=== PATIENT | male | born 1945 | race Caucasian/White ===

== ENCOUNTER 2016-05-19 14:13 | Inpatient (IN) | payer OTHER, MEDICARE ==
[2016-05-19 14:37] VITALS: BMI 28.4
--- NOTE | 2016-05-19 14:59 | PDOC ---
History of Present Illness - History of Present Illness Initial Comments: 05/19/16 15:10 The patient is a 71 year old male with a past medical hx of HTN, afib, lung disease, s/p three cardiac stents who presents to the ED complaining of shortness of breath for one week. The patient reports his shortness of breath progressively worsened over the weekend. He states his PCP increased his Prednisone, but he is still feeling short of breath. The patient reports he is oxygen dependent at home. The patient denies chest pain The patient denies fever, chills The patient denies nausea, vomiting, diarrhea Allergies: NKDA Social: Former smoker Surgical: Appendectomy, Cardiac: 3 stents PCP: Dr. Karla Osborne <Leandra Jacob - Last Filed: 05/19/16 16:39> <Janes Vargas - Last Filed: 05/19/16 17:19> <Jay Sanchez - Last Filed: 05/19/16 18:14> - General Chief Complaint: Shortness of Breath Stated Complaint: SOB Past History <Leandra Jacob - Last Filed: 05/19/16 16:39> - Past Medical History Cardiac Disorders: Yes (NSTEMI) COPD: Yes HTN: Yes Hypercholesterolemia: Yes - Surgical History Appendectomy: Yes Cardiac Surgery: Yes (3 STENTS PLACED) - Immunization History Immunization Up to Date: Yes - Psycho/Social/Smoking Cessation Hx Anxiety: No Suicidal Ideation: No Smoking History: Former smoker Have you smoked in the past 12 months: No If you are a former smoker, when did you quit?: 30 yrs ago, after 10 pack-year hx Information on smoking cessation initiated: No Hx Alcohol Use: No Drug/Substance Use Hx: No Substance Use Type: None Hx Substance Use Treatment: No <Janes Vargas - Last Filed: 05/19/16 17:19> <Jay Sanchez - Last Filed: 05/19/16 18:14> - Past Medical History Allergies/Adverse Reactions: Allergies Allergy/AdvReac Type Severity Reaction Status Date / Time No Known Allergies Allergy Verified 05/19/16 14:33 Home Medications: Ambulatory Orders Aspirin [ASA -] 81 mg PO DAILY 02/04/16 Atorvastatin Ca [Lipitor] 40 mg PO HS 02/04/16 Lisinopril [Zestril] 2.5 mg PO DAILY 02/04/16 Metoprolol Succinate [Toprol XL -] 50 mg PO DAILY 02/04/16 Montelukast Na [Singulair -] 10 mg PO HS 02/04/16 Pantoprazole Sodium [Protonix] 40 mg PO DAILY 02/04/16 Prasugrel HCl [Effient] 5 mg PO DAILY 02/04/16 Warfarin Sodium [Coumadin] 5 mg PO DAILY 02/04/16 Mycophenolate Mofetil [Cellcept] 250 mg PO BID 05/19/16 Prednisone 15 mg PO UTDICT 05/19/16 Review of Systems - Review of Systems Able to Perform ROS?: Yes Comments:: 05/19/16 15:10 CONSTITUTIONAL: Absent: fever, chills, diaphoresis, generalized weakness, malaise, loss of appetite HEENT: Absent: rhinorrhea, nasal congestion, throat pain, throat swelling, difficulty swallowing, mouth swelling, ear pain, eye pain, visual Changes CARDIOVASCULAR: Absent: chest pain, syncope, palpitations, irregular heart rate, lightheadedness , peripheral edema RESPIRATORY: +Shortness of breath. Absent: cough, orthopnea, wheezing, stridor, hemoptysis GASTROINTESTINAL: Absent: abdominal pain, abdominal distension, nausea, vomiting, diarrhea, constipation, melena, hematochezia GENITOURINARY: Absent: dysuria, frequency, urgency, hesitancy, hematuria, flank pain, genital pain MUSCULOSKELETAL: Absent: myalgia, arthralgia, joint swelling SKIN: Absent: rash, itching, pallor NEUROLOGIC: Absent: headache, focal weakness or paresthesias, dizziness, unsteady gait, seizure, mental status changes, bladder or bowel incontinence PSYCHIATRIC: Absent: anxiety, depression, suicidal or homicidal ideation, hallucinations. <Leandra Jacob - Last Filed: 05/19/16 16:39> *Physical Exam - Vital Signs Last Vital Signs Temp Pulse Resp BP Pulse Ox 97.7 F 61 22 109/55 91 L 05/19/16 14:33 05/19/16 14:33 05/19/16 14:33 05/19/16 14:33 05/19/16 14:33 - Physical Exam Comments: 05/19/16 15:11 GENERAL: Well developed, well nourished. Awake and alert. In no acute distress. HEENT: Normocephalic, atraumatic. PERRLA, EOMI. No conjunctival pallor. Sclera are non- icteric. Moist mucous membranes. Oropharynx is clear. NECK: Supple. Full ROM. No JVD. Carotid pulses 2+ and symmetric, without bruits. No thyromegaly. No lymphadenopathy. CARDIOVASCULAR: Regular rate and rhythm. No murmurs, rubs, or gallops. Distal pulses are 2+ and symmetric. PULMONARY: +Diffuse rales. No wheezing. ABDOMINAL: Soft. Non-tender. Non-distended. No rebound or guarding. No organomegaly. Normoactive bowel sounds. MUSCULOSKELETAL Normal range of motion at all joints. No bony deformities or tenderness. No CVA tenderness. EXTREMITIES: +Bilateral lower extremity 2+ pitting edema. No cyanosis. No clubbing. No calf tenderness. SKIN: Warm and dry. Normal capillary refill. No rashes. No jaundice. NEUROLOGICAL: Alert, awake, appropriate. Cranial nerves 2-12 intact. No deficits to light touch and temperature in face, upper extremities and lower extremities. No motor deficits in the in face, upper extremities and lower extremities. Normal speech. PSYCHIATRIC: Cooperative. Good eye contact. Appropriate mood and affect. <Leandra Jacob - Last Filed: 05/19/16 16:39> - Vital Signs Last Vital Signs Temp Pulse Resp BP Pulse Ox 97.7 F 61 22 109/55 91 L 05/19/16 14:33 05/19/16 14:33 05/19/16 14:33 05/19/16 14:33 05/19/16 14:33 <Janes Vargas - Last Filed: 05/19/16 17:19> - Vital Signs Last Vital Signs Temp Pulse Resp BP Pulse Ox 97.7 F 118 H 31 H 101/63 95 05/19/16 14:33 05/19/16 17:12 05/19/16 17:12 05/19/16 17:12 05/19/16 17:12 <Jay Sanchez - Last Filed: 05/19/16 18:14> ED Treatment Course - LABORATORY CBC & Chemistry Diagram: 05/19/16 15:12 05/19/16 15:12 <Leandra Jacob - Last Filed: 05/19/16 16:39> - LABORATORY CBC & Chemistry Diagram: 05/19/16 15:12 05/19/16 15:12 <Janes Vargas - Last Filed: 05/19/16 17:19> - LABORATORY CBC & Chemistry Diagram: 05/19/16 15:12 05/19/16 15:12 - ADDITIONAL ORDERS Additional order review: Laboratory Results 05/19/16 05/19/16 05/19/16 15:40 15:12 15:12 D-Dimer 844 H Puncture Site Right radial ABG pH 7.45 ABG pCO2 at Pt Temp 33.5 L ABG pO2 at Pt Temp 81.3 ABG HCO3 23.0 ABG O2 Sat (Measured) 96.4 ABG O2 Content 17.5 ABG Base Excess 0.1 Gonzalo Test Positive O2 Delivery Device Nasal Oxygen Flow Rate 4l PEEP 0.0 Sodium 138 Potassium 4.5 Chloride 101 Carbon Dioxide 26 Anion Gap 11 BUN 37 H D Creatinine 1.6 H D Creat Clearance w eGFR 42.70 Random Glucose 140 H D Calcium 8.1 L Total Bilirubin 0.8 D AST 27 D ALT 28 D Alkaline Phosphatase 91 Creatine Kinase 44 Troponin I < 0.02 B-Natriuretic Peptide 4138.23 H Total Protein 7.0 Albumin 2.8 L 05/19/16 17:00 Influenza Types A,B Antigen (JESSICA) - Final Nasopharyngeal Swab - Final 05/19/16 15:12 RBC 4.62 MCV 86.4 MCHC 32.8 RDW 17.1 H MPV 7.5 Neutrophils % 87.0 H Lymphocytes % 5.0 L D Monocytes % 6.0 - Medications Given in the ED: ED Medications Discontinued Medications Generic Name Dose Route Start Last Admin Trade Name Freq PRN Reason Stop Dose Admin Furosemide 40 mg 05/19/16 16:32 05/19/16 17:32 Lasix Injection - IVPUSH 05/19/16 16:33 40 mg ONCE ONE Administration Azithromycin 500 mg/ Dextrose 250 mls @ 250 mls/hr 05/19/16 16:33 05/19/16 17: 04 IVPB 05/19/16 17:32 250 mls/hr ONCE ONE Administration Metoprolol Tartrate 5 mg 05/19/16 15:57 05/19/16 16:05 Lopressor Injection - IVPUSH 05/19/16 15:58 5 mg ONCE ONE Administration <Jay Sanchez - Last Filed: 05/19/16 18:14> Medical Decision Making - Medical Decision Making 05/19/16 16:35 CXR looks like CHF + pneumonia, tx with lasix and IV antibiotics. <Janes Vargas - Last Filed: 05/19/16 17:19> *DC/Admit/Observation/Transfer - Attestations Scribe Attestion: 05/19/16 15:10 Documentation prepared by Leandra Jacob, acting as medical technologist generalist for Janes Vargas MD, MD/DO. <Leandra Jacob - Last Filed: 05/19/16 16:39> - Discharge Dispostion Admit: Yes <Janes Vargas - Last Filed: 05/19/16 17:19> - Discharge Dispostion Admit: Yes <Jay Sanchez - Last Filed: 05/19/16 18:14> Diagnosis at time of Disposition: Acute on chronic combined systolic and diastolic CHF (congestive heart failure) , Interstitial lung disease Atrial fibrillation Qualifiers: Atrial fibrillation type: chronic Qualified Code(s): I48.2 - Chronic atrial fibrillation Pneumonia Qualifiers: Pneumonia type: due to unspecified organism Laterality: unspecified laterality Lung location: unspecified part of lung Qualified Code(s): J18.9 - Pneumonia, unspecified organism - Discharge Dispostion Condition at time of disposition: Guarded - Referrals Referrals: Karla Osborne MD [Primary Care Provider] -
[2016-05-19 15:53] LABS: MCH 28.3 pg (25.7-33.7); MCHC 32.8 g/dl (32.0-35.9); MEAN CELL VOLUME 86.4 fl (80-96); MEAN PLT VOLUME 7.5 fl (7.5-11.1); PLATELET COUNT 315 K/MM3 (134-434); RDW 17.1 % (11.9-15.9); WHITE BLOOD COUNT 19.7 K/mm3 (4.0-10.0)
[2016-05-19 15:56] LABS: ARTERIAL BLD GAS O2 SATURATION 96.4 % (90-98.9); ARTERIAL BLOOD GAS BASE EXCESS 0.1 meq/l (-2-2); ARTERIAL BLOOD GAS PO2 81.3 mmHg (70-100); ARTERIAL BLOOD GAS pH 7.45 (7.35-7.45)
[2016-05-19 15:57] LABS: ALLENS TEST POSITIVE; ART PUNCT SITE RIGHT RADIAL; LPM/O2% 4L; PT. ON O2? YES; TYPE OF O2 NASAL
[2016-05-19] MEDS ORDERED: METOPROLOL TARTRATE 5 MG/5 ML VIAL IVPUSH ONE (15:57)
[2016-05-19] MEDS ORDERED: METOPROLOL TARTRATE 5 MG/5 ML VIAL ONE (16:01)
[2016-05-19 16:17] LABS: ALBUMIN 2.8 g/dl (3.4-5.0); ANION GAP 11 (8-16); BILIRUBIN,TOTAL 0.8 mg/dL (0.2-1.0); CALCIUM 8.1 mg/dL (8.5-10.1); CO2 26 mmol/L (21-32); CREATININE 1.6 mg/dL (0.7-1.3); GLUCOSE,RANDOM 140 mg/dL (74-106); SGOT/AST 27 U/L (15-37); SGPT/ALT 28 U/L (12-78)
[2016-05-19 16:20] LABS: ALK PHOS 91 U/L (45-117); TROPONIN I < 0.02 ng/ml (0.00-0.05)
[2016-05-19] MEDS ORDERED: FUROSEMIDE 40 MG/4 ML INJECTABLE VIAL IVPUSH ONE (16:32)
[2016-05-19] MEDS ORDERED: AZITHROMYCIN IVPB 500 MG in DEXTROSE 5%-WATER - 250 ML IVPB ONE (16:33)
[2016-05-19] MEDS ORDERED: VANCOMYCIN 1,000 MG in DEXTROSE 5%-WATER - 250 ML IVPB ONE (16:33)
[2016-05-19] MEDS ORDERED: AZITHROMYCIN IVPB 250 ML IVPB ONE (16:51)
[2016-05-19] MEDS ORDERED: VANCOMYCIN 1 GRAM (PRE-DOCKED) 250 ML IVPB ONE (16:51)
[2016-05-19] MEDS ORDERED: FUROSEMIDE 40 MG/4 ML INJECTABLE VIAL ONE (16:52)
[2016-05-19] MEDS: SODIUM CHLORIDE 1,000 ML IV SCH ×2 (17:04→23:00)
[2016-05-19 17:21] LABS: PLATELET ESTIMATE ADEQUATE (NORMAL)
[2016-05-19] MEDS ORDERED: methylPREDNISolone NA SUCC 40 MG/1 ML VIAL IVPB ONE (17:50)
[2016-05-19] MEDS ORDERED: methylPREDNISolone NA SUCC 40 MG/1 ML VIAL ONE (18:38)
[2016-05-19] MEDS: MYCOPHENOLATE MOFETIL 500 MG TABLET PO SCH (23:00)
[2016-05-19] MEDS: ATORVASTATIN CA 40 MG TABLET (FP) PO SCH (23:00)
[2016-05-19] MEDS: methylPREDNISolone NA SUCC 40 MG/1 ML VIAL IVPB SCH (23:00)
[2016-05-19] MEDS: MONTELUKAST NA 10 MG TABLET PO SCH (23:00)
[2016-05-20 08:46] LABS: INR 2.74 (0.82-1.09); PROTHROMBIN TIME (PATIENT) 30.8 SEC (9.98-11.88)
[2016-05-20] MEDS ORDERED: PT OWN MED DRAWER 7, Y5N ONE ×3 (09:09→21:12)
[2016-05-20] MEDS: ASPIRIN COATED 81 MG TABLET.EC PO SCH (09:21)
[2016-05-20] MEDS: MYCOPHENOLATE MOFETIL 500 MG TABLET PO SCH ×2 (09:21→21:23)
[2016-05-20] MEDS: methylPREDNISolone NA SUCC 40 MG/1 ML VIAL IVPB SCH ×3 (09:21→21:22)
[2016-05-20] MEDS: PRASUGREL HCL 5 MG TAB PO SCH (09:21)
[2016-05-20] MEDS: SODIUM CHLORIDE 1,000 ML IV SCH ×2 (09:22→21:24)
[2016-05-20] MEDS: PANTOPRAZOLE 40 MG TABLET (FP) PO SCH (09:22)
--- NOTE | 2016-05-20 10:11 | EKG ---
Test Reason : Blood Pressure : / mmHG Vent. Rate : 125 BPM Atrial Rate : 117 BPM P-R Int : 000 ms QRS Dur : 090 ms QT Int : 318 ms P-R-T Axes : 000 -15 -24 degrees QTc Int : 458 ms ATRIAL FIBRILLATION WITH RAPID VENTRICULAR RESPONSE MINIMAL VOLTAGE CRITERIA FOR LVH, MAY BE NORMAL VARIANT NONSPECIFIC ST ABNORMALITY ABNORMAL ECG WHEN COMPARED WITH ECG OF 04-FEB-2016 14:41, NO SIGNIFICANT CHANGE WAS FOUND Confirmed by SILVIA LIN MD ([id number]) on 05/20/2016 10:10:57 AM Referred By: Confirmed By:SILVIA LIN MD
[2016-05-20] MEDS ORDERED: ALBUTEROL SO4 0.083% IH SOL 2.5 MG/3 ML VIAL.NEB. NEB PRN (11:39)
--- NOTE | 2016-05-20 11:46 | PN ---
Progress Note (short form) - Note Progress Note: PULMONARY CONSULTATION DICTATED 05/20/16 IMP ACUTE ON CHRONIC HYPOXEMIC RESPIRATORY FAILURE ADVANCED INTERSTITIAL LUNG DISEASE/PULMONARY FIBROSIS O2 DEPENDENT URI ASHD S/P MS,S/P STENTS X 3 AFIB CHF HTN PLAN IV STEROIDS INHALED BRONCHODILATORS O2 ANTIBIOTICS START BACTRIM DS 1 TAB PO DAILY FOR PCP PROPHYLAXIS CONTINUE CELLCEPT LASIX COUMADIN PER INR RATE CONTROL F/U CHEST X-RAY DR SAMANIEGO Problem List - Problems (1) Atrial fibrillation Code(s): I48.91 - UNSPECIFIED ATRIAL FIBRILLATION Qualifiers: Atrial fibrillation type: chronic Qualified Code(s): I48.2 - Chronic atrial fibrillation (2) Interstitial lung disease Code(s): J84.9 - INTERSTITIAL PULMONARY DISEASE, UNSPECIFIED (3) Atrial fibrillation with RVR Code(s): I48.91 - UNSPECIFIED ATRIAL FIBRILLATION (4) CAD (coronary artery disease) Code(s): I25.10 - ATHSCL HEART DISEASE OF [place] CORONARY ARTERY W/O ANG PCTRS (5) CHF (congestive heart failure) Code(s): I50.9 - HEART FAILURE, UNSPECIFIED Qualifiers: Congestive heart failure type: unspecified congestive heart failure type Congestive heart failure chronicity: acute Qualified Code(s): I50.9 - Heart failure, unspecified (6) Dyspnea Code(s): R06.00 - DYSPNEA, UNSPECIFIED (7) NSTEMI (non-ST elevated myocardial infarction) Code(s): I21.4 - NON-ST ELEVATION (NSTEMI) MYOCARDIAL INFARCTION (8) Acute on chronic respiratory failure with hypoxemia Code(s): J96.21 - ACUTE AND CHRONIC RESPIRATORY FAILURE WITH HYPOXIA
--- NOTE | 2016-05-20 11:58 | HP ---
Admitting History and Physical - Primary Care Physician PCP: Karla Osborne - Admission Chief Complaint: I have pneumonia History of Present Illness: Mr Yadav is a very pleasant 71 year old male who comes in with shortness of breath and productive cough. He says he started to feel short of breath 7 days ago, however he felt it was just a cold and waited for it to resolve. However he continued to worsen. He spoke with Dr Brooks on Monday who recommended he come in to the hospital, however at that time Mr Yadav preferred to stay home. He continued to have worsening shortness of breath to the point he felt like he could not breathe. He also had increasing cough, the cough was so severe he was unable to sleep at night. At this point he presented for shortness of breath. He denies fevers, chills, chest pain, abdominal pain, nausea, vomiting, diarrhea , constipation, difficulty or pain on urination, or swelling. History Source: Patient Limitations to Obtaining History: No Limitations - Past Medical History Cardiovascular: Yes: AFIB, CAD, HTN Pulmonary: Yes: Other (interstitial lung disease) - Past Surgical History Past Surgical History: Yes: Appendectomy, Tonsillectomy - Smoking History Smoking history: Former smoker Have you smoked in the past 12 months: No If you are a former smoker, when did you quit?: 30 yrs ago, after 10 pack-year hx - Alcohol/Substance Use Hx Alcohol Use: No History of Substance Use: reports: None - Social History Usual Living Arrangement: Yes: With Spouse ADL: Independent History of Recent Travel: No Home Medications - Allergies Allergies/Adverse Reactions: Allergies Allergy/AdvReac Type Severity Reaction Status Date / Time No Known Allergies Allergy Verified 05/19/16 14:33 - Home Medications Home Medications: Ambulatory Orders Aspirin [ASA -] 81 mg PO DAILY 02/04/16 Atorvastatin Ca [Lipitor] 40 mg PO HS 02/04/16 Lisinopril [Zestril] 2.5 mg PO DAILY 02/04/16 Metoprolol Succinate [Toprol XL -] 100 mg PO DAILY 02/04/16 Montelukast Na [Singulair -] 15 mg PO HS 02/04/16 Pantoprazole Sodium [Protonix] 40 mg PO DAILY 02/04/16 Prasugrel HCl [Effient] 5 mg PO DAILY 02/04/16 Warfarin Sodium [Coumadin] 5 mg PO 02/04/16 Furosemide 05/19/16 Mycophenolate Mofetil [Cellcept] 500 mg PO BID 05/19/16 Prednisone 40 mg PO DAILY 05/19/16 Warfarin Sodium [Coumadin] 2.5 mg 05/19/16 Family Disease History - Family Disease History Family Disease History: Heart Disease: Father (ID at 49yo), Sister (2 valve replacements, breast CA), CA: Mother (leukemia), Sister Review of Systems Findings/Remarks: Full review of system obtained, as per HPI and otherwise negative. Physical Examination Vital Signs: Vital Signs Temperature 97.4 F L 05/20/16 09:00 Pulse Rate 127 H 05/20/16 09:00 Respiratory Rate 22 05/20/16 09:00 Blood Pressure 101/58 05/20/16 09:00 O2 Sat by Pulse Oximetry (%) 92 L 05/19/16 20:30 Constitutional: Yes: Well Nourished, No Distress, Calm Eyes: Yes: Conjunctiva Clear, EOM Intact HENT: Yes: Atraumatic, Normocephalic Cardiovascular: Yes: Tachycardia, Pulse Irregular. No: Gallop, Murmur, Rub Respiratory: Yes: Regular, On Nasal O2, Rhonchi. No: Rales, Wheezes Gastrointestinal: Yes: Normal Bowel Sounds, Soft. No: Distention, Tenderness Extremities: Yes: WNL Edema: No Labs: Laboratory Results - last 24 hr 05/19/16 05/19/16 05/20/16 15:12 15:12 06:50 Neutrophils % 87.0 H Lymphocytes % 5.0 L D Monocytes % 6.0 Band Neutrophils 1.0 Myelocytes 1 Differential Comment Manual diff done Platelet Estimate Adequate Morphology Comment Slide scanned INR 2.74 H D D-Dimer 844 H Sodium Potassium Chloride Carbon Dioxide Anion Gap BUN Creatinine Random Glucose Calcium 05/20/16 11:59 Neutrophils % Lymphocytes % Monocytes % Band Neutrophils Myelocytes Differential Comment Platelet Estimate Morphology Comment INR D-Dimer Sodium 140 Potassium 5.4 H Chloride 104 Carbon Dioxide 28 Anion Gap 8 BUN 34 H Creatinine 1.1 D Random Glucose 132 H Calcium 7.6 L Imaging - Results Chest X-ray: Report Reviewed, Image Reviewed Problem List - Problems (1) Pneumonia Assessment/Plan: -most likely community acquired pneumonia -will place on rocephin and zithromax -however patient is complicated with ILD -for this reason, will consult ID to evaluate patient as may need different antibiotics -case d/w Dr Brooks, placing on bactrim for PCP prophylaxis since history of steroid use Code(s): J18.9 - PNEUMONIA, UNSPECIFIED ORGANISM Qualifiers: Pneumonia type: due to unspecified organism Laterality: unspecified laterality Lung location: unspecified part of lung Qualified Code(s): J18.9 - Pneumonia, unspecified organism (2) Atrial fibrillation Assessment/Plan: -with RVR -monitor on telemetry -continue coumadin, monitor INR -consult cardiology Code(s): I48.91 - UNSPECIFIED ATRIAL FIBRILLATION Qualifiers: Atrial fibrillation type: chronic Qualified Code(s): I48.2 - Chronic atrial fibrillation (3) Interstitial lung disease Assessment/Plan: -pulmonary following -on solumedrol -continue cellcept -continue albuterol and spiriva Code(s): J84.9 - INTERSTITIAL PULMONARY DISEASE, UNSPECIFIED (4) Acute on chronic respiratory failure with hypoxemia Assessment/Plan: -secondary to pneumonia -continue oxygen support -treatment as above Code(s): J96.21 - ACUTE AND CHRONIC RESPIRATORY FAILURE WITH HYPOXIA
[2016-05-20 12:14] LABS: CALCIUM 7.6 mg/dL (8.5-10.1); CREATININE 1.1 mg/dL (0.7-1.3)
--- NOTE | 2016-05-20 12:45 | CONS ---
DATE OF CONSULTATION: 05/20/2016 REFERRING PHYSICIAN: Avinash Ramírez MD HISTORY OF PRESENT ILLNESS: The patient is a 71-year-old white male known to me from previous office visits as well as hospitalizations with a past medical history of ASHD, status post stent x3, atrial fibrillation, interstitial lung disease, pulmonary fibrosis, O2 dependent, currently maintained on prednisone as well as CellCept, status post VA, hypercholesterolemia, hypertension, history of tobacco use many years ago, admitted to [facility] with complaint of increasing shortness of breath. Patient developed increasing respiratory shortness of breath last week at the time he called me, at which time he was advised to increase his prednisone dosage to 40 mg daily. He is normally taking 25. He called me yesterday and says his symptoms are worsening and are increasing in severity, at which time he was advised to go to the emergency room. In the ER, he was treated with some Lasix as well as inhaled bronchodilators and IV steroids with good response and transfer up to the medical floor for further management. He denies any chest pain. Did have some chills. Denies any nausea, vomiting, diaphoresis. Denied any hemoptysis. He has a cough which is nonproductive. Denies any chest pains or palpitations. PAST MEDICAL HISTORY: Again includes advanced interstitial lung disease, pulmonary fibrosis, currently on CellCept 500 mg b.i.d., prednisone 40 mg daily b.i.d., Lipitor, Zestril, Toprol XL, Coumadin. CURRENT MEDICATIONS: Include Solu-Medrol 80 b.i.d., Coumadin, Lipitor, CellCept , Singulair, Ecotrin, Effient, and Protonix. REVIEW OF SYSTEMS: Positive dyspnea. Positive orthopnea. No chest pain. No palpitations. Positive chills. Positive cough. No sputum. No abdominal pain. No lower extremity edema. PHYSICAL EXAMINATION:General: The patient is a well-developed, well-nourished male, awake, alert, currently in no acute respiratory distress. Vital Signs: He is currently afebrile, blood pressure is 101/58, respiratory rate is 22, heart rate is 127 and irregular. HEENT: Normocephalic, atraumatic. Neck: Supple. Heart: Irregularly irregular. Normal S1, S2. Chest: Bilateral crackles throughout. Abdomen: Soft. Bowel sounds are positive. Extremities: No cyanosis or edema. LABORATORY DATA: WBC is 19.7, hemoglobin 13.1, hematocrit 39.9, with a platelet count of 315,000. INR is 2.74. His blood gas: PH of 7.45, PCO2 of 33.5, PO2 is 81.3, bicarbonate is 23, and a saturation of 96.4. Chest x-ray reveals cardiomegaly, extensive chronic interstitial lung disease, mild congestion. IMPRESSION: 1. Acute on chronic hypoxemic respiratory failure secondary to advanced interstitial lung disease, pulmonary fibrosis. 2. Rule out possible mild congestive heart failure. 3. Atherosclerotic heart disease, status post stents, status post myocardial infarction. 4. Hypertension. 5. Hypercholesterolemia. 6. Atrial fibrillation. PLAN: IV steroids. Inhaled bronchodilators. Supplemental O2. Continue CellCept. Obtain followup chest x-rays. Will also start Bactrim double strength1 tab TIW for PCP prophylaxis. Thank you. LAYLA SAMANIEGO M.D. MARIA [id number] MTDD
[2016-05-20] MEDS: TIOTROPIUM BROMIDE 18 MCG/INH (DEVICE W/ 5 CAPSULES) IH SCH (12:59)
[2016-05-20] MEDS: SULFAMETHOXAZOLE/TRIMETHOPRIM 800MG/160MG D.S. TABLET PO SCH (12:59)
[2016-05-20] MEDS ORDERED: METOPROLOL SUCCINATE 50 MG TAB.SR.24H (FP) PO SCH (15:15)
--- NOTE | 2016-05-20 15:18 | CON.CARD ---
Consult Consult Specialty:: cardiology Reason for Consultation:: shortness of breath; AF; diastolic CHF; ILD - History of Present Illness Chief Complaint: Pt OOB in chair; dyspnea on minmal exertion History of Present Illness: The patient is a 71 year old white male with a past medical hx of HTN, afib, severe interstitial lung disease (ILD) (followed by Dr. Brooks), CAD-->three cardiac stents in 2015, who presents to the ED complaining of shortness of breath for one week. The patient reports his shortness of breath progressively worsened over the weekend. He states his PCP increased his Prednisone, but he is still feeling short of breath. The patient reports he is oxygen dependent at home. The patient denies chest pain The patient denies fever, chills The patient denies nausea, vomiting, diarrhea Allergies: NKDA Social: Former smoker Surgical: Appendectomy, Cardiac: 3 stents PCP: Dr. Karla Osborne Radio Repairer Domestic: Dr. Anabela Auguste Pulmonologis: Dr. Bella Brooks - History Source History Provided By: Patient, Medical Record - Past Medical History Cardio/Vascular: Yes: AFIB, CAD, HTN Pulmonary: Yes: Other (interstitial lung disease) Psych: Yes: Anxiety, Depression - Past Surgical History Past Surgical History: Yes: Appendectomy, Tonsillectomy - Alcohol/Substance Use Hx Alcohol Use: No History of Substance Use: reports: None - Smoking History Smoking history: Former smoker Have you smoked in the past 12 months: No If you are a former smoker, when did you quit?: 30 yrs ago, after 10 pack-year hx - Social History ADL: Independent History of Recent Travel: No Home Medications - Allergies Allergies/Adverse Reactions: Allergies Allergy/AdvReac Type Severity Reaction Status Date / Time No Known Allergies Allergy Verified 05/19/16 14:33 - Home Medications Home Medications: Ambulatory Orders Aspirin [ASA -] 81 mg PO DAILY 02/04/16 Atorvastatin Ca [Lipitor] 40 mg PO HS 02/04/16 Lisinopril [Zestril] 2.5 mg PO DAILY 02/04/16 Metoprolol Succinate [Toprol XL -] 100 mg PO DAILY 02/04/16 Montelukast Na [Singulair -] 15 mg PO HS 02/04/16 Pantoprazole Sodium [Protonix] 40 mg PO DAILY 02/04/16 Prasugrel HCl [Effient] 5 mg PO DAILY 02/04/16 Warfarin Sodium [Coumadin] 5 mg PO 02/04/16 Furosemide 05/19/16 Mycophenolate Mofetil [Cellcept] 500 mg PO BID 05/19/16 Prednisone 40 mg PO DAILY 05/19/16 Warfarin Sodium [Coumadin] 2.5 mg 05/19/16 Family Disease History - Family Disease History Family Disease History: Heart Disease: Father (ID at 49yo), Sister (2 valve replacements, breast CA), CA: Mother (leukemia), Sister Review of Systems - Review of Systems Constitutional: reports: Weakness Eyes: reports: No Symptoms HENT: reports: No Symptoms Neck: reports: No Symptoms Cardiovascular: reports: Shortness of Breath Respiratory: reports: SOB Gastrointestinal: reports: No Symptoms Genitourinary: reports: No Symptoms Breasts: reports: No Symptoms Reported Musculoskeletal: reports: Muscle Weakness Integumentary: reports: No Symptoms Neurological: reports: Weakness Endocrine: reports: No Symptoms Hematology/Lymphatic: reports: No Symptoms Psychiatric: reports: Anxiety, Depression - Risk Factors Known Risk Factors: Yes: Age, Gender, Physical Inactivity, Smoking, Other ( severe ILD; diastolic CHF) Vital Signs: Vital Signs Temperature 97.4 F L 05/20/16 14:00 Pulse Rate 102 H 05/20/16 14:00 Respiratory Rate 22 05/20/16 14:00 Blood Pressure 93/51 05/20/16 14:00 O2 Sat by Pulse Oximetry (%) 95 05/20/16 09:00 Constitutional: Yes: Anxious, Thin Eyes: Yes: WNL HENT: Yes: WNL Neck: Yes: WNL Respiratory: Yes: Diminished, Poor Air Entry, SOB Gastrointestinal: Yes: Soft Renal/: No: Anuria Cardiovascular: Yes: Tachycardia, Pulse Irregular JVD: No Carotid Bruit: No PMI: Non-Displaced Heart Sounds: Yes: S1 (varies in intensity) Murmur: Yes: Systolic Murmur, Grade 2 Musculoskeletal: Yes: Muscle Weakness Extremities: Yes: Cool Edema: No Peripheral Pulses WNL: Yes Integumentary: Yes: WNL Neurological: Yes: Alert, Oriented, Weakness Psychiatric: Yes: Alert, Oriented - Other Data Labs, Other Data: CBC, BMP 05/20/16 11:59 INR, PTT INR 2.74 (0.82-1.09) H D 05/20/16 06:50 Abnormal Lab Results 05/19/16 05/19/16 05/19/16 15:12 15:12 15:12 WBC 19.7 H RDW 17.1 H Neutrophils % 87.0 H Lymphocytes % 5.0 L D INR D-Dimer 844 H ABG pCO2 at Pt Temp Potassium BUN 37 H D Creatinine 1.6 H D Random Glucose 140 H D Calcium 8.1 L B-Natriuretic Peptide 4138.23 H Albumin 2.8 L 05/19/16 05/20/16 05/20/16 15:40 06:50 11:59 WBC RDW Neutrophils % Lymphocytes % INR 2.74 H D D-Dimer ABG pCO2 at Pt Temp 33.5 L Potassium 5.4 H BUN 34 H Creatinine Random Glucose 132 H Calcium 7.6 L B-Natriuretic Peptide Albumin Abnormal Lab Results 05/19/16 05/19/16 05/19/16 15:12 15:12 15:12 WBC 19.7 H RDW 17.1 H Neutrophils % 87.0 H Lymphocytes % 5.0 L D INR D-Dimer 844 H ABG pCO2 at Pt Temp Potassium BUN 37 H D Creatinine 1.6 H D Random Glucose 140 H D Calcium 8.1 L B-Natriuretic Peptide 4138.23 H Albumin 2.8 L 05/19/16 05/20/16 05/20/16 15:40 06:50 11:59 WBC RDW Neutrophils % Lymphocytes % INR 2.74 H D D-Dimer ABG pCO2 at Pt Temp 33.5 L Potassium 5.4 H BUN 34 H Creatinine Random Glucose 132 H Calcium 7.6 L B-Natriuretic Peptide Albumin Echo: Pending Prior Cardiac Procedures: PTCA with Stent Ejection Fraction %: LVEF > or = 40 % Imaging - Results Chest X-ray: Image Reviewed (extensive IS changes) Problem List - Problems (1) Acute on chronic respiratory failure with hypoxemia Code(s): J96.21 - ACUTE AND CHRONIC RESPIRATORY FAILURE WITH HYPOXIA (2) Interstitial lung disease Assessment/Plan: F/u with audiovisual lead technician. Code(s): J84.9 - INTERSTITIAL PULMONARY DISEASE, UNSPECIFIED (3) Pneumonia Assessment/Plan: On antibiotics per ID and audiovisual lead technician. Code(s): J18.9 - PNEUMONIA, UNSPECIFIED ORGANISM Qualifiers: Pneumonia type: due to unspecified organism Laterality: unspecified laterality Lung location: unspecified part of lung Qualified Code(s): J18.9 - Pneumonia, unspecified organism (4) Atrial fibrillation with RVR Assessment/Plan: Restart metoprolol ER (was on metoprolol ER 100 mg daily; will start 50 mg daily and f/u HR and BP). On anicoagulation (warfarin). INR 2.74; keep in "low 2'S" (also on ASA and lowered-dose Effient). Code(s): I48.91 - UNSPECIFIED ATRIAL FIBRILLATION (5) CAD (coronary artery disease) Code(s): I25.10 - ATHSCL HEART DISEASE OF [place] CORONARY ARTERY W/O ANG PCTRS (7) Acute on chronic diastolic CHF (congestive heart failure) Assessment/Plan: ECHO today: normal LVEF; mildly reduced RVEF; septal flattening (evidence of RV overload); moderate MR and TR (with mild-moderate pulmonary HTN); mild AR. Continue carvediolol and spironolactone; restart lisinopril if renal function allows; f/u BUN/Cr and electrolytes; Is and Os; daily weight. Furosemide held due to rising BUN/Cr; restarted if necessary. Code(s): I50.33 - ACUTE ON CHRONIC DIASTOLIC (CONGESTIVE) HEART FAILURE
[2016-05-20] MEDS ORDERED: CEFTRIAXONE 1 GM in DEXTROSE 5%-WATER - 50 ML IVPB SCH (16:45)
[2016-05-20] MEDS ORDERED: METOPROLOL SUCCINATE 50 MG TAB.SR.24H (FP) ONE (17:28)
[2016-05-20] MEDS: METOPROLOL SUCCINATE 50 MG TAB.SR.24H (FP) PO SCH (17:48)
[2016-05-20] MEDS: cefTRIAXone 1 GM/50 ML BAG (PRE-DOCKED) IVPB SCH (17:48)
[2016-05-20] MEDS: AZITHROMYCIN IVPB 250 MG in DEXTROSE 5%-WATER - 250 ML IVPB SCH (17:49)
[2016-05-20] MEDS ORDERED: WARFARIN NA 5 MG TABLET (UD) PO SCH (18:00)
[2016-05-20] MEDS: ATORVASTATIN CA 40 MG TABLET (FP) PO SCH (21:22)
[2016-05-20] MEDS: MONTELUKAST NA 10 MG TABLET PO SCH (21:23)
[2016-05-21] MEDS: methylPREDNISolone NA SUCC 40 MG/1 ML VIAL IVPB SCH ×4 (02:06→21:54)
[2016-05-21 07:27] LABS: BASOPHIL 0.1 % (0-2.0); MCH 28.4 pg (25.7-33.7); MCHC 32.8 g/dl (32.0-35.9); MEAN CELL VOLUME 86.7 fl (80-96); MEAN PLT VOLUME 7.4 fl (7.5-11.1); NEUTROPHILS 93.1 % (42.8-82.8); PLATELET COUNT 258 K/MM3 (134-434); RDW 16.2 % (11.9-15.9); WHITE BLOOD COUNT 17.5 K/mm3 (4.0-10.0)
[2016-05-21 07:54] LABS: INR 3.31 (0.82-1.09); PROTHROMBIN TIME (PATIENT) 37.3 SEC (9.98-11.88)
[2016-05-21] MEDS ORDERED: PT OWN MED DRAWER 7, Y5N ONE ×2 (08:25→21:11)
[2016-05-21 08:43] LABS: CREATININE 0.9 mg/dL (0.7-1.3); MAGNESIUM 2.5 mg/dL (1.8-2.4); PHOSPHOROUS 2.8 mg/dL (2.5-4.9)
--- NOTE | 2016-05-21 08:43 | PN ---
Progress Note, Physician Chief Complaint: Cardiology for [place] TELE: AFw/ average rate 100-110, rare bursts to 130s Denies chest pain - Current Medication List Current Medications: Active Medications Albuterol Sulfate (Ventolin 0.083% Nebulizer Soln -) 1 amp NEB Q4H PRN PRN Reason: SHORT OF BREATH/WHEEZING Aspirin (Ecotrin -) 81 mg PO DAILY [facility] Last Admin: 05/20/16 09:21 Dose: 81 mg Atorvastatin Calcium (Lipitor -) 40 mg PO HS [facility] Last Admin: 05/20/16 21:22 Dose: 40 mg Ceftriaxone Sodium (Rocephin 1gm Ivpb (Pre-Docked)) 1 gm IVPB DAILY [facility] Last Admin: 05/20/16 17:48 Dose: 1 gm Sodium Chloride (Normal Saline -) 1,000 mls @ 60 mls/hr IV ASDIR [facility] Last Admin: 05/20/16 21:24 Dose: 60 mls/hr Azithromycin 250 mg/ Dextrose 250 mls @ 250 mls/hr IVPB DAILY [facility] Last Admin: 05/20/16 17:49 Dose: 250 mls/hr Methylprednisolone Sodium Succinate (Solu-Medrol -) 40 mg IVPB Q6H-IV [facility] Last Admin: 05/21/16 02:06 Dose: 40 mg Metoprolol Succinate (Toprol Xl -) 50 mg PO DAILY [facility] Last Admin: 05/20/16 17:48 Dose: 50 mg Montelukast Sodium (Singulair -) 15 mg PO [facility] Last Admin: 05/20/16 21:23 Dose: 15 mg Mycophenolate Mofetil (Cellcept -) 500 mg PO BID [facility] Last Admin: 05/20/16 21:23 Dose: 500 mg Pantoprazole Sodium (Protonix -) 40 mg PO DAILY [facility] Last Admin: 05/20/16 09:22 Dose: 40 mg Prasugrel (Effient -) 5 mg PO DAILY [facility] Last Admin: 05/20/16 09:21 Dose: 5 mg Tiotropium [place] (Spiriva -) 1 puff IH DAILY [facility] Last Admin: 05/20/16 12:59 Dose: 1 puff Trimethoprim/Sulfamethoxazole (Bactrim Ds -) 1 each PO [email or web address] [facility] Last Admin: 05/20/16 12:59 Dose: 1 each Warfarin Sodium (Coumadin -) 5 mg PO [email or web address] [facility] Last Admin: 05/20/16 17:50 Dose: 5 mg Warfarin Sodium (Coumadin -) 2.5 mg PO [email or web address] [facility] - Objective Vital Signs: Vital Signs Temperature 97.6 F 05/21/16 06:14 Pulse Rate 108 H 05/21/16 06:14 Respiratory Rate 18 05/21/16 06:14 Blood Pressure 107/74 05/21/16 06:14 O2 Sat by Pulse Oximetry (%) 95 05/20/16 21:00 Constitutional: Yes: No Distress Cardiovascular: Yes: Pulse Irregular Respiratory: Yes: Other (dry rales bilaterally) Gastrointestinal: Yes: Soft Edema: No Neurological: Yes: Alert Labs: CBC, BMP 05/21/16 06:00 INR, PTT INR 3.31 (0.82-1.09) H 05/21/16 06:00 Laboratory Tests 05/21/16 05/21/16 05/21/16 06:00 06:00 06:00 WBC 17.5 H Hct 36.6 Plt Count 258 INR 3.31 H Potassium Pending Creatinine Pending - ....Imaging EKG: Image Reviewed Assessment/Plan 1. Pulmonary fibrosis 2. Chronic AF 3. CAD REC: 1. Hold coumadin today (INR >3) 2. Average heart rate 100-110bpm is acceptable, however, if occasional bursts into 130s continue or become prolonged then additional rate control will be needed. BP is low end of normal, so choice of agent may be difficult. Continue telemetry.
[2016-05-21] MEDS: PRASUGREL HCL 5 MG TAB PO SCH (10:01)
[2016-05-21] MEDS: cefTRIAXone 1 GM/50 ML BAG (PRE-DOCKED) IVPB SCH (10:01)
[2016-05-21] MEDS: PANTOPRAZOLE 40 MG TABLET (FP) PO SCH (10:02)
[2016-05-21] MEDS: TIOTROPIUM BROMIDE 18 MCG/INH (DEVICE W/ 5 CAPSULES) IH SCH (10:02)
[2016-05-21] MEDS: MYCOPHENOLATE MOFETIL 500 MG TABLET PO SCH ×2 (10:02→21:54)
[2016-05-21] MEDS: ASPIRIN COATED 81 MG TABLET.EC PO SCH (10:02)
[2016-05-21] MEDS: METOPROLOL SUCCINATE 50 MG TAB.SR.24H (FP) PO SCH (10:02)
--- NOTE | 2016-05-21 10:23 | PN ---
Progress Note (short form) - Note Progress Note: ID consult dictated imp/reccd 71 year old man with CAD- three stents most recent October 2015- on effient, afib, ILD diagnosed may 2015, no biopsy done due to Effient on home oxygen 4 liters on Cellcept since October (seen by pulmonary at [facility]), also prednisone 25 mg about two weeks ago began feeling tired, last Monday started coughing and had malaise, symptoms persisted and he called Dr Brooks on Monday hospital eval was reccd and prednisone was increased to 40, he did not come to hospital until - started on iv steroids and antibiotics reports feeling much better today better energy level denies fevers at home, +chills UTD on influenza and pneumonococcal vaccine no hemoptysis, yellow tinged sputum no recent antibiotics no history of TB no recent travel no construction no pets 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
[2016-05-21] MEDS: AZITHROMYCIN IVPB 250 MG in DEXTROSE 5%-WATER - 250 ML IVPB SCH (11:45)
--- NOTE | 2016-05-21 12:49 | PN ---
Progress Note (short form) - Note Progress Note: Breathing is about the same No fever No chest pain O/E Heart irregular Lungs few rales and rhonchi+ Abd soft Ext no edema Vital Signs Period Temp Pulse Resp BP Sys/Holt Pulse Ox Last 24 Hr 97.4 F-98.2 F 102-166 16-22 93-113/51-74 95-95 Current Medications Albuterol Sulfate (Ventolin 0.083% Nebulizer Soln -) 1 amp NEB Q4H PRN PRN Reason: SHORT OF BREATH/WHEEZING Aspirin (Ecotrin -) 81 mg PO DAILY [facility] Last Admin: 05/21/16 10:02 Dose: 81 mg Atorvastatin Calcium (Lipitor -) 40 mg PO HS [facility] Last Admin: 05/20/16 21:22 Dose: 40 mg Ceftriaxone Sodium (Rocephin 1gm Ivpb (Pre-Docked)) 1 gm IVPB DAILY [facility] Last Admin: 05/21/16 10:01 Dose: 1 gm Sodium Chloride (Normal Saline -) 1,000 mls @ 60 mls/hr IV ASDIR [facility] Last Admin: 05/20/16 21:24 Dose: 60 mls/hr Azithromycin 250 mg/ Dextrose 250 mls @ 250 mls/hr IVPB DAILY [facility] Last Admin: 05/21/16 11:45 Dose: 250 mls/hr Methylprednisolone Sodium Succinate (Solu-Medrol -) 40 mg IVPB Q6H-IV [facility] Last Admin: 05/21/16 10:03 Dose: 40 mg Metoprolol Succinate (Toprol Xl -) 50 mg PO DAILY [facility] Last Admin: 05/21/16 10:02 Dose: 50 mg Montelukast Sodium (Singulair -) 15 mg PO HS [facility] Last Admin: 05/20/16 21:23 Dose: 15 mg Mycophenolate Mofetil (Cellcept -) 500 mg PO BID [facility] Last Admin: 05/21/16 10:02 Dose: 500 mg Pantoprazole Sodium (Protonix -) 40 mg PO DAILY [facility] Last Admin: 05/21/16 10:02 Dose: 40 mg Prasugrel (Effient -) 5 mg PO DAILY [facility] Last Admin: 05/21/16 10:01 Dose: 5 mg Tiotropium [place] (Spiriva -) 1 puff IH DAILY [facility] Last Admin: 05/21/16 10:02 Dose: 1 puff Trimethoprim/Sulfamethoxazole (Bactrim Ds -) 1 each PO [email or web address] [facility] Last Admin: 05/20/16 12:59 Dose: 1 each Warfarin Sodium (Coumadin -) 5 mg PO [email or web address]@18 [facility] Last Admin: 05/20/16 17:50 Dose: 5 mg Warfarin Sodium (Coumadin -) 2.5 mg PO [email or web address] [facility] Laboratory Results - last 24 hr 05/21/16 05/21/16 05/21/16 06:00 06:00 06:00 WBC 17.5 H RBC 4.22 Hgb 12.0 Hct 36.6 MCV 86.7 MCHC 32.8 RDW 16.2 H Plt Count 258 MPV 7.4 L Neutrophils % 93.1 H Lymphocytes % 5.0 L Monocytes % 1.8 L Eosinophils % 0.0 D Basophils % 0.1 INR 3.31 H Sodium 139 Potassium 4.7 Chloride 103 Carbon Dioxide 25 Anion Gap 11 BUN 38 H Creatinine 0.9 Random Glucose 146 H Calcium 8.0 L Phosphorus 2.8 Magnesium 2.5 H - Problems (1) Pneumonia Assessment/Plan: Cont present ABX add Chest PT Code(s): J18.9 - PNEUMONIA, UNSPECIFIED ORGANISM Qualifiers: Pneumonia type: due to unspecified organism Laterality: unspecified laterality Lung location: unspecified part of lung Qualified Code(s): J18.9 - Pneumonia, unspecified organism (2) Atrial fibrillation Assessment/Plan: -monitor on telemetry -continue coumadin, monitor INR Hold coumadin today Code(s): I48.91 - UNSPECIFIED ATRIAL FIBRILLATION Qualifiers: Atrial fibrillation type: chronic Qualified Code(s): I48.2 - Chronic atrial fibrillation (3) Interstitial lung disease Assessment/Plan: Cont present care Code(s): J84.9 - INTERSTITIAL PULMONARY DISEASE, UNSPECIFIED (4) Acute on chronic respiratory failure with hypoxemia Assessment/Plan: -secondary to pneumonia -continue oxygen support -treatment as above Code(s): J96.21 - ACUTE AND CHRONIC RESPIRATORY FAILURE WITH HYPOXIA
--- NOTE | 2016-05-21 13:04 | PN ---
Progress Note (short form) - Note Progress Note: PULMONARY OOB TO CHAIR EATING LUNCH MODERATE SUBJECTIVE IMPROVEMENT VSS/AFEB/HR IRREG ANICTERIC SCATTERED B/L CRACKLES S1S2 IRREG BS+ SOFT DIMINISHED EDEMA LABS/MEDS/NOTES/IMAGING/MICRO REVIEWED IMP ACUTE ON CHRONIC HYPOXEMIC RESPIRATORY FAILURE ADVANCED INTERSTITIAL LUNG DISEASE/PULMONARY FIBROSIS O2 DEPENDENT URI ASHD S/P CT,S/P STENTS X 3 AFIB CHF HTN PLAN IV STEROIDS INHALED BRONCHODILATORS O2 ANTIBIOTICS BACTRIM DS 1 TAB PO DAILY FOR PCP PROPHYLAXIS CONTINUE CELLCEPT LASIX COUMADIN PER INR RATE CONTROL F/U CHEST X-RAY Jeffrey EDWARDS MD
--- NOTE | 2016-05-21 14:33 | CONS ---
DATE OF CONSULTATION: DATE OF DICTATION: 05/21/2016 REQUESTING PHYSICIAN: Avinash Ramírez MD HISTORY OF PRESENT ILLNESS: This is a 71-year-old man who has a history of interstitial lung disease who is followed by Dr. Brooks as an outpatient. He is admitted with worsening shortness of breath and productive cough and malaise. Patient has a history of ILD which he says was diagnosed in May 2015. He has been unable to have a lung biopsy as he is on Effient. He most recently had a stent placed in October 2015. He has had a workup for his ILD that includes an elevated rheumatoid factor. He was started on prednisone. 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 He was started on CellCept. He has been on home oxygen as well since at least the summer. He is on 4 L daily and he has been taking CellCept since October. He has also been on prednisone. The lowest dose is 25 mg which he has also been on since about July or so. He has not had a biopsy due to Effient use, but the diagnosis apparently is ILD, possibly secondary to connective tissue disorder. He about 2 weeks ago started noting generalized fatigue. Last Monday, he developed more cough with malaise and chills. There was no fever. This persisted through the weekend. He had first clear sputum which then became somewhat yellow and green tinged. There was no hemoptysis. On Monday, he spoke with Dr. Brooks and he was advised to increase his prednisone and he was advised to come to the hospital. He elected, he says, to stay home another 2 days. His breathing got worse. He called Dr. Brooks again and was readvised admission, which he then did. In the emergency room, he was given some Lasix as well as inhaled bronchodilators, IV steroids with some improvement. There was no chest pain. There was no nausea, vomiting, or diarrhea. He had had some diarrhea about 2 weeks ago that had resolved at home. He continues to have a cough which he describes as productive, but there is no hemoptysis and he has noted chills at home but no fever. There is no history of any recent travel. His last trip was in 2014. He is single. He lives alone. There is no history of any recent antibiotic use. CURRENT MEDICATIONS: As an outpatient include: 1. Aspirin. 2. Atorvastatin. 3. Lisinopril. 4. Metoprolol. 5. Singulair. 6. Protonix. 7. Effient. 8. Coumadin. 9. Furosemide. 10. CellCept. 11. Prednisone. 12. Coumadin. ALLERGIES: He has no known drug allergies. FAMILY HISTORY: Notable for heart disease in his father. His mother of leukemia. He has a sister who has had 2 valve replacements and breast cancer, and his father at a young age with an MT. SOCIAL HISTORY: He is single. He lives in a 2-family; lives in the [facility] apartment. 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 He commutes via car to [place] and [place]. He is a former smoker. He quit 30 years ago. PAST MEDICAL HISTORY: Notable for atrial fibrillation, coronary artery disease, hypertension, interstitial lung disease which is felt to be secondary to possibly collagen vascular disease but has not been biopsied. He has a history of [address], most recently in October. He has a history of appendectomy and tonsillectomy. As stated before, he is oxygen dependent. HOSPITAL COURSE: Of note, the patient reports improvement in his symptoms since admission. His fatigue is resolved and he reports he is breathing much better. He still has a productive cough. PHYSICAL EXAMINATION: General: He is awake and alert. Vital Signs: Temperature is 97.6, heart rate is 108, blood pressure 107/74, respiratory rate is 18, he has not had fever since admission, and he weighs 177 pounds today. He is on his 4 L which he states is what he uses at home. HEENT: He is normocephalic. His eyes are anicteric. He has no thrush. He has good dentition. Neck: Supple. Lungs: Have crackles and rhonchi throughout. Heart: Regular rate and rhythm. Abdomen: Soft, nontender. Extremities: He has trace pretibial edema. LABORATORY DATA: His white count on admission was 19.7; today it is 17.5; hemoglobin is 12; platelets are 258. INR is 3.3. His 4-L blood gas revealed a PO2 of 81. His chemistries: His BUN is 38 and creatinine 0.9 this morning. His liver function tests are normal. His influenza screen was done in the emergency room and was negative, and his blood cultures are pending. Chest x-ray was done as well which shows cardiomegaly and extensive chronic lung disease with possible congestion. It would be difficult to exclude a superimposed pneumonia. ASSESSMENT: 1. In summary, this is a 71-year-old man who lives alone. There is no history of recent travel. He has no history of recent antibiotic. No hemoptysis. No history of tuberculosis. Had not been around any construction. He has no pets. No sick contacts, who lives alone who is on CellCept and prednisone with what appears to be a relatively acute presentation of pulmonary symptoms. Would continue the Rocephin and Zithromax as he reports a subjective improvement. It is hard to know if this is due to the antibiotics or to the steroid or the diuretics which he got. I would consider a repeat chest CT. Will discuss with Pulmonary as they know him quite well. Would obtain a sputum culture as well as a Legionella urinary antigen. Would obtain an LDH and Fungitell as he has not previously been on Bactrim which has just been started by Dr. Brooks. Would obtain sputum for AFB for possible atypical mycobacterial disease and a QuantiFERON gold for completeness. Further recommendations to follow based on his clinical course. He appears to be improved. If indeed he does deteriorate, he would definitely warrant a bronchoscopy as he is an immunocompromised host and is at risk for multiple infections. 2. Coronary artery disease with stents. 3. History of atrial fibrillation. ELVA MILLER M.D. [id number]
[2016-05-21] MEDS ORDERED: WARFARIN NA 2.5 MG TABLET (FP) PO SCH (18:00)
[2016-05-21] MEDS: SODIUM CHLORIDE 1,000 ML IV SCH (21:00)
[2016-05-21] MEDS: MONTELUKAST NA 10 MG TABLET PO SCH (21:54)
[2016-05-21] MEDS: ATORVASTATIN CA 40 MG TABLET (FP) PO SCH (21:54)
[2016-05-22] MEDS: methylPREDNISolone NA SUCC 40 MG/1 ML VIAL IVPB SCH ×4 (02:01→21:55)
[2016-05-22 07:17] LABS: INR 3.4 (0.82-1.09); PROTHROMBIN TIME (PATIENT) 38.4 SEC (9.98-11.88)
--- NOTE | 2016-05-22 08:42 | PN ---
Progress Note, Physician Chief Complaint: no acute distress Denies palps INR > 3 again History of Present Illness: TELE: AF with average rate 80-100bpm - Current Medication List Current Medications: Active Medications Albuterol Sulfate (Ventolin 0.083% Nebulizer Soln -) 1 amp NEB Q4H PRN PRN Reason: SHORT OF BREATH/WHEEZING Aspirin (Ecotrin -) 81 mg PO DAILY [facility] Last Admin: 05/21/16 10:02 Dose: 81 mg Atorvastatin Calcium (Lipitor -) 40 mg PO HS [facility] Last Admin: 05/21/16 21:54 Dose: 40 mg Ceftriaxone Sodium (Rocephin 1gm Ivpb (Pre-Docked)) 1 gm IVPB DAILY [facility] Last Admin: 05/21/16 10:01 Dose: 1 gm Sodium Chloride (Normal Saline -) 1,000 mls @ 60 mls/hr IV ASDIR [facility] Last Admin: 05/21/16 21:00 Dose: 60 mls/hr Azithromycin 250 mg/ Dextrose 250 mls @ 250 mls/hr IVPB DAILY [facility] Last Admin: 05/21/16 11:45 Dose: 250 mls/hr Methylprednisolone Sodium Succinate (Solu-Medrol -) 40 mg IVPB Q6H-IV [facility] Last Admin: 05/22/16 02:01 Dose: 40 mg Metoprolol Succinate (Toprol Xl -) 50 mg PO DAILY [facility] Last Admin: 05/21/16 10:02 Dose: 50 mg Montelukast Sodium (Singulair -) 15 mg PO [facility] Last Admin: 05/21/16 21:54 Dose: 15 mg Mycophenolate Mofetil (Cellcept -) 500 mg PO BID [facility] Last Admin: 05/21/16 21:54 Dose: 500 mg Pantoprazole Sodium (Protonix -) 40 mg PO DAILY [facility] Last Admin: 05/21/16 10:02 Dose: 40 mg Prasugrel (Effient -) 5 mg PO DAILY [facility] Last Admin: 05/21/16 10:01 Dose: 5 mg Tiotropium [place] (Spiriva -) 1 puff IH DAILY [facility] Last Admin: 05/21/16 10:02 Dose: 1 puff Trimethoprim/Sulfamethoxazole (Bactrim Ds -) 1 each PO MoWeFr@1000 [facility] Last Admin: 05/20/16 12:59 Dose: 1 each Warfarin Sodium (Coumadin -) 5 mg PO MoWeFr@18 [facility] Last Admin: 05/20/16 17:50 Dose: 5 mg Warfarin Sodium (Coumadin -) 2.5 mg PO SuTuThSa@18 [facility] - Objective Vital Signs: Vital Signs Temperature 97.9 F 05/22/16 06:41 Pulse Rate 107 H 05/22/16 06:41 Respiratory Rate 20 05/22/16 06:41 Blood Pressure 120/72 05/22/16 06:41 O2 Sat by Pulse Oximetry (%) 95 05/22/16 00:39 Constitutional: Yes: No Distress Cardiovascular: Yes: Pulse Irregular Respiratory: Yes: Other (dry rales b/l) Gastrointestinal: Yes: Soft Edema: No Neurological: Yes: Alert, Oriented ...Motor Strength: WNL Labs: CBC, BMP 05/21/16 06:00 05/21/16 06:00 INR, PTT INR 3.40 (0.82-1.09) H 05/22/16 06:00 Laboratory Tests 05/22/16 06:00 INR 3.40 H - ....Imaging Other: Image Reviewed Assessment/Plan Assessment/Plan 1. Pulmonary fibrosis 2. Chronic AF 3. CAD REC: 1. Hold coumadin again today (INR >3) 2. Average heart rate 80-100bpm is acceptable. It does bump a bit with activity , but this is expected with his chronic lung disease. No need to change meds at this time. Continue telemetry.
[2016-05-22] MEDS: METOPROLOL SUCCINATE 50 MG TAB.SR.24H (FP) PO SCH (10:06)
[2016-05-22] MEDS: AZITHROMYCIN IVPB 250 MG in DEXTROSE 5%-WATER - 250 ML IVPB SCH (10:06)
[2016-05-22] MEDS: ASPIRIN COATED 81 MG TABLET.EC PO SCH (10:06)
[2016-05-22] MEDS: PANTOPRAZOLE 40 MG TABLET (FP) PO SCH (10:06)
[2016-05-22] MEDS: cefTRIAXone 1 GM/50 ML BAG (PRE-DOCKED) IVPB SCH (10:06)
[2016-05-22] MEDS: PRASUGREL HCL 5 MG TAB PO SCH (10:12)
[2016-05-22] MEDS: MYCOPHENOLATE MOFETIL 500 MG TABLET PO SCH ×2 (10:12→21:55)
[2016-05-22] MEDS: TIOTROPIUM BROMIDE 18 MCG/INH (DEVICE W/ 5 CAPSULES) IH SCH (10:15)
--- NOTE | 2016-05-22 10:53 | PN ---
Progress Note (short form) - Note Progress Note: PULMONARY APPEARS COMFORTABLE MODERATE SUBJECTIVE IMPROVEMENT VSS/AFEB/HR IRREG/SPO2 95% ON 4L/M O2 ANICTERIC SCATTERED B/L CRACKLES S1S2 IRREG BS+ SOFT DIMINISHED EDEMA LABS/MEDS/NOTES/IMAGING/MICRO REVIEWED IMP ACUTE ON CHRONIC HYPOXEMIC RESPIRATORY FAILURE ADVANCED INTERSTITIAL LUNG DISEASE/PULMONARY FIBROSIS O2 DEPENDENT URI ASHD S/P [place],S/P STENTS X 3 AFIB CHF HTN PLAN IV STEROIDS SAME DOSE INHALED BRONCHODILATORS O2 ANTIBIOTICS BACTRIM DS 1 TAB PO DAILY FOR PCP PROPHYLAXIS CONTINUE CELLCEPT LASIX COUMADIN PER INR/TARGET 2.5 RATE CONTROL Jeffrey EDWARDS MD
--- NOTE | 2016-05-22 13:03 | PN ---
Progress Note (short form) - Note Progress Note: No fever Feels a lot better O/E Heart irregular Lungs few rales+ Abd soft Ext no edema Vital Signs Period Temp Pulse Resp BP Sys/Holt Pulse Ox Last 24 Hr 97.2 F-98.2 F 103-110 18-20 100-120/63-72 95 Current Medications Albuterol Sulfate (Ventolin 0.083% Nebulizer Soln -) 1 amp NEB Q4H PRN PRN Reason: SHORT OF BREATH/WHEEZING Aspirin (Ecotrin -) 81 mg PO DAILY [facility] Last Admin: 05/22/16 10:06 Dose: 81 mg Atorvastatin Calcium (Lipitor -) 40 mg PO HS [facility] Last Admin: 05/21/16 21:54 Dose: 40 mg Ceftriaxone Sodium (Rocephin 1gm Ivpb (Pre-Docked)) 1 gm IVPB DAILY [facility] Last Admin: 05/22/16 10:06 Dose: 1 gm Sodium Chloride (Normal Saline -) 1,000 mls @ 60 mls/hr IV ASDIR [facility] Last Admin: 05/21/16 21:00 Dose: 60 mls/hr Azithromycin 250 mg/ Dextrose 250 mls @ 250 mls/hr IVPB DAILY [facility] Last Admin: 05/22/16 10:06 Dose: 250 mls/hr Methylprednisolone Sodium Succinate (Solu-Medrol -) 40 mg IVPB Q6H-IV [facility] Last Admin: 05/22/16 10:06 Dose: 40 mg Metoprolol Succinate (Toprol Xl -) 50 mg PO DAILY [facility] Last Admin: 05/22/16 10:06 Dose: 50 mg Montelukast Sodium (Singulair -) 15 mg PO HS [facility] Last Admin: 05/21/16 21:54 Dose: 15 mg Mycophenolate Mofetil (Cellcept -) 500 mg PO BID [facility] Last Admin: 05/22/16 10:12 Dose: 500 mg Pantoprazole Sodium (Protonix -) 40 mg PO DAILY [facility] Last Admin: 05/22/16 10:06 Dose: 40 mg Prasugrel (Effient -) 5 mg PO DAILY [facility] Last Admin: 05/22/16 10:12 Dose: 5 mg Tiotropium [place] (Spiriva -) 1 puff IH DAILY [facility] Last Admin: 05/22/16 10:15 Dose: 1 puff Trimethoprim/Sulfamethoxazole (Bactrim Ds -) 1 each PO MoWeFr@1000 [facility] Last Admin: 05/20/16 12:59 Dose: 1 each Warfarin Sodium (Coumadin -) 5 mg PO MoWeFr@18 [facility] Last Admin: 05/20/16 17:50 Dose: 5 mg Warfarin Sodium (Coumadin -) 2.5 mg PO SuTuThSa@18 [facility] Laboratory Results - last 24 hr 05/21/16 05/21/16 05/22/16 06:00 06:00 06:00 INR 3.40 H LD Total 263 H Cancelled - Problems (1) Pneumonia Assessment/Plan: Cont present ABX Cont Chest PT Code(s): J18.9 - PNEUMONIA, UNSPECIFIED ORGANISM Qualifiers: Pneumonia type: due to unspecified organism Laterality: unspecified laterality Lung location: unspecified part of lung Qualified Code(s): J18.9 - Pneumonia, unspecified organism (2) Atrial fibrillation Assessment/Plan: -monitor on telemetry -continue coumadin, monitor INR Hold coumadin today Code(s): I48.91 - UNSPECIFIED ATRIAL FIBRILLATION Qualifiers: Atrial fibrillation type: chronic Qualified Code(s): I48.2 - Chronic atrial fibrillation (3) Interstitial lung disease Assessment/Plan: Cont present care Code(s): J84.9 - INTERSTITIAL PULMONARY DISEASE, UNSPECIFIED (4) Acute on chronic respiratory failure with hypoxemia Assessment/Plan: -secondary to pneumonia -continue oxygen support -treatment as above Code(s): J96.21 - ACUTE AND CHRONIC RESPIRATORY FAILURE WITH HYPOXIA
[2016-05-22] MEDS ORDERED: PT OWN MED DRAWER 7, Y5N ONE (21:34)
[2016-05-22] MEDS: ATORVASTATIN CA 40 MG TABLET (FP) PO SCH (21:55)
[2016-05-22] MEDS: MONTELUKAST NA 10 MG TABLET PO SCH (21:56)
[2016-05-22] MEDS: SODIUM CHLORIDE 1,000 ML IV SCH (22:00)
[2016-05-23] MEDS: methylPREDNISolone NA SUCC 40 MG/1 ML VIAL IVPB SCH ×3 (02:42→14:08)
[2016-05-23 08:11] LABS: INR 2.52 (0.82-1.09); PROTHROMBIN TIME (PATIENT) 28.2 SEC (9.98-11.88)
[2016-05-23] MEDS ORDERED: PT OWN MED DRAWER 7, Y5N ONE ×3 (08:26→21:49)
[2016-05-23] MEDS: METOPROLOL SUCCINATE 50 MG TAB.SR.24H (FP) PO SCH (09:02)
[2016-05-23] MEDS: PRASUGREL HCL 5 MG TAB PO SCH (09:02)
[2016-05-23] MEDS: ASPIRIN COATED 81 MG TABLET.EC PO SCH (09:02)
[2016-05-23] MEDS: MYCOPHENOLATE MOFETIL 500 MG TABLET PO SCH ×2 (09:02→21:47)
[2016-05-23] MEDS: TIOTROPIUM BROMIDE 18 MCG/INH (DEVICE W/ 5 CAPSULES) IH SCH (09:02)
[2016-05-23] MEDS: PANTOPRAZOLE 40 MG TABLET (FP) PO SCH (09:03)
[2016-05-23] MEDS: cefTRIAXone 1 GM/50 ML BAG (PRE-DOCKED) IVPB SCH (09:04)
[2016-05-23] MEDS: SULFAMETHOXAZOLE/TRIMETHOPRIM 800MG/160MG D.S. TABLET PO SCH (09:04)
[2016-05-23] MEDS: AZITHROMYCIN IVPB 250 MG in DEXTROSE 5%-WATER - 250 ML IVPB SCH (09:28)
--- NOTE | 2016-05-23 11:46 | PN ---
Progress Note, Physician History of Present Illness: pulmonary alert,more dyspneic,+cough - Current Medication List Current Medications: Active Medications Albuterol Sulfate (Ventolin 0.083% Nebulizer Soln -) 1 amp NEB Q4H PRN PRN Reason: SHORT OF BREATH/WHEEZING Last Admin: 05/23/16 10:10 Dose: 1 amp Aspirin (Ecotrin -) 81 mg PO DAILY [facility] Last Admin: 05/23/16 09:02 Dose: 81 mg Atorvastatin Calcium (Lipitor -) 40 mg PO HS [facility] Last Admin: 05/22/16 21:55 Dose: 40 mg Ceftriaxone Sodium (Rocephin 1gm Ivpb (Pre-Docked)) 1 gm IVPB DAILY [facility] Last Admin: 05/23/16 09:04 Dose: 1 gm Sodium Chloride (Normal Saline -) 1,000 mls @ 60 mls/hr IV ASDIR [facility] Last Admin: 05/22/16 22:00 Dose: Not Given Azithromycin 250 mg/ Dextrose 250 mls @ 250 mls/hr IVPB DAILY [facility] Last Admin: 05/23/16 09:28 Dose: 250 mls/hr Methylprednisolone Sodium Succinate (Solu-Medrol -) 40 mg IVPB Q6H-IV [facility] Last Admin: 05/23/16 08:39 Dose: 40 mg Metoprolol Succinate (Toprol Xl -) 50 mg PO DAILY [facility] Last Admin: 05/23/16 09:02 Dose: 50 mg Montelukast Sodium (Singulair -) 15 mg PO [facility] Last Admin: 05/22/16 21:56 Dose: 15 mg Mycophenolate Mofetil (Cellcept -) 500 mg PO BID [facility] Last Admin: 05/23/16 09:02 Dose: 500 mg Pantoprazole Sodium (Protonix -) 40 mg PO DAILY [facility] Last Admin: 05/23/16 09:03 Dose: 40 mg Prasugrel (Effient -) 5 mg PO DAILY [facility] Last Admin: 05/23/16 09:02 Dose: 5 mg Tiotropium [place] (Spiriva -) 1 puff IH DAILY [facility] Last Admin: 05/23/16 09:02 Dose: 1 puff Trimethoprim/Sulfamethoxazole (Bactrim Ds -) 1 each PO MoWeFr@1000 [facility] Last Admin: 05/23/16 09:04 Dose: 1 each Warfarin Sodium (Coumadin -) 5 mg PO MoWeFr@18 [facility] Last Admin: 05/20/16 17:50 Dose: 5 mg Warfarin Sodium (Coumadin -) 2.5 mg PO SuTuThSa@18 [facility] Last Admin: 05/22/16 17:40 Dose: Not Given - Objective Vital Signs: Vital Signs Temperature 97.3 F L 05/23/16 10:00 Pulse Rate 91 H 05/23/16 11:12 Respiratory Rate 20 05/23/16 10:00 Blood Pressure 113/75 05/23/16 10:00 O2 Sat by Pulse Oximetry (%) 95 05/23/16 11:12 Constitutional: Yes: Well Nourished, Calm Eyes: Yes: WNL HENT: Yes: WNL Neck: Yes: WNL Cardiovascular: Yes: Regular Rate and Rhythm, S1, S2 Respiratory: Yes: Rales (bilateral crackles throughout) Gastrointestinal: Yes: Normal Bowel Sounds, Soft Extremities: Yes: WNL Edema: Yes Labs: CBC, BMP 05/21/16 06:00 05/21/16 06:00 INR, PTT INR 2.52 (0.82-1.09) H 05/23/16 06:30 Problem List - Problems (1) Atrial fibrillation Code(s): I48.91 - UNSPECIFIED ATRIAL FIBRILLATION Qualifiers: Atrial fibrillation type: chronic Qualified Code(s): I48.2 - Chronic atrial fibrillation (2) Interstitial lung disease Code(s): J84.9 - INTERSTITIAL PULMONARY DISEASE, UNSPECIFIED (3) Atrial fibrillation with RVR Code(s): I48.91 - UNSPECIFIED ATRIAL FIBRILLATION (4) CAD (coronary artery disease) Code(s): I25.10 - ATHSCL HEART DISEASE OF [place] CORONARY ARTERY W/O ANG PCTRS (5) CHF (congestive heart failure) Code(s): I50.9 - HEART FAILURE, UNSPECIFIED Qualifiers: Congestive heart failure type: unspecified congestive heart failure type Congestive heart failure chronicity: acute Qualified Code(s): I50.9 - Heart failure, unspecified (6) Dyspnea Code(s): R06.00 - DYSPNEA, UNSPECIFIED (7) NSTEMI (non-ST elevated myocardial infarction) Code(s): I21.4 - NON-ST ELEVATION (NSTEMI) MYOCARDIAL INFARCTION (8) Acute on chronic respiratory failure with hypoxemia Code(s): J96.21 - ACUTE AND CHRONIC RESPIRATORY FAILURE WITH HYPOXIA Assessment/Plan IMP ACUTE ON CHRONIC HYPOXEMIC RESPIRATORY FAILURE ADVANCED INTERSTITIAL LUNG DISEASE/PULMONARY FIBROSIS O2 DEPENDENT URI ASHD S/P [place],S/P STENTS X 3 AFIB CHF HTN PLAN IV STEROIDS same dose INHALED BRONCHODILATORS O2 ANTIBIOTICS BACTRIM DS 1 TAB PO DAILY FOR PCP PROPHYLAXIS CELLCEPT LASIX COUMADIN PER INR RATE CONTROL F/U CHEST X-RAY DR SAMANIEGO Problem List - Problems (1) Atrial fibrillation Code(s): I48.91 - UNSPECIFIED ATRIAL FIBRILLATION Qualifiers: Atrial fibrillation type: chronic Qualified Code(s): I48.2 - Chronic atrial fibrillation (2) Interstitial lung disease Code(s): J84.9 - INTERSTITIAL PULMONARY DISEASE, UNSPECIFIED (3) Atrial fibrillation with RVR Code(s): I48.91 - UNSPECIFIED ATRIAL FIBRILLATION (4) CAD (coronary artery disease) Code(s): I25.10 - ATHSCL HEART DISEASE OF [place] CORONARY ARTERY W/O ANG PCTRS (5) CHF (congestive heart failure) Code(s): I50.9 - HEART FAILURE, UNSPECIFIED Qualifiers: Congestive heart failure type: unspecified congestive heart failure type Congestive heart failure chronicity: acute Qualified Code(s): I50.9 - Heart failure, unspecified (6) Dyspnea Code(s): R06.00 - DYSPNEA, UNSPECIFIED (7) NSTEMI (non-ST elevated myocardial infarction) Code(s): I21.4 - NON-ST ELEVATION (NSTEMI) MYOCARDIAL INFARCTION (8) Acute on chronic respiratory failure with hypoxemia Code(s): J96.21 - ACUTE AND CHRONIC RESPIRATORY FAILURE WITH HYPOXIA
--- NOTE | 2016-05-23 12:43 | PN ---
Progress Note, Physician History of Present Illness: The patient is a 71 year old white male with a past medical hx of HTN, afib, severe interstitial lung disease (ILD) (followed by Dr. Brooks), CAD-->three cardiac stents in 2016, who presents to the ED complaining of shortness of breath for one week. The patient reports his shortness of breath progressively worsened over the weekend. He states his PCP increased his Prednisone, but he is still feeling short of breath. The patient reports he is oxygen dependent at home. The patient denies chest pain The patient denies fever, chills The patient denies nausea, vomiting, diarrhea - Current Medication List Current Medications: Active Medications Albuterol Sulfate (Ventolin 0.083% Nebulizer Soln -) 1 amp NEB Q4H PRN PRN Reason: SHORT OF BREATH/WHEEZING Last Admin: 05/23/16 10:10 Dose: 1 amp Aspirin (Ecotrin -) 81 mg PO DAILY [facility] Last Admin: 05/23/16 09:02 Dose: 81 mg Atorvastatin Calcium (Lipitor -) 40 mg PO HS [facility] Last Admin: 05/22/16 21:55 Dose: 40 mg Ceftriaxone Sodium (Rocephin 1gm Ivpb (Pre-Docked)) 1 gm IVPB DAILY [facility] Last Admin: 05/23/16 09:04 Dose: 1 gm Sodium Chloride (Normal Saline -) 1,000 mls @ 60 mls/hr IV ASDIR [facility] Last Admin: 05/22/16 22:00 Dose: Not Given Azithromycin 250 mg/ Dextrose 250 mls @ 250 mls/hr IVPB DAILY [facility] Last Admin: 05/23/16 09:28 Dose: 250 mls/hr Methylprednisolone Sodium Succinate (Solu-Medrol -) 40 mg IVPB Q6H-IV [facility] Last Admin: 05/23/16 08:39 Dose: 40 mg Metoprolol Succinate (Toprol Xl -) 50 mg PO DAILY [facility] Last Admin: 05/23/16 09:02 Dose: 50 mg Montelukast Sodium (Singulair -) 15 mg PO HS [facility] Last Admin: 05/22/16 21:56 Dose: 15 mg Mycophenolate Mofetil (Cellcept -) 500 mg PO BID [facility] Last Admin: 05/23/16 09:02 Dose: 500 mg Pantoprazole Sodium (Protonix -) 40 mg PO DAILY [facility] Last Admin: 05/23/16 09:03 Dose: 40 mg Prasugrel (Effient -) 5 mg PO DAILY [facility] Last Admin: 05/23/16 09:02 Dose: 5 mg Tiotropium [place] (Spiriva -) 1 puff IH DAILY [facility] Last Admin: 05/23/16 09:02 Dose: 1 puff Trimethoprim/Sulfamethoxazole (Bactrim Ds -) 1 each PO MoWeFr@1000 [facility] Last Admin: 05/23/16 09:04 Dose: 1 each Warfarin Sodium (Coumadin -) 5 mg PO MoWeFr@18 [facility] Last Admin: 05/20/16 17:50 Dose: 5 mg Warfarin Sodium (Coumadin -) 2.5 mg PO SuTuThSa@18 [facility] Last Admin: 05/22/16 17:40 Dose: Not Given - Objective Vital Signs: Vital Signs Temperature 97.3 F L 05/23/16 10:00 Pulse Rate 91 H 05/23/16 11:12 Respiratory Rate 20 05/23/16 10:00 Blood Pressure 113/75 05/23/16 10:00 O2 Sat by Pulse Oximetry (%) 95 05/23/16 11:12 Eyes: Yes: WNL, Conjunctiva Clear, EOM Intact HENT: Yes: WNL, Atraumatic, Normocephalic Neck: Yes: WNL, Supple, Trachea Midline Cardiovascular: Yes: Pulse Irregular, S1, S2 Respiratory: Yes: WNL, Regular, CTA Bilaterally, Rhonchi Gastrointestinal: Yes: WNL, Normal Bowel Sounds Genitourinary: Yes: WNL Musculoskeletal: Yes: WNL Extremities: Yes: WNL Edema: No Integumentary: Yes: WNL Neurological: Yes: WNL, Alert, Oriented ...Motor Strength: WNL Psychiatric: Yes: WNL Labs: CBC, BMP 05/21/16 06:00 05/21/16 06:00 INR, PTT INR 2.52 (0.82-1.09) H 05/23/16 06:30 Assessment/Plan 1. Pulmonary fibrosis 2. Chronic AF 3. CAD REC: 1. restart coumadin a (INR 2.5) 2. Average heart rate 80-100bpm is acceptable. It does bump a bit with activity , but this is expected with his chronic lung disease. No need to change meds at this time. Continue telemetry.
--- NOTE | 2016-05-23 13:15 | PN ---
Progress Note, Physician Chief Complaint: Mr Yadav says he is not feeling well. He says he is more short of breath. He is also stating he is also coughing up blood. No cp or n/v. - Current Medication List Current Medications: Active Medications Albuterol Sulfate (Ventolin 0.083% Nebulizer Soln -) 1 amp NEB Q4H PRN PRN Reason: SHORT OF BREATH/WHEEZING Last Admin: 05/23/16 10:10 Dose: 1 amp Aspirin (Ecotrin -) 81 mg PO DAILY [facility] Last Admin: 05/23/16 09:02 Dose: 81 mg Atorvastatin Calcium (Lipitor -) 40 mg PO HS [facility] Last Admin: 05/22/16 21:55 Dose: 40 mg Ceftriaxone Sodium (Rocephin 1gm Ivpb (Pre-Docked)) 1 gm IVPB DAILY [facility] Last Admin: 05/23/16 09:04 Dose: 1 gm Azithromycin 250 mg/ Dextrose 250 mls @ 250 mls/hr IVPB DAILY [facility] Last Admin: 05/23/16 09:28 Dose: 250 mls/hr Methylprednisolone Sodium Succinate (Solu-Medrol -) 40 mg IVPB Q6H-IV [facility] Last Admin: 05/23/16 08:39 Dose: 40 mg Metoprolol Succinate (Toprol Xl -) 50 mg PO DAILY [facility] Last Admin: 05/23/16 09:02 Dose: 50 mg Montelukast Sodium (Singulair -) 15 mg PO HS [facility] Last Admin: 05/22/16 21:56 Dose: 15 mg Mycophenolate Mofetil (Cellcept -) 500 mg PO BID [facility] Last Admin: 05/23/16 09:02 Dose: 500 mg Pantoprazole Sodium (Protonix -) 40 mg PO DAILY [facility] Last Admin: 05/23/16 09:03 Dose: 40 mg Prasugrel (Effient -) 5 mg PO DAILY [facility] Last Admin: 05/23/16 09:02 Dose: 5 mg Tiotropium [place] (Spiriva -) 1 puff IH DAILY [facility] Last Admin: 05/23/16 09:02 Dose: 1 puff Trimethoprim/Sulfamethoxazole (Bactrim Ds -) 1 each PO MoWeFr@1000 [facility] Last Admin: 05/23/16 09:04 Dose: 1 each - Objective Vital Signs: Vital Signs Temperature 97.3 F L 05/23/16 10:00 Pulse Rate 91 H 05/23/16 11:12 Respiratory Rate 20 05/23/16 10:00 Blood Pressure 113/75 05/23/16 10:00 O2 Sat by Pulse Oximetry (%) 95 05/23/16 11:12 Constitutional: Yes: Well Nourished, No Distress, Calm Cardiovascular: Yes: Regular Rate and Rhythm. No: Gallop, Murmur, Rub Respiratory: Yes: Regular, On Nasal O2, Rhonchi, Wheezes Gastrointestinal: Yes: Normal Bowel Sounds, Soft. No: Distention, Tenderness Extremities: Yes: WNL Edema: No Labs: CBC, BMP 05/21/16 06:00 05/21/16 06:00 INR, PTT INR 2.52 (0.82-1.09) H 05/23/16 06:30 Problem List - Problems (1) Pneumonia Code(s): J18.9 - PNEUMONIA, UNSPECIFIED ORGANISM Qualifiers: Pneumonia type: due to unspecified organism Laterality: unspecified laterality Lung location: unspecified part of lung Qualified Code(s): J18.9 - Pneumonia, unspecified organism (2) Atrial fibrillation Code(s): I48.91 - UNSPECIFIED ATRIAL FIBRILLATION Qualifiers: Atrial fibrillation type: chronic Qualified Code(s): I48.2 - Chronic atrial fibrillation (3) Interstitial lung disease Code(s): J84.9 - INTERSTITIAL PULMONARY DISEASE, UNSPECIFIED (4) Acute on chronic respiratory failure with hypoxemia Code(s): J96.21 - ACUTE AND CHRONIC RESPIRATORY FAILURE WITH HYPOXIA Assessment/Plan (1) Pneumonia Assessment/Plan: -appreciate ID assistance -continue rocephin and zithromax -continue bactrim for PCP prophylaxis -monitor for improvement Code(s): J18.9 - PNEUMONIA, UNSPECIFIED ORGANISM Qualifiers: Pneumonia type: due to unspecified organism Laterality: unspecified laterality Lung location: unspecified part of lung Qualified Code(s): J18.9 - Pneumonia, unspecified organism (2) Atrial fibrillation Assessment/Plan: -with RVR -cardiology following -INR therapeutic, but patient says coughing up blood -will hold coumadin today Code(s): I48.91 - UNSPECIFIED ATRIAL FIBRILLATION Qualifiers: Atrial fibrillation type: chronic Qualified Code(s): I48.2 - Chronic atrial fibrillation (3) Interstitial lung disease Assessment/Plan: -pulmonary following -on solumedrol -continue cellcept -continue albuterol and spiriva Code(s): J84.9 - INTERSTITIAL PULMONARY DISEASE, UNSPECIFIED (4) Acute on chronic respiratory failure with hypoxemia Assessment/Plan: -secondary to pneumonia -continue oxygen support -treatment as above Code(s): J96.21 - ACUTE AND CHRONIC RESPIRATORY FAILURE WITH HYPOXIA (5) Hemoptysis -will d/w pulmonary -holding coumadin currently
[2016-05-23] MEDS ORDERED: dilTIAZem HCL 50 MG/10 ML - 10 ML VIAL IVPUSH ONE ×2 (16:22→23:12)
--- NOTE | 2016-05-23 17:21 | PN ---
Progress Note, Physician History of Present Illness: Transferred to ICU after worsening dyspnea Episode of blood- streaked sputum Afebrile on steroids No c/o chest pain CT ordered AFB smear (-) x 2 - Current Medication List Current Medications: Active Medications Albuterol Sulfate (Ventolin 0.083% Nebulizer Soln -) 1 amp NEB Q4H PRN PRN Reason: SHORT OF BREATH/WHEEZING Last Admin: 05/23/16 10:10 Dose: 1 amp Aspirin (Ecotrin -) 81 mg PO DAILY [facility] Last Admin: 05/23/16 09:02 Dose: 81 mg Atorvastatin Calcium (Lipitor -) 40 mg PO HS [facility] Last Admin: 05/22/16 21:55 Dose: 40 mg Azithromycin 250 mg/ Dextrose 250 mls @ 250 mls/hr IVPB DAILY [facility] Last Admin: 05/23/16 09:28 Dose: 250 mls/hr Methylprednisolone Sodium Succinate (Solu-Medrol -) 60 mg IVPB Q6H-IV [facility] Metoprolol Succinate (Toprol Xl -) 50 mg PO DAILY [facility] Last Admin: 05/23/16 09:02 Dose: 50 mg Montelukast Sodium (Singulair -) 15 mg PO HS [facility] Last Admin: 05/22/16 21:56 Dose: 15 mg Mycophenolate Mofetil (Cellcept -) 500 mg PO BID [facility] Last Admin: 05/23/16 09:02 Dose: 500 mg Pantoprazole Sodium (Protonix -) 40 mg PO DAILY [facility] Last Admin: 05/23/16 09:03 Dose: 40 mg Prasugrel (Effient -) 5 mg PO DAILY [facility] Last Admin: 05/23/16 09:02 Dose: 5 mg Tiotropium [place] (Spiriva -) 1 puff IH DAILY [facility] Last Admin: 05/23/16 09:02 Dose: 1 puff Trimethoprim/Sulfamethoxazole (Bactrim Ds -) 1 each PO MoWeFr@1000 [facility] Last Admin: 05/23/16 09:04 Dose: 1 each - Objective Vital Signs: Vital Signs Temperature 97.3 F L 05/23/16 14:00 Pulse Rate 119 H 05/23/16 14:00 Respiratory Rate 40 H 05/23/16 14:00 Blood Pressure 139/91 05/23/16 14:00 O2 Sat by Pulse Oximetry (%) 95 05/23/16 11:12 Constitutional: Yes: Moderate Distress, Other (dyspneic at rest) Eyes: Yes: Conjunctiva Clear Cardiovascular: Yes: Regular Rate and Rhythm, Tachycardia, S1, S2 Respiratory: Yes: Other (crepitattions bilaterally) Gastrointestinal: Yes: Normal Bowel Sounds, Soft. No: Tenderness Edema: No Labs: CBC, BMP 05/21/16 06:00 05/21/16 06:00 INR, PTT INR 2.52 (0.82-1.09) H 05/23/16 06:30 Assessment/Plan ILD Possible superimposed pneumonia Immunocompromised state Will substitute zosyn/ vanco for treatment of HCAP DDX includes CAROL, OI ( CMV, PCP, fungal pathogens) as well as non- infectious
[2016-05-23] MEDS ORDERED: VANCOMYCIN 1 GRAM (PRE-DOCKED) 250 ML IVPB ONE (17:24)
[2016-05-23] MEDS: PIPERACILLIN/TAZOB 4.5 GM 100 ML IVPB SCH (17:48)
[2016-05-23] MEDS ORDERED: WARFARIN NA 2.5 MG TABLET (FP) PO SCH (18:00)
[2016-05-23] MEDS: MONTELUKAST NA 10 MG TABLET PO SCH (21:39)
[2016-05-23] MEDS: methylPREDNISolone NA SUCC 125 MG/2 ML VIAL IVPB SCH (21:39)
[2016-05-23] MEDS: ATORVASTATIN CA 40 MG TABLET (FP) PO SCH (21:39)
[2016-05-23] MEDS ORDERED: dilTIAZem HCL 125 MG/25 ML - 25 ML VIAL ONE (23:20)
[2016-05-24] MEDS: PIPERACILLIN/TAZOB 4.5 GM 100 ML IVPB SCH ×3 (02:39→17:17)
[2016-05-24] MEDS: methylPREDNISolone NA SUCC 125 MG/2 ML VIAL IVPB SCH ×4 (02:40→21:15)
[2016-05-24 06:08] LABS: MCH 28.1 pg (25.7-33.7); MCHC 32.6 g/dl (32.0-35.9); MEAN CELL VOLUME 85.9 fl (80-96); MEAN PLT VOLUME 7.7 fl (7.5-11.1); PLATELET COUNT 271 K/MM3 (134-434); RDW 16.4 % (11.9-15.9); WHITE BLOOD COUNT 15.9 K/mm3 (4.0-10.0)
[2016-05-24 06:22] LABS: INR 1.93 (0.82-1.09); PROTHROMBIN TIME (PATIENT) 21.5 SEC (9.98-11.88)
[2016-05-24 06:36] LABS: CALCIUM 7.9 mg/dL (8.5-10.1); CREATININE 0.9 mg/dL (0.7-1.3); MAGNESIUM 2.5 mg/dL (1.8-2.4); PHOSPHOROUS 2.8 mg/dL (2.5-4.9)
[2016-05-24 08:03] LABS: METAMYELOCYTE 1 % (0-2)
[2016-05-24] MEDS ORDERED: PT OWN MED DRAWER 7, Y5N ONE ×4 (08:31→17:46)
[2016-05-24] MEDS: PRASUGREL HCL 5 MG TAB PO SCH (09:07)
[2016-05-24] MEDS: MYCOPHENOLATE MOFETIL 500 MG TABLET PO SCH ×2 (09:08→21:16)
[2016-05-24] MEDS: PANTOPRAZOLE 40 MG TABLET (FP) PO SCH (09:08)
[2016-05-24] MEDS: METOPROLOL SUCCINATE 50 MG TAB.SR.24H (FP) PO SCH (09:08)
[2016-05-24] MEDS: ASPIRIN COATED 81 MG TABLET.EC PO SCH (09:08)
[2016-05-24] MEDS: AZITHROMYCIN IVPB 250 MG in DEXTROSE 5%-WATER - 250 ML IVPB SCH (09:10)
[2016-05-24] MEDS ORDERED: dilTIAZem HCL 50 MG/10 ML - 10 ML VIAL IVPUSH ONE (09:52)
[2016-05-24] MEDS ORDERED: dilTIAZem HCL 125 MG/25 ML - 25 ML VIAL ONE (09:53)
[2016-05-24] MEDS: TIOTROPIUM BROMIDE 18 MCG/INH (DEVICE W/ 5 CAPSULES) IH SCH (10:18)
--- NOTE | 2016-05-24 10:18 | PN ---
Progress Note, Physician Chief Complaint: Pt A&Ox3; anxious; less dyspneic, though still has trouble holding a conversation without gasping. History of Present Illness: The patient is a 71 year old white male with a past medical hx of HTN, afib, severe interstitial lung disease (ILD) (followed by Dr. Brooks), CAD-->three cardiac stents in 2016, who presents to the ED complaining of shortness of breath for one week. The patient reports his shortness of breath progressively worsened over the weekend. He states his PCP increased his Prednisone, but he is still feeling short of breath. The patient reports he is oxygen dependent at home. The patient denies chest pain The patient denies fever, chills The patient denies nausea, vomiting, diarrhea Allergies: NKDA Social: Former smoker Surgical: Appendectomy, Cardiac: 3 stents PCP: Dr. Karla Osborne Clinical Analyst: Dr. Anabela Auguste Pulmonologis: Dr. Bella Brooks - Current Medication List Current Medications: Active Medications Albuterol Sulfate (Ventolin 0.083% Nebulizer Soln -) 1 amp NEB Q4H PRN PRN Reason: SHORT OF BREATH/WHEEZING Last Admin: 05/23/16 10:10 Dose: 1 amp Aspirin (Ecotrin -) 81 mg PO DAILY [facility] Last Admin: 05/24/16 09:08 Dose: 81 mg Atorvastatin Calcium (Lipitor -) 40 mg PO HS [facility] Last Admin: 05/23/16 21:39 Dose: 40 mg Diltiazem HCl (Cardizem Injection -) 10 mg IVPUSH ONCE ONE Stop: 05/24/16 09:53 Last Admin: 05/24/16 09:59 Dose: 10 mg Azithromycin 250 mg/ Dextrose 250 mls @ 250 mls/hr IVPB DAILY [facility] Last Admin: 05/24/16 09:10 Dose: 250 mls/hr Piperacillin Sod/Tazobactam Sod (Zosyn 4.5gm Ivpb (Pre-Docked)) 100 mls @ 200 mls/hr IVPB Q8H-IV [facility] Last Admin: 05/24/16 02:39 Dose: 200 mls/hr Methylprednisolone Sodium Succinate (Solu-Medrol -) 60 mg IVPB Q6H-IV [facility] Last Admin: 05/24/16 08:32 Dose: 60 mg Metoprolol Succinate (Toprol Xl -) 50 mg PO DAILY [facility] Last Admin: 05/24/16 09:08 Dose: 50 mg Montelukast Sodium (Singulair -) 15 mg PO HS [facility] Last Admin: 05/23/16 21:39 Dose: 15 mg Mycophenolate Mofetil (Cellcept -) 500 mg PO BID [facility] Last Admin: 05/24/16 09:08 Dose: 500 mg Pantoprazole Sodium (Protonix -) 40 mg PO DAILY [facility] Last Admin: 05/24/16 09:08 Dose: 40 mg Prasugrel (Effient -) 5 mg PO DAILY [facility] Last Admin: 05/24/16 09:07 Dose: 5 mg Tiotropium [place] (Spiriva -) 1 puff IH DAILY [facility] Last Admin: 05/23/16 09:02 Dose: 1 puff Trimethoprim/Sulfamethoxazole (Bactrim Ds -) 1 each PO MoWeFr@1000 [facility] Last Admin: 05/23/16 09:04 Dose: 1 each Warfarin Sodium (Coumadin -) 2.5 mg PO ONCE@1800 ONE Stop: 05/24/16 18:01 - Objective Vital Signs: Vital Signs Temperature 97 F L 05/24/16 06:00 Pulse Rate 129 H 05/24/16 08:00 Respiratory Rate 30 H 05/24/16 08:00 Blood Pressure 137/87 05/24/16 08:00 O2 Sat by Pulse Oximetry (%) 96 05/24/16 08:24 Constitutional: Yes: Anxious Eyes: Yes: WNL HENT: Yes: WNL Neck: Yes: WNL Cardiovascular: Yes: Pulse Irregular Respiratory: Yes: Diminished, Poor Air Entry, Rales, SOB, Tachypnea Gastrointestinal: Yes: Soft ...Rectal Exam: Yes: Deferred Genitourinary: No: Anuria Breast(s): Yes: WNL Musculoskeletal: Yes: Muscle Weakness Extremities: Yes: Cool Edema: Yes Edema: LLE: Trace, RLE: Trace Peripheral Pulses WNL: No Peripheral Pulses: Left Doralis Pedis: 1+, Right Dorsalis Pedis: 1+ Integumentary: Yes: WNL Neurological: Yes: Alert, Oriented, Weakness Psychiatric: Yes: Other (anxious) Labs: CBC, BMP 05/24/16 05:30 05/24/16 05:30 INR, PTT INR 1.93 (0.82-1.09) H 05/24/16 05:30 Abnormal Lab Results 05/24/16 05/24/16 05/24/16 05:30 05:30 05:30 WBC 15.9 H Hgb 11.6 L RDW 16.4 H Neutrophils % 89.0 H Lymphocytes % 4.0 L INR 1.93 H BUN 32 H Random Glucose 143 H Calcium 7.9 L Magnesium 2.5 H - ....Imaging Cat Scan: Image Reviewed (ISLD (diffuse), with LLL infiltrate) Other: Image Reviewed (telemetry: AF, generally with RVR, especially on even minor activity (eg eating)) Problem List - Problems (1) Acute on chronic respiratory failure with hypoxemia Code(s): J96.21 - ACUTE AND CHRONIC RESPIRATORY FAILURE WITH HYPOXIA (2) Interstitial lung disease Assessment/Plan: F/u with scrub technician (sees Dr. Brooks as outpatient; also sees Dr. Álvarez in [facility]). Code(s): J84.9 - INTERSTITIAL PULMONARY DISEASE, UNSPECIFIED (3) Pneumonia Assessment/Plan: On antibiotics per ID and scrub technician. Code(s): J18.9 - PNEUMONIA, UNSPECIFIED ORGANISM Qualifiers: Pneumonia type: due to unspecified organism Laterality: unspecified laterality Lung location: unspecified part of lung Qualified Code(s): J18.9 - Pneumonia, unspecified organism (4) Atrial fibrillation with RVR Assessment/Plan: Increase to 75 mg/day metoprolol ER (was on metoprolol ER 100 mg daily as outpatient). On anicoagulation (warfarin). INR 1.95; keep in "low 2's" (also on ASA and lowered-dose Effient for CAD-->coronary stent).No further hemoptysis today. F/u free T4 (mildly elevated 05/2015). Code(s): I48.91 - UNSPECIFIED ATRIAL FIBRILLATION (5) CAD (coronary artery disease) Assessment/Plan: On Effient and ASA. Continue metoprolol ER. Code(s): I25.10 - ATHSCL HEART DISEASE OF [place] CORONARY ARTERY W/O ANG PCTRS (7) Acute on chronic diastolic CHF (congestive heart failure) Assessment/Plan: ECHO: normal LVEF; mildly reduced RVEF; septal flattening (evidence of RV overload); moderate MR and TR (with mild-moderate pulmonary HTN); mild AR. Continue metoprolol; restart lisinopril if renal function allows; f/u BUN/Cr and electrolytes; Is and Os; daily weight. Furosemide held due to rising BUN/Cr; restart if necessary. Code(s): I50.33 - ACUTE ON CHRONIC DIASTOLIC (CONGESTIVE) HEART FAILURE
[2016-05-24] MEDS ORDERED: METOPROLOL SUCCINATE 25 MG TAB.SR.24H (FP) PO ONE (10:20)
--- NOTE | 2016-05-24 11:18 | PN ---
Teaching Attending Note Name of Resident: Surendra Bagley ATTENDING PHYSICIAN STATEMENT I saw and evaluated the patient. I reviewed the resident's note and discussed the case with the resident. I agree with the resident's findings and plan as documented. SUBJECTIVE: Pt seen and examined in the ICU. Breathing improved from yesterday. Still some streaky hemoptysis. No fevers, chills or sweats. No chest pain or palpitations. Remains on 50% ventimask. OBJECTIVE: Last Vital Signs Temp Pulse Resp BP Pulse Ox 97 F L 122 H 27 H 110/87 96 05/24/16 06:00 05/24/16 10:00 05/24/16 10:00 05/24/16 10:00 05/24/16 08:24 Intake & Output 05/21/16 05/22/16 05/23/16 05/24/16 23:59 23:59 23:59 23:59 Intake Total 1110 1710 1989 540 Output Total 750 Balance 1110 1710 1989 Weight 177 lb 181 lb 185 lb 1.6 oz Gen: less tachypneic Heart: tachycardic, irregular, +systolic murmur Lung: scattered basilar rales, rhonchi Abd: soft, nontender Ext: no edema CBC, BMP 05/24/16 05:30 05/24/16 05:30 Active Medications Albuterol Sulfate (Ventolin 0.083% Nebulizer Soln -) 1 amp NEB Q4H PRN PRN Reason: SHORT OF BREATH/WHEEZING Last Admin: 05/23/16 10:10 Dose: 1 amp Aspirin (Ecotrin -) 81 mg PO DAILY [facility] Last Admin: 05/24/16 09:08 Dose: 81 mg Atorvastatin Calcium (Lipitor -) 40 mg PO HS [facility] Last Admin: 05/23/16 21:39 Dose: 40 mg Azithromycin 250 mg/ Dextrose 250 mls @ 250 mls/hr IVPB DAILY [facility] Last Admin: 05/24/16 09:10 Dose: 250 mls/hr Piperacillin Sod/Tazobactam Sod (Zosyn 4.5gm Ivpb (Pre-Docked)) 100 mls @ 200 mls/hr IVPB Q8H-IV [facility] Last Admin: 05/24/16 02:39 Dose: 200 mls/hr Methylprednisolone Sodium Succinate (Solu-Medrol -) 60 mg IVPB Q6H-IV [facility] Last Admin: 05/24/16 08:32 Dose: 60 mg Metoprolol Succinate (Toprol Xl -) 75 mg PO DAILY [facility] Montelukast Sodium (Singulair -) 15 mg PO HS [facility] Last Admin: 05/23/16 21:39 Dose: 15 mg Mycophenolate Mofetil (Cellcept -) 500 mg PO BID [facility] Last Admin: 05/24/16 09:08 Dose: 500 mg Pantoprazole Sodium (Protonix -) 40 mg PO DAILY [facility] Last Admin: 05/24/16 09:08 Dose: 40 mg Prasugrel (Effient -) 5 mg PO DAILY [facility] Last Admin: 05/24/16 09:07 Dose: 5 mg Tiotropium [place] (Spiriva -) 1 puff IH DAILY [facility] Last Admin: 05/24/16 10:18 Dose: 1 puff Trimethoprim/Sulfamethoxazole (Bactrim Ds -) 1 each PO MoWeFr@1000 [facility] Last Admin: 05/23/16 09:04 Dose: 1 each Warfarin Sodium (Coumadin -) 2.5 mg PO ONCE@1800 ONE Stop: 05/24/16 18:01 ASSESSMENT AND PLAN: Acute on Chronic Hypoxic Respiratory Failure Interstitial Lung Disease ?Flare vs Pneumonia Atrial Fibrillation with RVR CAD s/p stents LV Diastolic Dysfunction Pulmonary HTN HTN - continue medrol at current dose - antibiotic coverage broadened yesterday - f/u cultures - taper FiO2 to keep SpO2 >90% - inhaled bronchodilators - rate control with cardizem IVP, toprol - resume anticoagulation - monitor hemoptysis - PO as tolerated - DVT/GI prophylaxis
[2016-05-24 11:28] LABS: FREE T4 0.9 ng/dl (0.76-1.16)
--- NOTE | 2016-05-24 11:40 | PN ---
Progress Note, Physician Chief Complaint: Mr Yadav says he is feeling a little better today. Says he is still having hemoptysis but it is improving. His shortness of breath is slightly improved but still significant. No cp or n/v. - Current Medication List Current Medications: Active Medications Albuterol Sulfate (Ventolin 0.083% Nebulizer Soln -) 1 amp NEB Q4H PRN PRN Reason: SHORT OF BREATH/WHEEZING Last Admin: 05/23/16 10:10 Dose: 1 amp Aspirin (Ecotrin -) 81 mg PO DAILY [facility] Last Admin: 05/24/16 09:08 Dose: 81 mg Atorvastatin Calcium (Lipitor -) 40 mg PO HS [facility] Last Admin: 05/23/16 21:39 Dose: 40 mg Azithromycin 250 mg/ Dextrose 250 mls @ 250 mls/hr IVPB DAILY [facility] Last Admin: 05/24/16 09:10 Dose: 250 mls/hr Piperacillin Sod/Tazobactam Sod (Zosyn 4.5gm Ivpb (Pre-Docked)) 100 mls @ 200 mls/hr IVPB Q8H-IV [facility] Last Admin: 05/24/16 02:39 Dose: 200 mls/hr Methylprednisolone Sodium Succinate (Solu-Medrol -) 60 mg IVPB Q6H-IV [facility] Last Admin: 05/24/16 08:32 Dose: 60 mg Metoprolol Succinate (Toprol Xl -) 75 mg PO DAILY [facility] Montelukast Sodium (Singulair -) 15 mg PO HS [facility] Last Admin: 05/23/16 21:39 Dose: 15 mg Mycophenolate Mofetil (Cellcept -) 500 mg PO BID [facility] Last Admin: 05/24/16 09:08 Dose: 500 mg Pantoprazole Sodium (Protonix -) 40 mg PO DAILY [facility] Last Admin: 05/24/16 09:08 Dose: 40 mg Prasugrel (Effient -) 5 mg PO DAILY [facility] Last Admin: 05/24/16 09:07 Dose: 5 mg Tiotropium [place] (Spiriva -) 1 puff IH DAILY [facility] Last Admin: 05/24/16 10:18 Dose: 1 puff Trimethoprim/Sulfamethoxazole (Bactrim Ds -) 1 each PO MoWeFr@1000 [facility] Last Admin: 05/23/16 09:04 Dose: 1 each Warfarin Sodium (Coumadin -) 2.5 mg PO ONCE@1800 ONE Stop: 05/24/16 18:01 - Objective Vital Signs: Vital Signs Temperature 97 F L 05/24/16 06:00 Pulse Rate 122 H 05/24/16 10:00 Respiratory Rate 27 H 05/24/16 10:00 Blood Pressure 110/87 05/24/16 10:00 O2 Sat by Pulse Oximetry (%) 96 05/24/16 08:24 Constitutional: Yes: Well Nourished, No Distress, Calm Cardiovascular: Yes: Tachycardia, Pulse Irregular. No: Gallop, Murmur, Rub Respiratory: Yes: Regular, On Venti-Mask, Rales (bilateral). No: Rhonchi, Wheezes Gastrointestinal: Yes: Normal Bowel Sounds, Soft. No: Distention, Tenderness Extremities: Yes: WNL Edema: Yes Edema: LLE: Trace, RLE: Trace Labs: CBC, BMP 05/24/16 05:30 05/24/16 05:30 INR, PTT INR 1.93 (0.82-1.09) H 05/24/16 05:30 Problem List - Problems (1) Pneumonia Code(s): J18.9 - PNEUMONIA, UNSPECIFIED ORGANISM Qualifiers: Pneumonia type: due to unspecified organism Laterality: unspecified laterality Lung location: unspecified part of lung Qualified Code(s): J18.9 - Pneumonia, unspecified organism (2) Atrial fibrillation Code(s): I48.91 - UNSPECIFIED ATRIAL FIBRILLATION Qualifiers: Atrial fibrillation type: chronic Qualified Code(s): I48.2 - Chronic atrial fibrillation (3) Interstitial lung disease Code(s): J84.9 - INTERSTITIAL PULMONARY DISEASE, UNSPECIFIED (4) Acute on chronic respiratory failure with hypoxemia Code(s): J96.21 - ACUTE AND CHRONIC RESPIRATORY FAILURE WITH HYPOXIA Assessment/Plan (1) Pneumonia Assessment/Plan: -appreciate ID assistance -concerning for mycobacterium or opportunistic infections -continue bactrim -continue zithromax -rocephin changed to zosyn Code(s): J18.9 - PNEUMONIA, UNSPECIFIED ORGANISM Qualifiers: Pneumonia type: due to unspecified organism Laterality: unspecified laterality Lung location: unspecified part of lung Qualified Code(s): J18.9 - Pneumonia, unspecified organism (2) Atrial fibrillation Assessment/Plan: -continues with RVR but improved today -cardiology following -continue toprol xl Code(s): I48.91 - UNSPECIFIED ATRIAL FIBRILLATION Qualifiers: Atrial fibrillation type: chronic Qualified Code(s): I48.2 - Chronic atrial fibrillation (3) Interstitial lung disease Assessment/Plan: -pulmonary following and case discussed -solumedrol increased yesterday -continue cellcept -continue albuterol and spiriva -appears improved today but still needs ICU monitoring -CT scan reviewed Code(s): J84.9 - INTERSTITIAL PULMONARY DISEASE, UNSPECIFIED (4) Acute on chronic respiratory failure with hypoxemia Assessment/Plan: -secondary to pneumonia and ILD -on non-rebreather -continue current management Code(s): J96.21 - ACUTE AND CHRONIC RESPIRATORY FAILURE WITH HYPOXIA (5) Hemoptysis -improved today -coumadin restarted and will monitor
--- NOTE | 2016-05-24 11:56 | PN ---
Physical Exam: SUBJECTIVE: Patient seen and examined at bedside. No overnight events. No new complaints. States that breathing has improved. Denies CP, SOUTH, palpitation, abd. pain, n/v. OBJECTIVE: Vital Signs Period Temp Pulse Resp BP Sys/Holt Pulse Ox Last 24 Hr 96 F-97.3 F 115-129 20-40 110-139/75-92 96-100 GENERAL: The patient is awake, alert, and fully oriented, in no acute distress. HEAD: Normal with no signs of trauma. EYES: PERRL, extraocular movements intact, sclera anicteric, conjunctiva clear. ENT: nares patent, moist mucous membranes. NECK: Supple and No JVD. LUNGS: Diminished breath sounds bilaterally, scattered basilar rales and rhonchi HEART: Regular rate and rhythm, S1, S2 without murmur, rub or gallop. ABDOMEN: Soft, nontender, nondistended, normoactive bowel sounds, no guarding, no rebound, no hepatosplenomegaly, no masses. EXTREMITIES: 2+ pulses, warm, well-perfused, no edema. NEUROLOGICAL: AAOx3, Normal speech, gait not observed. PSYCH: Normal mood, normal affect. SKIN: Warm, dry, normal turgor, no rashes or lesions noted Laboratory Results - last 24 hr 05/24/16 05/24/16 05/24/16 05:30 05:30 05:30 WBC 15.9 H RBC 4.15 Hgb 11.6 L Hct 35.7 MCV 85.9 MCHC 32.6 RDW 16.4 H Plt Count 271 MPV 7.7 Neutrophils % 89.0 H Lymphocytes % 4.0 L Monocytes % 4.0 D Band Neutrophils 1.0 Metamyelocytes 1 Reactive Lymphocytes 1 INR 1.93 H Sodium 140 Potassium 4.7 Chloride 105 Carbon Dioxide 27 Anion Gap 8 BUN 32 H Creatinine 0.9 Random Glucose 143 H Calcium 7.9 L Phosphorus 2.8 Magnesium 2.5 H Free T4 0.90 05/24/16 05:30 WBC RBC Hgb Hct MCV MCHC RDW Plt Count MPV Neutrophils % Lymphocytes % Monocytes % Band Neutrophils Metamyelocytes Reactive Lymphocytes INR Sodium Potassium Chloride Carbon Dioxide Anion Gap BUN Creatinine Random Glucose Calcium Phosphorus Magnesium Free T4 Cancelled Active Medications Generic Name Dose Route Start Last Admin Trade Name Freq PRN Reason Stop Dose Admin Albuterol Sulfate 1 amp 05/20/16 11:39 05/23/16 10:10 Ventolin 0.083% Nebulizer Soln - NEB 1 amp Q4H PRN Administration SHORT OF BREATH/WHEEZING Aspirin 81 mg 05/20/16 10:00 05/24/16 09:08 Ecotrin - PO 81 mg DAILY [facility] Administration Atorvastatin Calcium 40 mg 05/19/16 22:15 05/23/16 21:39 Lipitor - PO 40 mg HS [facility] Administration Azithromycin 250 mg/ Dextrose 250 mls @ 250 mls/hr 05/20/16 16:45 05/24/16 09: 10 IVPB 250 mls/hr DAILY [facility] Administration Piperacillin Sod/Tazobactam Sod 100 mls @ 200 mls/hr 05/23/16 18:00 05/24/16 02 :39 Zosyn 4.5gm Ivpb (Pre-Docked) IVPB 200 mls/hr Q8H-IV [facility] Administration Methylprednisolone Sodium Succinate 60 mg 05/23/16 21:00 05/24/16 08:32 Solu-Medrol - IVPB 60 mg Q6H-IV [facility] Administration Metoprolol Succinate 75 mg 05/25/16 10:00 Toprol Xl - PO DAILY [facility] Montelukast Sodium 15 mg 05/19/16 22:15 05/23/16 21:39 Singulair - PO 15 mg HS [facility] Administration Mycophenolate Mofetil 500 mg 05/19/16 22:15 05/24/16 09:08 Cellcept - PO 500 mg BID [facility] Administration Pantoprazole Sodium 40 mg 05/20/16 10:00 05/24/16 09:08 Protonix - PO 40 mg DAILY [facility] Administration Prasugrel 5 mg 05/20/16 10:00 05/24/16 09:07 Effient - PO 5 mg DAILY [facility] Administration Tiotropium [place] 1 puff 05/20/16 11:45 05/24/16 10:18 Spiriva - IH 1 puff DAILY [facility] Administration Trimethoprim/Sulfamethoxazole 1 each 05/20/16 12:15 05/23/16 09:04 Bactrim Ds - PO 1 each MoWeFr@1000 [facility] Administration Warfarin Sodium 2.5 mg 05/24/16 18:00 Coumadin - PO 05/24/16 18:01 ONCE@1800 [facility] Imaging: * [id number] CT/CHEST CT WITHOUT CONTRAST Hemoptysis. CT scan of the chest without intravenous contrast Coronal and sagittal reconstruction images were obtained. Compared to prior chest x-ray dated 05/23/[address] scan of the chest dated 02/19/2016 Diffuse bilateral interstitial lung disease with groundglass opacity is again seen there has worsened in the left lower lobe. Superimposed infiltrates cannot be excluded. No pneumothorax or pleural effusion is seen. Included portion of the lower neck appears unremarkable There are multiple lymph nodes in the mediastinum with the largest right paratracheal lymph node measuring 2.4 cm without interval change. The rest of the lymph nodes measured less than 1 cm. There is borderline cardiomegaly. Extensive calcification of the coronary arteries are present. Note is again made of a focal pleural-based calcific density over the right hemidiaphragm Included portion of the upper abdomen appears unremarkable without evidence of an acute process. Impression: Extensive bilateral interstitial lung disease again seen with worsening groundglass opacities in the left lower lobe. Rule out superimposed pneumonia. Correlate clinically. Reported By: Won Clarke MD [id number] ASSESSMENT/PLAN: 71 yo M with PMHx of AFIB, CAD, HTN , and interstitial lung disease admitted for HCAP and tranferred to ICU for worsening dysnea. HOSPITAL DAY # 5 Neuro: * AAOx3 Pulm: * Breathing has improved * Cont. supplemental O2 via 50% venti mask * maintain O2 sat >90% * Methylprednisolone Sodium Succinate (Solu-Medrol -) 60 mg IVPB Q6H-IV * Albuterol Sulfate (Ventolin 0.083% Nebulizer Soln -) 1 amp NEB Q4H * Montelukast Sodium (Singulair -) 15 mg PO HS * Tiotropium [place] (Spiriva -) 1 puff IH DAILY * PCP prophylaxis-Trimethoprim/Sulfamethoxazole (Bactrim Ds -) 1 each PO MoWeFr @1000 (day 5) * ILD-Mycophenolate Mofetil (Cellcept -) 500 mg PO BID [facility]: * Afib- rate controlled with Metoprolol Succinate (Toprol Xl -) 75 mg PO DAILY and Cardizem 10mg IVPUSH PRN * AC- Warfarin Sodium (Coumadin -) 2.5 mg PO ONCE@1800 * CAD- continue: * Aspirin (Ecotrin -) 81 mg PO DAILY * Atorvastatin Calcium (Lipitor -) 40 mg PO HS * Prasugrel (Effient -) 5 mg PO DAILY ID: * HCAP- continue: * Azithromycin 250 mg IVPB DAILY (day 5) * Zosyn 4.5gm Ivpb IVPB Q8H-IV (day 2) * Cultures pending * PCP prophylaxis started Prophylaxis: * DVT- coumadin and Effient. * GI- Protonix 40mg IV HS DISPO: Will continue to monitor in ICU. Visit type - Emergency Visit Emergency Visit: Yes ED Registration Date: 05/19/16 Care time: The patient presented to the Emergency Department on the above date and was hospitalized for further evaluation of their emergent condition. - New Patient This patient is new to me today: Yes Date on this admission: 05/24/16 - Critical Care Critical Care patient: Yes Total Critical Care Time (in minutes): 32 Critical Care Statement: The care of this patient involved high complexity decision making to prevent further life threatening deterioration of the patient 's condition and/or to evalute & treat vital organ system(s) failure or risk of failure.
--- NOTE | 2016-05-24 12:22 | PN ---
Progress Note, Physician History of Present Illness: Reports dyspnea slightly better today + cough, white sputum; occasionally streaked with blood Afebrile on steroids - Current Medication List Current Medications: Active Medications Albuterol Sulfate (Ventolin 0.083% Nebulizer Soln -) 1 amp NEB Q4H PRN PRN Reason: SHORT OF BREATH/WHEEZING Last Admin: 05/23/16 10:10 Dose: 1 amp Aspirin (Ecotrin -) 81 mg PO DAILY [facility] Last Admin: 05/24/16 09:08 Dose: 81 mg Atorvastatin Calcium (Lipitor -) 40 mg PO HS [facility] Last Admin: 05/23/16 21:39 Dose: 40 mg Azithromycin 250 mg/ Dextrose 250 mls @ 250 mls/hr IVPB DAILY [facility] Last Admin: 05/24/16 09:10 Dose: 250 mls/hr Piperacillin Sod/Tazobactam Sod (Zosyn 4.5gm Ivpb (Pre-Docked)) 100 mls @ 200 mls/hr IVPB Q8H-IV [facility] Last Admin: 05/24/16 02:39 Dose: 200 mls/hr Methylprednisolone Sodium Succinate (Solu-Medrol -) 60 mg IVPB Q6H-IV [facility] Last Admin: 05/24/16 08:32 Dose: 60 mg Metoprolol Succinate (Toprol Xl -) 75 mg PO DAILY [facility] Montelukast Sodium (Singulair -) 15 mg PO HS [facility] Last Admin: 05/23/16 21:39 Dose: 15 mg Mycophenolate Mofetil (Cellcept -) 500 mg PO BID [facility] Last Admin: 05/24/16 09:08 Dose: 500 mg Pantoprazole Sodium (Protonix -) 40 mg PO DAILY [facility] Last Admin: 05/24/16 09:08 Dose: 40 mg Prasugrel (Effient -) 5 mg PO DAILY [facility] Last Admin: 05/24/16 09:07 Dose: 5 mg Tiotropium [place] (Spiriva -) 1 puff IH DAILY [facility] Last Admin: 05/24/16 10:18 Dose: 1 puff Trimethoprim/Sulfamethoxazole (Bactrim Ds -) 1 each PO MoWeFr@1000 [facility] Last Admin: 05/23/16 09:04 Dose: 1 each Warfarin Sodium (Coumadin -) 2.5 mg PO ONCE@1800 ONE Stop: 05/24/16 18:01 - Objective Vital Signs: Vital Signs Temperature 97 F L 05/24/16 06:00 Pulse Rate 122 H 05/24/16 10:00 Respiratory Rate 27 H 05/24/16 10:00 Blood Pressure 110/87 05/24/16 10:00 O2 Sat by Pulse Oximetry (%) 96 05/24/16 08:24 Constitutional: Yes: No Distress Eyes: Yes: Conjunctiva Clear Cardiovascular: Yes: Regular Rate and Rhythm, Tachycardia, S1, S2 Respiratory: Yes: Other (+ crepitations at bases) Gastrointestinal: Yes: Normal Bowel Sounds, Soft. No: Tenderness Edema: Yes Edema: LLE: 1+, RLE: 1+ Labs: CBC, BMP 05/24/16 05:30 05/24/16 05:30 INR, PTT INR 1.93 (0.82-1.09) H 05/24/16 05:30 Assessment/Plan ILD Possible superimposed pneumonia CT shows worsening ground-glass L infiltrate Immunocompromised state Continue zosyn/ zithromax PCP prophylaxis DDX includes community acq/ atypical pathogens, atypical mycobacteria, OI ( CMV, PCP, fungal pathogens) as well as non- infectious
[2016-05-24] MEDS ORDERED: WARFARIN NA 2.5 MG TABLET (FP) PO ONE (18:00)
[2016-05-24] MEDS: MONTELUKAST NA 10 MG TABLET PO SCH (21:15)
[2016-05-24] MEDS: ATORVASTATIN CA 40 MG TABLET (FP) PO SCH (21:15)
[2016-05-25] MEDS: PIPERACILLIN/TAZOB 4.5 GM 100 ML IVPB SCH ×3 (02:00→17:17)
[2016-05-25] MEDS: methylPREDNISolone NA SUCC 125 MG/2 ML VIAL IVPB SCH ×4 (03:08→20:35)
[2016-05-25 06:00] LABS: MCH 28.3 pg (25.7-33.7); MCHC 32.9 g/dl (32.0-35.9); MEAN CELL VOLUME 86.2 fl (80-96); MEAN PLT VOLUME 7.9 fl (7.5-11.1); PLATELET COUNT 270 K/MM3 (134-434); RDW 16.6 % (11.9-15.9); WHITE BLOOD COUNT 14.3 K/mm3 (4.0-10.0)
[2016-05-25 06:07] LABS: INR 1.57 (0.82-1.09); PROTHROMBIN TIME (PATIENT) 17.4 SEC (9.98-11.88)
[2016-05-25 06:20] LABS: ALBUMIN 2.2 g/dl (3.4-5.0); ANION GAP 9 (8-16); BILIRUBIN,TOTAL 0.8 mg/dL (0.2-1.0); CALCIUM 7.8 mg/dL (8.5-10.1); CO2 27 mmol/L (21-32); CREATININE 0.9 mg/dL (0.7-1.3); GLUCOSE,RANDOM 143 mg/dL (74-106); MAGNESIUM 2.5 mg/dL (1.8-2.4); PHOSPHOROUS 3.2 mg/dL (2.5-4.9); SGOT/AST 15 U/L (15-37); SGPT/ALT 31 U/L (12-78); TOT PROT 5.6 g/dl (6.4-8.2)
[2016-05-25 06:21] LABS: ALK PHOS 76 U/L (45-117)
--- NOTE | 2016-05-25 07:35 | PN ---
Progress Note, Physician Chief Complaint: ID ICU follow up for this 71 year old man with known diagnosis of ILD brought to the hospital with worsening SOB and productive couph. Initially on Ceftriaxone and Azithromycin. Subjective improvement noted tho ugh difficult to say what exactly getting him better. At this point on steroids and Zosyn Azithromycin with unspecified illness possibly VIRAL ? - Current Medication List Current Medications: Active Medications Albuterol Sulfate (Ventolin 0.083% Nebulizer Soln -) 1 amp NEB Q4H PRN PRN Reason: SHORT OF BREATH/WHEEZING Last Admin: 05/23/16 10:10 Dose: 1 amp Aspirin (Ecotrin -) 81 mg PO DAILY COUNTS INCLUDE 234 BEDS AT THE [facility] Last Admin: 05/24/16 09:08 Dose: 81 mg Atorvastatin Calcium (Lipitor -) 40 mg PO [facility] Last Admin: 05/24/16 21:15 Dose: 40 mg Diltiazem HCl (Cardizem Injection -) 10 mg IVPUSH Q4H PRN PRN Reason: TACHYCARDIA Azithromycin 250 mg/ Dextrose 250 mls @ 250 mls/hr IVPB DAILY COUNTS INCLUDE 234 BEDS AT THE [facility] Last Admin: 05/24/16 09:10 Dose: 250 mls/hr Piperacillin Sod/Tazobactam Sod (Zosyn 4.5gm Ivpb (Pre-Docked)) 100 mls @ 200 mls/hr IVPB Q8H-IV COUNTS INCLUDE 234 BEDS AT THE [facility] Last Admin: 05/25/16 02:00 Dose: 200 mls/hr Methylprednisolone Sodium Succinate (Solu-Medrol -) 60 mg IVPB Q6H-IV COUNTS INCLUDE 234 BEDS AT THE [facility] Last Admin: 05/25/16 03:08 Dose: 60 mg Metoprolol Succinate (Toprol Xl -) 75 mg PO DAILY COUNTS INCLUDE 234 BEDS AT THE [facility] Montelukast Sodium (Singulair -) 15 mg PO HS COUNTS INCLUDE 234 BEDS AT THE [facility] Last Admin: 05/24/16 21:15 Dose: 15 mg Mycophenolate Mofetil (Cellcept -) 500 mg PO BID COUNTS INCLUDE 234 BEDS AT THE [facility] Last Admin: 05/24/16 21:16 Dose: 500 mg Pantoprazole Sodium (Protonix -) 40 mg PO DAILY COUNTS INCLUDE 234 BEDS AT THE [facility] Last Admin: 05/24/16 09:08 Dose: 40 mg Prasugrel (Effient -) 5 mg PO DAILY COUNTS INCLUDE 234 BEDS AT THE [facility] Last Admin: 05/24/16 09:07 Dose: 5 mg Tiotropium [place] (Spiriva -) 1 puff IH DAILY COUNTS INCLUDE 234 BEDS AT THE [facility] Last Admin: 01/31/17 10:18 Dose: 1 puff Trimethoprim/Sulfamethoxazole (Bactrim Ds -) 1 each PO MoWeFr@1000 [facility] Last Admin: 05/23/16 09:04 Dose: 1 each - Objective Vital Signs: Vital Signs Temperature 97.1 F L 05/25/16 06:00 Pulse Rate 115 H 05/25/16 06:00 Respiratory Rate 25 H 05/25/16 06:00 Blood Pressure 117/73 05/25/16 06:00 O2 Sat by Pulse Oximetry (%) 96 05/25/16 06:11 Constitutional: Yes: Well Nourished, Mild Distress Eyes: Yes: WNL, Conjunctiva Clear HENT: Yes: Other (No THRUSH) Neck: Yes: WNL, Supple. No: Lymphadenopathy Cardiovascular: Yes: WNL, Regular Rate and Rhythm, Tachycardia, S1, S2. No: Murmur Respiratory: Yes: WNL, Regular, CTA Bilaterally, Rales, Other (Rales bilaterally ) Gastrointestinal: Yes: WNL, Normal Bowel Sounds, Soft. No: Tenderness, Tenderness, Epigastrium, Tenderness, Rebound Extremities: No: Cool, Cyanosis, Erythema Edema: No Labs: CBC, BMP 05/25/16 05:00 05/25/16 05:00 INR, PTT INR 1.57 (0.82-1.09) H 05/25/16 05:00 Problem List - Problems (1) Acute on chronic respiratory failure with hypoxemia Code(s): J96.21 - ACUTE AND CHRONIC RESPIRATORY FAILURE WITH HYPOXIA (2) Interstitial lung disease Code(s): J84.9 - INTERSTITIAL PULMONARY DISEASE, UNSPECIFIED (3) Pneumonia Code(s): J18.9 - PNEUMONIA, UNSPECIFIED ORGANISM Qualifiers: Pneumonia type: due to unspecified organism Laterality: unspecified laterality Lung location: unspecified part of lung Qualified Code(s): J18.9 - Pneumonia, unspecified organism (4) Atrial fibrillation with RVR Code(s): I48.91 - UNSPECIFIED ATRIAL FIBRILLATION Assessment/Plan Microbiology 05/23/16 10:30 Sputum - Expectorated Direct Acid Fast Bacilli Smear - Final 05/22/16 10:15 Sputum - Expectorated AFB Smear Concentration - Final 05/22/16 10:15 Sputum - Expectorated Direct Acid Fast Bacilli Smear - Final 05/21/16 13:45 Urine For Antigen Detection Legionella Antigen - Final 05/21/16 13:45 Urine For Antigen Detection Streptococcus pneumoniae Antigen (M - Final 05/21/16 13:45 Sputum - Expectorated Gram Stain - Final 05/21/16 13:45 Sputum - Expectorated Sputum Culture - Final Yeast Like Organism 05/21/16 13:45 Sputum - Expectorated AFB Smear Concentration - Final 05/21/16 13:45 Sputum - Expectorated Direct Acid Fast Bacilli Smear - Final 05/19/16 17:00 Nasopharyngeal Swab Influenza Types A,B Antigen (JESSICA) - Final 05/19/16 17:00 Nasopharyngeal Swab - Final 05/19/16 17:00 Blood - Peripheral Venous Blood Culture - Final NO GROWTH AFTER 5 DAYS INCUBATION 05/19/16 16:30 Blood - Peripheral Venous Blood Culture - Final NO GROWTH AFTER 5 DAYS INCUBATION 05/23/16 10:30 Sputum - Expectorated AFB Smear Concentration - Preliminary 05/23/16 10:30 Sputum - Expectorated Mycobacterial Culture - Preliminary 05/22/16 10:15 Sputum - Expectorated Mycobacterial Culture - Preliminary 05/21/16 13:45 Sputum - Expectorated Mycobacterial Culture - Preliminary Laboratory Tests 05/22/16 05/25/16 05/25/16 06:00 05:00 05:00 WBC 14.3 H Hgb 11.2 L Plt Count 270 INR BUN 38 H Creatinine 0.9 Total Bilirubin 0.8 AST 15 D ALT 31 Alkaline Phosphatase 76 Beta-(1,3)-D-Glucan 62 05/25/16 05:00 WBC Hgb Plt Count INR 1.57 H BUN Creatinine Total Bilirubin AST ALT Alkaline Phosphatase Beta-(1,3)-D-Glucan Assessment Interstitial lung disease on Cellcept and now steroids Superimposed infectious component to his ILD with respiratory failure Thus far no diagnosis. Beta D glucan normal Sputum with yeast Atrial fibrillation anticoagulation Coronary artery disease 3 stents Plan Day 6 antibiotic at this point which would stop soon Steroids to continue TB unlikely Get Cryptococcus AG for completeness RSV AG Critical care time spent with patient 38 min Antony GURROLA
[2016-05-25 09:10] LABS: C-REACTIVE PROTEIN 0.6 MG/DL (0.00-0.3)
[2016-05-25] MEDS ORDERED: PT OWN MED DRAWER 7, Y5N ONE (09:11)
[2016-05-25] MEDS: SULFAMETHOXAZOLE/TRIMETHOPRIM 800MG/160MG D.S. TABLET PO SCH (09:22)
[2016-05-25] MEDS: PANTOPRAZOLE 40 MG TABLET (FP) PO SCH (09:22)
[2016-05-25] MEDS: PRASUGREL HCL 5 MG TAB PO SCH (09:22)
[2016-05-25] MEDS: ASPIRIN COATED 81 MG TABLET.EC PO SCH (09:22)
[2016-05-25] MEDS: MYCOPHENOLATE MOFETIL 500 MG TABLET PO SCH ×2 (09:22→21:11)
[2016-05-25] MEDS: AZITHROMYCIN IVPB 250 MG in DEXTROSE 5%-WATER - 250 ML IVPB SCH (09:26)
[2016-05-25] MEDS ORDERED: METOPROLOL SUCCINATE 25 MG TAB.SR.24H (FP) PO SCH (10:00)
[2016-05-25] MEDS: TIOTROPIUM BROMIDE 18 MCG/INH (DEVICE W/ 5 CAPSULES) IH SCH (10:27)
--- NOTE | 2016-05-25 10:43 | PN ---
Physical Exam: SUBJECTIVE: Patient seen and examined at bedside. No overnight events. No new complaints. Breathing is better. Feels like he is improving.Denies CP, SOUTH, palpitations, abd. pain, n/v. OBJECTIVE: Vital Signs Period Temp Pulse Resp BP Sys/Holt Pulse Ox Last 24 Hr 97.1 F-98.3 F 110-126 22-30 109-130/71-92 96-100 GENERAL: The patient is awake, alert, and fully oriented, in no acute distress. HEAD: Normal with no signs of trauma. EYES: PERRL, extraocular movements intact, sclera anicteric, conjunctiva clear. ENT: nares patent, moist mucous membranes. NECK: Supple and No JVD. LUNGS: Diminished breath sounds bilaterally, scattered basilar rales and rhonchi , increased bibasilar crackes. HEART: Regular rate and rhythm, S1, S2 without murmur, rub or gallop. ABDOMEN: Soft, nontender, nondistended, normoactive bowel sounds, no guarding, no rebound, no hepatosplenomegaly, no masses. EXTREMITIES: 2+ pulses, warm, well-perfused, no edema. NEUROLOGICAL: AAOx3, Normal speech, gait not observed. PSYCH: Normal mood, normal affect. SKIN: Warm, dry, normal turgor, no rashes or lesions noted Laboratory Results - last 24 hr 05/22/16 05/24/16 05/24/16 06:00 05:30 05:30 WBC RBC Hgb Hct MCV MCHC RDW Plt Count MPV Neutrophils % Lymphocytes % INR Sodium Potassium Chloride Carbon Dioxide Anion Gap BUN Creatinine Creat Clearance w eGFR Random Glucose Calcium Phosphorus Magnesium Total Bilirubin AST ALT Alkaline Phosphatase C-Reactive Protein Total Protein Albumin Free T4 0.90 Cancelled Beta-(1,3)-D-Glucan 62 05/25/16 05/25/16 05/25/16 05:00 05:00 05:00 WBC 14.3 H RBC 3.94 L Hgb 11.2 L Hct 34.0 L MCV 86.2 MCHC 32.9 RDW 16.6 H Plt Count 270 MPV 7.9 Neutrophils % 92.0 H Lymphocytes % 8.0 D INR 1.57 H Sodium 141 Potassium 4.7 Chloride 105 Carbon Dioxide 27 Anion Gap 9 BUN 38 H Creatinine 0.9 Creat Clearance w eGFR > 60 Random Glucose 143 H Calcium 7.8 L Phosphorus 3.2 Magnesium 2.5 H Total Bilirubin 0.8 AST 15 D ALT 31 Alkaline Phosphatase 76 C-Reactive Protein 0.6 H D Total Protein 5.6 L Albumin 2.2 L D Free T4 Beta-(1,3)-D-Glucan 05/25/16 05:00 WBC RBC Hgb Hct MCV MCHC RDW Plt Count MPV Neutrophils % Lymphocytes % INR Sodium Potassium Chloride Carbon Dioxide Anion Gap BUN Creatinine Creat Clearance w eGFR Random Glucose Calcium Phosphorus Magnesium Total Bilirubin AST ALT Alkaline Phosphatase C-Reactive Protein Cancelled Total Protein Albumin Free T4 Beta-(1,3)-D-Glucan Active Medications Generic Name Dose Route Start Last Admin Trade Name Freq PRN Reason Stop Dose Admin Albuterol Sulfate 1 amp 05/20/16 11:39 05/23/16 10:10 Ventolin 0.083% Nebulizer Soln - NEB 1 amp Q4H PRN Administration SHORT OF BREATH/WHEEZING Aspirin 81 mg 05/20/16 10:00 05/25/16 09:22 Ecotrin - PO 81 mg DAILY ALIA Administration Atorvastatin Calcium 40 mg 05/19/16 22:15 05/24/16 21:15 Lipitor - PO 40 mg HS ALIA Administration Diltiazem HCl 10 mg 05/24/16 16:04 Cardizem Injection - IVPUSH Q4H PRN TACHYCARDIA Azithromycin 250 mg/ Dextrose 250 mls @ 250 mls/hr 05/20/16 16:45 05/25/16 09: 26 IVPB 250 mls/hr DAILY [facility]IA Administration Piperacillin Sod/Tazobactam Sod 100 mls @ 200 mls/hr 05/23/16 18:00 05/25/16 09 :23 Zosyn 4.5gm Ivpb (Pre-Docked) IVPB 200 mls/hr Q8H-IV [facility] Administration Methylprednisolone Sodium Succinate 60 mg 05/23/16 21:00 05/25/16 09:22 Solu-Medrol - IVPB 60 mg Q6H-IV [facility] Administration Metoprolol Succinate 75 mg 05/25/16 10:00 05/25/16 09:22 Toprol Xl - PO 75 mg DAILY [facility]IA Administration Montelukast Sodium 15 mg 05/19/16 22:15 05/24/16 21:15 Singulair - PO 15 mg HS [facility]IA Administration Mycophenolate Mofetil 500 mg 05/19/16 22:15 05/25/16 09:22 Cellcept - PO 500 mg BID ALIA Administration Pantoprazole Sodium 40 mg 05/20/16 10:00 05/25/16 09:22 Protonix - PO 40 mg DAILY [facility] Administration Prasugrel 5 mg 05/20/16 10:00 05/25/16 09:22 Effient - PO 5 mg DAILY [facility] Administration Tiotropium [place] 1 puff 05/20/16 11:45 05/25/16 10:27 Spiriva - IH 1 puff DAILY [facility] Administration Trimethoprim/Sulfamethoxazole 1 each 05/20/16 12:15 05/25/16 09:22 Bactrim Ds - PO 1 each MoWeFr@1000 ALIA Administration ASSESSMENT/PLAN: Imaging: * [id number] CT/CHEST CT WITHOUT CONTRAST Hemoptysis. CT scan of the chest without intravenous contrast Coronal and sagittal reconstruction images were obtained. Compared to prior chest x-ray dated 05/23/[address] scan of the chest dated 02/19/2016 Diffuse bilateral interstitial lung disease with groundglass opacity is again seen there has worsened in the left lower lobe. Superimposed infiltrates cannot be excluded. No pneumothorax or pleural effusion is seen. Included portion of the lower neck appears unremarkable There are multiple lymph nodes in the mediastinum with the largest right paratracheal lymph node measuring 2.4 cm without interval change. The rest of the lymph nodes measured less than 1 cm. There is borderline cardiomegaly. Extensive calcification of the coronary arteries are present. Note is again made of a focal pleural-based calcific density over the right hemidiaphragm Included portion of the upper abdomen appears unremarkable without evidence of an acute process. Impression: Extensive bilateral interstitial lung disease again seen with worsening groundglass opacities in the left lower lobe. Rule out superimposed pneumonia. Correlate clinically. Reported By: Won Clarke MD [id number] ASSESSMENT/PLAN: 71 yo M with PMHx of AFIB, CAD, HTN , and interstitial lung disease admitted for HCAP and tranferred to ICU for worsening dysnea. HOSPITAL DAY # 6 Neuro: * AAOx3 Pulm: * Breathing has improved * Placed on 5L NC * maintain O2 sat >90% * Methylprednisolone Sodium Succinate (Solu-Medrol -) 60 mg IVPB Q6H-IV * Albuterol Sulfate (Ventolin 0.083% Nebulizer Soln -) 1 amp NEB Q4H * Montelukast Sodium (Singulair -) 15 mg PO HS * Tiotropium [place] (Spiriva -) 1 puff IH DAILY * PCP prophylaxis-Trimethoprim/Sulfamethoxazole (Bactrim Ds -) 1 each PO MoWeFr @1000 (day 6) * ILD-Mycophenolate Mofetil (Cellcept -) 500 mg PO BID CV: * Afib- rate controlled Toprol Xl 75 mg increased to 100 mg PO DAILY and Cardizem 10mg IVPUSH PRN * Will give 40mg of lasix for increased crackles. * AC- Warfarin Sodium (Coumadin -) 2.5 mg PO ONCE@1800 ; will start lovenox 85mg BID to bridge until INR therapeutic. * CAD- continue: * Aspirin (Ecotrin -) 81 mg PO DAILY * Atorvastatin Calcium (Lipitor -) 40 mg PO HS * Prasugrel (Effient -) 5 mg PO DAILY ID: * HCAP- continue: * Azithromycin 250 mg IVPB DAILY (day 6) * Zosyn 4.5gm Ivpb IVPB Q8H-IV (day 3) * Cultures pending * PCP prophylaxis started Prophylaxis: * DVT- coumadin and Effient. * GI- Protonix 40mg IV HS DISPO: Will continue to monitor in ICU. Visit type - Emergency Visit Emergency Visit: Yes ED Registration Date: 05/19/16 Care time: The patient presented to the Emergency Department on the above date and was hospitalized for further evaluation of their emergent condition. - New Patient This patient is new to me today: No - Critical Care Critical Care patient: Yes Total Critical Care Time (in minutes): 33 Critical Care Statement: The care of this patient involved high complexity decision making to prevent further life threatening deterioration of the patient 's condition and/or to evalute & treat vital organ system(s) failure or risk of failure.
[2016-05-25] MEDS ORDERED: METOPROLOL SUCCINATE 100 MG TAB.SR.24H (FP) PO SCH (10:44)
[2016-05-25] MEDS ORDERED: FUROSEMIDE 40 MG/4 ML INJECTABLE VIAL IVPB ONE (10:44)
--- NOTE | 2016-05-25 10:52 | PN ---
Teaching Attending Note Name of Resident: Surendra Bagley ATTENDING PHYSICIAN STATEMENT I saw and evaluated the patient. I reviewed the resident's note and discussed the case with the resident. I agree with the resident's findings and plan as documented. SUBJECTIVE: Pt seen and examined in the ICU. Breathing continues to improve. Heart rates still rapid. No fevers, chills or sweats. OBJECTIVE: Last Vital Signs Temp Pulse Resp BP Pulse Ox 97.5 F L 114 H 22 115/80 100 05/25/16 10:00 05/25/16 10:00 05/25/16 10:00 05/25/16 10:00 05/25/16 10:00 Intake & Output 05/22/16 05/23/16 05/24/16 05/25/16 23:59 23:59 23:59 23:59 Intake Total 1710 1989 2808 186 Output Total 1650 350 Balance 1710 1989 1158 -164 Weight 181 lb 185 lb 1.6 oz 184 lb 8 oz Gen: mildly tachypneic at rest Heart: tachycardic, irregular Lung: bibasilar rales Abd: soft, nontender Ext: no edema CBC, BMP 05/25/16 05:00 05/25/16 05:00 CXR: increased pulmonary vascular congestion, small bilateral effusions Active Medications Albuterol Sulfate (Ventolin 0.083% Nebulizer Soln -) 1 amp NEB Q4H PRN PRN Reason: SHORT OF BREATH/WHEEZING Last Admin: 05/23/16 10:10 Dose: 1 amp Aspirin (Ecotrin -) 81 mg PO DAILY [facility] Last Admin: 05/25/16 09:22 Dose: 81 mg Atorvastatin Calcium (Lipitor -) 40 mg PO HS [facility] Last Admin: 05/24/16 21:15 Dose: 40 mg Diltiazem HCl (Cardizem Injection -) 10 mg IVPUSH Q4H PRN PRN Reason: TACHYCARDIA Enoxaparin Sodium (Lovenox -) 85 mg SQ BID [facility] Furosemide (Lasix Injection -) 40 mg IVPB ONCE ONE Stop: 05/25/16 10:45 Azithromycin 250 mg/ Dextrose 250 mls @ 250 mls/hr IVPB DAILY [facility] Last Admin: 05/25/16 09:26 Dose: 250 mls/hr Piperacillin Sod/Tazobactam Sod (Zosyn 4.5gm Ivpb (Pre-Docked)) 100 mls @ 200 mls/hr IVPB Q8H-IV [facility] Last Admin: 05/25/16 09:23 Dose: 200 mls/hr Methylprednisolone Sodium Succinate (Solu-Medrol -) 60 mg IVPB Q6H-IV [facility] Last Admin: 05/25/16 09:22 Dose: 60 mg Metoprolol Succinate (Toprol Xl -) 100 mg PO DAILY [facility] Montelukast Sodium (Singulair -) 15 mg PO HS [facility] Last Admin: 05/24/16 21:15 Dose: 15 mg Mycophenolate Mofetil (Cellcept -) 500 mg PO BID [facility] Last Admin: 05/25/16 09:22 Dose: 500 mg Pantoprazole Sodium (Protonix -) 40 mg PO DAILY [facility] Last Admin: 05/25/16 09:22 Dose: 40 mg Prasugrel (Effient -) 5 mg PO DAILY [facility] Last Admin: 05/25/16 09:22 Dose: 5 mg Tiotropium [place] (Spiriva -) 1 puff IH DAILY [facility] Last Admin: 05/25/16 10:27 Dose: 1 puff Trimethoprim/Sulfamethoxazole (Bactrim Ds -) 1 each PO MoWeFr@1000 [facility] Last Admin: 05/25/16 09:22 Dose: 1 each ASSESSMENT AND PLAN: Acute on Chronic Hypoxic Respiratory Failure Interstitial Lung Disease ?Flare vs Pneumonia Atrial Fibrillation with RVR CAD s/p stents Acute on Chronic LV Diastolic Heart Failure Pulmonary HTN HTN - continue medrol at current dose - continue antibiotics per ID - f/u cultures - taper FiO2 to keep SpO2 >90% - inhaled bronchodilators - rate control with cardizem IVP, titrate toprol up - agree with lasix today - monitor urine output, creatinine - keep net negative - resume anticoagulation, transition with lovenox - hemoptysis resolved - PO as tolerated - DVT/GI prophylaxis
--- NOTE | 2016-05-25 11:58 | PN ---
Progress Note, Physician History of Present Illness: The patient is a 71 year old white male with a past medical hx of HTN, afib, severe interstitial lung disease (ILD) (followed by Dr. Brooks), CAD-->three cardiac stents in 2016, who presents to the ED complaining of shortness of breath for one week. The patient reports his shortness of breath progressively worsened over the weekend. He states his PCP increased his Prednisone, but he is still feeling short of breath. The patient reports he is oxygen dependent at home. The patient denies chest pain The patient denies fever, chills The patient denies nausea, vomiting, diarrhea - Current Medication List Current Medications: Active Medications Albuterol Sulfate (Ventolin 0.083% Nebulizer Soln -) 1 amp NEB Q4H PRN PRN Reason: SHORT OF BREATH/WHEEZING Last Admin: 05/23/16 10:10 Dose: 1 amp Aspirin (Ecotrin -) 81 mg PO DAILY [facility] Last Admin: 05/25/16 09:22 Dose: 81 mg Atorvastatin Calcium (Lipitor -) 40 mg PO [facility] Last Admin: 05/24/16 21:15 Dose: 40 mg Diltiazem HCl (Cardizem Injection -) 10 mg IVPUSH Q4H PRN PRN Reason: TACHYCARDIA Enoxaparin Sodium (Lovenox -) 80 mg SQ BID [facility] Azithromycin 250 mg/ Dextrose 250 mls @ 250 mls/hr IVPB DAILY [facility] Last Admin: 05/25/16 09:26 Dose: 250 mls/hr Piperacillin Sod/Tazobactam Sod (Zosyn 4.5gm Ivpb (Pre-Docked)) 100 mls @ 200 mls/hr IVPB Q8H-IV [facility] Last Admin: 05/25/16 09:23 Dose: 200 mls/hr Methylprednisolone Sodium Succinate (Solu-Medrol -) 60 mg IVPB Q6H-IV [facility] Last Admin: 05/25/16 09:22 Dose: 60 mg Metoprolol Succinate (Toprol Xl -) 100 mg PO DAILY [facility] Montelukast Sodium (Singulair -) 15 mg PO [facility] Last Admin: 05/24/16 21:15 Dose: 15 mg Mycophenolate Mofetil (Cellcept -) 500 mg PO BID [facility] Last Admin: 05/25/16 09:22 Dose: 500 mg Pantoprazole Sodium (Protonix -) 40 mg PO DAILY [facility] Last Admin: 05/25/16 09:22 Dose: 40 mg Prasugrel (Effient -) 5 mg PO DAILY [facility] Last Admin: 05/25/16 09:22 Dose: 5 mg Tiotropium [place] (Spiriva -) 1 puff IH DAILY [facility] Last Admin: 05/25/16 10:27 Dose: 1 puff Trimethoprim/Sulfamethoxazole (Bactrim Ds -) 1 each PO MoWeFr@1000 [facility] Last Admin: 05/25/16 09:22 Dose: 1 each - Objective Vital Signs: Vital Signs Temperature 97.5 F L 05/25/16 10:00 Pulse Rate 114 H 05/25/16 10:00 Respiratory Rate 22 05/25/16 10:00 Blood Pressure 115/80 05/25/16 10:00 O2 Sat by Pulse Oximetry (%) 100 05/25/16 10:00 Eyes: Yes: WNL, Conjunctiva Clear, EOM Intact HENT: Yes: WNL, Atraumatic, Normocephalic Neck: Yes: WNL, Supple, Trachea Midline Cardiovascular: Yes: Pulse Irregular Respiratory: Yes: Regular, Rales, Rhonchi Gastrointestinal: Yes: WNL, Normal Bowel Sounds Genitourinary: Yes: WNL Musculoskeletal: Yes: WNL Extremities: Yes: WNL Edema: No Integumentary: Yes: WNL Neurological: Yes: WNL, Alert, Oriented ...Motor Strength: WNL Psychiatric: Yes: WNL Labs: CBC, BMP 05/25/16 05:00 05/25/16 05:00 INR, PTT INR 1.57 (0.82-1.09) H 05/25/16 05:00 Assessment/Plan - Problems (1) Acute on chronic respiratory failure with hypoxemia Code(s): J96.21 - ACUTE AND CHRONIC RESPIRATORY FAILURE WITH HYPOXIA (2) Interstitial lung disease Assessment/Plan: F/u with anthropology instructor (sees Dr. Brooks as outpatient; also sees Dr. Álvarez in [facility]). Code(s): J84.9 - INTERSTITIAL PULMONARY DISEASE, UNSPECIFIED (3) Pneumonia Assessment/Plan: On antibiotics per ID and anthropology instructor. Code(s): J18.9 - PNEUMONIA, UNSPECIFIED ORGANISM Qualifiers: Pneumonia type: due to unspecified organism Laterality: unspecified laterality Lung location: unspecified part of lung Qualified Code(s): J18.9 - Pneumonia, unspecified organism (4) Atrial fibrillation with RVR Assessment/Plan: Increase to 75 mg/day metoprolol ER (was on metoprolol ER 100 mg daily as outpatient). On anicoagulation (warfarin). INR 1.95; keep in "low 2's" (also on ASA and lowered-dose Effient for CAD-->coronary stent).No further hemoptysis today. F/u free T4 (mildly elevated 05/2015). Code(s): I48.91 - UNSPECIFIED ATRIAL FIBRILLATION (5) CAD (coronary artery disease) Assessment/Plan: On Effient and ASA. Continue metoprolol ER. Code(s): I25.10 - ATHSCL HEART DISEASE OF [place] CORONARY ARTERY W/O ANG PCTRS (7) Acute on chronic diastolic CHF (congestive heart failure) Assessment/Plan: ECHO: normal LVEF; mildly reduced RVEF; septal flattening (evidence of RV overload); moderate MR and TR (with mild-moderate pulmonary HTN); mild AR. Continue metoprolol; restart lisinopril if renal function allows; f/u BUN/Cr and electrolytes; Is and Os; daily weight. Furosemide held due to rising BUN/Cr; restart if necessary. Code(s): I50.33 - ACUTE ON CHRONIC DIASTOLIC (CONGESTIVE) HEART FAILURE cc time 35 min
[2016-05-25] MEDS: dilTIAZem HCL 50 MG/10 ML - 10 ML VIAL IVPUSH PRN ×2 (13:44→19:41)
--- NOTE | 2016-05-25 15:56 | PN ---
Progress Note, Physician Chief Complaint: Mr Yadav says he is feeling better today. Hemoptysis has resolved. Breathing has improved. No cp or n/v. - Current Medication List Current Medications: Active Medications Albuterol Sulfate (Ventolin 0.083% Nebulizer Soln -) 1 amp NEB Q4H PRN PRN Reason: SHORT OF BREATH/WHEEZING Last Admin: 05/23/16 10:10 Dose: 1 amp Aspirin (Ecotrin -) 81 mg PO DAILY [facility] Last Admin: 05/25/16 09:22 Dose: 81 mg Atorvastatin Calcium (Lipitor -) 40 mg PO HS [facility] Last Admin: 05/24/16 21:15 Dose: 40 mg Diltiazem HCl (Cardizem Injection -) 10 mg IVPUSH Q4H PRN PRN Reason: TACHYCARDIA Last Admin: 05/25/16 13:44 Dose: 10 mg Enoxaparin Sodium (Lovenox -) 80 mg SQ BID [facility] Azithromycin 250 mg/ Dextrose 250 mls @ 250 mls/hr IVPB DAILY [facility] Last Admin: 05/25/16 09:26 Dose: 250 mls/hr Piperacillin Sod/Tazobactam Sod (Zosyn 4.5gm Ivpb (Pre-Docked)) 100 mls @ 200 mls/hr IVPB Q8H-IV [facility] Last Admin: 05/25/16 09:23 Dose: 200 mls/hr Methylprednisolone Sodium Succinate (Solu-Medrol -) 60 mg IVPB Q6H-IV [facility] Last Admin: 05/25/16 14:48 Dose: 60 mg Metoprolol Succinate (Toprol Xl -) 100 mg PO DAILY [facility] Montelukast Sodium (Singulair -) 15 mg PO HS [facility] Last Admin: 05/24/16 21:15 Dose: 15 mg Mycophenolate Mofetil (Cellcept -) 500 mg PO BID [facility] Last Admin: 05/25/16 09:22 Dose: 500 mg Pantoprazole Sodium (Protonix -) 40 mg PO DAILY [facility] Last Admin: 05/25/16 09:22 Dose: 40 mg Prasugrel (Effient -) 5 mg PO DAILY [facility] Last Admin: 05/25/16 09:22 Dose: 5 mg Tiotropium [place] (Spiriva -) 1 puff IH DAILY [facility] Last Admin: 05/25/16 10:27 Dose: 1 puff Trimethoprim/Sulfamethoxazole (Bactrim Ds -) 1 each PO MoWeFr@1000 [facility] Last Admin: 05/25/16 09:22 Dose: 1 each - Objective Vital Signs: Vital Signs Temperature 98 F 05/25/16 14:00 Pulse Rate 132 H 05/25/16 14:00 Respiratory Rate 24 05/25/16 14:00 Blood Pressure 132/97 05/25/16 14:00 O2 Sat by Pulse Oximetry (%) 100 05/25/16 10:00 Constitutional: Yes: Well Nourished, No Distress, Calm Cardiovascular: Yes: Tachycardia, Pulse Irregular. No: Gallop, Murmur, Rub Respiratory: Yes: On Venti-Mask, Rhonchi, Tachypnea, Wheezes Gastrointestinal: Yes: Normal Bowel Sounds, Soft. No: Distention, Tenderness Extremities: Yes: WNL Edema: No Labs: CBC, BMP 05/25/16 05:00 05/25/16 05:00 INR, PTT INR 1.57 (0.82-1.09) H 05/25/16 05:00 Problem List - Problems (1) Pneumonia Code(s): J18.9 - PNEUMONIA, UNSPECIFIED ORGANISM Qualifiers: Pneumonia type: due to unspecified organism Laterality: unspecified laterality Lung location: unspecified part of lung Qualified Code(s): J18.9 - Pneumonia, unspecified organism (2) Atrial fibrillation Code(s): I48.91 - UNSPECIFIED ATRIAL FIBRILLATION Qualifiers: Atrial fibrillation type: chronic Qualified Code(s): I48.2 - Chronic atrial fibrillation (3) Interstitial lung disease Code(s): J84.9 - INTERSTITIAL PULMONARY DISEASE, UNSPECIFIED (4) Acute on chronic respiratory failure with hypoxemia Code(s): J96.21 - ACUTE AND CHRONIC RESPIRATORY FAILURE WITH HYPOXIA Assessment/Plan (1) Pneumonia Assessment/Plan: -appreciate ID assistance -continue bactrim for PCP PPx -continue zosyn and zithromax per ID recommendations Code(s): J18.9 - PNEUMONIA, UNSPECIFIED ORGANISM Qualifiers: Pneumonia type: due to unspecified organism Laterality: unspecified laterality Lung location: unspecified part of lung Qualified Code(s): J18.9 - Pneumonia, unspecified organism (2) Atrial fibrillation Assessment/Plan: -continues with RVR but stable -cardiology following -continue toprol xl Code(s): I48.91 - UNSPECIFIED ATRIAL FIBRILLATION Qualifiers: Atrial fibrillation type: chronic Qualified Code(s): I48.2 - Chronic atrial fibrillation (3) Interstitial lung disease Assessment/Plan: -pulmonary following and case discussed -continue solumedrol, evaluate for decrease of steroids tomorrow -continue cellcept -continue albuterol and spiriva -appears improved today but still needs ICU monitoring -CT scan reviewed Code(s): J84.9 - INTERSTITIAL PULMONARY DISEASE, UNSPECIFIED (4) Acute on chronic respiratory failure with hypoxemia Assessment/Plan: -secondary to pneumonia and ILD -on non-rebreather -continue current management Code(s): J96.21 - ACUTE AND CHRONIC RESPIRATORY FAILURE WITH HYPOXIA (5) Hemoptysis -resolved -follow INR -currently on lovenox bridge to therapeutic coumadin level
[2016-05-25] MEDS: dilTIAZem HCL 60 MG TABLET (FP) PO SCH ×2 (17:17→23:33)
[2016-05-25] MEDS: ENOXAPARIN NA (PORCINE) 80 MG/0.8 ML DISP.SYRIN SQ SCH (21:10)
[2016-05-25] MEDS: ATORVASTATIN CA 40 MG TABLET (FP) PO SCH (21:12)
[2016-05-25] MEDS: MONTELUKAST NA 10 MG TABLET PO SCH (21:12)
[2016-05-26] MEDS: PIPERACILLIN/TAZOB 4.5 GM 100 ML IVPB SCH ×2 (02:43→09:09)
[2016-05-26] MEDS: methylPREDNISolone NA SUCC 125 MG/2 ML VIAL IVPB SCH ×2 (02:43→09:12)
[2016-05-26] MEDS: dilTIAZem HCL 60 MG TABLET (FP) PO SCH ×3 (05:50→18:15)
[2016-05-26 06:16] LABS: MCH 28.1 pg (25.7-33.7); MCHC 32.6 g/dl (32.0-35.9); MEAN CELL VOLUME 86.3 fl (80-96); MEAN PLT VOLUME 7.5 fl (7.5-11.1); PLATELET COUNT 236 K/MM3 (134-434); RDW 16.7 % (11.9-15.9); WHITE BLOOD COUNT 14.7 K/mm3 (4.0-10.0)
[2016-05-26 06:28] LABS: INR 1.88 (0.82-1.09); PROTHROMBIN TIME (PATIENT) 20.9 SEC (9.98-11.88)
[2016-05-26 06:37] LABS: ALBUMIN 2.3 g/dl (3.4-5.0); ANION GAP 10 (8-16); CALCIUM 7.6 mg/dL (8.5-10.1); CO2 30 mmol/L (21-32); GLUCOSE,RANDOM 152 mg/dL (74-106); SGOT/AST 12 U/L (15-37); SGPT/ALT 29 U/L (12-78)
[2016-05-26 06:39] LABS: ALK PHOS 77 U/L (45-117); BILIRUBIN,TOTAL 0.8 mg/dL (0.2-1.0); CREATININE 0.8 mg/dL (0.7-1.3); TOT PROT 5.7 g/dl (6.4-8.2)
--- NOTE | 2016-05-26 07:36 | PN ---
Progress Note, Physician Chief Complaint: ID Day 7 antibiotics Marked improvement continues Zosyn (Ceftriaxone before) Azithromycin - Current Medication List Current Medications: Active Medications Albuterol Sulfate (Ventolin 0.083% Nebulizer Soln -) 1 amp NEB Q4H PRN PRN Reason: SHORT OF BREATH/WHEEZING Last Admin: 05/23/16 10:10 Dose: 1 amp Aspirin (Ecotrin -) 81 mg PO DAILY [facility] Last Admin: 05/25/16 09:22 Dose: 81 mg Atorvastatin Calcium (Lipitor -) 40 mg PO HS [facility] Last Admin: 05/25/16 21:12 Dose: 40 mg Diltiazem HCl (Cardizem Injection -) 10 mg IVPUSH Q4H PRN PRN Reason: TACHYCARDIA Last Admin: 05/25/16 19:41 Dose: 10 mg Diltiazem HCl (Cardizem -) 60 mg PO Q6HPO [facility] Last Admin: 05/26/16 05:50 Dose: 60 mg Enoxaparin Sodium (Lovenox -) 80 mg SQ BID [facility] Last Admin: 05/25/16 21:10 Dose: 80 mg Azithromycin 250 mg/ Dextrose 250 mls @ 250 mls/hr IVPB DAILY [facility] Last Admin: 05/25/16 09:26 Dose: 250 mls/hr Piperacillin Sod/Tazobactam Sod (Zosyn 4.5gm Ivpb (Pre-Docked)) 100 mls @ 200 mls/hr IVPB Q8H-IV [facility] Last Admin: 05/26/16 02:43 Dose: 200 mls/hr Methylprednisolone Sodium Succinate (Solu-Medrol -) 60 mg IVPB Q6H-IV [facility] Last Admin: 05/26/16 02:43 Dose: 60 mg Metoprolol Succinate (Toprol Xl -) 100 mg PO DAILY [facility] Montelukast Sodium (Singulair -) 15 mg PO HS [facility] Last Admin: 05/25/16 21:12 Dose: 15 mg Mycophenolate Mofetil (Cellcept -) 500 mg PO BID [facility] Last Admin: 05/25/16 21:11 Dose: 500 mg Pantoprazole Sodium (Protonix -) 40 mg PO DAILY [facility] Last Admin: 05/25/16 09:22 Dose: 40 mg Prasugrel (Effient -) 5 mg PO DAILY [facility] Last Admin: 05/25/16 09:22 Dose: 5 mg Tiotropium [place] (Spiriva -) 1 puff IH DAILY [facility] Last Admin: 05/25/16 10:27 Dose: 1 puff Trimethoprim/Sulfamethoxazole (Bactrim Ds -) 1 each PO MoWeFr@1000 [facility] Last Admin: 05/25/16 09:22 Dose: 1 each - Objective Vital Signs: Vital Signs Temperature 97.6 F 05/26/16 06:00 Pulse Rate 94 H 05/26/16 06:00 Respiratory Rate 20 05/26/16 06:00 Blood Pressure 104/75 05/26/16 06:00 O2 Sat by Pulse Oximetry (%) 95 05/25/16 19:52 Constitutional: Yes: Well Nourished, Mild Distress HENT: Yes: WNL, Atraumatic Neck: Yes: WNL, Supple Cardiovascular: Yes: Regular Rate and Rhythm, S1, S2. No: Rub Respiratory: Yes: WNL, Regular, CTA Bilaterally, Rhonchi Gastrointestinal: Yes: WNL, Normal Bowel Sounds, Soft. No: Tenderness, Tenderness, Rebound Extremities: No: Cold, Cool, Cyanosis Edema: No Labs: CBC, BMP 05/26/16 05:20 05/26/16 05:20 INR, PTT INR 1.88 (0.82-1.09) H 05/26/16 05:20 Problem List - Problems (1) Acute on chronic respiratory failure with hypoxemia Code(s): J96.21 - ACUTE AND CHRONIC RESPIRATORY FAILURE WITH HYPOXIA (2) Interstitial lung disease Code(s): J84.9 - INTERSTITIAL PULMONARY DISEASE, UNSPECIFIED (3) Pneumonia Code(s): J18.9 - PNEUMONIA, UNSPECIFIED ORGANISM Qualifiers: Pneumonia type: due to unspecified organism Laterality: unspecified laterality Lung location: unspecified part of lung Qualified Code(s): J18.9 - Pneumonia, unspecified organism (4) Atrial fibrillation with RVR Code(s): I48.91 - UNSPECIFIED ATRIAL FIBRILLATION Assessment/Plan Microbiology 05/23/16 10:30 Sputum - Expectorated AFB Smear Concentration - Final 05/23/16 10:30 Sputum - Expectorated Direct Acid Fast Bacilli Smear - Final 05/22/16 10:15 Sputum - Expectorated AFB Smear Concentration - Final 05/22/16 10:15 Sputum - Expectorated Direct Acid Fast Bacilli Smear - Final 05/21/16 13:45 Sputum - Expectorated Gram Stain - Final 05/21/16 13:45 Sputum - Expectorated Sputum Culture - Final Yeast Like Organism 05/21/16 13:45 Sputum - Expectorated AFB Smear Concentration - Final 05/21/16 13:45 Sputum - Expectorated Direct Acid Fast Bacilli Smear - Final 05/25/16 05:00 Serum Cryptococcal Antigen - Preliminary 05/24/16 05:30 Blood - Peripheral Venous TB Test (QFT) (JESSICA) - Preliminary 05/23/16 10:30 Sputum - Expectorated Mycobacterial Culture - Preliminary 05/22/16 10:15 Sputum - Expectorated Mycobacterial Culture - Preliminary 05/21/16 13:45 Sputum - Expectorated Mycobacterial Culture - Preliminary Laboratory Tests 05/22/16 05/26/16 05/26/16 06:00 05:20 05:20 WBC 14.7 H Hgb 11.8 Plt Count 236 BUN 42 H AST 12 L Beta-(1,3)-D-Glucan 62 Assessment Interstitial lung disease with presumed superimposed infection unspecified etiology Day 7 antibiotics empiric Atrial fibrillation Coronary artery disease with stents x 3 Respiratory failure Plan As suggested would stop antibiotics after today Always possible he could grow an AFB down the road ? atypical colonized Crypt AG sent RSV Critical care time spent today Antony GURROLA
[2016-05-26] MEDS ORDERED: PT OWN MED DRAWER 7, Y5N ONE ×4 (09:03→21:41)
[2016-05-26] MEDS: AZITHROMYCIN IVPB 250 MG in DEXTROSE 5%-WATER - 250 ML IVPB SCH (09:09)
[2016-05-26] MEDS: PANTOPRAZOLE 40 MG TABLET (FP) PO SCH (09:09)
[2016-05-26] MEDS: ASPIRIN COATED 81 MG TABLET.EC PO SCH (09:09)
[2016-05-26] MEDS: TIOTROPIUM BROMIDE 18 MCG/INH (DEVICE W/ 5 CAPSULES) IH SCH (09:11)
[2016-05-26] MEDS: MYCOPHENOLATE MOFETIL 500 MG TABLET PO SCH ×2 (09:17→21:42)
[2016-05-26] MEDS: ENOXAPARIN NA (PORCINE) 80 MG/0.8 ML DISP.SYRIN SQ SCH ×2 (09:17→21:43)
[2016-05-26] MEDS: PRASUGREL HCL 5 MG TAB PO SCH (09:17)
[2016-05-26] MEDS ORDERED: FUROSEMIDE 40 MG/4 ML INJECTABLE VIAL IVPUSH ONE (10:27)
--- NOTE | 2016-05-26 10:37 | PN ---
Teaching Attending Note Name of Resident: Surendra Bagley ATTENDING PHYSICIAN STATEMENT I saw and evaluated the patient. I reviewed the resident's note and discussed the case with the resident. I agree with the resident's findings and plan as documented. SUBJECTIVE: Pt seen and examined in the ICU. Diuresed well with lasix yesterday with improvement in breathing. No fevers, chills or sweats. No further hemoptysis. Started on standing PO cardizem with improvement in heart rate. OBJECTIVE: Last Vital Signs Temp Pulse Resp BP Pulse Ox 97.5 F L 94 H 30 H 113/70 96 05/26/16 10:00 05/26/16 10:00 05/26/16 10:00 05/26/16 10:00 05/26/16 09:40 Intake & Output 05/23/16 05/24/16 05/25/16 05/26/16 23:59 23:59 23:59 23:59 Intake Total 1989 2808 1036 200 Output Total 1650 2550 300 Balance 1989 1158 -1514 -100 Weight 185 lb 1.6 oz 184 lb 8 oz 182 lb 5.156 oz Gen: less tachypneic Heart: irregularly irregular Lung: bibasilar rales L>R, improved from yesterday Abd: soft, nontender Ext: no edema CBC, BMP 05/26/16 05:20 05/26/16 05:20 CXR: improving effusions, interstitial infiltrates Active Medications Albuterol Sulfate (Ventolin 0.083% Nebulizer Soln -) 1 amp NEB Q4H PRN PRN Reason: SHORT OF BREATH/WHEEZING Last Admin: 05/23/16 10:10 Dose: 1 amp Aspirin (Ecotrin -) 81 mg PO DAILY [facility] Last Admin: 05/26/16 09:09 Dose: 81 mg Atorvastatin [place]cium (Lipitor -) 40 mg PO HS [facility] Last Admin: 05/25/16 21:12 Dose: 40 mg Diltiazem HCl (Cardizem Injection -) 10 mg IVPUSH Q4H PRN PRN Reason: TACHYCARDIA Last Admin: 05/25/16 19:41 Dose: 10 mg Diltiazem HCl (Cardizem -) 60 mg PO Q6HPO [facility] Last Admin: 05/26/16 05:50 Dose: 60 mg Enoxaparin Sodium (Lovenox -) 80 mg SQ BID [facility] Last Admin: 05/26/16 09:17 Dose: 80 mg Furosemide (Lasix Injection -) 40 mg IVPUSH ONCE ONE Stop: 05/26/16 10:28 Azithromycin 250 mg/ Dextrose 250 mls @ 250 mls/hr IVPB DAILY [facility] Stop: 05/26/16 23:59 Last Admin: 05/26/16 09:09 Dose: 250 mls/hr Piperacillin Sod/Tazobactam Sod (Zosyn 4.5gm Ivpb (Pre-Docked)) 100 mls @ 200 mls/hr IVPB Q8H-IV [facility] Stop: 05/26/16 23:59 Last Admin: 05/26/16 09:09 Dose: 200 mls/hr Methylprednisolone Sodium Succinate (Solu-Medrol -) 40 mg IVPB Q8H-IV [facility] Metoprolol Succinate (Toprol Xl -) 100 mg PO DAILY [facility] Last Admin: 05/26/16 09:09 Dose: 100 mg Montelukast Sodium (Singulair -) 15 mg PO HS [facility] Last Admin: 05/25/16 21:12 Dose: 15 mg Mycophenolate Mofetil (Cellcept -) 500 mg PO BID [facility] Last Admin: 05/26/16 09:17 Dose: 500 mg Pantoprazole Sodium (Protonix -) 40 mg PO DAILY [facility] Last Admin: 05/26/16 09:09 Dose: 40 mg Prasugrel (Effient -) 5 mg PO DAILY [facility] Last Admin: 05/26/16 09:17 Dose: 5 mg Tiotropium [place] (Spiriva -) 1 puff IH DAILY [facility] Last Admin: 05/26/16 09:11 Dose: 1 puff Trimethoprim/Sulfamethoxazole (Bactrim Ds -) 1 each PO MoWeFr@1000 [facility] Last Admin: 05/25/16 09:22 Dose: 1 each ASSESSMENT AND PLAN: Acute on Chronic Hypoxic Respiratory Failure Interstitial Lung Disease ?Flare vs Pneumonia Atrial Fibrillation with RVR CAD s/p stents Acute on Chronic LV Diastolic Heart Failure Pulmonary HTN HTN - decrease medrol to 40mg q8h - antibiotics per ID - taper FiO2 to keep SpO2 >90% - inhaled bronchodilators - rate control with cardizem, toprol - dose another lasix 40mg today - monitor urine output, creatinine - keep net negative - continue anticoagulation, transition with lovenox - hemoptysis resolved - PO as tolerated - DVT/GI prophylaxis - can monitor on telemetry
[2016-05-26] MEDS ORDERED: dilTIAZem HCL 50 MG/10 ML - 10 ML VIAL IVPUSH PRN (11:44)
--- NOTE | 2016-05-26 11:49 | PN ---
Progress Note, Physician Chief Complaint: Pt A&Ox3; says that, after using the bathroom this morning, he saw some red blood on the toilet paper (cannot quantify). Denies chest pain or palpitations; dyspnea on minimal exertion. History of Present Illness: The patient is a 71 year old white male with a past medical hx of HTN, afib, severe interstitial lung disease (ILD) (followed by Dr. Brooks), CAD-->three cardiac stents in 2016, diastolic CHF, who presents to the ED complaining of shortness of breath for one week. The patient reports his shortness of breath progressively worsened over the weekend. He states his PCP increased his Prednisone, but he is still feeling short of breath. The patient reports he is oxygen dependent at home. The patient denies chest pain The patient denies fever, chills The patient denies nausea, vomiting, diarrhea Allergies: NKDA Social: Former smoker Surgical: Appendectomy, Cardiac: 3 stents PCP: Dr. Karla Osborne Information Systems Security Analyst: Dr. Anabela Auguste Pulmonologis: Dr. Bella Brooks - Current Medication List Current Medications: Active Medications Albuterol Sulfate (Ventolin 0.083% Nebulizer Soln -) 1 amp NEB Q4H PRN PRN Reason: SHORT OF BREATH/WHEEZING Last Admin: 05/23/16 10:10 Dose: 1 amp Aspirin (Ecotrin -) 81 mg PO DAILY [facility] Last Admin: 05/26/16 09:09 Dose: 81 mg Atorvastatin Calcium (Lipitor -) 40 mg PO HS [facility] Last Admin: 05/25/16 21:12 Dose: 40 mg Diltiazem HCl (Cardizem Injection -) 10 mg IVPUSH Q4H PRN PRN Reason: TACHYCARDIA Last Admin: 05/25/16 19:41 Dose: 10 mg Diltiazem HCl (Cardizem -) 60 mg PO Q6HPO [facility] Last Admin: 05/26/16 05:50 Dose: 60 mg Enoxaparin Sodium (Lovenox -) 80 mg SQ BID [facility] Last Admin: 05/26/16 09:17 Dose: 80 mg Azithromycin 250 mg/ Dextrose 250 mls @ 250 mls/hr IVPB DAILY [facility] Stop: 05/26/16 23:59 Last Admin: 05/26/16 09:09 Dose: 250 mls/hr Piperacillin Sod/Tazobactam Sod (Zosyn 4.5gm Ivpb (Pre-Docked)) 100 mls @ 200 mls/hr IVPB Q8H-IV [facility] Stop: 05/26/16 23:59 Last Admin: 05/26/16 09:09 Dose: 200 mls/hr Methylprednisolone Sodium Succinate (Solu-Medrol -) 40 mg IVPB Q8H-IV [facility] Metoprolol Succinate (Toprol Xl -) 100 mg PO DAILY [facility] Last Admin: 05/26/16 09:09 Dose: 100 mg Montelukast Sodium (Singulair -) 15 mg PO HS [facility] Last Admin: 05/25/16 21:12 Dose: 15 mg Mycophenolate Mofetil (Cellcept -) 500 mg PO BID [facility] Last Admin: 05/26/16 09:17 Dose: 500 mg Pantoprazole Sodium (Protonix -) 40 mg PO DAILY [facility] Last Admin: 05/26/16 09:09 Dose: 40 mg Prasugrel (Effient -) 5 mg PO DAILY [facility] Last Admin: 05/26/16 09:17 Dose: 5 mg Tiotropium [place] (Spiriva -) 1 puff IH DAILY [facility] Last Admin: 05/26/16 09:11 Dose: 1 puff Trimethoprim/Sulfamethoxazole (Bactrim Ds -) 1 each PO MoWeFr@1000 [facility] Last Admin: 05/25/16 09:22 Dose: 1 each - Objective Vital Signs: Vital Signs Temperature 97.5 F L 05/26/16 10:00 Pulse Rate 94 H 05/26/16 10:00 Respiratory Rate 30 H 05/26/16 10:00 Blood Pressure 113/70 05/26/16 10:00 O2 Sat by Pulse Oximetry (%) 96 05/26/16 09:40 Constitutional: Yes: Calm Eyes: Yes: WNL HENT: Yes: WNL Neck: Yes: WNL Cardiovascular: Yes: Pulse Irregular Respiratory: Yes: Diminished, Poor Air Entry, SOB on Exertion Gastrointestinal: Yes: Soft ...Rectal Exam: Yes: Other (excoriated site (covered)) Genitourinary: Yes: Anuria Musculoskeletal: Yes: Muscle Weakness Extremities: Yes: Cool Edema: No Peripheral Pulses WNL: No Peripheral Pulses: Left Doralis Pedis: 1+, Right Dorsalis Pedis: 1+ Integumentary: Yes: Skin Tear (buttocks) Neurological: Yes: Alert, Oriented, Weakness Psychiatric: Yes: Alert, Oriented Labs: CBC, BMP 05/26/16 05:20 05/26/16 05:20 INR, PTT INR 1.88 (0.82-1.09) H 05/26/16 05:20 - ....Imaging Other: Image Reviewed (telemetry: AF, now generally VR 90-110 bpm) Problem List - Problems (1) Acute on chronic respiratory failure with hypoxemia Code(s): J96.21 - ACUTE AND CHRONIC RESPIRATORY FAILURE WITH HYPOXIA (2) Interstitial lung disease Assessment/Plan: 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 Brooks as outpatient; also sees Dr. Álvarez in [facility]). 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 Code(s): J18.9 - PNEUMONIA, UNSPECIFIED ORGANISM Qualifiers: Pneumonia type: due to unspecified organism Laterality: unspecified laterality Lung location: unspecified part of lung Qualified Code(s): J18.9 - Pneumonia, unspecified organism (4) Atrial fibrillation with RVR Assessment/Plan: AF with RVR last night-->IV, then PO diltiazem, in addition to metoprolol ER 100 mg daily: now with better HR control. On anicoagulation (warfarin). INR 1.88; keep in "low 2's" (also on ASA and lowered-dose Effient for CAD-->coronary stent).No further hemoptysis today. Free T4 WNL. Pt noticed red blood on toilet paper this morning after BM; has excoriation in rectal area. Hb not decreased over past 48 hours. INR 1.88. HR and BP controlled. Observe. Code(s): I48.91 - UNSPECIFIED ATRIAL FIBRILLATION (5) CAD (coronary artery disease) Assessment/Plan: On Effient and ASA. Continue metoprolol ER. Code(s): I25.10 - ATHSCL HEART DISEASE OF [place] CORONARY ARTERY W/O ANG PCTRS (7) Acute on chronic diastolic CHF (congestive heart failure) Assessment/Plan: ECHO: normal LVEF; mildly reduced RVEF; septal flattening (evidence of RV overload); moderate MR and TR (with mild-moderate pulmonary HTN); mild AR. Continue metoprolol; restart lisinopril if renal function allows; f/u BUN/Cr and electrolytes; Is and Os; daily weight.On diltiazem. Furosemide held due to rising BUN/Cr; restart if necessary. Code(s): I50.33 - ACUTE ON CHRONIC DIASTOLIC (CONGESTIVE) HEART FAILURE
--- NOTE | 2016-05-26 12:46 | PN ---
Progress Note, Physician Chief Complaint: Mr Yadav says he is feeling better today. Says his breathing is much better. No cp or n/v. - Current Medication List Current Medications: Active Medications Albuterol Sulfate (Ventolin 0.083% Nebulizer Soln -) 1 amp NEB Q4H PRN PRN Reason: SHORT OF BREATH/WHEEZING Aspirin (Ecotrin -) 81 mg PO DAILY [facility] Atorvastatin Calcium (Lipitor -) 40 mg PO HS [facility] Diltiazem HCl (Cardizem Injection -) 10 mg IVPUSH Q4H PRN PRN Reason: TACHYCARDIA Diltiazem HCl (Cardizem -) 60 mg PO Q6HPO [facility] Last Admin: 05/26/16 11:50 Dose: 60 mg Enoxaparin Sodium (Lovenox -) 80 mg SQ BID [facility] Azithromycin 250 mg/ Dextrose 250 mls @ 250 mls/hr IVPB DAILY [facility] Piperacillin Sod/Tazobactam Sod (Zosyn 4.5gm Ivpb (Pre-Docked)) 100 mls @ 200 mls/hr IVPB Q8H-IV [facility] Stop: 05/26/16 23:59 Methylprednisolone Sodium Succinate (Solu-Medrol -) 40 mg IVPB Q8H-IV [facility] Metoprolol Succinate (Toprol Xl -) 100 mg PO DAILY [facility] Montelukast Sodium (Singulair -) 15 mg PO HS [facility] Mycophenolate Mofetil (Cellcept -) 500 mg PO BID [facility] Pantoprazole Sodium (Protonix -) 40 mg PO DAILY [facility] Prasugrel (Effient -) 5 mg PO DAILY [facility] Tiotropium [place] (Spiriva -) 1 puff IH DAILY [facility] Trimethoprim/Sulfamethoxazole (Bactrim Ds -) 1 each PO MoWeFr@1000 [facility] - Objective Vital Signs: Vital Signs Temperature 97.5 F L 05/26/16 10:00 Pulse Rate 94 H 05/26/16 10:00 Respiratory Rate 30 H 05/26/16 10:00 Blood Pressure 113/70 05/26/16 10:00 O2 Sat by Pulse Oximetry (%) 96 05/26/16 09:40 Constitutional: Yes: Well Nourished, No Distress, Calm Cardiovascular: Yes: Tachycardia, Pulse Irregular. No: Gallop, Murmur, Rub Respiratory: Yes: Regular, On Nasal O2, Rales, Wheezes. No: Rhonchi Gastrointestinal: Yes: Normal Bowel Sounds, Soft. No: Distention, Tenderness Extremities: Yes: WNL Edema: Yes Edema: LLE: Trace, RLE: Trace Labs: CBC, BMP 05/26/16 05:20 05/26/16 05:20 INR, PTT INR 1.88 (0.82-1.09) H 05/26/16 05:20 Problem List - Problems (1) Pneumonia Code(s): J18.9 - PNEUMONIA, UNSPECIFIED ORGANISM Qualifiers: Pneumonia type: due to unspecified organism Laterality: unspecified laterality Lung location: unspecified part of lung Qualified Code(s): J18.9 - Pneumonia, unspecified organism (2) Atrial fibrillation Code(s): I48.91 - UNSPECIFIED ATRIAL FIBRILLATION Qualifiers: Atrial fibrillation type: chronic Qualified Code(s): I48.2 - Chronic atrial fibrillation (3) Interstitial lung disease Code(s): J84.9 - INTERSTITIAL PULMONARY DISEASE, UNSPECIFIED (4) Acute on chronic respiratory failure with hypoxemia Code(s): J96.21 - ACUTE AND CHRONIC RESPIRATORY FAILURE WITH HYPOXIA Assessment/Plan (1) Pneumonia Assessment/Plan: -appreciate ID assistance and note reviewed -continue bactrim for PCP PPx -continue zosyn and zithromax today, stop after today's dose Code(s): J18.9 - PNEUMONIA, UNSPECIFIED ORGANISM Qualifiers: Pneumonia type: due to unspecified organism Laterality: unspecified laterality Lung location: unspecified part of lung Qualified Code(s): J18.9 - Pneumonia, unspecified organism (2) Atrial fibrillation Assessment/Plan: -continues with RVR but stable -cardiology following -continue toprol xl -continue lovenox Code(s): I48.91 - UNSPECIFIED ATRIAL FIBRILLATION Qualifiers: Atrial fibrillation type: chronic Qualified Code(s): I48.2 - Chronic atrial fibrillation (3) Interstitial lung disease Assessment/Plan: -pulmonary following and case discussed -solumedrol decreased today -continue cellcept -continue albuterol and spiriva -plan to transfer out of ICU -CT scan reviewed Code(s): J84.9 - INTERSTITIAL PULMONARY DISEASE, UNSPECIFIED (4) Acute on chronic respiratory failure with hypoxemia Assessment/Plan: -secondary to pneumonia and ILD -continue current management Code(s): J96.21 - ACUTE AND CHRONIC RESPIRATORY FAILURE WITH HYPOXIA (5) Hemoptysis -resolved -follow INR
--- NOTE | 2016-05-26 13:55 | PN ---
Physical Exam: SUBJECTIVE: Patient seen and examined at bedside. No overnight events. No new complaints. Feels better. Breathing has improved. Denies CP, SOUTH, palpitations, n /v. OBJECTIVE: Vital Signs Period Temp Pulse Resp BP Sys/Holt Pulse Ox Last 24 Hr 97.5 F-98.4 F 93-132 20-30 98-132/66-97 95-99 GENERAL: The patient is awake, alert, and fully oriented, in no acute distress. HEAD: Normal with no signs of trauma. EYES: PERRL, extraocular movements intact, sclera anicteric, conjunctiva clear. ENT: nares patent, moist mucous membranes. NECK: Supple and No JVD. LUNGS: Diminished breath sounds bilaterally, scattered basilar rales and rhonchi , increased bibasilar crackes. HEART: Regular rate and rhythm, S1, S2 without murmur, rub or gallop. ABDOMEN: Soft, nontender, nondistended, normoactive bowel sounds, no guarding, no rebound, no hepatosplenomegaly, no masses. EXTREMITIES: 2+ pulses, warm, well-perfused, no edema. NEUROLOGICAL: AAOx3, Normal speech, gait not observed. PSYCH: Normal mood, normal affect. SKIN: Warm, dry, normal turgor, no rashes or lesions noted Laboratory Results - last 24 hr 05/26/16 05/26/16 05/26/16 05:20 05:20 05:20 WBC 14.7 H RBC 4.18 Hgb 11.8 Hct 36.1 MCV 86.3 MCHC 32.6 RDW 16.7 H Plt Count 236 MPV 7.5 Neutrophils % 94.0 H Lymphocytes % 4.0 L D Monocytes % 2.0 L INR 1.88 H Sodium 142 Potassium 4.2 Chloride 102 Carbon Dioxide 30 Anion Gap 10 BUN 42 H Creatinine 0.8 Creat Clearance w eGFR > 60 Random Glucose 152 H Calcium 7.6 L Total Bilirubin 0.8 AST 12 L ALT 29 Alkaline Phosphatase 77 Total Protein 5.7 L Albumin 2.3 L Active Medications Generic Name Dose Route Start Last Admin Trade Name Freq PRN Reason Stop Dose Admin Albuterol Sulfate 1 amp 05/26/16 11:44 Ventolin 0.083% Nebulizer Soln - NEB Q4H PRN SHORT OF BREATH/WHEEZING Aspirin 81 mg 05/27/16 10:00 Ecotrin - PO DAILY [facility] Atorvastatin Calcium 40 mg 05/26/16 22:00 Lipitor - PO HS [facility] Diltiazem HCl 10 mg 05/26/16 11:44 Cardizem Injection - IVPUSH Q4H PRN TACHYCARDIA Diltiazem HCl 60 mg 05/26/16 12:00 05/26/16 11:50 Cardizem - PO 60 mg Q6HPO [facility] Administration Enoxaparin Sodium 80 mg 05/26/16 22:00 Lovenox - SQ BID [facility] Azithromycin 250 mg/ Dextrose 250 mls @ 250 mls/hr 05/27/16 10:00 IVPB DAILY [facility] Piperacillin Sod/Tazobactam Sod 100 mls @ 200 mls/hr 05/26/16 18:00 Zosyn 4.5gm Ivpb (Pre-Docked) IVPB 05/26/16 23:59 Q8H-IV [facility] Methylprednisolone Sodium Succinate 40 mg 05/26/16 18:00 Solu-Medrol - IVPB Q8H-IV [facility] Metoprolol Succinate 100 mg 05/27/16 10:00 Toprol Xl - PO DAILY [facility] Montelukast Sodium 15 mg 05/26/16 22:00 Singulair - PO HS [facility] Mycophenolate Mofetil 500 mg 05/26/16 22:00 Cellcept - PO BID [facility] Pantoprazole Sodium 40 mg 05/27/16 10:00 Protonix - PO DAILY [facility] Prasugrel 5 mg 05/27/16 10:00 Effient - PO DAILY [facility] Tiotropium [place] 1 puff 05/27/16 10:00 Spiriva - IH DAILY [facility] Trimethoprim/Sulfamethoxazole 1 each 05/27/16 10:00 Bactrim Ds - PO MoWeFr@1000 [facility] ASSESSMENT/PLAN: 71 yo M with PMHx of AFIB, CAD, HTN , and interstitial lung disease admitted for HCAP and tranferred to ICU for worsening dysnea. HOSPITAL DAY # 7 Neuro: * AAOx3 Pulm: * Breathing has improved * Placed on 5L NC * maintain O2 sat >90% * Methylprednisolone Sodium Succinate (Solu-Medrol -) 40mg IV Q8 * Albuterol Sulfate (Ventolin 0.083% Nebulizer Soln -) 1 amp NEB Q4H * Montelukast Sodium (Singulair -) 15 mg PO HS * Tiotropium [place] (Spiriva -) 1 puff IH DAILY * PCP prophylaxis-Trimethoprim/Sulfamethoxazole (Bactrim Ds -) 1 each PO MoWeFr @1000 (day 7) * ILD-Mycophenolate Mofetil (Cellcept -) 500 mg PO BID CV: * Afib- rate controlled Toprol Xl 75 mg increased to 100 mg PO DAILY and Cardizem 60mg PO QID * repeated 40mg of lasix for increased crackles. * AC- Warfarin Sodium (Coumadin -) 2.5 mg PO ONCE@1800 ; will start lovenox 85mg BID to bridge until INR therapeutic. * CAD- continue: * Aspirin (Ecotrin -) 81 mg PO DAILY * Atorvastatin Calcium (Lipitor -) 40 mg PO HS * Prasugrel (Effient -) 5 mg PO DAILY ID: * HCAP- continue: * Azithromycin 250 mg IVPB DAILY (day 7) * Zosyn 4.5gm Ivpb IVPB Q8H-IV (day 4) * Cultures pending * PCP prophylaxis started Prophylaxis: * DVT- coumadin and Effient. * GI- Protonix 40mg IV HS DISPO: Transfer to floors. Visit type - Emergency Visit Emergency Visit: Yes ED Registration Date: 05/19/16 Care time: The patient presented to the Emergency Department on the above date and was hospitalized for further evaluation of their emergent condition. - New Patient This patient is new to me today: No - Critical Care Critical Care patient: Yes Total Critical Care Time (in minutes): 33 Critical Care Statement: The care of this patient involved high complexity decision making to prevent further life threatening deterioration of the patient 's condition and/or to evalute & treat vital organ system(s) failure or risk of failure.
[2016-05-26] MEDS ORDERED: methylPREDNISolone NA SUCC 40 MG/1 ML VIAL IVPB SCH (18:00)
[2016-05-26] MEDS ORDERED: PIPERACILLIN/TAZOB 4.5 GM 100 ML IVPB SCH (18:00)
[2016-05-26] MEDS: methylPREDNISolone NA SUCC 40 MG/1 ML VIAL IVPB SCH (18:15)
[2016-05-26] MEDS: ATORVASTATIN CA 40 MG TABLET (FP) PO SCH (21:42)
[2016-05-26] MEDS: MONTELUKAST NA 10 MG TABLET PO SCH (21:43)
[2016-05-26] MEDS: ALBUTEROL SO4 0.083% IH SOL 2.5 MG/3 ML VIAL.NEB. NEB PRN (21:45)
[2016-05-27] MEDS: dilTIAZem HCL 60 MG TABLET (FP) PO SCH ×4 (00:04→18:16)
[2016-05-27] MEDS: methylPREDNISolone NA SUCC 40 MG/1 ML VIAL IVPB SCH ×3 (03:00→18:16)
--- NOTE | 2016-05-27 08:34 | PN ---
Progress Note, Physician Chief Complaint: ID Off antibiotics since yesterday, reporting 3 episodes of liquid stool with no abdominal pain or cramps He is afebrile - Current Medication List Current Medications: Active Medications Albuterol Sulfate (Ventolin 0.083% Nebulizer Soln -) 1 amp NEB Q4H PRN PRN Reason: SHORT OF BREATH/WHEEZING Last Admin: 05/26/16 21:45 Dose: 1 amp Aspirin (Ecotrin -) 81 mg PO DAILY [facility] Atorvastatin Calcium (Lipitor -) 40 mg PO HS [facility] Last Admin: 05/26/16 21:42 Dose: 40 mg Diltiazem HCl (Cardizem Injection -) 10 mg IVPUSH Q4H PRN PRN Reason: TACHYCARDIA Diltiazem HCl (Cardizem -) 60 mg PO Q6HPO [facility] Last Admin: 05/27/16 06:46 Dose: 60 mg Enoxaparin Sodium (Lovenox -) 80 mg SQ BID [facility] Last Admin: 05/26/16 21:43 Dose: 80 mg Azithromycin 250 mg/ Dextrose 250 mls @ 250 mls/hr IVPB DAILY [facility] Methylprednisolone Sodium Succinate (Solu-Medrol -) 40 mg IVPB Q8H-IV [facility] Last Admin: 05/27/16 03:00 Dose: 40 mg Metoprolol Succinate (Toprol Xl -) 100 mg PO DAILY [facility] Montelukast Sodium (Singulair -) 15 mg PO [facility] Last Admin: 05/26/16 21:43 Dose: 15 mg Mycophenolate Mofetil (Cellcept -) 500 mg PO BID [facility] Last Admin: 05/26/16 21:42 Dose: 500 mg Pantoprazole Sodium (Protonix -) 40 mg PO DAILY [facility] Prasugrel (Effient -) 5 mg PO DAILY [facility] Tiotropium [place] (Spiriva -) 1 puff IH DAILY [facility] Trimethoprim/Sulfamethoxazole (Bactrim Ds -) 1 each PO MoWeFr@1000 [facility] - Objective Vital Signs: Vital Signs Temperature 98.1 F 05/27/16 02:00 Pulse Rate 108 H 05/27/16 06:00 Respiratory Rate 20 05/27/16 06:00 Blood Pressure 107/75 05/27/16 06:00 O2 Sat by Pulse Oximetry (%) 96 05/26/16 21:00 Constitutional: Yes: Well Nourished Cardiovascular: Yes: WNL, Pulse Irregular Respiratory: Yes: Regular, Diminished Gastrointestinal: Yes: Soft. No: Tenderness, Rebound Edema: Yes Labs: CBC, BMP 05/26/16 05:20 INR, PTT INR 1.88 (0.82-1.09) H 05/26/16 05:20 Problem List - Problems (1) Acute on chronic respiratory failure with hypoxemia Code(s): J96.21 - ACUTE AND CHRONIC RESPIRATORY FAILURE WITH HYPOXIA (2) Interstitial lung disease Code(s): J84.9 - INTERSTITIAL PULMONARY DISEASE, UNSPECIFIED (3) Pneumonia Code(s): J18.9 - PNEUMONIA, UNSPECIFIED ORGANISM Qualifiers: Pneumonia type: due to unspecified organism Laterality: unspecified laterality Lung location: unspecified part of lung Qualified Code(s): J18.9 - Pneumonia, unspecified organism (4) Atrial fibrillation with RVR Code(s): I48.91 - UNSPECIFIED ATRIAL FIBRILLATION Assessment/Plan Microbiology 05/25/16 05:00 Serum Cryptococcal Antigen - Preliminary 05/24/16 05:30 Blood - Peripheral Venous TB Test (QFT) (JESSICA) - Preliminary Laboratory Tests 05/26/16 05/26/16 05/26/16 05:20 05:20 05:20 WBC 14.7 H Hgb 11.8 Plt Count 236 INR 1.88 H BUN 42 H Creatinine 0.8 Assessment: 1. Interstitial lung disease 2. Atrial fibrillation 3. Superimposed respiratory tract infection 4. New onset of diarrhea Plan: - Off systemic antibiotics - Stool for C. diff - Start Flagyl TID PO Antony GURROLA
[2016-05-27 08:39] LABS: ALBUMIN 2.7 g/dl (3.4-5.0); ANION GAP 12 (8-16); BILIRUBIN,TOTAL 1.1 mg/dL (0.2-1.0); CALCIUM 8.4 mg/dL (8.5-10.1); CO2 30 mmol/L (21-32); GLUCOSE,RANDOM 163 mg/dL (74-106); SGOT/AST 17 U/L (15-37); SGPT/ALT 34 U/L (12-78)
[2016-05-27 08:46] LABS: ALK PHOS 88 U/L (45-117); CREATININE 0.9 mg/dL (0.7-1.3); TOT PROT 6.3 g/dl (6.4-8.2)
--- NOTE | 2016-05-27 09:17 | PN ---
Progress Note, Physician Chief Complaint: Pt A&Ox3;no chest pain or dyspnea at rest; c/o diarrhea overnight; did not notice any more blood on toiilet paper. History of Present Illness: The patient is a 71 year old white male with a past medical hx of HTN, afib, severe interstitial lung disease (ILD) (followed by Dr. Brooks), CAD-->three cardiac stents in 2016, diastolic CHF, who presents to the ED complaining of shortness of breath for one week. The patient reports his shortness of breath progressively worsened over the weekend. He states his PCP increased his Prednisone, but he is still feeling short of breath. The patient reports he is oxygen dependent at home. The patient denies chest pain The patient denies fever, chills The patient denies nausea, vomiting, diarrhea Allergies: NKDA Social: Former smoker Surgical: Appendectomy, Cardiac: 3 stents PCP: Dr. Karla Osborne Rv Technician: Dr. Anabela Auguste Pulmonologis: Dr. Bella Brooks - Current Medication List Current Medications: Active Medications Albuterol Sulfate (Ventolin 0.083% Nebulizer Soln -) 1 amp NEB Q4H PRN PRN Reason: SHORT OF BREATH/WHEEZING Last Admin: 05/26/16 21:45 Dose: 1 amp Aspirin (Ecotrin -) 81 mg PO DAILY [facility] Atorvastatin Calcium (Lipitor -) 40 mg PO HS [facility] Last Admin: 05/26/16 21:42 Dose: 40 mg Diltiazem HCl (Cardizem Injection -) 10 mg IVPUSH Q4H PRN PRN Reason: TACHYCARDIA Diltiazem HCl (Cardizem -) 60 mg PO Q6HPO [facility] Last Admin: 05/27/16 06:46 Dose: 60 mg Enoxaparin Sodium (Lovenox -) 80 mg SQ BID [facility] Last Admin: 05/26/16 21:43 Dose: 80 mg Methylprednisolone Sodium Succinate (Solu-Medrol -) 40 mg IVPB Q8H-IV [facility] Last Admin: 05/27/16 03:00 Dose: 40 mg Metoprolol Succinate (Toprol Xl -) 100 mg PO DAILY [facility] Metronidazole (Flagyl -) 500 mg PO TID [facility] Montelukast Sodium (Singulair -) 15 mg PO HS [facility] Last Admin: 05/26/16 21:43 Dose: 15 mg Mycophenolate Mofetil (Cellcept -) 500 mg PO BID [facility] Last Admin: 05/26/16 21:42 Dose: 500 mg Pantoprazole Sodium (Protonix -) 40 mg PO DAILY [facility] Prasugrel (Effient -) 5 mg PO DAILY [facility] Tiotropium [place] (Spiriva -) 1 puff IH DAILY [facility] Trimethoprim/Sulfamethoxazole (Bactrim Ds -) 1 each PO MoWeFr@1000 [facility] - Objective Vital Signs: Vital Signs Temperature 98.1 F 05/27/16 02:00 Pulse Rate 108 H 05/27/16 06:00 Respiratory Rate 20 05/27/16 06:00 Blood Pressure 107/75 05/27/16 06:00 O2 Sat by Pulse Oximetry (%) 96 05/26/16 21:00 Constitutional: Yes: Calm Eyes: Yes: WNL HENT: Yes: WNL Neck: Yes: WNL Cardiovascular: Yes: Pulse Irregular, S1 (vaires in intensity) Respiratory: Yes: Diminished. No: Wheezes Gastrointestinal: Yes: Soft. No: Tenderness ...Rectal Exam: Yes: Deferred Genitourinary: No: Anuria Breast(s): Yes: WNL Musculoskeletal: Yes: Muscle Weakness Extremities: Yes: Cool Edema: No Peripheral Pulses WNL: No Peripheral Pulses: Left Doralis Pedis: 1+, Right Dorsalis Pedis: 1+ Integumentary: Yes: WNL Wound/Incision: Yes: Clean/Dry Neurological: Yes: Alert, Oriented, Weakness Psychiatric: Yes: Alert, Oriented Labs: CBC, BMP 05/26/16 05:20 05/27/16 05:36 INR, PTT INR 1.88 (0.82-1.09) H 05/26/16 05:20 Abnormal Lab Results 05/27/16 05:36 BUN 47 H Random Glucose 163 H Calcium 8.4 L Total Bilirubin 1.1 H D Total Protein 6.3 L Albumin 2.7 L - ....Imaging Other: Image Reviewed (Telemetry: AF, HR 80s to 120; generally well-controlled.) Problem List - Problems (1) Acute on chronic respiratory failure with hypoxemia Code(s): J96.21 - ACUTE AND CHRONIC RESPIRATORY FAILURE WITH HYPOXIA (2) Interstitial lung disease Assessment/Plan: F/u with stone belt sander (sees Dr. Brooks as outpatient; also sees Dr. Álvarez in [facility]). Code(s): J84.9 - INTERSTITIAL PULMONARY DISEASE, UNSPECIFIED (3) Pneumonia Assessment/Plan: On antibiotics per ID and stone belt sander. Code(s): J18.9 - PNEUMONIA, UNSPECIFIED ORGANISM Qualifiers: Pneumonia type: due to unspecified organism Laterality: unspecified laterality Lung location: unspecified part of lung Qualified Code(s): J18.9 - Pneumonia, unspecified organism (4) Atrial fibrillation with RVR Assessment/Plan: AF with RVR last night-->IV, then PO diltiazem, in addition to metoprolol ER 100 mg daily: now with better HR control. On anicoagulation (warfarin: give daily dose, and D/c IV Lovenox when INR therapeutic). INR 1.88; keep in "low 2's" (also on ASA and lowered-dose Effient for CAD-->coronary stent). F/U INR today; Free T4 WNL. Pt noticed red blood on toilet paper yesterday after BM; has excoriation in rectal area. No further blood noted, despite have 2 BMs overnight (diarrhea). Hb not decreased/ INR 1.88. HR and BP controlled. Observe. Code(s): I48.91 - UNSPECIFIED ATRIAL FIBRILLATION (5) CAD (coronary artery disease) Code(s): I25.10 - ATHSCL HEART DISEASE OF [place] CORONARY ARTERY W/O ANG PCTRS (7) Acute on chronic diastolic CHF (congestive heart failure) Code(s): I50.33 - ACUTE ON CHRONIC DIASTOLIC (CONGESTIVE) HEART FAILURE
[2016-05-27] MEDS ORDERED: AZITHROMYCIN IVPB 250 MG in DEXTROSE 5%-WATER - 250 ML IVPB SCH (10:00)
[2016-05-27 10:05] LABS: INR 1.64 (0.82-1.09); PROTHROMBIN TIME (PATIENT) 18.2 SEC (9.98-11.88)
[2016-05-27] MEDS: ENOXAPARIN NA (PORCINE) 80 MG/0.8 ML DISP.SYRIN SQ SCH ×2 (10:33→22:27)
[2016-05-27] MEDS: metroNIDAZOLE 250 MG TABLET PO SCH ×3 (10:33→22:26)
[2016-05-27] MEDS: METOPROLOL SUCCINATE 100 MG TAB.SR.24H (FP) PO SCH (10:33)
[2016-05-27] MEDS: ASPIRIN COATED 81 MG TABLET.EC PO SCH (10:33)
[2016-05-27] MEDS: PANTOPRAZOLE 40 MG TABLET (FP) PO SCH (10:33)
[2016-05-27] MEDS: TIOTROPIUM BROMIDE 18 MCG/INH (DEVICE W/ 5 CAPSULES) IH SCH (10:34)
[2016-05-27] MEDS: MYCOPHENOLATE MOFETIL 500 MG TABLET PO SCH ×2 (10:43→22:26)
[2016-05-27] MEDS: SULFAMETHOXAZOLE/TRIMETHOPRIM 800MG/160MG D.S. TABLET PO SCH (10:44)
[2016-05-27] MEDS: PRASUGREL HCL 5 MG TAB PO SCH (10:44)
--- NOTE | 2016-05-27 11:02 | PN ---
Progress Note, Physician History of Present Illness: pulmonary alert,feeling better,less dyspneic,less cough. +diarrhea - Current Medication List Current Medications: Active Medications Albuterol Sulfate (Ventolin 0.083% Nebulizer Soln -) 1 amp NEB Q4H PRN PRN Reason: SHORT OF BREATH/WHEEZING Last Admin: 05/26/16 21:45 Dose: 1 amp Aspirin (Ecotrin -) 81 mg PO DAILY [facility] Last Admin: 05/27/16 10:33 Dose: 81 mg Atorvastatin Calcium (Lipitor -) 40 mg PO HS [facility] Last Admin: 05/26/16 21:42 Dose: 40 mg Diltiazem HCl (Cardizem Injection -) 10 mg IVPUSH Q4H PRN PRN Reason: TACHYCARDIA Diltiazem HCl (Cardizem -) 60 mg PO Q6HPO [facility] Last Admin: 05/27/16 06:46 Dose: 60 mg Enoxaparin Sodium (Lovenox -) 80 mg SQ BID [facility] Last Admin: 05/27/16 10:33 Dose: 80 mg Methylprednisolone Sodium Succinate (Solu-Medrol -) 40 mg IVPB Q8H-IV [facility] Last Admin: 05/27/16 10:34 Dose: 40 mg Metoprolol Succinate (Toprol Xl -) 100 mg PO DAILY [facility] Last Admin: 05/27/16 10:33 Dose: 100 mg Metronidazole (Flagyl -) 500 mg PO TID [facility] Last Admin: 05/27/16 10:33 Dose: 500 mg Montelukast Sodium (Singulair -) 15 mg PO HS [facility] Last Admin: 05/26/16 21:43 Dose: 15 mg Mycophenolate Mofetil (Cellcept -) 500 mg PO BID [facility] Last Admin: 05/27/16 10:43 Dose: 500 mg Pantoprazole Sodium (Protonix -) 40 mg PO DAILY [facility] Last Admin: 05/27/16 10:33 Dose: 40 mg Prasugrel (Effient -) 5 mg PO DAILY [facility] Last Admin: 05/27/16 10:44 Dose: 5 mg Tiotropium [place] (Spiriva -) 1 puff IH DAILY [facility] Last Admin: 05/27/16 10:34 Dose: 1 puff Trimethoprim/Sulfamethoxazole (Bactrim Ds -) 1 each PO MoWeFr@1000 [facility] Last Admin: 05/27/16 10:44 Dose: 1 each - Objective Vital Signs: Vital Signs Temperature 98.1 F 05/27/16 02:00 Pulse Rate 108 H 05/27/16 06:00 Respiratory Rate 20 05/27/16 06:00 Blood Pressure 107/75 05/27/16 06:00 O2 Sat by Pulse Oximetry (%) 96 05/26/16 21:00 Constitutional: Yes: Well Nourished, Calm Eyes: Yes: WNL HENT: Yes: WNL Neck: Yes: WNL Cardiovascular: Yes: Pulse Irregular, S1, S2 Respiratory: Yes: Rales (bilateral crackles) Gastrointestinal: Yes: Normal Bowel Sounds, Soft Extremities: Yes: WNL Edema: Yes Labs: CBC, BMP 05/26/16 05:20 05/27/16 05:36 INR, PTT INR 1.64 (0.82-1.09) H 05/27/16 09:25 Problem List - Problems (1) Atrial fibrillation Code(s): I48.91 - UNSPECIFIED ATRIAL FIBRILLATION Qualifiers: Atrial fibrillation type: chronic Qualified Code(s): I48.2 - Chronic atrial fibrillation (2) Interstitial lung disease Code(s): J84.9 - INTERSTITIAL PULMONARY DISEASE, UNSPECIFIED (3) Atrial fibrillation with RVR Code(s): I48.91 - UNSPECIFIED ATRIAL FIBRILLATION (4) CAD (coronary artery disease) Code(s): I25.10 - ATHSCL HEART DISEASE OF [place] CORONARY ARTERY W/O ANG PCTRS (5) CHF (congestive heart failure) Code(s): I50.9 - HEART FAILURE, UNSPECIFIED Qualifiers: Congestive heart failure type: unspecified congestive heart failure type Congestive heart failure chronicity: acute Qualified Code(s): I50.9 - Heart failure, unspecified (6) Dyspnea Code(s): R06.00 - DYSPNEA, UNSPECIFIED (7) NSTEMI (non-ST elevated myocardial infarction) Code(s): I21.4 - NON-ST ELEVATION (NSTEMI) MYOCARDIAL INFARCTION (8) Acute on chronic respiratory failure with hypoxemia Code(s): J96.21 - ACUTE AND CHRONIC RESPIRATORY FAILURE WITH HYPOXIA Assessment/Plan IMP ACUTE ON CHRONIC HYPOXEMIC RESPIRATORY FAILURE ADVANCED INTERSTITIAL LUNG DISEASE/PULMONARY FIBROSIS O2 DEPENDENT URI ASHD S/P OR,S/P STENTS X 3 AFIB CHF HTN DIARRHEA PLAN CONT IV STEROIDS SAME DOSE INHALED BRONCHODILATORS O2 ANTIBIOTICS BACTRIM DS 1 TAB PO DAILY FOR PCP PROPHYLAXIS CELLCEPT LASIX COUMADIN PER INR RATE CONTROL STOOL FOR C-DIF DR SAMANIEGO Problem List - Problems (1) Atrial fibrillation Code(s): I48.91 - UNSPECIFIED ATRIAL FIBRILLATION Qualifiers: Atrial fibrillation type: chronic Qualified Code(s): I48.2 - Chronic atrial fibrillation (2) Interstitial lung disease Code(s): J84.9 - INTERSTITIAL PULMONARY DISEASE, UNSPECIFIED (3) Atrial fibrillation with RVR Code(s): I48.91 - UNSPECIFIED ATRIAL FIBRILLATION (4) CAD (coronary artery disease) Code(s): I25.10 - ATHSCL HEART DISEASE OF [place] CORONARY ARTERY W/O ANG PCTRS (5) CHF (congestive heart failure) Code(s): I50.9 - HEART FAILURE, UNSPECIFIED Qualifiers: Congestive heart failure type: unspecified congestive heart failure type Congestive heart failure chronicity: acute Qualified Code(s): I50.9 - Heart failure, unspecified (6) Dyspnea Code(s): R06.00 - DYSPNEA, UNSPECIFIED (7) NSTEMI (non-ST elevated myocardial infarction) Code(s): I21.4 - NON-ST ELEVATION (NSTEMI) MYOCARDIAL INFARCTION (8) Acute on chronic respiratory failure with hypoxemia Code(s): J96.21 - ACUTE AND CHRONIC RESPIRATORY FAILURE WITH HYPOXIA
--- NOTE | 2016-05-27 12:55 | PN ---
Progress Note, Physician Chief Complaint: Mr Yadav says his breathing is worse today. No cp or n/v. - Current Medication List Current Medications: Active Medications Albuterol Sulfate (Ventolin 0.083% Nebulizer Soln -) 1 amp NEB Q4H PRN PRN Reason: SHORT OF BREATH/WHEEZING Last Admin: 05/26/16 21:45 Dose: 1 amp Aspirin (Ecotrin -) 81 mg PO DAILY [facility] Last Admin: 05/27/16 10:33 Dose: 81 mg Atorvastatin [place]cium (Lipitor -) 40 mg PO HS [facility] Last Admin: 05/26/16 21:42 Dose: 40 mg Diltiazem HCl (Cardizem Injection -) 10 mg IVPUSH Q4H PRN PRN Reason: TACHYCARDIA Diltiazem HCl (Cardizem -) 60 mg PO Q6HPO [facility] Last Admin: 05/27/16 06:46 Dose: 60 mg Enoxaparin Sodium (Lovenox -) 80 mg SQ BID [facility] Last Admin: 05/27/16 10:33 Dose: 80 mg Methylprednisolone Sodium Succinate (Solu-Medrol -) 40 mg IVPB Q8H-IV [facility] Last Admin: 05/27/16 10:34 Dose: 40 mg Metoprolol Succinate (Toprol Xl -) 100 mg PO DAILY [facility] Last Admin: 05/27/16 10:33 Dose: 100 mg Metronidazole (Flagyl -) 500 mg PO TID [facility] Last Admin: 05/27/16 10:33 Dose: 500 mg Montelukast Sodium (Singulair -) 15 mg PO [facility] Last Admin: 05/26/16 21:43 Dose: 15 mg Mycophenolate Mofetil (Cellcept -) 500 mg PO BID [facility] Last Admin: 05/27/16 10:43 Dose: 500 mg Pantoprazole Sodium (Protonix -) 40 mg PO DAILY [facility] Last Admin: 05/27/16 10:33 Dose: 40 mg Prasugrel (Effient -) 5 mg PO DAILY [facility] Last Admin: 05/27/16 10:44 Dose: 5 mg Tiotropium [place] (Spiriva -) 1 puff IH DAILY [facility] Last Admin: 05/27/16 10:34 Dose: 1 puff Trimethoprim/Sulfamethoxazole (Bactrim Ds -) 1 each PO MoWeFr@1000 [facility] Last Admin: 05/27/16 10:44 Dose: 1 each Warfarin Sodium (Coumadin -) 5 mg PO DAILY@1800 [facility] - Objective Vital Signs: Vital Signs Temperature 98.1 F 05/27/16 02:00 Pulse Rate 108 H 05/27/16 06:00 Respiratory Rate 20 05/27/16 06:00 Blood Pressure 107/75 05/27/16 06:00 O2 Sat by Pulse Oximetry (%) 96 05/26/16 21:00 Constitutional: Yes: Well Nourished, No Distress, Calm Cardiovascular: Yes: Pulse Irregular. No: Gallop, Murmur, Rub Respiratory: Yes: Regular, On Nasal O2, Rales, Wheezes Gastrointestinal: Yes: Normal Bowel Sounds, Soft. No: Distention, Tenderness Extremities: Yes: WNL Edema: Yes Edema: LLE: 1+, RLE: 1+ Labs: CBC, BMP 05/26/16 05:20 05/27/16 05:36 INR, PTT INR 1.64 (0.82-1.09) H 05/27/16 09:25 Problem List - Problems (1) Pneumonia Code(s): J18.9 - PNEUMONIA, UNSPECIFIED ORGANISM Qualifiers: Pneumonia type: due to unspecified organism Laterality: unspecified laterality Lung location: unspecified part of lung Qualified Code(s): J18.9 - Pneumonia, unspecified organism (2) Atrial fibrillation Code(s): I48.91 - UNSPECIFIED ATRIAL FIBRILLATION Qualifiers: Atrial fibrillation type: chronic Qualified Code(s): I48.2 - Chronic atrial fibrillation (3) Interstitial lung disease Code(s): J84.9 - INTERSTITIAL PULMONARY DISEASE, UNSPECIFIED (4) Acute on chronic respiratory failure with hypoxemia Code(s): J96.21 - ACUTE AND CHRONIC RESPIRATORY FAILURE WITH HYPOXIA Assessment/Plan (1) Pneumonia Assessment/Plan: -appreciate ID assistance and note reviewed -continue bactrim for PCP PPx -off antibiotics Code(s): J18.9 - PNEUMONIA, UNSPECIFIED ORGANISM Qualifiers: Pneumonia type: due to unspecified organism Laterality: unspecified laterality Lung location: unspecified part of lung Qualified Code(s): J18.9 - Pneumonia, unspecified organism (2) Atrial fibrillation Assessment/Plan: -rate controlled -cardiology following -continue toprol xl -continue lovenox, coumadin restarted Code(s): I48.91 - UNSPECIFIED ATRIAL FIBRILLATION Qualifiers: Atrial fibrillation type: chronic Qualified Code(s): I48.2 - Chronic atrial fibrillation (3) Interstitial lung disease Assessment/Plan: -pulmonary following and case discussed -pulmonary titrating steroids -continue cellcept -continue albuterol and spiriva -slightly worse today, also with edema -will give dose of lasix Code(s): J84.9 - INTERSTITIAL PULMONARY DISEASE, UNSPECIFIED (4) Acute on chronic respiratory failure with hypoxemia Assessment/Plan: -secondary to pneumonia and ILD -continue current management Code(s): J96.21 - ACUTE AND CHRONIC RESPIRATORY FAILURE WITH HYPOXIA (5) Hemoptysis -resolved -follow INR (6) Diarrhea -ID checking for c. diff -started flagyl
[2016-05-27] MEDS ORDERED: metroNIDAZOLE 250 MG TABLET PO SCH (14:00)
[2016-05-27] MEDS ORDERED: FUROSEMIDE 40 MG/4 ML INJECTABLE VIAL IVPUSH ONE (15:34)
[2016-05-27] MEDS: WARFARIN NA 5 MG TABLET (UD) PO SCH (18:16)
[2016-05-27] MEDS: ATORVASTATIN CA 40 MG TABLET (FP) PO SCH (22:26)
[2016-05-27] MEDS: MONTELUKAST NA 10 MG TABLET PO SCH (22:27)
[2016-05-28] MEDS: dilTIAZem HCL 60 MG TABLET (FP) PO SCH ×4 (00:15→18:04)
[2016-05-28] MEDS: methylPREDNISolone NA SUCC 40 MG/1 ML VIAL IVPB SCH ×3 (01:31→18:04)
[2016-05-28] MEDS: metroNIDAZOLE 250 MG TABLET PO SCH ×3 (06:14→22:45)
[2016-05-28] MEDS ORDERED: PT OWN MED DRAWER 7, Y5N ONE ×2 (07:31→09:02)
[2016-05-28 07:53] LABS: MCH 28.2 pg (25.7-33.7); MCHC 32.9 g/dl (32.0-35.9); MEAN CELL VOLUME 85.9 fl (80-96); MEAN PLT VOLUME 7.6 fl (7.5-11.1); PLATELET COUNT 264 K/MM3 (134-434); RDW 17.1 % (11.9-15.9); WHITE BLOOD COUNT 23.9 K/mm3 (4.0-10.0)
[2016-05-28 08:14] LABS: INR 1.59 (0.82-1.09); PROTHROMBIN TIME (PATIENT) 17.7 SEC (9.98-11.88)
[2016-05-28 08:20] LABS: CREATININE 0.8 mg/dL (0.7-1.3); MAGNESIUM 2.6 mg/dL (1.8-2.4); PHOSPHOROUS 2.9 mg/dL (2.5-4.9)
--- NOTE | 2016-05-28 09:09 | PN ---
Progress Note, Physician History of Present Illness: The patient is a 71 year old white male with a past medical hx of HTN, afib, severe interstitial lung disease (ILD) (followed by Dr. Brooks), CAD-->three cardiac stents in 2016, who presents to the ED complaining of shortness of breath for one week. The patient reports his shortness of breath progressively worsened over the weekend. He states his PCP increased his Prednisone, but he is still feeling short of breath. The patient reports he is oxygen dependent at home. The patient denies chest pain The patient denies fever, chills The patient denies nausea, vomiting, diarrhea - Current Medication List Current Medications: Active Medications Albuterol Sulfate (Ventolin 0.083% Nebulizer Soln -) 1 amp NEB Q4H PRN PRN Reason: SHORT OF BREATH/WHEEZING Last Admin: 05/26/16 21:45 Dose: 1 amp Aspirin (Ecotrin -) 81 mg PO DAILY [facility] Last Admin: 05/27/16 10:33 Dose: 81 mg Atorvastatin Calcium (Lipitor -) 40 mg PO [facility] Last Admin: 05/27/16 22:26 Dose: 40 mg Diltiazem HCl (Cardizem Injection -) 10 mg IVPUSH Q4H PRN PRN Reason: TACHYCARDIA Diltiazem HCl (Cardizem -) 60 mg PO Q6HPO [facility] Last Admin: 05/28/16 06:14 Dose: 60 mg Enoxaparin Sodium (Lovenox -) 80 mg SQ BID [facility] Last Admin: 05/27/16 22:27 Dose: 80 mg Methylprednisolone Sodium Succinate (Solu-Medrol -) 40 mg IVPB Q8H-IV [facility] Last Admin: 05/28/16 01:31 Dose: 40 mg Metoprolol Succinate (Toprol Xl -) 100 mg PO DAILY [facility] Last Admin: 05/27/16 10:33 Dose: 100 mg Metronidazole (Flagyl -) 500 mg PO TID [facility] Last Admin: 05/28/16 06:14 Dose: 500 mg Montelukast Sodium (Singulair -) 15 mg PO HS [facility] Last Admin: 05/27/16 22:27 Dose: 15 mg Mycophenolate Mofetil (Cellcept -) 500 mg PO BID [facility] Last Admin: 05/27/16 22:26 Dose: 500 mg Pantoprazole Sodium (Protonix -) 40 mg PO DAILY [facility] Last Admin: 05/27/16 10:33 Dose: 40 mg Prasugrel (Effient -) 5 mg PO DAILY [facility] Last Admin: 05/27/16 10:44 Dose: 5 mg Tiotropium [place] (Spiriva -) 1 puff IH DAILY [facility] Last Admin: 05/27/16 10:34 Dose: 1 puff Trimethoprim/Sulfamethoxazole (Bactrim Ds -) 1 each PO MoWeFr@1000 [facility] Last Admin: 05/27/16 10:44 Dose: 1 each Warfarin Sodium (Coumadin -) 5 mg PO DAILY@1800 [facility] Last Admin: 05/27/16 18:16 Dose: 5 mg - Objective Vital Signs: Vital Signs Temperature 97.5 F L 05/28/16 06:00 Pulse Rate 96 H 05/28/16 06:00 Respiratory Rate 18 05/28/16 06:00 Blood Pressure 106/70 05/28/16 06:00 O2 Sat by Pulse Oximetry (%) 100 05/28/16 05:38 Eyes: Yes: WNL, Conjunctiva Clear, EOM Intact HENT: Yes: WNL, Atraumatic, Normocephalic Neck: Yes: WNL, Supple, Trachea Midline Cardiovascular: Yes: Pulse Irregular Respiratory: Yes: Diminished Gastrointestinal: Yes: WNL, Normal Bowel Sounds Genitourinary: Yes: WNL Musculoskeletal: Yes: WNL Extremities: Yes: WNL Edema: No Integumentary: Yes: WNL Neurological: Yes: WNL, Alert, Oriented ...Motor Strength: WNL Psychiatric: Yes: WNL Labs: CBC, BMP 05/28/16 05:55 05/28/16 05:55 INR, PTT INR 1.59 (0.82-1.09) H 05/28/16 05:55 Assessment/Plan - Problems - Problems (1) Acute on chronic respiratory failure with hypoxemia Code(s): J96.21 - ACUTE AND CHRONIC RESPIRATORY FAILURE WITH HYPOXIA (2) Interstitial lung disease Assessment/Plan: F/u with tornado chaser (sees Dr. Brooks as outpatient; also sees Dr. Álvarez in [facility]). Code(s): J84.9 - INTERSTITIAL PULMONARY DISEASE, UNSPECIFIED (3) Pneumonia Assessment/Plan: On antibiotics per ID and tornado chaser. Code(s): J18.9 - PNEUMONIA, UNSPECIFIED ORGANISM Qualifiers: Pneumonia type: due to unspecified organism Laterality: unspecified laterality Lung location: unspecified part of lung Qualified Code(s): J18.9 - Pneumonia, unspecified organism (4) Atrial fibrillation with RVR Assessment/Plan: AF with RVR last night-->IV, then PO diltiazem, in addition to metoprolol ER 100 mg daily: now with better HR control. On anicoagulation (warfarin: give daily dose, and D/c IV Lovenox when INR therapeutic). INR 1.88; keep in "low 2's" (also on ASA and lowered-dose Effient for CAD-->coronary stent). F/U INR today; Free T4 WNL. Pt noticed red blood on toilet paper yesterday after BM; has excoriation in rectal area. No further blood noted, despite have 2 BMs overnight (diarrhea). Hb not decreased/ INR 1.88. HR and BP controlled. Observe. Code(s): I48.91 - UNSPECIFIED ATRIAL FIBRILLATION (5) CAD (coronary artery disease) Code(s): I25.10 - ATHSCL HEART DISEASE OF [place] CORONARY ARTERY W/O ANG PCTRS (7) Acute on chronic diastolic CHF (congestive heart failure) Code(s): I50.33 - ACUTE ON CHRONIC DIASTOLIC (CONGESTIVE) HEART FAILURE
[2016-05-28] MEDS: PANTOPRAZOLE 40 MG TABLET (FP) PO SCH (09:14)
[2016-05-28] MEDS: PRASUGREL HCL 5 MG TAB PO SCH (09:14)
[2016-05-28] MEDS: ASPIRIN COATED 81 MG TABLET.EC PO SCH (09:14)
[2016-05-28] MEDS: MYCOPHENOLATE MOFETIL 500 MG TABLET PO SCH ×2 (09:14→22:44)
[2016-05-28] MEDS: ENOXAPARIN NA (PORCINE) 80 MG/0.8 ML DISP.SYRIN SQ SCH ×2 (09:14→22:47)
[2016-05-28] MEDS: TIOTROPIUM BROMIDE 18 MCG/INH (DEVICE W/ 5 CAPSULES) IH SCH (09:15)
[2016-05-28] MEDS: METOPROLOL SUCCINATE 100 MG TAB.SR.24H (FP) PO SCH (09:15)
[2016-05-28] MEDS: ALBUTEROL SO4 0.083% IH SOL 2.5 MG/3 ML VIAL.NEB. NEB PRN (11:00)
[2016-05-28 11:02] LABS: PLATELET COMMENT2 NO CLOTTING DETECTED; PLATELET ESTIMATE ADEQUATE (NORMAL)
--- NOTE | 2016-05-28 11:02 | PN ---
Progress Note, Physician Chief Complaint: SOB on any exertion. History of Present Illness: Patient with bilateral infiltrates and COPD and Interstitial Lung Disease is fairly comfortable in bed but with any exertion i.e.bathroom is still noticeably SOB. Not a lot of coughing. Followed by ID, Pulmonary and Cardiology MD'S. WBC over 23,000 but on IV steroid. BUN 44; still has significant pedal edema and so far not much relief from Lasix X 1. Albumin 2.7 - Current Medication List Current Medications: Active Medications Albuterol Sulfate (Ventolin 0.083% Nebulizer Soln -) 1 amp NEB Q4H PRN PRN Reason: SHORT OF BREATH/WHEEZING Last Admin: 05/26/16 21:45 Dose: 1 amp Aspirin (Ecotrin -) 81 mg PO DAILY [facility] Last Admin: 05/28/16 09:14 Dose: 81 mg Atorvastatin Calcium (Lipitor -) 40 mg PO HS [facility] Last Admin: 05/27/16 22:26 Dose: 40 mg Diltiazem HCl (Cardizem Injection -) 10 mg IVPUSH Q4H PRN PRN Reason: TACHYCARDIA Diltiazem HCl (Cardizem -) 60 mg PO Q6HPO [facility] Last Admin: 05/28/16 06:14 Dose: 60 mg Enoxaparin Sodium (Lovenox -) 80 mg SQ BID [facility] Last Admin: 05/28/16 09:14 Dose: 80 mg Methylprednisolone Sodium Succinate (Solu-Medrol -) 40 mg IVPB Q8H-IV [facility] Last Admin: 05/28/16 09:15 Dose: 40 mg Metoprolol Succinate (Toprol Xl -) 100 mg PO DAILY [facility] Last Admin: 05/28/16 09:15 Dose: 100 mg Metronidazole (Flagyl -) 500 mg PO TID [facility] Last Admin: 05/28/16 06:14 Dose: 500 mg Montelukast Sodium (Singulair -) 15 mg PO HS [facility] Last Admin: 05/27/16 22:27 Dose: 15 mg Mycophenolate Mofetil (Cellcept -) 500 mg PO BID [facility] Last Admin: 05/28/16 09:14 Dose: 500 mg Pantoprazole Sodium (Protonix -) 40 mg PO DAILY [facility] Last Admin: 05/28/16 09:14 Dose: 40 mg Prasugrel (Effient -) 5 mg PO DAILY [facility] Last Admin: 05/28/16 09:14 Dose: 5 mg Tiotropium [place] (Spiriva -) 1 puff IH DAILY [facility] Last Admin: 05/28/16 09:15 Dose: 1 puff Trimethoprim/Sulfamethoxazole (Bactrim Ds -) 1 each PO MoWeFr@1000 [facility] Last Admin: 05/27/16 10:44 Dose: 1 each Warfarin Sodium (Coumadin -) 5 mg PO DAILY@1800 [facility] Last Admin: 05/27/16 18:16 Dose: 5 mg - Objective Vital Signs: Vital Signs Temperature 97.5 F L 05/28/16 06:00 Pulse Rate 96 H 05/28/16 06:00 Respiratory Rate 18 05/28/16 06:00 Blood Pressure 106/70 05/28/16 06:00 O2 Sat by Pulse Oximetry (%) 100 05/28/16 05:38 Constitutional: Yes: Mild Distress (on movement) Cardiovascular: Yes: Pulse Irregular Respiratory: Yes: Diminished (few rhonchi at bases) Gastrointestinal: Yes: Soft Genitourinary: No: Negrete Present Edema: LLE: 2+ (ankle to mid calf), RLE: 2+ (ankle to mid calf) Neurological: Yes: Alert, Oriented Labs: CBC, BMP 05/28/16 05:55 05/28/16 05:55 INR, PTT INR 1.59 (0.82-1.09) H 05/28/16 05:55 - ....Imaging Chest X-ray: Report Reviewed Problem List - Problems (1) Atrial fibrillation Code(s): I48.91 - UNSPECIFIED ATRIAL FIBRILLATION Qualifiers: Atrial fibrillation type: chronic Qualified Code(s): I48.2 - Chronic atrial fibrillation (2) Acute on chronic combined systolic and diastolic CHF (congestive heart failure) Assessment/Plan: Followed by Cardiology; still with pedal edema. Will give another underwood of Lasix IV today. Code(s): I50.43 - ACUTE ON CHRONIC COMBINED SYSTOLIC AND DIASTOLIC HRT FAIL (3) Interstitial lung disease Assessment/Plan: Followed by Pulmonary MD; on Steroids IV. Code(s): J84.9 - INTERSTITIAL PULMONARY DISEASE, UNSPECIFIED (4) Pneumonia Assessment/Plan: Getting antibiotic Rx as per ID MD. Code(s): J18.9 - PNEUMONIA, UNSPECIFIED ORGANISM Qualifiers: Pneumonia type: due to unspecified organism Laterality: unspecified laterality Lung location: unspecified part of lung Qualified Code(s): J18.9 - Pneumonia, unspecified organism (5) Pedal edema Assessment/Plan: ?? due to CHF?? Code(s): R60.0 - LOCALIZED EDEMA
[2016-05-28 11:03] LABS: ANISOCYTOSIS 1+
[2016-05-28] MEDS ORDERED: FUROSEMIDE 40 MG/4 ML INJECTABLE VIAL IVPUSH ONE (11:06)
--- NOTE | 2016-05-28 11:10 | PN ---
Progress Note, Physician History of Present Illness: Supine in bed No complaints Mildly tachypneic on nasal cannula Afebrile with elevated WBC on steroids Reports some loose BMs C. difficile negative - Current Medication List Current Medications: Active Medications Albuterol Sulfate (Ventolin 0.083% Nebulizer Soln -) 1 amp NEB Q4H PRN PRN Reason: SHORT OF BREATH/WHEEZING Last Admin: 05/26/16 21:45 Dose: 1 amp Aspirin (Ecotrin -) 81 mg PO DAILY [facility] Last Admin: 05/28/16 09:14 Dose: 81 mg Atorvastatin Calcium (Lipitor -) 40 mg PO HS [facility] Last Admin: 05/27/16 22:26 Dose: 40 mg Diltiazem HCl (Cardizem Injection -) 10 mg IVPUSH Q4H PRN PRN Reason: TACHYCARDIA Diltiazem HCl (Cardizem -) 60 mg PO Q6HPO [facility] Last Admin: 05/28/16 11:01 Dose: 60 mg Enoxaparin Sodium (Lovenox -) 80 mg SQ BID [facility] Last Admin: 05/28/16 09:14 Dose: 80 mg Methylprednisolone Sodium Succinate (Solu-Medrol -) 40 mg IVPB Q8H-IV [facility] Last Admin: 05/28/16 09:15 Dose: 40 mg Metoprolol Succinate (Toprol Xl -) 100 mg PO DAILY [facility] Last Admin: 05/28/16 09:15 Dose: 100 mg Metronidazole (Flagyl -) 500 mg PO TID [facility] Last Admin: 05/28/16 06:14 Dose: 500 mg Montelukast Sodium (Singulair -) 15 mg PO HS [facility] Last Admin: 05/27/16 22:27 Dose: 15 mg Mycophenolate Mofetil (Cellcept -) 500 mg PO BID [facility] Last Admin: 05/28/16 09:14 Dose: 500 mg Pantoprazole Sodium (Protonix -) 40 mg PO DAILY [facility] Last Admin: 05/28/16 09:14 Dose: 40 mg Prasugrel (Effient -) 5 mg PO DAILY [facility] Last Admin: 05/28/16 09:14 Dose: 5 mg Tiotropium [place] (Spiriva -) 1 puff IH DAILY [facility] Last Admin: 05/28/16 09:15 Dose: 1 puff Trimethoprim/Sulfamethoxazole (Bactrim Ds -) 1 each PO MoWeFr@1000 [facility] Last Admin: 05/27/16 10:44 Dose: 1 each Warfarin Sodium (Coumadin -) 5 mg PO DAILY@1800 [facility] Last Admin: 05/27/16 18:16 Dose: 5 mg - Objective Vital Signs: Vital Signs Temperature 97.5 F L 05/28/16 06:00 Pulse Rate 96 H 05/28/16 06:00 Respiratory Rate 18 05/28/16 06:00 Blood Pressure 106/70 05/28/16 06:00 O2 Sat by Pulse Oximetry (%) 100 05/28/16 05:38 Constitutional: Yes: No Distress Eyes: Yes: Conjunctiva Clear Cardiovascular: Yes: Regular Rate and Rhythm, S1, S2 Respiratory: Yes: Rhonchi, Other (rhonchi, crepitations bilaterally) Gastrointestinal: Yes: Normal Bowel Sounds, Soft. No: Tenderness Edema: Yes Edema: LLE: 1+, RLE: 1+ Labs: CBC, BMP 05/28/16 05:55 05/28/16 05:55 INR, PTT INR 1.59 (0.82-1.09) H 05/28/16 05:55 Assessment/Plan ILD Possible superimposed pneumonia S/P course of IV antibiotics Immunocompromised state Loose BMs C difficile (-) Off systemic antibiotics, observe Continue PCP prophylaxis
--- NOTE | 2016-05-28 11:52 | PN ---
Progress Note (short form) - Note Progress Note: Awake and alert. Mildly tachypneic on NC O2. No CP. Intake & Output 05/25/16 05/26/16 05/27/16 05/28/16 23:59 23:59 23:59 23:59 Intake Total 1036 1350 310 260 Output Total 2550 1750 1500 700 Balance -1514 -400 -1190 -440 Weight 184 lb 8 oz 182 lb 5.156 oz 177 lb 9.6 oz 174 lb 6.4 oz Last Vital Signs Temp Pulse Resp BP Pulse Ox 97.5 F L 96 H 18 106/70 100 05/28/16 06:00 05/28/16 06:00 05/28/16 06:00 05/28/16 06:00 05/28/16 05:38 Active Medications Albuterol Sulfate (Ventolin 0.083% Nebulizer Soln -) 1 amp NEB Q4H PRN PRN Reason: SHORT OF BREATH/WHEEZING Last Admin: 05/26/16 21:45 Dose: 1 amp Aspirin (Ecotrin -) 81 mg PO DAILY [facility] Last Admin: 05/28/16 09:14 Dose: 81 mg Atorvastatin [place] (Lipitor -) 40 mg PO HS [facility] Last Admin: 05/27/16 22:26 Dose: 40 mg Diltiazem HCl (Cardizem Injection -) 10 mg IVPUSH Q4H PRN PRN Reason: TACHYCARDIA Diltiazem HCl (Cardizem -) 60 mg PO Q6HPO [facility] Last Admin: 05/28/16 11:01 Dose: 60 mg Enoxaparin Sodium (Lovenox -) 80 mg SQ BID [facility] Last Admin: 05/28/16 09:14 Dose: 80 mg Methylprednisolone Sodium Succinate (Solu-Medrol -) 40 mg IVPB Q8H-IV [facility] Last Admin: 05/28/16 09:15 Dose: 40 mg Metoprolol Succinate (Toprol Xl -) 100 mg PO DAILY [facility] Last Admin: 05/28/16 09:15 Dose: 100 mg Metronidazole (Flagyl -) 500 mg PO TID [facility] Last Admin: 05/28/16 06:14 Dose: 500 mg Montelukast Sodium (Singulair -) 15 mg PO HS [facility] Last Admin: 05/27/16 22:27 Dose: 15 mg Mycophenolate Mofetil (Cellcept -) 500 mg PO BID [facility] Last Admin: 05/28/16 09:14 Dose: 500 mg Pantoprazole Sodium (Protonix -) 40 mg PO DAILY [facility] Last Admin: 05/28/16 09:14 Dose: 40 mg Prasugrel (Effient -) 5 mg PO DAILY [facility] Last Admin: 05/28/16 09:14 Dose: 5 mg Tiotropium [place] (Spiriva -) 1 puff IH DAILY [facility] Last Admin: 05/28/16 09:15 Dose: 1 puff Trimethoprim/Sulfamethoxazole (Bactrim Ds -) 1 each PO MoWeFr@1000 [facility] Last Admin: 05/27/16 10:44 Dose: 1 each Warfarin Sodium (Coumadin -) 5 mg PO DAILY@1800 [facility] Last Admin: 05/27/16 18:16 Dose: 5 mg Warfarin Sodium (Coumadin -) 7.5 mg PO ONCE@1800 ONE Stop: 05/28/16 18:01 Constitutional: Yes: NAD, mildly tachypneic at rest. Eyes: Yes: WNL HENT: Yes: WNL Neck: Yes: WNL Cardiovascular: Yes: Pulse Irregular, S1, S2 Respiratory: Yes: Rales (bilateral crackles) Gastrointestinal: Yes: Normal Bowel Sounds, Soft Extremities: Yes: WNL Edema: Yes Labs: Problem List - Problems (1) Atrial fibrillation Code(s): I48.91 - UNSPECIFIED ATRIAL FIBRILLATION Qualifiers: Atrial fibrillation type: chronic Qualified Code(s): I48.2 - Chronic atrial fibrillation (2) Interstitial lung disease Code(s): J84.9 - INTERSTITIAL PULMONARY DISEASE, UNSPECIFIED (3) Atrial fibrillation with RVR Code(s): I48.91 - UNSPECIFIED ATRIAL FIBRILLATION (4) CAD (coronary artery disease) Code(s): I25.10 - ATHSCL HEART DISEASE OF [place] CORONARY ARTERY W/O ANG PCTRS (5) CHF (congestive heart failure) Code(s): I50.9 - HEART FAILURE, UNSPECIFIED Qualifiers: Congestive heart failure type: unspecified congestive heart failure type Congestive heart failure chronicity: acute Qualified Code(s): I50.9 - Heart failure, unspecified (6) Dyspnea Code(s): R06.00 - DYSPNEA, UNSPECIFIED (7) NSTEMI (non-ST elevated myocardial infarction) Code(s): I21.4 - NON-ST ELEVATION (NSTEMI) MYOCARDIAL INFARCTION (8) Acute on chronic respiratory failure with hypoxemia Code(s): J96.21 - ACUTE AND CHRONIC RESPIRATORY FAILURE WITH HYPOXIA Assessment/Plan IMP ACUTE ON CHRONIC HYPOXEMIC RESPIRATORY FAILURE ADVANCED INTERSTITIAL LUNG DISEASE/PULMONARY FIBROSIS O2 DEPENDENT URI ASHD S/P DC,S/P STENTS X 3 AFIB CHF HTN DIARRHEA PLAN TAPER IV STEROIDS INHALED BRONCHODILATORS O2 ANTIBIOTICS BACTRIM DS 1 TAB PO DAILY FOR PCP PROPHYLAXIS CELLCEPT LASIX LOVENOX CHECK STOOL FOR C-DIF DR ZIEGLER
[2016-05-28] MEDS ORDERED: WARFARIN NA 7.5 MG TABLET (FP) PO ONE (18:00)
[2016-05-28] MEDS: ATORVASTATIN CA 40 MG TABLET (FP) PO SCH (22:45)
[2016-05-28] MEDS: MONTELUKAST NA 10 MG TABLET PO SCH (22:45)
[2016-05-29] MEDS: methylPREDNISolone NA SUCC 40 MG/1 ML VIAL IVPB SCH ×4 (02:00→22:50)
[2016-05-29] MEDS: metroNIDAZOLE 250 MG TABLET PO SCH (06:59)
[2016-05-29 08:19] LABS: BASOPHIL 0.1 % (0-2.0); EOSINOPHIL 0.1 % (0-4.5); MCH 28.4 pg (25.7-33.7); MCHC 32.8 g/dl (32.0-35.9); MEAN CELL VOLUME 86.6 fl (80-96); MEAN PLT VOLUME 7.5 fl (7.5-11.1); NEUTROPHILS 96.6 % (42.8-82.8); PLATELET COUNT 228 K/MM3 (134-434); RDW 16.6 % (11.9-15.9); WHITE BLOOD COUNT 20.7 K/mm3 (4.0-10.0)
[2016-05-29 08:44] LABS: CALCIUM 8.3 mg/dL (8.5-10.1)
[2016-05-29 08:46] LABS: CREATININE 0.7 mg/dL (0.7-1.3)
[2016-05-29] MEDS: dilTIAZem HCL 60 MG TABLET (FP) PO SCH ×5 (09:19→23:20)
[2016-05-29] MEDS: METOPROLOL SUCCINATE 100 MG TAB.SR.24H (FP) PO SCH (09:19)
[2016-05-29] MEDS: ASPIRIN COATED 81 MG TABLET.EC PO SCH (09:19)
[2016-05-29] MEDS: PANTOPRAZOLE 40 MG TABLET (FP) PO SCH (09:19)
[2016-05-29] MEDS: PRASUGREL HCL 5 MG TAB PO SCH (09:20)
[2016-05-29] MEDS: TIOTROPIUM BROMIDE 18 MCG/INH (DEVICE W/ 5 CAPSULES) IH SCH (09:20)
[2016-05-29] MEDS: ENOXAPARIN NA (PORCINE) 80 MG/0.8 ML DISP.SYRIN SQ SCH (09:20)
[2016-05-29] MEDS: MYCOPHENOLATE MOFETIL 500 MG TABLET PO SCH ×2 (09:20→22:49)
--- NOTE | 2016-05-29 09:50 | PN ---
Progress Note, Physician History of Present Illness: The patient is a 71 year old white male with a past medical hx of HTN, afib, severe interstitial lung disease (ILD) (followed by Dr. Brooks), CAD-->three cardiac stents in 2016, who presents to the ED complaining of shortness of breath for one week. The patient reports his shortness of breath progressively worsened over the weekend. He states his PCP increased his Prednisone, but he is still feeling short of breath. The patient reports he is oxygen dependent at home. The patient denies chest pain The patient denies fever, chills The patient denies nausea, vomiting, diarrhea - Current Medication List Current Medications: Active Medications Albuterol Sulfate (Ventolin 0.083% Nebulizer Soln -) 1 amp NEB Q4H PRN PRN Reason: SHORT OF BREATH/WHEEZING Last Admin: 05/28/16 11:00 Dose: 1 amp Aspirin (Ecotrin -) 81 mg PO DAILY [facility] Last Admin: 05/29/16 09:19 Dose: 81 mg Atorvastatin [place] (Lipitor -) 40 mg PO [facility] Last Admin: 05/28/16 22:45 Dose: 40 mg Diltiazem HCl (Cardizem Injection -) 10 mg IVPUSH Q4H PRN PRN Reason: TACHYCARDIA Diltiazem HCl (Cardizem -) 60 mg PO Q6HPO [facility] Last Admin: 05/29/16 09:19 Dose: 60 mg Enoxaparin Sodium (Lovenox -) 80 mg SQ BID [facility] Last Admin: 05/29/16 09:20 Dose: 80 mg Methylprednisolone [place]odium Succinate (Solu-Medrol -) 40 mg IVPB Q8H-IV [facility] Last Admin: 05/29/16 09:20 Dose: 40 mg Metoprolol Succinate (Toprol Xl -) 100 mg PO DAILY [facility] Last Admin: 05/29/16 09:19 Dose: 100 mg Metronidazole (Flagyl -) 500 mg PO TID [facility] Last Admin: 05/29/16 06:59 Dose: 500 mg Montelukast Sodium (Singulair -) 15 mg PO HS [facility] Last Admin: 05/28/16 22:45 Dose: 15 mg Mycophenolate Mofetil (Cellcept -) 500 mg PO BID [facility] Last Admin: 05/29/16 09:20 Dose: 500 mg Pantoprazole Sodium (Protonix -) 40 mg PO DAILY [facility] Last Admin: 05/29/16 09:19 Dose: 40 mg Prasugrel (Effient -) 5 mg PO DAILY [facility] Last Admin: 05/29/16 09:20 Dose: 5 mg Tiotropium [place] (Spiriva -) 1 puff IH DAILY [facility] Last Admin: 05/29/16 09:20 Dose: 1 puff Trimethoprim/Sulfamethoxazole (Bactrim Ds -) 1 each PO MoWeFr@1000 [facility] Last Admin: 05/27/16 10:44 Dose: 1 each Warfarin Sodium (Coumadin -) 5 mg PO DAILY@1800 [facility] Last Admin: 05/27/16 18:16 Dose: 5 mg - Objective Vital Signs: Vital Signs Temperature 97.3 F L 05/29/16 01:43 Pulse Rate 97 H 05/29/16 05:00 Respiratory Rate 22 05/29/16 05:00 Blood Pressure 108/71 05/29/16 05:00 O2 Sat by Pulse Oximetry (%) 97 05/28/16 21:00 Eyes: Yes: WNL, Conjunctiva Clear, EOM Intact HENT: Yes: WNL, Atraumatic, Normocephalic Neck: Yes: WNL, Supple, Trachea Midline Cardiovascular: Yes: Pulse Irregular, S1, S2 Respiratory: Yes: Diminished, Rales Gastrointestinal: Yes: WNL, Normal Bowel Sounds Genitourinary: Yes: WNL Musculoskeletal: Yes: WNL Extremities: Yes: WNL Edema: No Integumentary: Yes: WNL Neurological: Yes: WNL, Alert, Oriented ...Motor Strength: WNL Psychiatric: Yes: WNL Labs: CBC, BMP 05/29/16 05:50 05/29/16 05:50 INR, PTT INR 1.59 (0.82-1.09) H 05/28/16 05:55 Assessment/Plan - Problems - Problems (1) Acute on chronic respiratory failure with hypoxemia Code(s): J96.21 - ACUTE AND CHRONIC RESPIRATORY FAILURE WITH HYPOXIA (2) Interstitial lung disease Assessment/Plan: F/u with churn driller helper (sees Dr. Brooks as outpatient; also sees Dr. Álvarez in [facility]). Code(s): J84.9 - INTERSTITIAL PULMONARY DISEASE, UNSPECIFIED (3) Pneumonia Assessment/Plan: On antibiotics per ID and churn driller helper. Code(s): J18.9 - PNEUMONIA, UNSPECIFIED ORGANISM Qualifiers: Pneumonia type: due to unspecified organism Laterality: unspecified laterality Lung location: unspecified part of lung Qualified Code(s): J18.9 - Pneumonia, unspecified organism (4) Atrial fibrillation with RVR Assessment/Plan: AF with RVR last night-->IV, then PO diltiazem, in addition to metoprolol ER 100 mg daily: now with better HR control. On anicoagulation (warfarin: give daily dose, and D/c IV Lovenox when INR therapeutic). INR 1.88; keep in "low 2's" (also on ASA and lowered-dose Effient for CAD-->coronary stent). F/U INR today; Free T4 WNL. Pt noticed red blood on toilet paper yesterday after BM; has excoriation in rectal area. No further blood noted, despite have 2 BMs overnight (diarrhea). Hb not decreased/ INR 1.88. HR and BP controlled. Observe. Code(s): I48.91 - UNSPECIFIED ATRIAL FIBRILLATION (5) CAD (coronary artery disease) Code(s): I25.10 - ATHSCL HEART DISEASE OF [place] CORONARY ARTERY W/O ANG PCTRS (7) Acute on chronic diastolic CHF (congestive heart failure) Code(s): I50.33 - ACUTE ON CHRONIC DIASTOLIC (CONGESTIVE) HEART FAILURE
[2016-05-29] MEDS ORDERED: LOPERAMIDE HCL 2 MG CAPSULE PO PRN (10:57)
--- NOTE | 2016-05-29 11:08 | PN ---
Progress Note, Physician Chief Complaint: Having diarrhea and still somewhat SOB on movement. History of Present Illness: Patient with multiple illnesses such as COPD with Exacerbation, ASHD with hx. of Stents. Bilateral Pulmonary Infiltrates and Interstitial Lung Disease is feeling a little better but still has some SOB on movement and loose BM's. His stool C.Diff is negative so I will D/C Flagyl and order PRN Immodium. Await INR . PT resumes on Monday; - Current Medication List Current Medications: Active Medications Albuterol Sulfate (Ventolin 0.083% Nebulizer Soln -) 1 amp NEB Q4H PRN PRN Reason: SHORT OF BREATH/WHEEZING Last Admin: 05/28/16 11:00 Dose: 1 amp Aspirin (Ecotrin -) 81 mg PO DAILY [facility] Last Admin: 05/29/16 09:19 Dose: 81 mg Atorvastatin Calcium (Lipitor -) 40 mg PO HS [facility] Last Admin: 05/28/16 22:45 Dose: 40 mg Diltiazem HCl (Cardizem Injection -) 10 mg IVPUSH Q4H PRN PRN Reason: TACHYCARDIA Diltiazem HCl (Cardizem -) 60 mg PO Q6HPO [facility] Last Admin: 05/29/16 09:19 Dose: 60 mg Enoxaparin Sodium (Lovenox -) 80 mg SQ BID [facility] Last Admin: 05/29/16 09:20 Dose: 80 mg Loperamide HCl (Imodium -) 2 mg PO Q8H PRN PRN Reason: DIARRHEA Methylprednisolone Sodium Succinate (Solu-Medrol -) 40 mg IVPB Q8H-IV [facility] Last Admin: 05/29/16 09:20 Dose: 40 mg Metoprolol Succinate (Toprol Xl -) 100 mg PO DAILY [facility] Last Admin: 05/29/16 09:19 Dose: 100 mg Montelukast Sodium (Singulair -) 15 mg PO HS [facility] Last Admin: 05/28/16 22:45 Dose: 15 mg Mycophenolate Mofetil (Cellcept -) 500 mg PO BID [facility] Last Admin: 05/29/16 09:20 Dose: 500 mg Pantoprazole Sodium (Protonix -) 40 mg PO DAILY [facility] Last Admin: 05/29/16 09:19 Dose: 40 mg Prasugrel (Effient -) 5 mg PO DAILY [facility] Last Admin: 02/05/17 09:20 Dose: 5 mg Tiotropium [place] (Spiriva -) 1 puff IH DAILY [facility] Last Admin: 05/29/16 09:20 Dose: 1 puff Trimethoprim/Sulfamethoxazole (Bactrim Ds -) 1 each PO MoWeFr@1000 [facility] Last Admin: 05/27/16 10:44 Dose: 1 each Warfarin Sodium (Coumadin -) 5 mg PO DAILY@1800 [facility] Last Admin: 05/27/16 18:16 Dose: 5 mg - Objective Vital Signs: Vital Signs Temperature 97.3 F L 05/29/16 01:43 Pulse Rate 97 H 05/29/16 05:00 Respiratory Rate 22 05/29/16 05:00 Blood Pressure 108/71 05/29/16 05:00 O2 Sat by Pulse Oximetry (%) 97 05/28/16 21:00 Constitutional: Yes: Calm Eyes: Yes: Conjunctiva Clear. No: Sclera Icterus Cardiovascular: Yes: Pulse Irregular Respiratory: No: Rales, Wheezes Gastrointestinal: Yes: Soft, Hyperactive Bowel Sounds. No: Tenderness Genitourinary: No: Negrete Present Edema: LLE: 2+, RLE: 2+ Neurological: Yes: Alert, Oriented Labs: CBC, BMP 05/29/16 05:50 05/29/16 05:50 INR, PTT INR 1.59 (0.82-1.09) H 05/28/16 05:55 - ....Imaging Chest X-ray: Report Reviewed Problem List - Problems (1) Pneumonia Assessment/Plan: Patient's chest is clear today without rales or wheezing. Await Pulmonary MD ? taper steroids. Code(s): J18.9 - PNEUMONIA, UNSPECIFIED ORGANISM Qualifiers: Pneumonia type: due to unspecified organism Laterality: unspecified laterality Lung location: unspecified part of lung Qualified Code(s): J18.9 - Pneumonia, unspecified organism (2) Atrial fibrillation Assessment/Plan: On Coumadin; await to see if level therapeutic. Code(s): I48.91 - UNSPECIFIED ATRIAL FIBRILLATION Qualifiers: Atrial fibrillation type: chronic Qualified Code(s): I48.2 - Chronic atrial fibrillation (3) Acute on chronic combined systolic and diastolic CHF (congestive heart failure) Assessment/Plan: Still with pedal edema. Code(s): I50.43 - ACUTE ON CHRONIC COMBINED SYSTOLIC AND DIASTOLIC HRT FAIL (4) Interstitial lung disease Assessment/Plan: Uses O2 at home. Code(s): J84.9 - INTERSTITIAL PULMONARY DISEASE, UNSPECIFIED (5) Pedal edema Assessment/Plan: Still 2+ edema; Lasix IV X1 ordered. Code(s): R60.0 - LOCALIZED EDEMA
[2016-05-29 11:16] LABS: INR 2.67 (0.82-1.09)
[2016-05-29] MEDS ORDERED: FUROSEMIDE 40 MG/4 ML INJECTABLE VIAL IVPB ONE (11:45)
--- NOTE | 2016-05-29 13:59 | PN ---
Progress Note (short form) - Note Progress Note: Awake and alert. Feels a little better today but still with [place]. Mildly tachypneic on NC O2. No CP. Intake & Output 05/26/16 05/27/16 05/28/16 05/29/16 23:59 23:59 23:59 23:59 Intake Total 1350 310 580 180 Output Total 1750 1500 2175 200 Balance -400 -1190 -1595 -20 Weight 182 lb 5.156 oz 177 lb 9.6 oz 174 lb 6.4 oz 174 lb Last Vital Signs Temp Pulse Resp BP Pulse Ox 97.3 F L 115 H 22 117/65 98 05/29/16 01:43 05/29/16 10:00 05/29/16 10:00 05/29/16 10:00 05/29/16 10:00 Active Medications Albuterol Sulfate (Ventolin 0.083% Nebulizer Soln -) 1 amp NEB Q4H PRN PRN Reason: SHORT OF BREATH/WHEEZING Last Admin: 05/28/16 11:00 Dose: 1 amp Aspirin (Ecotrin -) 81 mg PO DAILY [facility] Last Admin: 05/29/16 09:19 Dose: 81 mg Atorvastatin Calcium (Lipitor -) 40 mg PO HS [facility] Last Admin: 05/28/16 22:45 Dose: 40 mg Diltiazem HCl (Cardizem Injection -) 10 mg IVPUSH Q4H PRN PRN Reason: TACHYCARDIA Diltiazem HCl (Cardizem -) 60 mg PO Q6HPO [facility] Last Admin: 05/29/16 13:12 Dose: 60 mg Enoxaparin Sodium (Lovenox -) 80 mg SQ BID [facility] Last Admin: 05/29/16 09:20 Dose: 80 mg Loperamide HCl (Imodium -) 2 mg PO Q8H PRN PRN Reason: DIARRHEA Last Admin: 05/29/16 13:12 Dose: 2 mg Methylprednisolone Sodium Succinate (Solu-Medrol -) 40 mg IVPB Q8H-IV [facility] Last Admin: 05/29/16 09:20 Dose: 40 mg Metoprolol Succinate (Toprol Xl -) 100 mg PO DAILY [facility] Last Admin: 05/29/16 09:19 Dose: 100 mg Montelukast Sodium (Singulair -) 15 mg PO HS [facility] Last Admin: 05/28/16 22:45 Dose: 15 mg Mycophenolate Mofetil (Cellcept -) 500 mg PO BID [facility] Last Admin: 05/29/16 09:20 Dose: 500 mg Pantoprazole Sodium (Protonix -) 40 mg PO DAILY [facility] Last Admin: 05/29/16 09:19 Dose: 40 mg Prasugrel (Effient -) 5 mg PO DAILY [facility] Last Admin: 05/29/16 09:20 Dose: 5 mg Tiotropium [place] (Spiriva -) 1 puff IH DAILY [facility] Last Admin: 05/29/16 09:20 Dose: 1 puff Trimethoprim/Sulfamethoxazole (Bactrim Ds -) 1 each PO MoWeFr@1000 [facility] Last Admin: 05/27/16 10:44 Dose: 1 each Warfarin Sodium (Coumadin -) 5 mg PO DAILY@1800 [facility] Last Admin: 05/27/16 18:16 Dose: 5 mg Constitutional: Yes: NAD, mildly tachypneic at rest. Eyes: Yes: WNL HENT: Yes: WNL Neck: Yes: WNL Cardiovascular: Yes: Pulse Irregular, S1, S2 Respiratory: Yes: Rales (bilateral crackles) Gastrointestinal: Yes: Normal Bowel Sounds, Soft Extremities: Yes: WNL Edema: Yes Labs: Problem List - Problems (1) Atrial fibrillation Code(s): I48.91 - UNSPECIFIED ATRIAL FIBRILLATION Qualifiers: Atrial fibrillation type: chronic Qualified Code(s): I48.2 - Chronic atrial fibrillation (2) Interstitial lung disease Code(s): J84.9 - INTERSTITIAL PULMONARY DISEASE, UNSPECIFIED (3) Atrial fibrillation with RVR Code(s): I48.91 - UNSPECIFIED ATRIAL FIBRILLATION (4) CAD (coronary artery disease) Code(s): I25.10 - ATHSCL HEART DISEASE OF [place] CORONARY ARTERY W/O ANG PCTRS (5) CHF (congestive heart failure) Code(s): I50.9 - HEART FAILURE, UNSPECIFIED Qualifiers: Congestive heart failure type: unspecified congestive heart failure type Congestive heart failure chronicity: acute Qualified Code(s): I50.9 - Heart failure, unspecified (6) Dyspnea Code(s): R06.00 - DYSPNEA, UNSPECIFIED (7) NSTEMI (non-ST elevated myocardial infarction) Code(s): I21.4 - NON-ST ELEVATION (NSTEMI) MYOCARDIAL INFARCTION (8) Acute on chronic respiratory failure with hypoxemia Code(s): J96.21 - ACUTE AND CHRONIC RESPIRATORY FAILURE WITH HYPOXIA Laboratory Results - last 24 hr 05/29/16 05/29/16 05/29/16 05:50 05:50 05:50 WBC 20.7 H RBC 4.24 Hgb 12.0 Hct 36.7 MCV 86.6 MCHC 32.8 RDW 16.6 H Plt Count 228 MPV 7.5 Neutrophils % 96.6 H Lymphocytes % 1.6 L D Monocytes % 1.6 L Eosinophils % 0.1 D Basophils % 0.1 INR Sodium 140 Potassium 4.0 Chloride 99 Carbon Dioxide 31 Anion Gap 10 BUN 44 H Creatinine 0.7 Random Glucose 168 H Hemoglobin A1c % 6.5 H D Calcium 8.3 L 05/29/16 07:22 WBC RBC Hgb Hct MCV MCHC RDW Plt Count MPV Neutrophils % Lymphocytes % Monocytes % Eosinophils % Basophils % INR 2.67 H D Sodium Potassium Chloride Carbon Dioxide Anion Gap BUN Creatinine Random Glucose Hemoglobin A1c % Calcium Assessment/Plan IMP ACUTE ON CHRONIC HYPOXEMIC RESPIRATORY FAILURE ADVANCED INTERSTITIAL LUNG DISEASE/PULMONARY FIBROSIS O2 DEPENDENT URI ASHD S/P [place],S/P STENTS X 3 AFIB CHF HTN DIARRHEA PLAN TAPER IV STEROIDS TODAY INHALED BRONCHODILATORS O2 OFF ANTIBIOTICS BACTRIM DS 1 TAB PO DAILY FOR PCP PROPHYLAXIS CELLCEPT LASIX LOVENOX / COUMADIN DR ZIEGLER
[2016-05-29] MEDS: WARFARIN NA 5 MG TABLET (UD) PO SCH (17:27)
[2016-05-29] MEDS: MONTELUKAST NA 10 MG TABLET PO SCH (22:47)
[2016-05-29] MEDS: ATORVASTATIN CA 40 MG TABLET (FP) PO SCH (22:49)
[2016-05-30] MEDS: dilTIAZem HCL 60 MG TABLET (FP) PO SCH ×3 (06:38→17:42)
[2016-05-30 07:18] LABS: BASOPHIL 0.1 % (0-2.0); MCH 28.2 pg (25.7-33.7); MCHC 32.4 g/dl (32.0-35.9); MEAN CELL VOLUME 87.1 fl (80-96); MEAN PLT VOLUME 7.7 fl (7.5-11.1); NEUTROPHILS 96.2 % (42.8-82.8); PLATELET COUNT 213 K/MM3 (134-434); RDW 16.9 % (11.9-15.9); WHITE BLOOD COUNT 22.2 K/mm3 (4.0-10.0)
[2016-05-30 07:21] LABS: INR 3.64 (0.82-1.09); PROTHROMBIN TIME (PATIENT) 41.1 SEC (9.98-11.88)
[2016-05-30 07:39] LABS: CALCIUM 8.2 mg/dL (8.5-10.1); CREATININE 0.7 mg/dL (0.7-1.3)
[2016-05-30] MEDS: PANTOPRAZOLE 40 MG TABLET (FP) PO SCH (09:03)
[2016-05-30] MEDS: SULFAMETHOXAZOLE/TRIMETHOPRIM 800MG/160MG D.S. TABLET PO SCH (09:03)
[2016-05-30] MEDS: MYCOPHENOLATE MOFETIL 500 MG TABLET PO SCH ×2 (09:03→21:02)
[2016-05-30] MEDS: ASPIRIN COATED 81 MG TABLET.EC PO SCH (09:03)
[2016-05-30] MEDS: PRASUGREL HCL 5 MG TAB PO SCH (09:03)
[2016-05-30] MEDS: METOPROLOL SUCCINATE 100 MG TAB.SR.24H (FP) PO SCH (09:04)
[2016-05-30] MEDS: methylPREDNISolone NA SUCC 40 MG/1 ML VIAL IVPB SCH ×2 (09:04→21:03)
[2016-05-30] MEDS: TIOTROPIUM BROMIDE 18 MCG/INH (DEVICE W/ 5 CAPSULES) IH SCH (09:05)
--- NOTE | 2016-05-30 10:58 | PN ---
Progress Note, Physician History of Present Illness: PULMONARY ALERT,SITTING UP IN BED,LESS DYSPNEIC - Current Medication List Current Medications: Active Medications Albuterol Sulfate (Ventolin 0.083% Nebulizer Soln -) 1 amp NEB Q4H PRN PRN Reason: SHORT OF BREATH/WHEEZING Last Admin: 05/28/16 11:00 Dose: 1 amp Aspirin (Ecotrin -) 81 mg PO DAILY [facility] Last Admin: 05/30/16 09:03 Dose: 81 mg Atorvastatin Calcium (Lipitor -) 40 mg PO HS [facility] Last Admin: 05/29/16 22:49 Dose: 40 mg Diltiazem HCl (Cardizem Injection -) 10 mg IVPUSH Q4H PRN PRN Reason: TACHYCARDIA Diltiazem HCl (Cardizem -) 60 mg PO Q6HPO [facility] Last Admin: 05/30/16 06:38 Dose: 60 mg Loperamide HCl (Imodium -) 2 mg PO Q8H PRN PRN Reason: DIARRHEA Last Admin: 05/29/16 13:12 Dose: 2 mg Methylprednisolone Sodium Succinate (Solu-Medrol -) 40 mg IVPB BID [facility] Last Admin: 05/30/16 09:04 Dose: 40 mg Metoprolol Succinate (Toprol Xl -) 100 mg PO DAILY [facility] Last Admin: 05/30/16 09:04 Dose: 100 mg Montelukast Sodium (Singulair -) 15 mg PO [facility] Last Admin: 05/29/16 22:47 Dose: 15 mg Mycophenolate Mofetil (Cellcept -) 500 mg PO BID [facility] Last Admin: 05/30/16 09:03 Dose: 500 mg Pantoprazole Sodium (Protonix -) 40 mg PO DAILY [facility] Last Admin: 05/30/16 09:03 Dose: 40 mg Prasugrel (Effient -) 5 mg PO DAILY [facility] Last Admin: 05/30/16 09:03 Dose: 5 mg Tiotropium [place] (Spiriva -) 1 puff IH DAILY [facility] Last Admin: 05/30/16 09:05 Dose: 1 puff Trimethoprim/Sulfamethoxazole (Bactrim Ds -) 1 each PO MoWeFr@1000 [facility] Last Admin: 05/30/16 09:03 Dose: 1 each - Objective Vital Signs: Vital Signs Temperature 98 F 05/30/16 09:00 Pulse Rate 104 H 05/30/16 09:00 Respiratory Rate 20 05/30/16 09:00 Blood Pressure 113/70 05/30/16 09:00 O2 Sat by Pulse Oximetry (%) 100 05/30/16 09:00 Constitutional: Yes: Well Nourished, Calm Eyes: Yes: WNL HENT: Yes: WNL Neck: Yes: WNL Cardiovascular: Yes: Pulse Irregular, S1, S2 Respiratory: Yes: Rales (NORAH CRACKLES) Gastrointestinal: Yes: Normal Bowel Sounds, Soft Extremities: Yes: WNL Edema: Yes Labs: CBC, BMP 05/30/16 05:35 05/30/16 05:35 INR, PTT INR 3.64 (0.82-1.09) H D 05/30/16 05:35 Problem List - Problems (1) Atrial fibrillation Code(s): I48.91 - UNSPECIFIED ATRIAL FIBRILLATION Qualifiers: Atrial fibrillation type: chronic Qualified Code(s): I48.2 - Chronic atrial fibrillation (2) Interstitial lung disease Code(s): J84.9 - INTERSTITIAL PULMONARY DISEASE, UNSPECIFIED (3) Atrial fibrillation with RVR Code(s): I48.91 - UNSPECIFIED ATRIAL FIBRILLATION (4) CAD (coronary artery disease) Code(s): I25.10 - ATHSCL HEART DISEASE OF [place] CORONARY ARTERY W/O ANG PCTRS (5) CHF (congestive heart failure) Code(s): I50.9 - HEART FAILURE, UNSPECIFIED Qualifiers: Congestive heart failure type: unspecified congestive heart failure type Congestive heart failure chronicity: acute Qualified Code(s): I50.9 - Heart failure, unspecified (6) Dyspnea Code(s): R06.00 - DYSPNEA, UNSPECIFIED (7) NSTEMI (non-ST elevated myocardial infarction) Code(s): I21.4 - NON-ST ELEVATION (NSTEMI) MYOCARDIAL INFARCTION (8) Acute on chronic respiratory failure with hypoxemia Code(s): J96.21 - ACUTE AND CHRONIC RESPIRATORY FAILURE WITH HYPOXIA Assessment/Plan IMP ACUTE ON CHRONIC HYPOXEMIC RESPIRATORY FAILURE ADVANCED INTERSTITIAL LUNG DISEASE/PULMONARY FIBROSIS O2 DEPENDENT URI ASHD S/P [place],S/P STENTS X 3 AFIB CHF HTN DIARRHEA PLAN CONT IV STEROIDS SAME DOSE INHALED BRONCHODILATORS O2 BACTRIM DS CELLCEPT COUMADIN PER INR PULMONARY REHAB POST DISCHARGE DR BRILL Problem List - Problems (1) Atrial fibrillation Code(s): I48.91 - UNSPECIFIED ATRIAL FIBRILLATION Qualifiers: Atrial fibrillation type: chronic Qualified Code(s): I48.2 - Chronic atrial fibrillation (2) Interstitial lung disease Code(s): J84.9 - INTERSTITIAL PULMONARY DISEASE, UNSPECIFIED (3) Atrial fibrillation with RVR Code(s): I48.91 - UNSPECIFIED ATRIAL FIBRILLATION (4) CAD (coronary artery disease) Code(s): I25.10 - ATHSCL HEART DISEASE OF [place] CORONARY ARTERY W/O ANG PCTRS (5) CHF (congestive heart failure) Code(s): I50.9 - HEART FAILURE, UNSPECIFIED Qualifiers: Congestive heart failure type: unspecified congestive heart failure type Congestive heart failure chronicity: acute Qualified Code(s): I50.9 - Heart failure, unspecified (6) Dyspnea Code(s): R06.00 - DYSPNEA, UNSPECIFIED (7) NSTEMI (non-ST elevated myocardial infarction) Code(s): I21.4 - NON-ST ELEVATION (NSTEMI) MYOCARDIAL INFARCTION (8) Acute on chronic respiratory failure with hypoxemia Code(s): J96.21 - ACUTE AND CHRONIC RESPIRATORY FAILURE WITH HYPOXIA
--- NOTE | 2016-05-30 12:32 | PN ---
Progress Note, Physician History of Present Illness: The patient is a 71 year old white male with a past medical hx of HTN, afib, severe interstitial lung disease (ILD) (followed by Dr. Brooks), CAD-->three cardiac stents in 2016, who presents to the ED complaining of shortness of breath for one week. The patient reports his shortness of breath progressively worsened over the weekend. He states his PCP increased his Prednisone, but he is still feeling short of breath. The patient reports he is oxygen dependent at home. The patient denies chest pain The patient denies fever, chills The patient denies nausea, vomiting, diarrhea - Current Medication List Current Medications: Active Medications Albuterol Sulfate (Ventolin 0.083% Nebulizer Soln -) 1 amp NEB Q4H PRN PRN Reason: SHORT OF BREATH/WHEEZING Last Admin: 05/28/16 11:00 Dose: 1 amp Aspirin (Ecotrin -) 81 mg PO DAILY [facility] Last Admin: 05/30/16 09:03 Dose: 81 mg Atorvastatin [place]cium (Lipitor -) 40 mg PO [facility] Last Admin: 05/29/16 22:49 Dose: 40 mg Diltiazem HCl (Cardizem Injection -) 10 mg IVPUSH Q4H PRN PRN Reason: TACHYCARDIA Diltiazem HCl (Cardizem -) 60 mg PO Q6HPO [facility] Last Admin: 05/30/16 12:03 Dose: 60 mg Loperamide HCl (Imodium -) 2 mg PO Q8H PRN PRN Reason: DIARRHEA Last Admin: 05/29/16 13:12 Dose: 2 mg Methylprednisolone Sodium Succinate (Solu-Medrol -) 40 mg IVPB BID [facility] Last Admin: 05/30/16 09:04 Dose: 40 mg Metoprolol Succinate (Toprol Xl -) 100 mg PO DAILY [facility] Last Admin: 05/30/16 09:04 Dose: 100 mg Montelukast Sodium (Singulair -) 15 mg PO HS [facility] Last Admin: 05/29/16 22:47 Dose: 15 mg Mycophenolate Mofetil (Cellcept -) 500 mg PO BID [facility] Last Admin: 05/30/16 09:03 Dose: 500 mg Pantoprazole Sodium (Protonix -) 40 mg PO DAILY [facility] Last Admin: 05/30/16 09:03 Dose: 40 mg Prasugrel (Effient -) 5 mg PO DAILY [facility] Last Admin: 05/30/16 09:03 Dose: 5 mg Tiotropium [place] (Spiriva -) 1 puff IH DAILY [facility] Last Admin: 05/30/16 09:05 Dose: 1 puff Trimethoprim/Sulfamethoxazole (Bactrim Ds -) 1 each PO MoWeFr@1000 [facility] Last Admin: 05/30/16 09:03 Dose: 1 each - Objective Vital Signs: Vital Signs Temperature 98 F 05/30/16 09:00 Pulse Rate 104 H 05/30/16 09:00 Respiratory Rate 20 05/30/16 09:00 Blood Pressure 113/70 05/30/16 09:00 O2 Sat by Pulse Oximetry (%) 100 05/30/16 09:00 Eyes: Yes: WNL, Conjunctiva Clear, EOM Intact HENT: Yes: WNL, Atraumatic, Normocephalic Neck: Yes: WNL, Supple, Trachea Midline Cardiovascular: Yes: Pulse Irregular, S1, S2 Respiratory: Yes: Diminished Gastrointestinal: Yes: WNL, Normal Bowel Sounds Genitourinary: Yes: WNL Musculoskeletal: Yes: WNL Extremities: Yes: WNL Edema: No Integumentary: Yes: WNL Neurological: Yes: WNL, Alert, Oriented ...Motor Strength: WNL Psychiatric: Yes: WNL Labs: CBC, BMP 05/30/16 05:35 05/30/16 05:35 INR, PTT INR 3.64 (0.82-1.09) H D 05/30/16 05:35 Assessment/Plan - Problems - Problems (1) Acute on chronic respiratory failure with hypoxemia Code(s): J96.21 - ACUTE AND CHRONIC RESPIRATORY FAILURE WITH HYPOXIA (2) Interstitial lung disease Assessment/Plan: 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 Brooks as outpatient; also sees Dr. Álvarez in [facility]). Code(s): J84.9 - INTERSTITIAL PULMONARY DISEASE, UNSPECIFIED (3) Pneumonia Assessment/Plan: On antibiotics per ID and photovoltaic subcontractor. Code(s): J18.9 - PNEUMONIA, UNSPECIFIED ORGANISM Qualifiers: Pneumonia type: due to unspecified organism Laterality: unspecified laterality Lung location: unspecified part of lung Qualified Code(s): J18.9 - Pneumonia, unspecified organism (4) Atrial fibrillation with RVR Assessment/Plan: AF with RVR last night-->IV, then PO diltiazem, in addition to metoprolol ER 100 mg daily: now with better HR control. On anicoagulation (warfarin: give daily dose, and D/c IV Lovenox when INR therapeutic). INR 1.88; keep in "low 2's" (also on ASA and lowered-dose Effient for CAD-->coronary stent). F/U INR today; Free T4 WNL. Pt noticed red blood on toilet paper yesterday after BM; has excoriation in rectal area. No further blood noted, despite have 2 BMs overnight (diarrhea). Hb not decreased/ INR 1.88. HR and BP controlled. Observe. Code(s): I48.91 - UNSPECIFIED ATRIAL FIBRILLATION (5) CAD (coronary artery disease) Code(s): I25.10 - ATHSCL HEART DISEASE OF [place] CORONARY ARTERY W/O ANG PCTRS (7) Acute on chronic diastolic CHF (congestive heart failure) Code(s): I50.33 - ACUTE ON CHRONIC DIASTOLIC (CONGESTIVE) HEART FAILURE
--- NOTE | 2016-05-30 15:23 | PN ---
Progress Note, Physician Chief Complaint: Mr Yadav says he is feeling better, but still with shortness of breath. No cp or n/v. States he hopes to go home soon. - Current Medication List Current Medications: Active Medications Albuterol Sulfate (Ventolin 0.083% Nebulizer Soln -) 1 amp NEB Q4H PRN PRN Reason: SHORT OF BREATH/WHEEZING Last Admin: 05/28/16 11:00 Dose: 1 amp Aspirin (Ecotrin -) 81 mg PO DAILY [facility] Last Admin: 05/30/16 09:03 Dose: 81 mg Atorvastatin [place] (Lipitor -) 40 mg PO HS [facility] Last Admin: 05/29/16 22:49 Dose: 40 mg Diltiazem HCl (Cardizem Injection -) 10 mg IVPUSH Q4H PRN PRN Reason: TACHYCARDIA Diltiazem HCl (Cardizem -) 60 mg PO Q6HPO [facility] Last Admin: 05/30/16 12:03 Dose: 60 mg Loperamide HCl (Imodium -) 2 mg PO Q8H PRN PRN Reason: DIARRHEA Last Admin: 05/29/16 13:12 Dose: 2 mg Methylprednisolone Sodium Succinate (Solu-Medrol -) 40 mg IVPB BID [facility] Last Admin: 05/30/16 09:04 Dose: 40 mg Metoprolol Succinate (Toprol Xl -) 100 mg PO DAILY [facility] Last Admin: 05/30/16 09:04 Dose: 100 mg Montelukast Sodium (Singulair -) 15 mg PO HS [facility] Last Admin: 05/29/16 22:47 Dose: 15 mg Mycophenolate Mofetil (Cellcept -) 500 mg PO BID [facility] Last Admin: 05/30/16 09:03 Dose: 500 mg Pantoprazole Sodium (Protonix -) 40 mg PO DAILY [facility] Last Admin: 05/30/16 09:03 Dose: 40 mg Prasugrel (Effient -) 5 mg PO DAILY [facility] Last Admin: 05/30/16 09:03 Dose: 5 mg Tiotropium [place] (Spiriva -) 1 puff IH DAILY [facility] Last Admin: 05/30/16 09:05 Dose: 1 puff Trimethoprim/Sulfamethoxazole (Bactrim Ds -) 1 each PO MoWeFr@1000 [facility] Last Admin: 05/30/16 09:03 Dose: 1 each - Objective Vital Signs: Vital Signs Temperature 97.7 F 05/30/16 14:05 Pulse Rate 99 H 05/30/16 14:05 Respiratory Rate 22 05/30/16 14:05 Blood Pressure 114/76 05/30/16 14:05 O2 Sat by Pulse Oximetry (%) 100 05/30/16 09:00 Constitutional: Yes: Well Nourished, No Distress, Calm Cardiovascular: Yes: Pulse Irregular. No: Tachycardia, Gallop, Murmur, Rub Respiratory: Yes: Regular, On Nasal O2, Rhonchi (slight), Wheezes (slight) Gastrointestinal: Yes: Normal Bowel Sounds, Soft. No: Distention, Tenderness Extremities: Yes: WNL Edema: Yes Edema: LLE: 2+, RLE: 2+ Labs: CBC, BMP 05/30/16 05:35 05/30/16 05:35 INR, PTT INR 3.64 (0.82-1.09) H D 05/30/16 05:35 Problem List - Problems (1) Pneumonia Code(s): J18.9 - PNEUMONIA, UNSPECIFIED ORGANISM Qualifiers: Pneumonia type: due to unspecified organism Laterality: unspecified laterality Lung location: unspecified part of lung Qualified Code(s): J18.9 - Pneumonia, unspecified organism (2) Atrial fibrillation Code(s): I48.91 - UNSPECIFIED ATRIAL FIBRILLATION Qualifiers: Atrial fibrillation type: chronic Qualified Code(s): I48.2 - Chronic atrial fibrillation (3) Interstitial lung disease Code(s): J84.9 - INTERSTITIAL PULMONARY DISEASE, UNSPECIFIED (4) Acute on chronic respiratory failure with hypoxemia Code(s): J96.21 - ACUTE AND CHRONIC RESPIRATORY FAILURE WITH HYPOXIA Assessment/Plan (1) Pneumonia Assessment/Plan: -continue bactrim for PCP PPx -off antibiotics -leukocytosis, but secondary to steroids Code(s): J18.9 - PNEUMONIA, UNSPECIFIED ORGANISM Qualifiers: Pneumonia type: due to unspecified organism Laterality: unspecified laterality Lung location: unspecified part of lung Qualified Code(s): J18.9 - Pneumonia, unspecified organism (2) Atrial fibrillation Assessment/Plan: -rate controlled -cardiology following -continue toprol xl -hold coumadin today, supratherapeutic INR Code(s): I48.91 - UNSPECIFIED ATRIAL FIBRILLATION Qualifiers: Atrial fibrillation type: chronic Qualified Code(s): I48.2 - Chronic atrial fibrillation (3) Interstitial lung disease Assessment/Plan: -pulmonary following and case discussed -pulmonary managing solumedrol -continue cellcept -continue albuterol and spiriva -feels improved today Code(s): J84.9 - INTERSTITIAL PULMONARY DISEASE, UNSPECIFIED (4) Acute on chronic respiratory failure with hypoxemia Assessment/Plan: -secondary to pneumonia and ILD -continue current management Code(s): J96.21 - ACUTE AND CHRONIC RESPIRATORY FAILURE WITH HYPOXIA (5) Hemoptysis -resolved (6) Diarrhea -c. diff negative -immodium prn
[2016-05-30] MEDS: MONTELUKAST NA 10 MG TABLET PO SCH (21:03)
[2016-05-30] MEDS: ATORVASTATIN CA 40 MG TABLET (FP) PO SCH (21:13)
[2016-05-30] MEDS: ACETAMINOPHEN 325 MG TABLET (FP) PO PRN (22:00)
[2016-05-31] MEDS: dilTIAZem HCL 60 MG TABLET (FP) PO SCH ×4 (00:05→17:43)
[2016-05-31] MEDS: ACETAMINOPHEN 325 MG TABLET (FP) PO PRN (05:29)
[2016-05-31] MEDS: ALBUTEROL SO4 0.083% IH SOL 2.5 MG/3 ML VIAL.NEB. NEB PRN (06:15)
[2016-05-31 07:33] LABS: MCH 28.6 pg (25.7-33.7); MCHC 32.6 g/dl (32.0-35.9); MEAN CELL VOLUME 87.7 fl (80-96); MEAN PLT VOLUME 7.9 fl (7.5-11.1); PLATELET COUNT 250 K/MM3 (134-434); RDW 16.9 % (11.9-15.9)
[2016-05-31 07:40] LABS: CALCIUM 8.1 mg/dL (8.5-10.1); MAGNESIUM 2.4 mg/dL (1.8-2.4); PHOSPHOROUS 3.3 mg/dL (2.5-4.9)
[2016-05-31 07:41] LABS: CREATININE 0.8 mg/dL (0.7-1.3); INR 3.75 (0.82-1.09); PROTHROMBIN TIME (PATIENT) 42.4 SEC (9.98-11.88)
[2016-05-31] MEDS: oxyCODONE HCL 5 MG TABLET PO PRN ×2 (09:38→14:45)
[2016-05-31] MEDS: PANTOPRAZOLE 40 MG TABLET (FP) PO SCH (09:39)
[2016-05-31] MEDS: PRASUGREL HCL 5 MG TAB PO SCH (09:39)
[2016-05-31] MEDS: methylPREDNISolone NA SUCC 40 MG/1 ML VIAL IVPB SCH ×2 (09:40→22:35)
[2016-05-31] MEDS: METOPROLOL SUCCINATE 100 MG TAB.SR.24H (FP) PO SCH (09:40)
[2016-05-31] MEDS: TIOTROPIUM BROMIDE 18 MCG/INH (DEVICE W/ 5 CAPSULES) IH SCH (09:40)
[2016-05-31] MEDS: ASPIRIN COATED 81 MG TABLET.EC PO SCH (09:40)
[2016-05-31] MEDS: MYCOPHENOLATE MOFETIL 500 MG TABLET PO SCH ×2 (09:57→22:34)
--- NOTE | 2016-05-31 10:26 | PN ---
Progress Note, Physician Chief Complaint: Pt A&Ox3;no chest pain; c/o right flank pain that began last night (constant mild pain exacerbated by movement of trunk or lifting right leg). Chronic dyspnea on minimal exertion. History of Present Illness: The patient is a 71 year old white male with a past medical hx of HTN, afib, severe interstitial lung disease (ILD) (followed by Dr. Brooks), CAD-->three cardiac stents in 2016, diastolic CHF, who presents to the ED complaining of shortness of breath for one week. The patient reports his shortness of breath progressively worsened over the weekend. He states his PCP increased his Prednisone, but he is still feeling short of breath. The patient reports he is oxygen dependent at home. The patient denies chest pain The patient denies fever, chills The patient denies nausea, vomiting, diarrhea Allergies: NKDA Social: Former smoker Surgical: Appendectomy, Cardiac: 3 stents PCP: Dr. Karla Osborne [employer] Teacher: Dr. Anabela Auguste Pulmonologis: Dr. Bella Brooks - Current Medication List Current Medications: Active Medications Acetaminophen (Tylenol -) 650 mg PO Q4H PRN PRN Reason: FEVER OR PAIN Last Admin: 05/31/16 05:29 Dose: 650 mg Albuterol Sulfate (Ventolin 0.083% Nebulizer Soln -) 1 amp NEB Q4H PRN PRN Reason: SHORT OF BREATH/WHEEZING Last Admin: 05/31/16 06:15 Dose: 1 amp Aspirin (Ecotrin -) 81 mg PO DAILY [facility] Last Admin: 05/31/16 09:40 Dose: 81 mg Atorvastatin Calcium (Lipitor -) 40 mg PO HS [facility] Last Admin: 05/30/16 21:13 Dose: 40 mg Diltiazem HCl (Cardizem Injection -) 10 mg IVPUSH Q4H PRN PRN Reason: TACHYCARDIA Diltiazem HCl (Cardizem -) 60 mg PO Q6HPO [facility] Last Admin: 05/31/16 05:29 Dose: 60 mg Methylprednisolone Sodium Succinate (Solu-Medrol -) 40 mg IVPB BID [facility] Last Admin: 05/31/16 09:40 Dose: 40 mg Metoprolol Succinate (Toprol Xl -) 100 mg PO DAILY [facility] Last Admin: 05/31/16 09:40 Dose: 100 mg Montelukast Sodium (Singulair -) 15 mg PO HS [facility] Last Admin: 05/30/16 21:03 Dose: 15 mg Mycophenolate Mofetil (Cellcept -) 500 mg PO BID [facility] Last Admin: 05/31/16 09:57 Dose: 500 mg Oxycodone HCl (Roxicodone -) 10 mg PO Q4H PRN PRN Reason: PAIN Last Admin: 05/31/16 09:38 Dose: 10 mg Pantoprazole Sodium (Protonix -) 40 mg PO DAILY [facility] Last Admin: 05/31/16 09:39 Dose: 40 mg Prasugrel (Effient -) 5 mg PO DAILY [facility] Last Admin: 05/31/16 09:39 Dose: 5 mg Tiotropium [place] (Spiriva -) 1 puff IH DAILY [facility] Last Admin: 05/31/16 09:40 Dose: 1 puff Trimethoprim/Sulfamethoxazole (Bactrim Ds -) 1 each PO MoWeFr@1000 [facility] Last Admin: 05/30/16 09:03 Dose: 1 each - Objective Vital Signs: Vital Signs Temperature 97.5 F L 05/31/16 06:00 Pulse Rate 94 H 05/31/16 06:00 Respiratory Rate 21 05/31/16 06:00 Blood Pressure 116/69 05/31/16 06:00 O2 Sat by Pulse Oximetry (%) 98 05/30/16 22:00 Constitutional: Yes: Calm Eyes: Yes: WNL HENT: Yes: WNL Neck: Yes: WNL Cardiovascular: Yes: Pulse Irregular Respiratory: Yes: Diminished Gastrointestinal: Yes: Soft ...Rectal Exam: Yes: Deferred Genitourinary: No: Anuria Breast(s): Yes: WNL Musculoskeletal: Yes: Back Pain, Muscle Pain, Muscle Weakness Extremities: Yes: Cool Edema: No Peripheral Pulses WNL: Yes Integumentary: Yes: Bruising Neurological: Yes: Alert, Oriented, Weakness Psychiatric: Yes: Alert, Oriented Labs: CBC, BMP 05/31/16 05:35 05/31/16 05:35 INR, PTT INR 3.75 (0.82-1.09) H 05/31/16 05:35 Abnormal Lab Results 05/31/16 05/31/16 05/31/16 05:35 05:35 05:35 WBC 33.0 H* D RDW 16.9 H Neutrophils % 96.0 H Lymphocytes % 2.0 L Monocytes % 2.0 L INR 3.75 H BUN 45 H Random Glucose 188 H D Calcium 8.1 L - ....Imaging Other: Image Reviewed (telemetry: AF; periods of RVR) Problem List - Problems (1) Acute on chronic respiratory failure with hypoxemia Code(s): J96.21 - ACUTE AND CHRONIC RESPIRATORY FAILURE WITH HYPOXIA (2) Interstitial lung disease Assessment/Plan: 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 Brooks as outpatient; also sees Dr. Álvarez in [facility]). Code(s): J84.9 - INTERSTITIAL PULMONARY DISEASE, UNSPECIFIED (3) Pneumonia Assessment/Plan: On antibiotics per ID and [employer] network engineer. Code(s): J18.9 - PNEUMONIA, UNSPECIFIED ORGANISM Qualifiers: Pneumonia type: due to unspecified organism Laterality: unspecified laterality Lung location: unspecified part of lung Qualified Code(s): J18.9 - Pneumonia, unspecified organism (4) Atrial fibrillation with RVR Assessment/Plan: Continue metoprolol ER and diltiazem CD. On warfarin, ASA, and Effient (the latter two for CAD-->PCI): keep INR in the low 2s, as risk of bleed is much higher on 3 agents, and pt had blood on toilet paper (?from wound). No decrease in Hb. F/u right flank pain (INR >3); stop warfarin until INR < 2.0-2.0. Code(s): I48.91 - UNSPECIFIED ATRIAL FIBRILLATION (5) CAD (coronary artery disease) Assessment/Plan: On Effient and ASA. Continue metoprolol ER. Code(s): I25.10 - ATHSCL HEART DISEASE OF [place] CORONARY ARTERY W/O ANG PCTRS (7) Acute on chronic diastolic CHF (congestive heart failure) Assessment/Plan: ECHO: normal LVEF; mildly reduced RVEF; septal flattening (evidence of RV overload); moderate MR and TR (with mild-moderate pulmonary HTN); mild AR. Continue metoprolol; restart lisinopril if renal function allows; f/u BUN/Cr and electrolytes; Is and Os; daily weight.On diltiazem. Furosemide held due to rising BUN/Cr; restart if necessary. Code(s): I50.33 - ACUTE ON CHRONIC DIASTOLIC (CONGESTIVE) HEART FAILURE (8) Acute right flank pain Assessment/Plan: marked increase in WBCs and INR; For CT scan. Ruling out colitis; r/o bleed. Code(s): R10.9 - UNSPECIFIED ABDOMINAL PAIN
--- NOTE | 2016-05-31 10:45 | PN ---
Progress Note, Physician History of Present Illness: PULMONARY ALERT,LESS DYSPNEIC,C/O RLQ ABD PAIN,-N/V - Current Medication List Current Medications: Active Medications Acetaminophen (Tylenol -) 650 mg PO Q4H PRN PRN Reason: FEVER OR PAIN Last Admin: 05/31/16 05:29 Dose: 650 mg Albuterol Sulfate (Ventolin 0.083% Nebulizer Soln -) 1 amp NEB Q4H PRN PRN Reason: SHORT OF BREATH/WHEEZING Last Admin: 05/31/16 06:15 Dose: 1 amp Aspirin (Ecotrin -) 81 mg PO DAILY [facility] Last Admin: 05/31/16 09:40 Dose: 81 mg Atorvastatin Calcium (Lipitor -) 40 mg PO HS [facility] Last Admin: 05/30/16 21:13 Dose: 40 mg Diltiazem HCl (Cardizem Injection -) 10 mg IVPUSH Q4H PRN PRN Reason: TACHYCARDIA Diltiazem HCl (Cardizem -) 60 mg PO Q6HPO [facility] Last Admin: 05/31/16 05:29 Dose: 60 mg Methylprednisolone Sodium Succinate (Solu-Medrol -) 40 mg IVPB BID [facility] Last Admin: 05/31/16 09:40 Dose: 40 mg Metoprolol Succinate (Toprol Xl -) 100 mg PO DAILY [facility] Last Admin: 05/31/16 09:40 Dose: 100 mg Montelukast Sodium (Singulair -) 15 mg PO HS [facility] Last Admin: 05/30/16 21:03 Dose: 15 mg Mycophenolate Mofetil (Cellcept -) 500 mg PO BID [facility] Last Admin: 05/31/16 09:57 Dose: 500 mg Oxycodone HCl (Roxicodone -) 10 mg PO Q4H PRN PRN Reason: PAIN Last Admin: 05/31/16 09:38 Dose: 10 mg Pantoprazole Sodium (Protonix -) 40 mg PO DAILY [facility] Last Admin: 05/31/16 09:39 Dose: 40 mg Prasugrel (Effient -) 5 mg PO DAILY [facility] Last Admin: 05/31/16 09:39 Dose: 5 mg Tiotropium [place] (Spiriva -) 1 puff IH DAILY [facility] Last Admin: 05/31/16 09:40 Dose: 1 puff Trimethoprim/Sulfamethoxazole (Bactrim Ds -) 1 each PO MoWeFr@1000 [facility] Last Admin: 05/30/16 09:03 Dose: 1 each - Objective Vital Signs: Vital Signs Temperature 98 F 05/31/16 10:00 Pulse Rate 107 H 05/31/16 10:00 Respiratory Rate 20 05/31/16 10:00 Blood Pressure 123/77 05/31/16 10:00 O2 Sat by Pulse Oximetry (%) 97 05/31/16 09:00 Constitutional: Yes: Well Nourished, Calm Eyes: Yes: WNL HENT: Yes: WNL Neck: Yes: WNL Cardiovascular: Yes: Pulse Irregular, S1, S2 Respiratory: Yes: Rales (BILATERAL CRACKLES) Gastrointestinal: Yes: Normal Bowel Sounds, Soft Extremities: Yes: WNL Edema: No Labs: CBC, BMP 05/31/16 05:35 05/31/16 05:35 INR, PTT INR 3.75 (0.82-1.09) H 05/31/16 05:35 Problem List - Problems (1) Atrial fibrillation Code(s): I48.91 - UNSPECIFIED ATRIAL FIBRILLATION Qualifiers: Atrial fibrillation type: chronic Qualified Code(s): I48.2 - Chronic atrial fibrillation (2) Interstitial lung disease Code(s): J84.9 - INTERSTITIAL PULMONARY DISEASE, UNSPECIFIED (3) Atrial fibrillation with RVR Code(s): I48.91 - UNSPECIFIED ATRIAL FIBRILLATION (4) CAD (coronary artery disease) Code(s): I25.10 - ATHSCL HEART DISEASE OF [place] CORONARY ARTERY W/O ANG PCTRS (5) CHF (congestive heart failure) Code(s): I50.9 - HEART FAILURE, UNSPECIFIED Qualifiers: Congestive heart failure type: unspecified congestive heart failure type Congestive heart failure chronicity: acute Qualified Code(s): I50.9 - Heart failure, unspecified (6) Dyspnea Code(s): R06.00 - DYSPNEA, UNSPECIFIED (7) NSTEMI (non-ST elevated myocardial infarction) Code(s): I21.4 - NON-ST ELEVATION (NSTEMI) MYOCARDIAL INFARCTION (8) Acute on chronic respiratory failure with hypoxemia Code(s): J96.21 - ACUTE AND CHRONIC RESPIRATORY FAILURE WITH HYPOXIA Assessment/Plan IMP ACUTE ON CHRONIC HYPOXEMIC RESPIRATORY FAILURE ADVANCED INTERSTITIAL LUNG DISEASE/PULMONARY FIBROSIS O2 DEPENDENT URI ASHD S/P PA,S/P STENTS X 3 AFIB CHF HTN ABD PAIN PLAN CONT IV STEROIDS SAME DOSE INHALED BRONCHODILATORS O2 BACTRIM DS CELLCEPT CT ABD/PELVIS COUMADIN PER INR PULMONARY REHAB POST DISCHARGE DR SAMANIEGO Problem List - Problems (1) Atrial fibrillation Code(s): I48.91 - UNSPECIFIED ATRIAL FIBRILLATION Qualifiers: Atrial fibrillation type: chronic Qualified Code(s): I48.2 - Chronic atrial fibrillation (2) Interstitial lung disease Code(s): J84.9 - INTERSTITIAL PULMONARY DISEASE, UNSPECIFIED (3) Atrial fibrillation with RVR Code(s): I48.91 - UNSPECIFIED ATRIAL FIBRILLATION (4) CAD (coronary artery disease) Code(s): I25.10 - ATHSCL HEART DISEASE OF [place] CORONARY ARTERY W/O ANG PCTRS (5) CHF (congestive heart failure) Code(s): I50.9 - HEART FAILURE, UNSPECIFIED Qualifiers: Congestive heart failure type: unspecified congestive heart failure type Congestive heart failure chronicity: acute Qualified Code(s): I50.9 - Heart failure, unspecified (6) Dyspnea Code(s): R06.00 - DYSPNEA, UNSPECIFIED (7) NSTEMI (non-ST elevated myocardial infarction) Code(s): I21.4 - NON-ST ELEVATION (NSTEMI) MYOCARDIAL INFARCTION (8) Acute on chronic respiratory failure with hypoxemia Code(s): J96.21 - ACUTE AND CHRONIC RESPIRATORY FAILURE WITH HYPOXIA
--- NOTE | 2016-05-31 11:41 | PN ---
Progress Note, Physician Chief Complaint: Mr Yadav complains of RLQ pain. Says breathing is stable. No cp. - Current Medication List Current Medications: Active Medications Acetaminophen (Tylenol -) 650 mg PO Q4H PRN PRN Reason: FEVER OR PAIN Last Admin: 05/31/16 05:29 Dose: 650 mg Albuterol Sulfate (Ventolin 0.083% Nebulizer Soln -) 1 amp NEB Q4H PRN PRN Reason: SHORT OF BREATH/WHEEZING Last Admin: 05/31/16 06:15 Dose: 1 amp Aspirin (Ecotrin -) 81 mg PO DAILY [facility] Last Admin: 05/31/16 09:40 Dose: 81 mg Atorvastatin Calcium (Lipitor -) 40 mg PO HS [facility] Last Admin: 05/30/16 21:13 Dose: 40 mg Diltiazem HCl (Cardizem Injection -) 10 mg IVPUSH Q4H PRN PRN Reason: TACHYCARDIA Diltiazem HCl (Cardizem -) 60 mg PO Q6HPO [facility] Last Admin: 05/31/16 05:29 Dose: 60 mg Methylprednisolone Sodium Succinate (Solu-Medrol -) 40 mg IVPB BID [facility] Last Admin: 05/31/16 09:40 Dose: 40 mg Metoprolol Succinate (Toprol Xl -) 100 mg PO DAILY [facility] Last Admin: 05/31/16 09:40 Dose: 100 mg Montelukast Sodium (Singulair -) 15 mg PO HS [facility] Last Admin: 05/30/16 21:03 Dose: 15 mg Mycophenolate Mofetil (Cellcept -) 500 mg PO BID [facility] Last Admin: 05/31/16 09:57 Dose: 500 mg Oxycodone HCl (Roxicodone -) 10 mg PO Q4H PRN PRN Reason: PAIN Last Admin: 05/31/16 09:38 Dose: 10 mg Pantoprazole Sodium (Protonix -) 40 mg PO DAILY [facility] Last Admin: 05/31/16 09:39 Dose: 40 mg Prasugrel (Effient -) 5 mg PO DAILY [facility] Last Admin: 05/31/16 09:39 Dose: 5 mg Tiotropium [place] (Spiriva -) 1 puff IH DAILY [facility] Last Admin: 05/31/16 09:40 Dose: 1 puff Trimethoprim/Sulfamethoxazole (Bactrim Ds -) 1 each PO MoWeFr@1000 [facility] Last Admin: 05/30/16 09:03 Dose: 1 each - Objective Vital Signs: Vital Signs Temperature 98 F 05/31/16 10:00 Pulse Rate 107 H 05/31/16 10:00 Respiratory Rate 20 05/31/16 10:00 Blood Pressure 123/77 05/31/16 10:00 O2 Sat by Pulse Oximetry (%) 97 05/31/16 09:00 Constitutional: Yes: Well Nourished, No Distress, Calm Cardiovascular: Yes: Regular Rate and Rhythm. No: Gallop, Murmur, Rub Respiratory: Yes: Regular, On Nasal O2, Rhonchi, Wheezes. No: Rales Gastrointestinal: Yes: Normal Bowel Sounds, Soft, Tenderness (RLQ). No: Distention Extremities: Yes: WNL Edema: Yes Edema: LLE: 1+, RLE: 1+ Labs: CBC, BMP 05/31/16 05:35 05/31/16 05:35 INR, PTT INR 3.75 (0.82-1.09) H 05/31/16 05:35 Problem List - Problems (1) Pneumonia Code(s): J18.9 - PNEUMONIA, UNSPECIFIED ORGANISM Qualifiers: Pneumonia type: due to unspecified organism Laterality: unspecified laterality Lung location: unspecified part of lung Qualified Code(s): J18.9 - Pneumonia, unspecified organism (2) Atrial fibrillation Code(s): I48.91 - UNSPECIFIED ATRIAL FIBRILLATION Qualifiers: Atrial fibrillation type: chronic Qualified Code(s): I48.2 - Chronic atrial fibrillation (3) Interstitial lung disease Code(s): J84.9 - INTERSTITIAL PULMONARY DISEASE, UNSPECIFIED (4) Acute on chronic respiratory failure with hypoxemia Code(s): J96.21 - ACUTE AND CHRONIC RESPIRATORY FAILURE WITH HYPOXIA Assessment/Plan (1) Pneumonia Assessment/Plan: -continue bactrim for PCP PPx -off antibiotics Code(s): J18.9 - PNEUMONIA, UNSPECIFIED ORGANISM Qualifiers: Pneumonia type: due to unspecified organism Laterality: unspecified laterality Lung location: unspecified part of lung Qualified Code(s): J18.9 - Pneumonia, unspecified organism (2) Atrial fibrillation Assessment/Plan: -rate controlled -cardiology following -continue toprol xl -hold coumadin today, supratherapeutic INR Code(s): I48.91 - UNSPECIFIED ATRIAL FIBRILLATION Qualifiers: Atrial fibrillation type: chronic Qualified Code(s): I48.2 - Chronic atrial fibrillation (3) Interstitial lung disease Assessment/Plan: -pulmonary following and case discussed -pulmonary managing solumedrol -continue cellcept -continue albuterol and spiriva -feels improved today Code(s): J84.9 - INTERSTITIAL PULMONARY DISEASE, UNSPECIFIED (4) Acute on chronic respiratory failure with hypoxemia Assessment/Plan: -secondary to pneumonia and ILD -continue current management Code(s): J96.21 - ACUTE AND CHRONIC RESPIRATORY FAILURE WITH HYPOXIA (5) Hemoptysis -resolved (6) Diarrhea -now with abdominal pain -also increasing leukocytosis -concern for colitis -stop imodium -CT scan A/P to evaluate for colitis -if positive, will d/w ID about antibiotics -also check a x-ray of the R femur since on high dose of steroids and risk for avascular necrosis
[2016-05-31] MEDS ORDERED: PHYTONADIONE 10 MG/1 ML AMP SQ ONE (16:00)
[2016-05-31] MEDS: morphine CARPU-JECT 2 MG/1 ML DISP.SYRIN IVPUSH PRN (16:45)
[2016-05-31] MEDS: ATORVASTATIN CA 40 MG TABLET (FP) PO SCH (22:34)
[2016-05-31] MEDS: MONTELUKAST NA 10 MG TABLET PO SCH (22:34)
[2016-06-01] MEDS: dilTIAZem HCL 60 MG TABLET (FP) PO SCH ×5 (06:23→21:43)
[2016-06-01] MEDS: morphine CARPU-JECT 2 MG/1 ML DISP.SYRIN IVPUSH PRN ×2 (06:51→16:21)
[2016-06-01 07:49] LABS: MCH 28.2 pg (25.7-33.7); MCHC 32.3 g/dl (32.0-35.9); MEAN CELL VOLUME 87.2 fl (80-96); PLATELET COUNT 214 K/MM3 (134-434); RDW 17.3 % (11.9-15.9)
[2016-06-01 07:58] LABS: WHITE BLOOD COUNT 37.7 K/mm3 (4.0-10.0)
[2016-06-01 08:13] LABS: INR 2.62 (0.82-1.09); PROTHROMBIN TIME (PATIENT) 29.4 SEC (9.98-11.88)
[2016-06-01 08:39] LABS: CALCIUM 8.2 mg/dL (8.5-10.1)
[2016-06-01 08:42] LABS: CREATININE 0.8 mg/dL (0.7-1.3); MAGNESIUM 2.4 mg/dL (1.8-2.4); PHOSPHOROUS 3.8 mg/dL (2.5-4.9)
[2016-06-01 09:22] LABS: PLATELET ESTIMATE ADEQUATE (NORMAL)
[2016-06-01] MEDS ORDERED: PHYTONADIONE 10 MG/1 ML AMP IM ONE (09:30)
[2016-06-01] MEDS: PANTOPRAZOLE 40 MG TABLET (FP) PO SCH (09:36)
[2016-06-01] MEDS: MYCOPHENOLATE MOFETIL 500 MG TABLET PO SCH ×2 (09:36→21:41)
[2016-06-01] MEDS: PRASUGREL HCL 5 MG TAB PO SCH (09:36)
[2016-06-01] MEDS: methylPREDNISolone NA SUCC 40 MG/1 ML VIAL IVPB SCH ×2 (09:36→21:44)
[2016-06-01] MEDS ORDERED: PT OWN MED DRAWER 7, Y5N ONE ×2 (10:16→21:27)
[2016-06-01] MEDS: ASPIRIN COATED 81 MG TABLET.EC PO SCH (10:19)
[2016-06-01] MEDS: SULFAMETHOXAZOLE/TRIMETHOPRIM 800MG/160MG D.S. TABLET PO SCH (10:55)
--- NOTE | 2016-06-01 11:49 | PN ---
Progress Note, Physician Chief Complaint: Mr Yadav says his pain is slightly improved today. Shortness of breath is at baseline. No cp or n/v. - Current Medication List Current Medications: Active Medications Acetaminophen (Tylenol -) 650 mg PO Q4H PRN PRN Reason: FEVER OR PAIN Last Admin: 05/31/16 05:29 Dose: 650 mg Albuterol Sulfate (Ventolin 0.083% Nebulizer Soln -) 1 amp NEB Q4H PRN PRN Reason: SHORT OF BREATH/WHEEZING Last Admin: 05/31/16 06:15 Dose: 1 amp Aspirin (Ecotrin -) 81 mg PO DAILY [facility] Last Admin: 06/01/16 10:19 Dose: Not Given Atorvastatin Calcium (Lipitor -) 40 mg PO HS [facility] Last Admin: 05/31/16 22:34 Dose: 40 mg Diltiazem HCl (Cardizem Injection -) 10 mg IVPUSH Q4H PRN PRN Reason: TACHYCARDIA Diltiazem HCl (Cardizem -) 60 mg PO Q6HPO [facility] Last Admin: 06/01/16 06:23 Dose: 60 mg Methylprednisolone Sodium Succinate (Solu-Medrol -) 40 mg IVPB BID [facility] Last Admin: 06/01/16 09:36 Dose: 40 mg Metoprolol Succinate (Toprol Xl -) 100 mg PO DAILY [facility] Last Admin: 05/31/16 09:40 Dose: 100 mg Montelukast Sodium (Singulair -) 15 mg PO HS [facility] Last Admin: 05/31/16 22:34 Dose: 15 mg Morphine Sulfate (Morphine Injection -) 1 mg IVPUSH Q4H PRN PRN Reason: PAIN Last Admin: 06/01/16 06:51 Dose: 1 mg Mycophenolate Mofetil (Cellcept -) 500 mg PO BID [facility] Last Admin: 06/01/16 09:36 Dose: 500 mg Oxycodone HCl (Roxicodone -) 10 mg PO Q4H PRN PRN Reason: PAIN Last Admin: 05/31/16 14:45 Dose: 10 mg Pantoprazole Sodium (Protonix -) 40 mg PO DAILY [facility] Last Admin: 06/01/16 09:36 Dose: 40 mg Prasugrel (Effient -) 5 mg PO DAILY [facility] Last Admin: 06/01/16 09:36 Dose: 5 mg Tiotropium [place] (Spiriva -) 1 puff IH DAILY [facility] Last Admin: 05/31/16 09:40 Dose: 1 puff Trimethoprim/Sulfamethoxazole (Bactrim Ds -) 1 each PO MoWeFr@1000 [facility] Last Admin: 06/01/16 10:55 Dose: 1 each - Objective Vital Signs: Vital Signs Temperature 97 F L 06/01/16 05:42 Pulse Rate 118 H 06/01/16 10:28 Respiratory Rate 24 06/01/16 10:00 Blood Pressure 110/66 06/01/16 10:00 O2 Sat by Pulse Oximetry (%) 98 06/01/16 10:28 Constitutional: Yes: No Distress, Calm, Pallor Eyes: Yes: Other (scleral injection L eye) Cardiovascular: Yes: Pulse Irregular. No: Gallop, Murmur, Rub Respiratory: Yes: Regular, On Nasal O2, Rhonchi (slight). No: Rales, Wheezes Gastrointestinal: Yes: Normal Bowel Sounds, Soft, Tenderness (RLQ). No: Distention Extremities: Yes: WNL Edema: Yes Edema: LLE: 1+, RLE: 1+ Labs: CBC, BMP 06/01/16 05:45 06/01/16 08:20 INR, PTT INR 2.62 (0.82-1.09) H D 06/01/16 05:45 Problem List - Problems (1) Psoas hematoma, right, secondary to anticoagulant therapy Code(s): S30.1XXA - CONTUSION OF ABDOMINAL WALL, INITIAL ENCOUNTER (2) Anemia Code(s): D64.9 - ANEMIA, UNSPECIFIED (3) Pneumonia Code(s): J18.9 - PNEUMONIA, UNSPECIFIED ORGANISM Qualifiers: Pneumonia type: due to unspecified organism Laterality: unspecified laterality Lung location: unspecified part of lung Qualified Code(s): J18.9 - Pneumonia, unspecified organism (4) Atrial fibrillation Code(s): I48.91 - UNSPECIFIED ATRIAL FIBRILLATION Qualifiers: Atrial fibrillation type: chronic Qualified Code(s): I48.2 - Chronic atrial fibrillation (5) Interstitial lung disease Code(s): J84.9 - INTERSTITIAL PULMONARY DISEASE, UNSPECIFIED (6) Acute on chronic respiratory failure with hypoxemia Code(s): J96.21 - ACUTE AND CHRONIC RESPIRATORY FAILURE WITH HYPOXIA Assessment/Plan (1) Psoas hematoma -pain is slightly improved -secondary to supratherapeutic INR and chronic steroid use -give another dose of vitamin k today -recheck INR at 6pm (2) Anemia -secondary to acute blood loss -check cbc now -patient agreeable to transfusion if needed (3) Pneumonia Assessment/Plan: -continue bactrim for PCP PPx -off antibiotics Code(s): J18.9 - PNEUMONIA, UNSPECIFIED ORGANISM Qualifiers: Pneumonia type: due to unspecified organism Laterality: unspecified laterality Lung location: unspecified part of lung Qualified Code(s): J18.9 - Pneumonia, unspecified organism (4) Atrial fibrillation Assessment/Plan: -rate controlled -cardiology following -continue toprol xl -continue to hold coumadin secondary to hematoma Code(s): I48.91 - UNSPECIFIED ATRIAL FIBRILLATION Qualifiers: Atrial fibrillation type: chronic Qualified Code(s): I48.2 - Chronic atrial fibrillation (5) Interstitial lung disease Assessment/Plan: -pulmonary following and case discussed -pulmonary managing solumedrol -continue cellcept -continue albuterol and spiriva -breathing stable Code(s): J84.9 - INTERSTITIAL PULMONARY DISEASE, UNSPECIFIED (6) Acute on chronic respiratory failure with hypoxemia Assessment/Plan: -secondary to pneumonia and ILD -continue current management Code(s): J96.21 - ACUTE AND CHRONIC RESPIRATORY FAILURE WITH HYPOXIA
--- NOTE | 2016-06-01 11:57 | PN ---
Progress Note, Physician History of Present Illness: PULMONARY ALERT,C/O ABD PAIN.CT ABD +HEMATOMA - Current Medication List Current Medications: Active Medications Acetaminophen (Tylenol -) 650 mg PO Q4H PRN PRN Reason: FEVER OR PAIN Last Admin: 05/31/16 05:29 Dose: 650 mg Albuterol Sulfate (Ventolin 0.083% Nebulizer Soln -) 1 amp NEB Q4H PRN PRN Reason: SHORT OF BREATH/WHEEZING Last Admin: 05/31/16 06:15 Dose: 1 amp Aspirin (Ecotrin -) 81 mg PO DAILY [facility] Last Admin: 06/01/16 10:19 Dose: Not Given Atorvastatin Calcium (Lipitor -) 40 mg PO HS [facility] Last Admin: 05/31/16 22:34 Dose: 40 mg Diltiazem HCl (Cardizem Injection -) 10 mg IVPUSH Q4H PRN PRN Reason: TACHYCARDIA Diltiazem HCl (Cardizem -) 60 mg PO Q6HPO [facility] Last Admin: 06/01/16 06:23 Dose: 60 mg Methylprednisolone Sodium Succinate (Solu-Medrol -) 40 mg IVPB BID [facility] Last Admin: 06/01/16 09:36 Dose: 40 mg Metoprolol Succinate (Toprol Xl -) 100 mg PO DAILY [facility] Last Admin: 05/31/16 09:40 Dose: 100 mg Montelukast Sodium (Singulair -) 15 mg PO HS [facility] Last Admin: 05/31/16 22:34 Dose: 15 mg Morphine Sulfate (Morphine Injection -) 1 mg IVPUSH Q4H PRN PRN Reason: PAIN Last Admin: 06/01/16 06:51 Dose: 1 mg Mycophenolate Mofetil (Cellcept -) 500 mg PO BID [facility] Last Admin: 06/01/16 09:36 Dose: 500 mg Oxycodone HCl (Roxicodone -) 10 mg PO Q4H PRN PRN Reason: PAIN Last Admin: 05/31/16 14:45 Dose: 10 mg Pantoprazole Sodium (Protonix -) 40 mg PO DAILY [facility] Last Admin: 06/01/16 09:36 Dose: 40 mg Prasugrel (Effient -) 5 mg PO DAILY [facility] Last Admin: 06/01/16 09:36 Dose: 5 mg Tiotropium [place] (Spiriva -) 1 puff IH DAILY [facility] Last Admin: 05/31/16 09:40 Dose: 1 puff Trimethoprim/Sulfamethoxazole (Bactrim Ds -) 1 each PO MoWeFr@1000 [facility] Last Admin: 06/01/16 10:55 Dose: 1 each - Objective Vital Signs: Vital Signs Temperature 97 F L 06/01/16 05:42 Pulse Rate 118 H 06/01/16 10:28 Respiratory Rate 24 06/01/16 10:00 Blood Pressure 110/66 06/01/16 10:00 O2 Sat by Pulse Oximetry (%) 98 06/01/16 10:28 Constitutional: Yes: Well Nourished, Calm Eyes: Yes: WNL HENT: Yes: WNL Neck: Yes: WNL Cardiovascular: Yes: Pulse Irregular, S1, S2 Respiratory: Yes: Rales (BILATERAL CRACKLES) Gastrointestinal: Yes: Normal Bowel Sounds, Tenderness (RLQ) Extremities: Yes: WNL Edema: No Labs: CBC, BMP 06/01/16 05:45 06/01/16 08:20 INR, PTT INR 2.62 (0.82-1.09) H D 06/01/16 05:45 Problem List - Problems (1) Atrial fibrillation Code(s): I48.91 - UNSPECIFIED ATRIAL FIBRILLATION Qualifiers: Atrial fibrillation type: chronic Qualified Code(s): I48.2 - Chronic atrial fibrillation (2) Interstitial lung disease Code(s): J84.9 - INTERSTITIAL PULMONARY DISEASE, UNSPECIFIED (3) Atrial fibrillation with RVR Code(s): I48.91 - UNSPECIFIED ATRIAL FIBRILLATION (4) CAD (coronary artery disease) Code(s): I25.10 - ATHSCL HEART DISEASE OF [place] CORONARY ARTERY W/O ANG PCTRS (5) CHF (congestive heart failure) Code(s): I50.9 - HEART FAILURE, UNSPECIFIED Qualifiers: Congestive heart failure type: unspecified congestive heart failure type Congestive heart failure chronicity: acute Qualified Code(s): I50.9 - Heart failure, unspecified (6) Dyspnea Code(s): R06.00 - DYSPNEA, UNSPECIFIED (7) NSTEMI (non-ST elevated myocardial infarction) Code(s): I21.4 - NON-ST ELEVATION (NSTEMI) MYOCARDIAL INFARCTION (8) Acute on chronic respiratory failure with hypoxemia Code(s): J96.21 - ACUTE AND CHRONIC RESPIRATORY FAILURE WITH HYPOXIA Assessment/Plan IMP ACUTE ON CHRONIC HYPOXEMIC RESPIRATORY FAILURE ADVANCED INTERSTITIAL LUNG DISEASE/PULMONARY FIBROSIS O2 DEPENDENT URI ASHD S/P [place],S/P STENTS X 3 AFIB CHF HTN R PSOAS HEMATOMA PLAN CONT IV STEROIDS SAME DOSE INHALED BRONCHODILATORS O2 BACTRIM DS CELLCEPT MONITOR H+H PAIN MEDS PULMONARY REHAB POST DISCHARGE DR SAMANIEGO Problem List - Problems (1) Atrial fibrillation Code(s): I48.91 - UNSPECIFIED ATRIAL FIBRILLATION Qualifiers: Atrial fibrillation type: chronic Qualified Code(s): I48.2 - Chronic atrial fibrillation (2) Interstitial lung disease Code(s): J84.9 - INTERSTITIAL PULMONARY DISEASE, UNSPECIFIED (3) Atrial fibrillation with RVR Code(s): I48.91 - UNSPECIFIED ATRIAL FIBRILLATION (4) CAD (coronary artery disease) Code(s): I25.10 - ATHSCL HEART DISEASE OF [place] CORONARY ARTERY W/O ANG PCTRS (5) CHF (congestive heart failure) Code(s): I50.9 - HEART FAILURE, UNSPECIFIED Qualifiers: Congestive heart failure type: unspecified congestive heart failure type Congestive heart failure chronicity: acute Qualified Code(s): I50.9 - Heart failure, unspecified (6) Dyspnea Code(s): R06.00 - DYSPNEA, UNSPECIFIED (7) NSTEMI (non-ST elevated myocardial infarction) Code(s): I21.4 - NON-ST ELEVATION (NSTEMI) MYOCARDIAL INFARCTION (8) Acute on chronic respiratory failure with hypoxemia Code(s): J96.21 - ACUTE AND CHRONIC RESPIRATORY FAILURE WITH HYPOXIA
[2016-06-01] MEDS: TIOTROPIUM BROMIDE 18 MCG/INH (DEVICE W/ 5 CAPSULES) IH SCH (12:21)
[2016-06-01] MEDS: METOPROLOL SUCCINATE 100 MG TAB.SR.24H (FP) PO SCH (12:21)
[2016-06-01 12:45] LABS: BASOPHIL 0.2 % (0-2.0); MCH 27.6 pg (25.7-33.7); MCHC 30.9 g/dl (32.0-35.9); MEAN CELL VOLUME 89.1 fl (80-96); MEAN PLT VOLUME 7.9 fl (7.5-11.1); NEUTROPHILS 95.8 % (42.8-82.8); PLATELET COUNT 225 K/MM3 (134-434); RDW 17.1 % (11.9-15.9)
[2016-06-01 12:49] LABS: WHITE BLOOD COUNT 46.4 K/mm3 (4.0-10.0)
--- NOTE | 2016-06-01 12:58 | PN ---
Progress Note, Physician History of Present Illness: The patient is a 71 year old white male with a past medical hx of HTN, afib, severe interstitial lung disease (ILD) (followed by Dr. Brooks), CAD-->three cardiac stents in 2016, who presents to the ED complaining of shortness of breath for one week. The patient reports his shortness of breath progressively worsened over the weekend. He states his PCP increased his Prednisone, but he is still feeling short of breath. The patient reports he is oxygen dependent at home. The patient denies chest pain The patient denies fever, chills The patient denies nausea, vomiting, diarrhea - Current Medication List Current Medications: Active Medications Acetaminophen (Tylenol -) 650 mg PO Q4H PRN PRN Reason: FEVER OR PAIN Last Admin: 05/31/16 05:29 Dose: 650 mg Albuterol Sulfate (Ventolin 0.083% Nebulizer Soln -) 1 amp NEB Q4H PRN PRN Reason: SHORT OF BREATH/WHEEZING Last Admin: 05/31/16 06:15 Dose: 1 amp Aspirin (Ecotrin -) 81 mg PO DAILY [facility] Last Admin: 06/01/16 10:19 Dose: Not Given Atorvastatin Calcium (Lipitor -) 40 mg PO HS [facility] Last Admin: 05/31/16 22:34 Dose: 40 mg Diltiazem HCl (Cardizem Injection -) 10 mg IVPUSH Q4H PRN PRN Reason: TACHYCARDIA Diltiazem HCl (Cardizem -) 60 mg PO Q6HPO [facility] Last Admin: 06/01/16 06:23 Dose: 60 mg Methylprednisolone Sodium Succinate (Solu-Medrol -) 40 mg IVPB BID [facility] Last Admin: 06/01/16 09:36 Dose: 40 mg Metoprolol Succinate (Toprol Xl -) 100 mg PO DAILY [facility] Last Admin: 06/01/16 12:21 Dose: 100 mg Montelukast Sodium (Singulair -) 15 mg PO HS [facility] Last Admin: 05/31/16 22:34 Dose: 15 mg Morphine Sulfate (Morphine Injection -) 1 mg IVPUSH Q4H PRN PRN Reason: PAIN Last Admin: 06/01/16 06:51 Dose: 1 mg Mycophenolate Mofetil (Cellcept -) 500 mg PO BID [facility] Last Admin: 06/01/16 09:36 Dose: 500 mg Oxycodone HCl (Roxicodone -) 10 mg PO Q4H PRN PRN Reason: PAIN Last Admin: 05/31/16 14:45 Dose: 10 mg Pantoprazole Sodium (Protonix -) 40 mg PO DAILY [facility] Last Admin: 06/01/16 09:36 Dose: 40 mg Prasugrel (Effient -) 5 mg PO DAILY [facility] Last Admin: 06/01/16 09:36 Dose: 5 mg Tiotropium [place] (Spiriva -) 1 puff IH DAILY [facility] Last Admin: 06/01/16 12:21 Dose: 1 puff Trimethoprim/Sulfamethoxazole (Bactrim Ds -) 1 each PO MoWeFr@1000 [facility] Last Admin: 06/01/16 10:55 Dose: 1 each - Objective Vital Signs: Vital Signs Temperature 97 F L 06/01/16 05:42 Pulse Rate 118 H 06/01/16 10:28 Respiratory Rate 24 06/01/16 10:00 Blood Pressure 110/66 06/01/16 10:00 O2 Sat by Pulse Oximetry (%) 98 06/01/16 10:28 Eyes: Yes: WNL, Conjunctiva Clear, EOM Intact HENT: Yes: WNL, Atraumatic, Normocephalic Neck: Yes: WNL, Supple, Trachea Midline Cardiovascular: Yes: Pulse Irregular, S1, S2 Respiratory: Yes: Diminished Gastrointestinal: Yes: WNL, Normal Bowel Sounds Genitourinary: Yes: WNL Musculoskeletal: Yes: WNL Extremities: Yes: WNL Edema: No Integumentary: Yes: WNL Neurological: Yes: WNL, Alert, Oriented ...Motor Strength: WNL Psychiatric: Yes: WNL Labs: CBC, BMP 06/01/16 12:34 06/01/16 08:20 INR, PTT INR 2.62 (0.82-1.09) H D 06/01/16 05:45 Assessment/Plan (1) Acute on chronic respiratory failure with hypoxemia Code(s): J96.21 - ACUTE AND CHRONIC RESPIRATORY FAILURE WITH HYPOXIA (2) Interstitial lung disease Assessment/Plan: F/u with kindergarten instructional assistant (sees Dr. Brooks as outpatient; also sees Dr. [facility]lvarez in [facility]). Code(s): J84.9 - INTERSTITIAL PULMONARY DISEASE, UNSPECIFIED (3) Pneumonia Assessment/Plan: On antibiotics per ID and kindergarten instructional assistant. Code(s): J18.9 - PNEUMONIA, UNSPECIFIED ORGANISM Qualifiers: Pneumonia type: due to unspecified organism Laterality: unspecified laterality Lung location: unspecified part of lung Qualified Code(s): J18.9 - Pneumonia, unspecified organism (4) Atrial fibrillation with RVR Assessment/Plan: Continue metoprolol ER and diltiazem CD. On warfarin, ASA, and Effient (the latter two for CAD-->PCI): keep INR in the low 2s, as risk of bleed is much higher on 3 agents, and pt had blood on toilet paper (?from wound). No decrease in Hb. F/u right flank pain (INR >3); stop warfarin until INR < 2.0-2.0. Code(s): I48.91 - UNSPECIFIED ATRIAL FIBRILLATION (5) CAD (coronary artery disease) Assessment/Plan: On Effient and ASA. Continue metoprolol ER. Code(s): I25.10 - ATHSCL HEART DISEASE OF [place] CORONARY ARTERY W/O ANG PCTRS (7) Acute on chronic diastolic CHF (congestive heart failure) Assessment/Plan: ECHO: normal LVEF; mildly reduced RVEF; septal flattening (evidence of RV overload); moderate MR and TR (with mild-moderate pulmonary HTN); mild AR. Continue metoprolol; restart lisinopril if renal function allows; f/u BUN/Cr and electrolytes; Is and Os; daily weight.On diltiazem. Furosemide held due to rising BUN/Cr; restart if necessary. Code(s): I50.33 - ACUTE ON CHRONIC DIASTOLIC (CONGESTIVE) HEART FAILURE (8) Acute right flank pain Assessment/Plan: marked increase in WBCs and INR; For CT scan. Ruling out colitis; r/o bleed. Code(s): R10.9 - UNSPECIFIED ABDOMINAL PAIN
[2016-06-01 21:10] LABS: PROTHROMBIN TIME (PATIENT) 22.3 SEC (9.98-11.88)
[2016-06-01] MEDS: ATORVASTATIN CA 40 MG TABLET (FP) PO SCH (21:41)
[2016-06-01] MEDS: MONTELUKAST NA 10 MG TABLET PO SCH (21:43)
[2016-06-02] MEDS: morphine CARPU-JECT 2 MG/1 ML DISP.SYRIN IVPUSH PRN ×2 (01:38→12:17)
[2016-06-02] MEDS: dilTIAZem HCL 60 MG TABLET (FP) PO SCH ×4 (05:55→17:23)
[2016-06-02 08:26] LABS: BASOPHIL 0.2 % (0-2.0); MCH 28.1 pg (25.7-33.7); MCHC 32.2 g/dl (32.0-35.9); MEAN CELL VOLUME 87.4 fl (80-96); MEAN PLT VOLUME 8.1 fl (7.5-11.1); NEUTROPHILS 96.3 % (42.8-82.8); PLATELET COUNT 148 K/MM3 (134-434); RDW 17.5 % (11.9-15.9); WHITE BLOOD COUNT 27.3 K/mm3 (4.0-10.0)
[2016-06-02 08:36] LABS: INR 1.62 (0.82-1.09)
[2016-06-02 08:52] LABS: CREATININE 0.9 mg/dL (0.7-1.3); MAGNESIUM 2.5 mg/dL (1.8-2.4); PHOSPHOROUS 3.6 mg/dL (2.5-4.9)
[2016-06-02] MEDS ORDERED: PT OWN MED DRAWER 7, Y5N ONE (09:47)
[2016-06-02] MEDS: METOPROLOL SUCCINATE 100 MG TAB.SR.24H (FP) PO SCH (10:06)
[2016-06-02] MEDS: PRASUGREL HCL 5 MG TAB PO SCH (10:06)
[2016-06-02] MEDS: PANTOPRAZOLE 40 MG TABLET (FP) PO SCH (10:06)
[2016-06-02] MEDS: methylPREDNISolone NA SUCC 40 MG/1 ML VIAL IVPB SCH ×2 (10:06→21:23)
[2016-06-02] MEDS: MYCOPHENOLATE MOFETIL 500 MG TABLET PO SCH ×2 (10:07→21:14)
[2016-06-02] MEDS: ASPIRIN COATED 81 MG TABLET.EC PO SCH (10:07)
--- NOTE | 2016-06-02 11:22 | PN ---
Progress Note, Physician History of Present Illness: PULMONARY ALERT,FEELING BETTER,LESS ABD DISCOMFORT,LESS DYSPNEIC - Current Medication List Current Medications: Active Medications Acetaminophen (Tylenol -) 650 mg PO Q4H PRN PRN Reason: FEVER OR PAIN Last Admin: 05/31/16 05:29 Dose: 650 mg Albuterol Sulfate (Ventolin 0.083% Nebulizer Soln -) 1 amp NEB Q4H PRN PRN Reason: SHORT OF BREATH/WHEEZING Last Admin: 05/31/16 06:15 Dose: 1 amp Aspirin (Ecotrin -) 81 mg PO DAILY [facility] Last Admin: 06/02/16 10:07 Dose: Not Given Atorvastatin [place] (Lipitor -) [address] [facility] Last Admin: 06/01/16 21:41 Dose: 40 mg Diltiazem HCl (Cardizem Injection -) 10 mg IVPUSH Q4H PRN PRN Reason: TACHYCARDIA Diltiazem HCl (Cardizem -) 60 mg PO Q6HPO [facility] Last Admin: 06/02/16 06:24 Dose: 60 mg Methylprednisolone Sodium Succinate (Solu-Medrol -) 40 mg IVPB BID [facility] Last Admin: 06/02/16 10:06 Dose: 40 mg Metoprolol Succinate (Toprol Xl -) 100 mg PO DAILY [facility] Last Admin: 06/02/16 10:06 Dose: 100 mg Montelukast Sodium (Singulair -) 15 mg PO HS [facility] Last Admin: 06/01/16 21:43 Dose: 15 mg Morphine Sulfate (Morphine Injection -) 1 mg IVPUSH Q4H PRN PRN Reason: PAIN Last Admin: 06/02/16 01:38 Dose: 1 mg Mycophenolate Mofetil (Cellcept -) 500 mg PO BID [facility] Last Admin: 06/02/16 10:07 Dose: 500 mg Oxycodone HCl (Roxicodone -) 10 mg PO Q4H PRN PRN Reason: PAIN Last Admin: 05/31/16 14:45 Dose: 10 mg Pantoprazole Sodium (Protonix -) 40 mg PO DAILY [facility] Last Admin: 06/02/16 10:06 Dose: 40 mg Prasugrel (Effient -) 5 mg PO DAILY [facility] Last Admin: 06/02/16 10:06 Dose: 5 mg Tiotropium [place] (Spiriva -) 1 puff IH DAILY [facility] Last Admin: 06/01/16 12:21 Dose: 1 puff Trimethoprim/Sulfamethoxazole (Bactrim Ds -) 1 each PO MoWeFr@1000 [facility] Last Admin: 06/01/16 10:55 Dose: 1 each - Objective Vital Signs: Vital Signs Temperature 98 F 06/02/16 05:52 Pulse Rate 117 H 06/02/16 05:52 Respiratory Rate 20 06/02/16 05:52 Blood Pressure 109/54 06/02/16 05:52 O2 Sat by Pulse Oximetry (%) 98 06/01/16 21:00 Constitutional: Yes: Well Nourished, Calm Eyes: Yes: WNL HENT: Yes: WNL Neck: Yes: WNL Cardiovascular: Yes: Pulse Irregular, S1, S2 Respiratory: Yes: Rales (BILATERAL CRACKLES) Gastrointestinal: Yes: Normal Bowel Sounds, Soft Extremities: Yes: WNL Edema: No Labs: CBC, BMP 06/02/16 06:00 06/02/16 06:00 INR, PTT INR 1.62 (0.82-1.09) H 06/02/16 06:00 Problem List - Problems (1) Atrial fibrillation Code(s): I48.91 - UNSPECIFIED ATRIAL FIBRILLATION Qualifiers: Atrial fibrillation type: chronic Qualified Code(s): I48.2 - Chronic atrial fibrillation (2) Interstitial lung disease Code(s): J84.9 - INTERSTITIAL PULMONARY DISEASE, UNSPECIFIED (3) Atrial fibrillation with RVR Code(s): I48.91 - UNSPECIFIED ATRIAL FIBRILLATION (4) CAD (coronary artery disease) Code(s): I25.10 - ATHSCL HEART DISEASE OF [place] CORONARY ARTERY W/O ANG PCTRS (5) CHF (congestive heart failure) Code(s): I50.9 - HEART FAILURE, UNSPECIFIED Qualifiers: Congestive heart failure type: unspecified congestive heart failure type Congestive heart failure chronicity: acute Qualified Code(s): I50.9 - Heart failure, unspecified (6) Dyspnea Code(s): R06.00 - DYSPNEA, UNSPECIFIED (7) NSTEMI (non-ST elevated myocardial infarction) Code(s): I21.4 - NON-ST ELEVATION (NSTEMI) MYOCARDIAL INFARCTION (8) Acute on chronic respiratory failure with hypoxemia Code(s): J96.21 - ACUTE AND CHRONIC RESPIRATORY FAILURE WITH HYPOXIA Assessment/Plan IMP ACUTE ON CHRONIC HYPOXEMIC RESPIRATORY FAILURE ADVANCED INTERSTITIAL LUNG DISEASE/PULMONARY FIBROSIS O2 DEPENDENT URI ASHD S/P [place],S/P STENTS X 3 AFIB CHF HTN R PSOAS HEMATOMA PLAN CONT IV STEROIDS SAME DOSE INHALED BRONCHODILATORS O2 BACTRIM DS CELLCEPT MONITOR H+H PAIN MEDS CONSIDER TRANSFUSION PULMONARY REHAB POST DISCHARGE DR SAMANIEGO Problem List - Problems (1) Atrial fibrillation Code(s): I48.91 - UNSPECIFIED ATRIAL FIBRILLATION Qualifiers: Atrial fibrillation type: chronic Qualified Code(s): I48.2 - Chronic atrial fibrillation (2) Interstitial lung disease Code(s): J84.9 - INTERSTITIAL PULMONARY DISEASE, UNSPECIFIED (3) Atrial fibrillation with RVR Code(s): I48.91 - UNSPECIFIED ATRIAL FIBRILLATION (4) CAD (coronary artery disease) Code(s): I25.10 - ATHSCL HEART DISEASE OF [place] CORONARY ARTERY W/O ANG PCTRS (5) CHF (congestive heart failure) Code(s): I50.9 - HEART FAILURE, UNSPECIFIED Qualifiers: Congestive heart failure type: unspecified congestive heart failure type Congestive heart failure chronicity: acute Qualified Code(s): I50.9 - Heart failure, unspecified (6) Dyspnea Code(s): R06.00 - DYSPNEA, UNSPECIFIED (7) NSTEMI (non-ST elevated myocardial infarction) Code(s): I21.4 - NON-ST ELEVATION (NSTEMI) MYOCARDIAL INFARCTION (8) Acute on chronic respiratory failure with hypoxemia Code(s): J96.21 - ACUTE AND CHRONIC RESPIRATORY FAILURE WITH HYPOXIA
[2016-06-02] MEDS: TIOTROPIUM BROMIDE 18 MCG/INH (DEVICE W/ 5 CAPSULES) IH SCH (12:06)
[2016-06-02] MEDS ORDERED: FUROSEMIDE 40 MG/4 ML INJECTABLE VIAL IVPUSH ONE (12:08)
--- NOTE | 2016-06-02 12:10 | PN ---
Progress Note, Physician Chief Complaint: Mr Yadav says he is feeling much better today. Abdominal pain is much improved. Shortness of breath resolving, breathing close to baseline. No chest pain or nausea/vomiting. - Current Medication List Current Medications: Active Medications Acetaminophen (Tylenol -) 650 mg PO Q4H PRN PRN Reason: FEVER OR PAIN Last Admin: 05/31/16 05:29 Dose: 650 mg Albuterol Sulfate (Ventolin 0.083% Nebulizer Soln -) 1 amp NEB Q4H PRN PRN Reason: SHORT OF BREATH/WHEEZING Last Admin: 05/31/16 06:15 Dose: 1 amp Aspirin (Ecotrin -) 81 mg PO DAILY [facility] Last Admin: 06/02/16 10:07 Dose: Not Given Atorvastatin Calcium (Lipitor -) 40 mg PO [facility] Last Admin: 06/01/16 21:41 Dose: 40 mg Diltiazem HCl (Cardizem Injection -) 10 mg IVPUSH Q4H PRN PRN Reason: TACHYCARDIA Diltiazem HCl (Cardizem -) 60 mg PO Q6HPO [facility] Last Admin: 06/02/16 12:09 Dose: Not Given Furosemide (Lasix Injection -) 20 mg IVPUSH ONCE ONE Stop: 06/02/16 12:09 Methylprednisolone Sodium Succinate (Solu-Medrol -) 40 mg IVPB BID [facility] Last Admin: 06/02/16 10:06 Dose: 40 mg Metoprolol Succinate (Toprol Xl -) 100 mg PO DAILY [facility] Last Admin: 06/02/16 10:06 Dose: 100 mg Montelukast Sodium (Singulair -) 15 mg PO [facility] Last Admin: 06/01/16 21:43 Dose: 15 mg Morphine Sulfate (Morphine Injection -) 1 mg IVPUSH Q4H PRN PRN Reason: PAIN Last Admin: 06/02/16 01:38 Dose: 1 mg Mycophenolate Mofetil (Cellcept -) 500 mg PO BID [facility] Last Admin: 06/02/16 10:07 Dose: 500 mg Oxycodone HCl (Roxicodone -) 10 mg PO Q4H PRN PRN Reason: PAIN Last Admin: 05/31/16 14:45 Dose: 10 mg Pantoprazole Sodium (Protonix -) 40 mg PO DAILY [facility] Last Admin: 02/09/17 10:06 Dose: 40 mg Prasugrel (Effient -) 5 mg PO DAILY [facility] Last Admin: 06/02/16 10:06 Dose: 5 mg Tiotropium [place] (Spiriva -) 1 puff IH DAILY [facility] Last Admin: 06/02/16 12:06 Dose: 1 puff Trimethoprim/Sulfamethoxazole (Bactrim Ds -) 1 each PO MoWeFr@1000 [facility] Last Admin: 06/01/16 10:55 Dose: 1 each - Objective Vital Signs: Vital Signs Temperature 98 F 06/02/16 05:52 Pulse Rate 113 H 06/02/16 10:00 Respiratory Rate 22 06/02/16 10:00 Blood Pressure 106/62 06/02/16 10:00 O2 Sat by Pulse Oximetry (%) 98 06/02/16 10:00 Constitutional: Yes: Well Nourished, No Distress, Calm Cardiovascular: Yes: Pulse Irregular. No: Gallop, Murmur, Rub Respiratory: Yes: Regular, On Nasal O2, Rhonchi. No: Rales, Wheezes Gastrointestinal: Yes: Normal Bowel Sounds, Soft. No: Distention, Tenderness Extremities: Yes: WNL Edema: No Labs: CBC, BMP 06/02/16 06:00 06/02/16 06:00 INR, PTT INR 1.62 (0.82-1.09) H 06/02/16 06:00 Problem List - Problems (1) Psoas hematoma, right, secondary to anticoagulant therapy Code(s): S30.1XXA - CONTUSION OF ABDOMINAL WALL, INITIAL ENCOUNTER (2) Anemia Code(s): D64.9 - ANEMIA, UNSPECIFIED (3) Pneumonia Code(s): J18.9 - PNEUMONIA, UNSPECIFIED ORGANISM Qualifiers: Pneumonia type: due to unspecified organism Laterality: unspecified laterality Lung location: unspecified part of lung Qualified Code(s): J18.9 - Pneumonia, unspecified organism (4) Atrial fibrillation Code(s): I48.91 - UNSPECIFIED ATRIAL FIBRILLATION Qualifiers: Atrial fibrillation type: chronic Qualified Code(s): I48.2 - Chronic atrial fibrillation (5) Interstitial lung disease Code(s): J84.9 - INTERSTITIAL PULMONARY DISEASE, UNSPECIFIED (6) Acute on chronic respiratory failure with hypoxemia Code(s): J96.21 - ACUTE AND CHRONIC RESPIRATORY FAILURE WITH HYPOXIA Assessment/Plan (1) Psoas hematoma -INR reversed -abdominal pain much improved -suspect bleeding has stopped -will hold on coumadin currently (2) Anemia -secondary to acute blood loss -transfuse 2 units today (3) Pneumonia Assessment/Plan: -continue bactrim for PCP PPx -off antibiotics Code(s): J18.9 - PNEUMONIA, UNSPECIFIED ORGANISM Qualifiers: Pneumonia type: due to unspecified organism Laterality: unspecified laterality Lung location: unspecified part of lung Qualified Code(s): J18.9 - Pneumonia, unspecified organism (4) Atrial fibrillation Assessment/Plan: -rate controlled -cardiology following -continue toprol xl -continue to hold coumadin secondary to hematoma Code(s): I48.91 - UNSPECIFIED ATRIAL FIBRILLATION Qualifiers: Atrial fibrillation type: chronic Qualified Code(s): I48.2 - Chronic atrial fibrillation (5) Interstitial lung disease Assessment/Plan: -pulmonary following and case discussed -pulmonary managing solumedrol -continue cellcept -continue albuterol and spiriva -breathing stable Code(s): J84.9 - INTERSTITIAL PULMONARY DISEASE, UNSPECIFIED (6) Acute on chronic respiratory failure with hypoxemia Assessment/Plan: -secondary to pneumonia and ILD -continue current management Code(s): J96.21 - ACUTE AND CHRONIC RESPIRATORY FAILURE WITH HYPOXIA
--- NOTE | 2016-06-02 13:00 | PN ---
Progress Note, Physician Chief Complaint: Pt A&Ox3;no chest pain; History of Present Illness: The patient is a 71 year old white male with a past medical hx of HTN, afib, severe interstitial lung disease (ILD) (followed by Dr. Brooks), CAD-->three cardiac stents in 2016, diastolic CHF, who presents to the ED complaining of shortness of breath for one week. The patient reports his shortness of breath progressively worsened over the weekend. He states his PCP increased his Prednisone, but he is still feeling short of breath. The patient reports he is oxygen dependent at home. The patient denies chest pain The patient denies fever, chills The patient denies nausea, vomiting, diarrhea Allergies: NKDA Social: Former smoker Surgical: Appendectomy, Cardiac: 3 stents PCP: Dr. Karla Osborne Solder Deposit Operator: Dr. Anabela Auguste Pulmonologis: Dr. Bella Brooks - Current Medication List Current Medications: Active Medications Acetaminophen (Tylenol -) 650 mg PO Q4H PRN PRN Reason: FEVER OR PAIN Last Admin: 05/31/16 05:29 Dose: 650 mg Albuterol Sulfate (Ventolin 0.083% Nebulizer Soln -) 1 amp NEB Q4H PRN PRN Reason: SHORT OF BREATH/WHEEZING Last Admin: 05/31/16 06:15 Dose: 1 amp Aspirin (Ecotrin -) 81 mg PO DAILY [facility] Last Admin: 06/02/16 10:07 Dose: Not Given Atorvastatin Calcium (Lipitor -) [address] [facility] Last Admin: 06/01/16 21:41 Dose: 40 mg Diltiazem HCl (Cardizem Injection -) 10 mg IVPUSH Q4H PRN PRN Reason: TACHYCARDIA Diltiazem HCl (Cardizem -) 60 mg PO Q6HPO [facility] Last Admin: 06/02/16 12:09 Dose: Not Given Methylprednisolone Sodium Succinate (Solu-Medrol -) 40 mg IVPB BID [facility] Last Admin: 06/02/16 10:06 Dose: 40 mg Metoprolol Succinate (Toprol Xl -) 100 mg PO DAILY [facility] Last Admin: 06/02/16 10:06 Dose: 100 mg Montelukast Sodium (Singulair -) [address] [facility] Last Admin: 06/01/16 21:43 Dose: 15 mg Morphine Sulfate (Morphine Injection -) 1 mg IVPUSH Q4H PRN PRN Reason: PAIN Last Admin: 06/02/16 12:17 Dose: 1 mg Mycophenolate Mofetil (Cellcept -) 500 mg PO BID [facility] Last Admin: 06/02/16 10:07 Dose: 500 mg Oxycodone HCl (Roxicodone -) 10 mg PO Q4H PRN PRN Reason: PAIN Last Admin: 05/31/16 14:45 Dose: 10 mg Pantoprazole Sodium (Protonix -) 40 mg PO DAILY [facility] Last Admin: 06/02/16 10:06 Dose: 40 mg Prasugrel (Effient -) 5 mg PO DAILY [facility] Last Admin: 06/02/16 10:06 Dose: 5 mg Tiotropium [place] (Spiriva -) 1 puff IH DAILY [facility] Last Admin: 06/02/16 12:06 Dose: 1 puff Trimethoprim/Sulfamethoxazole (Bactrim Ds -) 1 each PO MoWeFr@1000 [facility] Last Admin: 06/01/16 10:55 Dose: 1 each - Objective Vital Signs: Vital Signs Temperature 98 F 06/02/16 05:52 Pulse Rate 113 H 06/02/16 10:00 Respiratory Rate 22 06/02/16 10:00 Blood Pressure 106/62 06/02/16 10:00 O2 Sat by Pulse Oximetry (%) 98 06/02/16 10:00 Constitutional: Yes: Calm Eyes: Yes: WNL HENT: Yes: WNL Neck: Yes: WNL Cardiovascular: Yes: Pulse Irregular Respiratory: Yes: Diminished Gastrointestinal: Yes: Soft ...Rectal Exam: Yes: Deferred Genitourinary: No: Anuria Musculoskeletal: Yes: Muscle Weakness Extremities: Yes: Cool Edema: No Peripheral Pulses WNL: No Peripheral Pulses: Left Doralis Pedis: 1+, Right Dorsalis Pedis: 1+ Neurological: Yes: Alert, Oriented, Weakness Psychiatric: Yes: Alert, Oriented Labs: CBC, BMP 06/02/16 06:00 06/02/16 06:00 INR, PTT INR 1.62 (0.82-1.09) H 06/02/16 06:00 - ....Imaging Other: Image Reviewed (telemery: AF;) Problem List - Problems (1) Acute on chronic respiratory failure with hypoxemia Code(s): J96.21 - ACUTE AND CHRONIC RESPIRATORY FAILURE WITH HYPOXIA (2) Interstitial lung disease Assessment/Plan: F/u with waistline joiner overlock (sees Dr. Brooks as outpatient; also sees Dr. [facility]lvarez in [facility]). Code(s): J84.9 - INTERSTITIAL PULMONARY DISEASE, UNSPECIFIED (3) Pneumonia Assessment/Plan: On antibiotics per ID and waistline joiner overlock. Code(s): J18.9 - PNEUMONIA, UNSPECIFIED ORGANISM Qualifiers: Pneumonia type: due to unspecified organism Laterality: unspecified laterality Lung location: unspecified part of lung Qualified Code(s): J18.9 - Pneumonia, unspecified organism (4) Atrial fibrillation with RVR Assessment/Plan: Continue metoprolol ER and diltiazem CD. Off warfarin (INR was >8; + psoas muscle hematoma). Code(s): I48.91 - UNSPECIFIED ATRIAL FIBRILLATION (5) CAD (coronary artery disease) Assessment/Plan: On Effient and ASA. Continue metoprolol ER. Code(s): I25.10 - ATHSCL HEART DISEASE OF [place] CORONARY ARTERY W/O ANG PCTRS (7) Acute on chronic diastolic CHF (congestive heart failure) Code(s): I50.33 - ACUTE ON CHRONIC DIASTOLIC (CONGESTIVE) HEART FAILURE (8) Acute right flank pain Code(s): R10.9 - UNSPECIFIED ABDOMINAL PAIN
[2016-06-02 14:53] LABS: URINE APPEARANCE CLEAR; URINE BILIRUBIN NEGATIVE (NEGATIVE); URINE BLOOD 1+ (NEGATIVE); URINE COLOR YELLOW; URINE GLUCOSE (UA) 3+ (NEGATIVE); URINE KETONE NEGATIVE (NEGATIVE); URINE LEUK ESTERASE NEGATIVE (NEGATIVE); URINE NITRITE NEGATIVE (NEGATIVE); URINE PROTEIN NEGATIVE (NEGATIVE); URINE UROBILINOGEN NEGATIVE E.U./dl (0.2-1.0)
[2016-06-02 14:58] LABS: URINE MUCUS RARE; URINE RBC <1 /hpf (0-3); URINE WBC 1 /hpf (3-5)
[2016-06-02] MEDS ORDERED: FUROSEMIDE 40 MG/4 ML INJECTABLE VIAL ONE (21:02)
[2016-06-02] MEDS: ATORVASTATIN CA 40 MG TABLET (FP) PO SCH (21:14)
[2016-06-02] MEDS: MONTELUKAST NA 10 MG TABLET PO SCH (21:14)
[2016-06-03] MEDS: dilTIAZem HCL 60 MG TABLET (FP) PO SCH ×4 (00:15→18:05)
[2016-06-03] MEDS: morphine CARPU-JECT 2 MG/1 ML DISP.SYRIN IVPUSH PRN (03:32)
[2016-06-03 07:09] LABS: MCH 28.5 pg (25.7-33.7); MCHC 32.7 g/dl (32.0-35.9); MEAN CELL VOLUME 87.1 fl (80-96); MEAN PLT VOLUME 8.2 fl (7.5-11.1); PLATELET COUNT 116 K/MM3 (134-434); RDW 16.2 % (11.9-15.9); WHITE BLOOD COUNT 19.7 K/mm3 (4.0-10.0)
[2016-06-03 07:31] LABS: INR 1.18 (0.82-1.09)
[2016-06-03 07:59] LABS: CALCIUM 7.8 mg/dL (8.5-10.1); CREATININE 0.7 mg/dL (0.7-1.3); MAGNESIUM 2.4 mg/dL (1.8-2.4); PHOSPHOROUS 2.7 mg/dL (2.5-4.9)
[2016-06-03] MEDS ORDERED: PT OWN MED DRAWER 7, Y5N ONE ×2 (09:46→21:49)
[2016-06-03] MEDS: PANTOPRAZOLE 40 MG TABLET (FP) PO SCH (10:02)
[2016-06-03] MEDS: ASPIRIN COATED 81 MG TABLET.EC PO SCH (10:02)
[2016-06-03] MEDS: TIOTROPIUM BROMIDE 18 MCG/INH (DEVICE W/ 5 CAPSULES) IH SCH (10:03)
[2016-06-03] MEDS: methylPREDNISolone NA SUCC 40 MG/1 ML VIAL IVPB SCH ×2 (10:03→21:59)
[2016-06-03] MEDS: METOPROLOL SUCCINATE 100 MG TAB.SR.24H (FP) PO SCH (10:03)
[2016-06-03] MEDS: PRASUGREL HCL 5 MG TAB PO SCH (10:03)
[2016-06-03] MEDS: SULFAMETHOXAZOLE/TRIMETHOPRIM 800MG/160MG D.S. TABLET PO SCH (10:04)
[2016-06-03] MEDS: MYCOPHENOLATE MOFETIL 500 MG TABLET PO SCH ×2 (10:04→21:58)
--- NOTE | 2016-06-03 12:04 | PN ---
Progress Note, Physician History of Present Illness: PULMONARY ALERT,FEELING BETTER,LESS DYSPNEIC,LESS ABD DISCOMFORT - Current Medication List Current Medications: Active Medications Acetaminophen (Tylenol -) 650 mg PO Q4H PRN PRN Reason: FEVER OR PAIN Last Admin: 05/31/16 05:29 Dose: 650 mg Albuterol Sulfate (Ventolin 0.083% Nebulizer Soln -) 1 amp NEB Q4H PRN PRN Reason: SHORT OF BREATH/WHEEZING Last Admin: 05/31/16 06:15 Dose: 1 amp Aspirin (Ecotrin -) 81 mg PO DAILY [facility] Last Admin: 06/03/16 10:02 Dose: 81 mg Atorvastatin Calcium (Lipitor -) 40 mg PO HS [facility] Last Admin: 06/02/16 21:14 Dose: 40 mg Diltiazem HCl (Cardizem Injection -) 10 mg IVPUSH Q4H PRN PRN Reason: TACHYCARDIA Diltiazem HCl (Cardizem -) 60 mg PO Q6HPO [facility] Last Admin: 06/03/16 06:28 Dose: 60 mg Methylprednisolone Sodium Succinate (Solu-Medrol -) 40 mg IVPB BID [facility] Last Admin: 06/03/16 10:03 Dose: 40 mg Metoprolol Succinate (Toprol Xl -) 100 mg PO DAILY [facility] Last Admin: 06/03/16 10:03 Dose: 100 mg Montelukast Sodium (Singulair -) 15 mg PO HS [facility] Last Admin: 06/02/16 21:14 Dose: 15 mg Morphine Sulfate (Morphine Injection -) 1 mg IVPUSH Q4H PRN PRN Reason: PAIN Last Admin: 06/03/16 03:32 Dose: 1 mg Mycophenolate Mofetil (Cellcept -) 500 mg PO BID [facility] Last Admin: 06/03/16 10:04 Dose: 500 mg Oxycodone HCl (Roxicodone -) 10 mg PO Q4H PRN PRN Reason: PAIN Last Admin: 05/31/16 14:45 Dose: 10 mg Pantoprazole Sodium (Protonix -) 40 mg PO DAILY [facility] Last Admin: 06/03/16 10:02 Dose: 40 mg Prasugrel (Effient -) 5 mg PO DAILY [facility] Last Admin: 06/03/16 10:03 Dose: 5 mg Tiotropium [place] (Spiriva -) 1 puff IH DAILY [facility] Last Admin: 06/03/16 10:03 Dose: 1 puff Trimethoprim/Sulfamethoxazole (Bactrim Ds -) 1 each PO MoWeFr@1000 [facility] Last Admin: 06/03/16 10:04 Dose: 1 each - Objective Vital Signs: Vital Signs Temperature 97.7 F 06/03/16 06:00 Pulse Rate 103 H 06/03/16 11:53 Respiratory Rate 18 06/03/16 06:00 Blood Pressure 107/66 06/03/16 06:00 O2 Sat by Pulse Oximetry (%) 98 06/03/16 11:53 Constitutional: Yes: Well Nourished, Calm Eyes: Yes: WNL HENT: Yes: WNL Neck: Yes: WNL Cardiovascular: Yes: Pulse Irregular, S1, S2 Respiratory: Yes: Rales (NORAH CRACKLES) Gastrointestinal: Yes: Normal Bowel Sounds, Soft Extremities: Yes: WNL Edema: Yes Labs: CBC, BMP 06/03/16 05:35 06/03/16 05:35 INR, PTT INR 1.18 (0.82-1.09) H 06/03/16 05:35 Problem List - Problems (1) Atrial fibrillation Code(s): I48.91 - UNSPECIFIED ATRIAL FIBRILLATION Qualifiers: Atrial fibrillation type: chronic Qualified Code(s): I48.2 - Chronic atrial fibrillation (2) Interstitial lung disease Code(s): J84.9 - INTERSTITIAL PULMONARY DISEASE, UNSPECIFIED (3) Atrial fibrillation with RVR Code(s): I48.91 - UNSPECIFIED ATRIAL FIBRILLATION (4) CAD (coronary artery disease) Code(s): I25.10 - ATHSCL HEART DISEASE OF [place] CORONARY ARTERY W/O ANG PCTRS (5) CHF (congestive heart failure) Code(s): I50.9 - HEART FAILURE, UNSPECIFIED Qualifiers: Congestive heart failure type: unspecified congestive heart failure type Congestive heart failure chronicity: acute Qualified Code(s): I50.9 - Heart failure, unspecified (6) Dyspnea Code(s): R06.00 - DYSPNEA, UNSPECIFIED (7) NSTEMI (non-ST elevated myocardial infarction) Code(s): I21.4 - NON-ST ELEVATION (NSTEMI) MYOCARDIAL INFARCTION (8) Acute on chronic respiratory failure with hypoxemia Code(s): J96.21 - ACUTE AND CHRONIC RESPIRATORY FAILURE WITH HYPOXIA Assessment/Plan IMP ACUTE ON CHRONIC HYPOXEMIC RESPIRATORY FAILURE ADVANCED INTERSTITIAL LUNG DISEASE/PULMONARY FIBROSIS O2 DEPENDENT URI ASHD S/P CT,S/P STENTS X 3 AFIB CHF HTN R PSOAS HEMATOMA PLAN TAPER IV STEROIDS INHALED BRONCHODILATORS O2 BACTRIM DS CELLCEPT MONITOR H+H PAIN MEDS PULMONARY REHAB POST DISCHARGE DR SAMANIEGO Problem List - Problems (1) Atrial fibrillation Code(s): I48.91 - UNSPECIFIED ATRIAL FIBRILLATION Qualifiers: Atrial fibrillation type: chronic Qualified Code(s): I48.2 - Chronic atrial fibrillation (2) Interstitial lung disease Code(s): J84.9 - INTERSTITIAL PULMONARY DISEASE, UNSPECIFIED (3) Atrial fibrillation with RVR Code(s): I48.91 - UNSPECIFIED ATRIAL FIBRILLATION (4) CAD (coronary artery disease) Code(s): I25.10 - ATHSCL HEART DISEASE OF [place] CORONARY ARTERY W/O ANG PCTRS (5) CHF (congestive heart failure) Code(s): I50.9 - HEART FAILURE, UNSPECIFIED Qualifiers: Congestive heart failure type: unspecified congestive heart failure type Congestive heart failure chronicity: acute Qualified Code(s): I50.9 - Heart failure, unspecified (6) Dyspnea Code(s): R06.00 - DYSPNEA, UNSPECIFIED (7) NSTEMI (non-ST elevated myocardial infarction) Code(s): I21.4 - NON-ST ELEVATION (NSTEMI) MYOCARDIAL INFARCTION (8) Acute on chronic respiratory failure with hypoxemia Code(s): J96.21 - ACUTE AND CHRONIC RESPIRATORY FAILURE WITH HYPOXIA
--- NOTE | 2016-06-03 14:45 | PN ---
Progress Note, Physician Chief Complaint: Mr Yadav continues to feel improved. Says his abdominal pain is almost resolved. Breathing is at baseline. No cp. - Current Medication List Current Medications: Active Medications Acetaminophen (Tylenol -) 650 mg PO Q4H PRN PRN Reason: FEVER OR PAIN Last Admin: 05/31/16 05:29 Dose: 650 mg Albuterol Sulfate (Ventolin 0.083% Nebulizer Soln -) 1 amp NEB Q4H PRN PRN Reason: SHORT OF BREATH/WHEEZING Last Admin: 05/31/16 06:15 Dose: 1 amp Aspirin (Ecotrin -) 81 mg PO DAILY [facility] Last Admin: 06/03/16 10:02 Dose: 81 mg Atorvastatin Calcium (Lipitor -) 40 mg PO HS [facility] Last Admin: 06/02/16 21:14 Dose: 40 mg Diltiazem HCl (Cardizem Injection -) 10 mg IVPUSH Q4H PRN PRN Reason: TACHYCARDIA Diltiazem HCl (Cardizem -) 60 mg PO Q6HPO [facility] Last Admin: 06/03/16 13:54 Dose: 60 mg Methylprednisolone Sodium Succinate (Solu-Medrol -) 30 mg IVPB BID [facility] Metoprolol Succinate (Toprol Xl -) 100 mg PO DAILY [facility] Last Admin: 06/03/16 10:03 Dose: 100 mg Montelukast Sodium (Singulair -) 15 mg PO HS [facility] Last Admin: 06/02/16 21:14 Dose: 15 mg Morphine Sulfate (Morphine Injection -) 1 mg IVPUSH Q4H PRN PRN Reason: PAIN Last Admin: 06/03/16 03:32 Dose: 1 mg Mycophenolate Mofetil (Cellcept -) 500 mg PO BID [facility] Last Admin: 06/03/16 10:04 Dose: 500 mg Oxycodone HCl (Roxicodone -) 10 mg PO Q4H PRN PRN Reason: PAIN Last Admin: 05/31/16 14:45 Dose: 10 mg Pantoprazole Sodium (Protonix -) 40 mg PO DAILY [facility] Last Admin: 06/03/16 10:02 Dose: 40 mg Prasugrel (Effient -) 5 mg PO DAILY [facility] Last Admin: 06/03/16 10:03 Dose: 5 mg Tiotropium [place] (Spiriva -) 1 puff IH DAILY [facility] Last Admin: 06/03/16 10:03 Dose: 1 puff Trimethoprim/Sulfamethoxazole (Bactrim Ds -) 1 each PO MoWeFr@1000 [facility] Last Admin: 06/03/16 10:04 Dose: 1 each - Objective Vital Signs: Vital Signs Temperature 98.5 F 06/03/16 09:00 Pulse Rate 103 H 06/03/16 11:53 Respiratory Rate 20 06/03/16 09:00 Blood Pressure 107/63 06/03/16 09:00 O2 Sat by Pulse Oximetry (%) 98 06/03/16 11:53 Constitutional: Yes: Well Nourished, No Distress, Calm Cardiovascular: Yes: Tachycardia, Pulse Irregular. No: Gallop, Murmur, Rub Respiratory: Yes: Regular, On Nasal O2, Rhonchi (bilateral). No: Rales, Wheezes Extremities: Yes: WNL Edema: No Labs: CBC, BMP 06/03/16 05:35 06/03/16 05:35 INR, PTT INR 1.18 (0.82-1.09) H 06/03/16 05:35 Problem List - Problems (1) Psoas hematoma, right, secondary to anticoagulant therapy Code(s): S30.1XXA - CONTUSION OF ABDOMINAL WALL, INITIAL ENCOUNTER (2) Anemia Code(s): D64.9 - ANEMIA, UNSPECIFIED (3) Pneumonia Code(s): J18.9 - PNEUMONIA, UNSPECIFIED ORGANISM Qualifiers: Qualified Code(s): J18.9 - Pneumonia, unspecified organism (4) Atrial fibrillation Code(s): I48.91 - UNSPECIFIED ATRIAL FIBRILLATION Qualifiers: Qualified Code(s): I48.2 - Chronic atrial fibrillation (5) Interstitial lung disease Code(s): J84.9 - INTERSTITIAL PULMONARY DISEASE, UNSPECIFIED (6) Acute on chronic respiratory failure with hypoxemia Code(s): J96.21 - ACUTE AND CHRONIC RESPIRATORY FAILURE WITH HYPOXIA Assessment/Plan (1) Psoas hematoma -INR reversed -abdominal pain almost resolved -H/H stable -continue to hold coumadin -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 since high risk for bleeding (2) Anemia -secondary to acute blood loss -transfused 2 units (3) Pneumonia Assessment/Plan: -continue bactrim for PCP PPx -off antibiotics Code(s): J18.9 - PNEUMONIA, UNSPECIFIED ORGANISM Qualifiers: Pneumonia type: due to unspecified organism Laterality: unspecified laterality Lung location: unspecified part of lung Qualified Code(s): J18.9 - Pneumonia, unspecified organism (4) Atrial fibrillation Assessment/Plan: -tachycardic today -cardiology following -continue toprol xl, cardiology to titrate as needed -continue to hold coumadin secondary to hematoma Code(s): I48.91 - UNSPECIFIED ATRIAL FIBRILLATION Qualifiers: Atrial fibrillation type: chronic Qualified Code(s): I48.2 - Chronic atrial fibrillation (5) Interstitial lung disease Assessment/Plan: -pulmonary following and note reviewed -pulmonary managing solumedrol -continue cellcept -continue albuterol and spiriva -breathing stable Code(s): J84.9 - INTERSTITIAL PULMONARY DISEASE, UNSPECIFIED (6) Acute on chronic respiratory failure with hypoxemia Assessment/Plan: -secondary to pneumonia and ILD -continue current management Code(s): J96.21 - ACUTE AND CHRONIC RESPIRATORY FAILURE WITH HYPOXIA
--- NOTE | 2016-06-03 15:50 | PN ---
Progress Note, Physician Chief Complaint: Pt A&Ox3;lying in bed, eating. No chest pain;earlier, per his RN, he was dyspneic, tachycardic, and very weak when he tried to stand up and walk a few steps.His sister is at bedside. History of Present Illness: The patient is a 71 year old white male with a past medical hx of HTN, afib, severe interstitial lung disease (ILD) (followed by Dr. Brooks), CAD-->three cardiac stents in 2016, diastolic CHF, who presents to the ED complaining of shortness of breath for one week. The patient reports his shortness of breath progressively worsened over the weekend. He states his PCP increased his Prednisone, but he is still feeling short of breath. The patient reports he is oxygen dependent at home. The patient denies chest pain The patient denies fever, chills The patient denies nausea, vomiting, diarrhea Allergies: NKDA Social: Former smoker Surgical: Appendectomy, Cardiac: 3 stents PCP: Dr. Karla Osborne Harvesting Supervisor: Dr. Anabela Auguste Pulmonologis: Dr. Bella Brooks - Current Medication List Current Medications: Active Medications Acetaminophen (Tylenol -) 650 mg PO Q4H PRN PRN Reason: FEVER OR PAIN Last Admin: 05/31/16 05:29 Dose: 650 mg Albuterol Sulfate (Ventolin 0.083% Nebulizer Soln -) 1 amp NEB Q4H PRN PRN Reason: SHORT OF BREATH/WHEEZING Last Admin: 05/31/16 06:15 Dose: 1 amp Aspirin (Ecotrin -) 81 mg PO DAILY [facility] Last Admin: 06/03/16 10:02 Dose: 81 mg Atorvastatin [place] (Lipitor -) 40 mg PO HS [facility] Last Admin: 06/02/16 21:14 Dose: 40 mg Diltiazem HCl (Cardizem Injection -) 10 mg IVPUSH Q4H PRN PRN Reason: TACHYCARDIA Diltiazem HCl (Cardizem -) 60 mg PO Q6HPO [facility] Last Admin: 06/03/16 13:54 Dose: 60 mg Methylprednisolone Sodium Succinate (Solu-Medrol -) 30 mg IVPB BID [facility] Metoprolol Succinate (Toprol Xl -) 100 mg PO DAILY [facility] Last Admin: 06/03/16 10:03 Dose: 100 mg Montelukast Sodium (Singulair -) 15 mg PO HS [facility] Last Admin: 06/02/16 21:14 Dose: 15 mg Morphine Sulfate (Morphine Injection -) 1 mg IVPUSH Q4H PRN PRN Reason: PAIN Last Admin: 06/03/16 03:32 Dose: 1 mg Mycophenolate Mofetil (Cellcept -) 500 mg PO BID [facility] Last Admin: 06/03/16 10:04 Dose: 500 mg Oxycodone HCl (Roxicodone -) 10 mg PO Q4H PRN PRN Reason: PAIN Last Admin: 05/31/16 14:45 Dose: 10 mg Pantoprazole Sodium (Protonix -) 40 mg PO DAILY [facility] Last Admin: 06/03/16 10:02 Dose: 40 mg Prasugrel (Effient -) 5 mg PO DAILY [facility] Last Admin: 06/03/16 10:03 Dose: 5 mg Tiotropium [place] (Spiriva -) 1 puff IH DAILY [facility] Last Admin: 06/03/16 10:03 Dose: 1 puff Trimethoprim/Sulfamethoxazole (Bactrim Ds -) 1 each PO MoWeFr@1000 [facility] Last Admin: 06/03/16 10:04 Dose: 1 each - Objective Vital Signs: Vital Signs Temperature 97.6 F 06/03/16 15:32 Pulse Rate 110 H 06/03/16 15:32 Respiratory Rate 22 06/03/16 15:32 Blood Pressure 100/60 06/03/16 15:32 O2 Sat by Pulse Oximetry (%) 98 06/03/16 11:53 Constitutional: Yes: Calm Eyes: Yes: Other (left scleral hematoma evident the past several days; small now ) HENT: Yes: WNL Neck: Yes: WNL Cardiovascular: Yes: Pulse Irregular Respiratory: Yes: Diminished Gastrointestinal: Yes: Soft ...Rectal Exam: Yes: Deferred Genitourinary: No: Anuria Musculoskeletal: Yes: Muscle Weakness Extremities: Yes: Cool Edema: Yes Edema: LLE: 1+, RLE: 1+ Peripheral Pulses WNL: No Peripheral Pulses: Left Doralis Pedis: 1+, Right Dorsalis Pedis: 1+ Neurological: Yes: Alert, Oriented, Weakness Psychiatric: Yes: Alert, Oriented, Other (anxiety/depression) Labs: CBC, BMP 06/03/16 05:35 06/03/16 05:35 INR, PTT INR 1.18 (0.82-1.09) H 06/03/16 05:35 Abnormal Lab Results 06/03/16 06/03/16 06/03/16 05:35 05:35 05:35 WBC 19.7 H RBC 3.46 L Hgb 9.9 L D Hct 30.1 L RDW 16.2 H Plt Count 116 L D INR 1.18 H Chloride 97 L BUN 42 H D Random Glucose 172 H Calcium 7.8 L Problem List - Problems (1) Acute on chronic respiratory failure with hypoxemia Code(s): J96.21 - ACUTE AND CHRONIC RESPIRATORY FAILURE WITH HYPOXIA (2) Interstitial lung disease Assessment/Plan: Pulmonary f/u noted. On O2 continually; on bronchodilators; steroids being tapered. Code(s): J84.9 - INTERSTITIAL PULMONARY DISEASE, UNSPECIFIED (3) Atrial fibrillation with RVR Assessment/Plan: Continue metoprolol ER and diltiazem CD; HR generally better-controlled, though pt's weakened state and advanced lung disease contribute to AF with RVR on even minimal exertion. Off warfarin (INR was >3; + psoas muscle hematoma). Restart when and if deemed safe to do so; keep INR in low 2s. Presently on antiplatet Rx (Effient + ASA) for coronary stents. Code(s): I48.91 - UNSPECIFIED ATRIAL FIBRILLATION (4) CAD (coronary artery disease) Code(s): I25.10 - ATHSCL HEART DISEASE OF [place] CORONARY ARTERY W/O ANG PCTRS (6) Acute on chronic diastolic CHF (congestive heart failure) Code(s): I50.33 - ACUTE ON CHRONIC DIASTOLIC (CONGESTIVE) HEART FAILURE (7) Acute right flank pain Code(s): R10.9 - UNSPECIFIED ABDOMINAL PAIN
[2016-06-03] MEDS: MONTELUKAST NA 10 MG TABLET PO SCH (21:58)
[2016-06-03] MEDS: ATORVASTATIN CA 40 MG TABLET (FP) PO SCH (21:59)
[2016-06-04] MEDS: dilTIAZem HCL 60 MG TABLET (FP) PO SCH ×4 (00:54→17:04)
[2016-06-04 07:48] LABS: BASOPHIL 0.1 % (0-2.0); MCHC 33.1 g/dl (32.0-35.9); MEAN CELL VOLUME 87.7 fl (80-96); NEUTROPHILS 97.5 % (42.8-82.8); PLATELET COUNT 120 K/MM3 (134-434); RDW 16.4 % (11.9-15.9); WHITE BLOOD COUNT 19.9 K/mm3 (4.0-10.0)
[2016-06-04 08:21] LABS: CALCIUM 8.2 mg/dL (8.5-10.1); CREATININE 0.6 mg/dL (0.7-1.3); MAGNESIUM 2.4 mg/dL (1.8-2.4); PHOSPHOROUS 2.6 mg/dL (2.5-4.9)
[2016-06-04] MEDS ORDERED: PT OWN MED DRAWER 7, Y5N ONE ×2 (09:36→22:28)
--- NOTE | 2016-06-04 10:11 | PN ---
Progress Note, Physician History of Present Illness: PULMONARY ALERT,FEELING BETTER LESS DYSPNEIC,-ABD PAIN - Current Medication List Current Medications: Active Medications Acetaminophen (Tylenol -) 650 mg PO Q4H PRN PRN Reason: FEVER OR PAIN Last Admin: 05/31/16 05:29 Dose: 650 mg Albuterol Sulfate (Ventolin 0.083% Nebulizer Soln -) 1 amp NEB Q4H PRN PRN Reason: SHORT OF BREATH/WHEEZING Last Admin: 05/31/16 06:15 Dose: 1 amp Aspirin (Ecotrin -) 81 mg PO DAILY [facility] Last Admin: 06/03/16 10:02 Dose: 81 mg Atorvastatin Calcium (Lipitor -) 40 mg PO HS [facility] Last Admin: 06/03/16 21:59 Dose: 40 mg Diltiazem HCl (Cardizem Injection -) 10 mg IVPUSH Q4H PRN PRN Reason: TACHYCARDIA Diltiazem HCl (Cardizem -) 60 mg PO Q6HPO [facility] Last Admin: 06/04/16 05:49 Dose: 60 mg Methylprednisolone Sodium Succinate (Solu-Medrol -) 30 mg IVPB BID [facility] Last Admin: 06/03/16 21:59 Dose: 30 mg Metoprolol Succinate (Toprol Xl -) 100 mg PO DAILY [facility] Last Admin: 06/03/16 10:03 Dose: 100 mg Montelukast Sodium (Singulair -) 15 mg PO HS [facility] Last Admin: 06/03/16 21:58 Dose: 15 mg Morphine Sulfate (Morphine Injection -) 1 mg IVPUSH Q4H PRN PRN Reason: PAIN Last Admin: 06/03/16 03:32 Dose: 1 mg Mycophenolate Mofetil (Cellcept -) 500 mg PO BID [facility] Last Admin: 06/03/16 21:58 Dose: 500 mg Oxycodone HCl (Roxicodone -) 10 mg PO Q4H PRN PRN Reason: PAIN Last Admin: 05/31/16 14:45 Dose: 10 mg Pantoprazole Sodium (Protonix -) 40 mg PO DAILY [facility] Last Admin: 06/03/16 10:02 Dose: 40 mg Prasugrel (Effient -) 5 mg PO DAILY [facility] Last Admin: 06/03/16 10:03 Dose: 5 mg Tiotropium [place] (Spiriva -) 1 puff IH DAILY [facility] Last Admin: 06/03/16 10:03 Dose: 1 puff Trimethoprim/Sulfamethoxazole (Bactrim Ds -) 1 each PO MoWeFr@1000 [facility] Last Admin: 06/03/16 10:04 Dose: 1 each - Objective Vital Signs: Vital Signs Temperature 97.2 F L 06/04/16 05:46 Pulse Rate 97 H 06/04/16 05:46 Respiratory Rate 20 06/04/16 05:46 Blood Pressure 100/66 06/04/16 05:46 O2 Sat by Pulse Oximetry (%) 98 06/03/16 22:00 Constitutional: Yes: Well Nourished, Calm Eyes: Yes: WNL HENT: Yes: WNL Neck: Yes: WNL Cardiovascular: Yes: Pulse Irregular, S1, S2 Respiratory: Yes: Rales (BILATERAL CRACKLES) Gastrointestinal: Yes: Normal Bowel Sounds, Soft Extremities: Yes: WNL Edema: No Labs: CBC, BMP 06/04/16 06:00 06/04/16 06:00 INR, PTT INR 1.18 (0.82-1.09) H 06/03/16 05:35 Problem List - Problems (1) Atrial fibrillation Code(s): I48.91 - UNSPECIFIED ATRIAL FIBRILLATION Qualifiers: Atrial fibrillation type: chronic Qualified Code(s): I48.2 - Chronic atrial fibrillation (2) Interstitial lung disease Code(s): J84.9 - INTERSTITIAL PULMONARY DISEASE, UNSPECIFIED (3) Atrial fibrillation with RVR Code(s): I48.91 - UNSPECIFIED ATRIAL FIBRILLATION (4) CAD (coronary artery disease) Code(s): I25.10 - ATHSCL HEART DISEASE OF [place] CORONARY ARTERY W/O ANG PCTRS (5) CHF (congestive heart failure) Code(s): I50.9 - HEART FAILURE, UNSPECIFIED Qualifiers: Congestive heart failure type: unspecified congestive heart failure type Congestive heart failure chronicity: acute Qualified Code(s): I50.9 - Heart failure, unspecified (6) Dyspnea Code(s): R06.00 - DYSPNEA, UNSPECIFIED (7) NSTEMI (non-ST elevated myocardial infarction) Code(s): I21.4 - NON-ST ELEVATION (NSTEMI) MYOCARDIAL INFARCTION (8) Acute on chronic respiratory failure with hypoxemia Code(s): J96.21 - ACUTE AND CHRONIC RESPIRATORY FAILURE WITH HYPOXIA Assessment/Plan IMP ACUTE ON CHRONIC HYPOXEMIC RESPIRATORY FAILURE ADVANCED INTERSTITIAL LUNG DISEASE/PULMONARY FIBROSIS O2 DEPENDENT URI ASHD S/P HI,S/P STENTS X 3 AFIB CHF HTN R PSOAS HEMATOMA HGB SSTABLE PLAN CONTINUE IV STEROIDS INHALED BRONCHODILATORS O2 BACTRIM DS CELLCEPT MONITOR H+H PAIN MEDS PULMONARY REHAB POST DISCHARGE DR SAMANIEGO Problem List - Problems (1) Atrial fibrillation Code(s): I48.91 - UNSPECIFIED ATRIAL FIBRILLATION Qualifiers: Atrial fibrillation type: chronic Qualified Code(s): I48.2 - Chronic atrial fibrillation (2) Interstitial lung disease Code(s): J84.9 - INTERSTITIAL PULMONARY DISEASE, UNSPECIFIED (3) Atrial fibrillation with RVR Code(s): I48.91 - UNSPECIFIED ATRIAL FIBRILLATION (4) CAD (coronary artery disease) Code(s): I25.10 - ATHSCL HEART DISEASE OF [place] CORONARY ARTERY W/O ANG PCTRS (5) CHF (congestive heart failure) Code(s): I50.9 - HEART FAILURE, UNSPECIFIED Qualifiers: Congestive heart failure type: unspecified congestive heart failure type Congestive heart failure chronicity: acute Qualified Code(s): I50.9 - Heart failure, unspecified (6) Dyspnea Code(s): R06.00 - DYSPNEA, UNSPECIFIED (7) NSTEMI (non-ST elevated myocardial infarction) Code(s): I21.4 - NON-ST ELEVATION (NSTEMI) MYOCARDIAL INFARCTION (8) Acute on chronic respiratory failure with hypoxemia Code(s): J96.21 - ACUTE AND CHRONIC RESPIRATORY FAILURE WITH HYPOXIA
[2016-06-04] MEDS: methylPREDNISolone NA SUCC 40 MG/1 ML VIAL IVPB SCH ×2 (10:14→22:30)
[2016-06-04] MEDS: METOPROLOL SUCCINATE 100 MG TAB.SR.24H (FP) PO SCH (10:16)
[2016-06-04] MEDS: MYCOPHENOLATE MOFETIL 500 MG TABLET PO SCH ×2 (10:16→22:31)
[2016-06-04] MEDS: PANTOPRAZOLE 40 MG TABLET (FP) PO SCH (10:16)
[2016-06-04] MEDS: ASPIRIN COATED 81 MG TABLET.EC PO SCH (10:16)
[2016-06-04] MEDS: PRASUGREL HCL 5 MG TAB PO SCH (10:17)
[2016-06-04] MEDS: TIOTROPIUM BROMIDE 18 MCG/INH (DEVICE W/ 5 CAPSULES) IH SCH (10:17)
--- NOTE | 2016-06-04 10:18 | PN ---
Progress Note, Physician Chief Complaint: Cardiology for [place] No chest pain or SOB - Current Medication List Current Medications: Active Medications Acetaminophen (Tylenol -) 650 mg PO Q4H PRN PRN Reason: FEVER OR PAIN Last Admin: 05/31/16 05:29 Dose: 650 mg Albuterol Sulfate (Ventolin 0.083% Nebulizer Soln -) 1 amp NEB Q4H PRN PRN Reason: SHORT OF BREATH/WHEEZING Last Admin: 05/31/16 06:15 Dose: 1 amp Aspirin (Ecotrin -) 81 mg PO DAILY [facility] Last Admin: 06/03/16 10:02 Dose: 81 mg Atorvastatin Calcium (Lipitor -) 40 mg PO HS [facility] Last Admin: 06/03/16 21:59 Dose: 40 mg Diltiazem HCl (Cardizem Injection -) 10 mg IVPUSH Q4H PRN PRN Reason: TACHYCARDIA Diltiazem HCl (Cardizem -) 60 mg PO Q6HPO [facility] Last Admin: 06/04/16 05:49 Dose: 60 mg Methylprednisolone Sodium Succinate (Solu-Medrol -) 30 mg IVPB BID [facility] Last Admin: 06/03/16 21:59 Dose: 30 mg Metoprolol Succinate (Toprol Xl -) 100 mg PO DAILY [facility] Last Admin: 06/03/16 10:03 Dose: 100 mg Montelukast Sodium (Singulair -) 15 mg PO HS [facility] Last Admin: 06/03/16 21:58 Dose: 15 mg Morphine Sulfate (Morphine Injection -) 1 mg IVPUSH Q4H PRN PRN Reason: PAIN Last Admin: 06/03/16 03:32 Dose: 1 mg Mycophenolate Mofetil (Cellcept -) 500 mg PO BID [facility] Last Admin: 06/03/16 21:58 Dose: 500 mg Oxycodone HCl (Roxicodone -) 10 mg PO Q4H PRN PRN Reason: PAIN Last Admin: 05/31/16 14:45 Dose: 10 mg Pantoprazole Sodium (Protonix -) 40 mg PO DAILY [facility] Last Admin: 06/03/16 10:02 Dose: 40 mg Prasugrel (Effient -) 5 mg PO DAILY [facility] Last Admin: 06/03/16 10:03 Dose: 5 mg Tiotropium [place] (Spiriva -) 1 puff IH DAILY [facility] Last Admin: 06/03/16 10:03 Dose: 1 puff Trimethoprim/Sulfamethoxazole (Bactrim Ds -) 1 each PO MoWeFr@1000 [facility] Last Admin: 06/03/16 10:04 Dose: 1 each - Objective Vital Signs: Vital Signs Temperature 97.2 F L 06/04/16 05:46 Pulse Rate 97 H 06/04/16 05:46 Respiratory Rate 20 06/04/16 05:46 Blood Pressure 100/66 06/04/16 05:46 O2 Sat by Pulse Oximetry (%) 98 06/03/16 22:00 Constitutional: Yes: No Distress Eyes: Yes: Other (left eye with erythema small subconjuctical hemorrhage- patient states 2 days old) Cardiovascular: Yes: Pulse Irregular Respiratory: Yes: Other (dry rales b/l) Gastrointestinal: Yes: Soft Edema: Yes Edema: LLE: 1+, RLE: 1+ Neurological: Yes: Alert, Oriented Labs: CBC, BMP 06/04/16 06:00 06/04/16 06:00 INR, PTT INR 1.18 (0.82-1.09) H 06/03/16 05:35 Laboratory Tests 06/03/16 06/03/16 06/04/16 05:35 19:00 06:00 WBC 19.9 H Hgb 9.9 L Hct 30.0 L Plt Count 120 L INR 1.18 H Potassium BUN Creatinine Magnesium Stool Occult Blood Negative 06/04/16 06:00 WBC Hgb Hct Plt Count INR Potassium 4.5 BUN 34 H Creatinine 0.6 L Magnesium 2.4 Stool Occult Blood Assessment/Plan ILD Chronic AF CAD Psoas hematoma REC: AF rate well controlled. Anticoagulation on hold due to anemia, psoas hematoma and left eye subconjunctival bleed. To continue DAPT, history CAD and PCI within last 12 months. Coverage for [employer].
--- NOTE | 2016-06-04 11:54 | PN ---
Progress Note, Physician Chief Complaint: Breathing stable but unable to ambulate with weakness in legs. History of Present Illness: Patient with multiple medical problems including Interstitial Lung Disease, A. Fibrillation, Psoas Muscle hematoma as a complication of anticoagulation and leg weakness possibly secondary to neuropathy is hoping to go to SNF by Monday. Still on steroids but Coumadin being held. He required 2 units of Packed cells. Hb 9.9 GM; Glucose 186; Bun stable. - Current Medication List Current Medications: Active Medications Acetaminophen (Tylenol -) 650 mg PO Q4H PRN PRN Reason: FEVER OR PAIN Last Admin: 05/31/16 05:29 Dose: 650 mg Albuterol Sulfate (Ventolin 0.083% Nebulizer Soln -) 1 amp NEB Q4H PRN PRN Reason: SHORT OF BREATH/WHEEZING Last Admin: 05/31/16 06:15 Dose: 1 amp Aspirin (Ecotrin -) 81 mg PO DAILY [facility] Last Admin: 06/04/16 10:16 Dose: 81 mg Atorvastatin Calcium (Lipitor -) 40 mg PO [facility] Last Admin: 06/03/16 21:59 Dose: 40 mg Diltiazem HCl (Cardizem Injection -) 10 mg IVPUSH Q4H PRN PRN Reason: TACHYCARDIA Diltiazem HCl (Cardizem -) 60 mg PO Q6HPO [facility] Last Admin: 06/04/16 05:49 Dose: 60 mg Methylprednisolone Sodium Succinate (Solu-Medrol -) 30 mg IVPB BID [facility] Last Admin: 06/04/16 10:14 Dose: 30 mg Metoprolol Succinate (Toprol Xl -) 100 mg PO DAILY [facility] Last Admin: 06/04/16 10:16 Dose: 100 mg Montelukast Sodium (Singulair -) 15 mg PO HS [facility] Last Admin: 06/03/16 21:58 Dose: 15 mg Morphine Sulfate (Morphine Injection -) 1 mg IVPUSH Q4H PRN PRN Reason: PAIN Last Admin: 06/03/16 03:32 Dose: 1 mg Mycophenolate Mofetil (Cellcept -) 500 mg PO BID [facility] Last Admin: 06/04/16 10:16 Dose: 500 mg Oxycodone HCl (Roxicodone -) 10 mg PO Q4H PRN PRN Reason: PAIN Last Admin: 05/31/16 14:45 Dose: 10 mg Pantoprazole Sodium (Protonix -) 40 mg PO DAILY [facility] Last Admin: 06/04/16 10:16 Dose: 40 mg Prasugrel (Effient -) 5 mg PO DAILY [facility] Last Admin: 06/04/16 10:17 Dose: 5 mg Tiotropium [place] (Spiriva -) 1 puff IH DAILY [facility] Last Admin: 06/04/16 10:17 Dose: 1 puff Trimethoprim/Sulfamethoxazole (Bactrim Ds -) 1 each PO MoWeFr@1000 [facility] Last Admin: 06/03/16 10:04 Dose: 1 each - Objective Vital Signs: Vital Signs Temperature 97.2 F L 06/04/16 05:46 Pulse Rate 97 H 06/04/16 05:46 Respiratory Rate 20 06/04/16 05:46 Blood Pressure 100/66 06/04/16 05:46 O2 Sat by Pulse Oximetry (%) 98 06/03/16 22:00 Constitutional: Yes: Calm, Pallor Eyes: Yes: Other (conjunctival hemorrhage left eye) Cardiovascular: Yes: Pulse Irregular Respiratory: Yes: Diminished. No: Rales, Wheezes Gastrointestinal: Yes: Soft Genitourinary: No: Negrete Present Extremities: Yes: Other (ecchymoses scattered) Edema: LLE: 1+, RLE: 1+ Integumentary: Yes: Other (ecchymoses noted in most areas) Neurological: Yes: Alert, Oriented Labs: CBC, BMP 06/04/16 06:00 06/04/16 06:00 INR, PTT INR 1.18 (0.82-1.09) H 06/03/16 05:35 Problem List - Problems (1) Interstitial lung disease Assessment/Plan: Still receiving steroids but stable Re: breathing Code(s): J84.9 - INTERSTITIAL PULMONARY DISEASE, UNSPECIFIED (2) Atrial fibrillation Assessment/Plan: Anticoagulation held due to bleeding complication. Code(s): I48.91 - UNSPECIFIED ATRIAL FIBRILLATION Qualifiers: Atrial fibrillation type: chronic Qualified Code(s): I48.2 - Chronic atrial fibrillation (3) Acute on chronic combined systolic and diastolic CHF (congestive heart failure) Assessment/Plan: Stable on current Rx. Code(s): I50.43 - ACUTE ON CHRONIC COMBINED SYSTOLIC AND DIASTOLIC HRT FAIL (4) Pedal edema Assessment/Plan: Still 1-2+ pedal edema Code(s): R60.0 - LOCALIZED EDEMA (5) Psoas hematoma, left, secondary to anticoagulant therapy Assessment/Plan: Hemoglobin stable at 9.9 GM currently; anticoagulation held. Code(s): S30.1XXA - CONTUSION OF ABDOMINAL WALL, INITIAL ENCOUNTER (6) Hyperglycemia Assessment/Plan: Exacerbated by Steroids but HbA1C is 6.5 Code(s): R73.9 - HYPERGLYCEMIA, UNSPECIFIED
[2016-06-04] MEDS: NYSTATIN 500,000 UNITS/5 ML SUSPENSION PO SCH (17:04)
[2016-06-04] MEDS: MONTELUKAST NA 10 MG TABLET PO SCH (22:31)
[2016-06-04] MEDS: ATORVASTATIN CA 40 MG TABLET (FP) PO SCH (22:31)
[2016-06-05] MEDS: dilTIAZem HCL 60 MG TABLET (FP) PO SCH ×4 (00:39→17:04)
[2016-06-05] MEDS: NYSTATIN 500,000 UNITS/5 ML SUSPENSION PO SCH ×4 (00:41→17:04)
[2016-06-05 07:34] LABS: BASOPHIL 0.1 % (0-2.0); MCHC 32.5 g/dl (32.0-35.9); MEAN CELL VOLUME 89.4 fl (80-96); MEAN PLT VOLUME 8.1 fl (7.5-11.1); NEUTROPHILS 97.4 % (42.8-82.8); PLATELET COUNT 109 K/MM3 (134-434); RDW 16.8 % (11.9-15.9); WHITE BLOOD COUNT 17.4 K/mm3 (4.0-10.0)
--- NOTE | 2016-06-05 09:50 | PN ---
Progress Note, Physician Chief Complaint: sleeping comfortably Denies chest pain or SOB above baseline Left eye appears better History of Present Illness: TELE: [id number], few V- couplets - Current Medication List Current Medications: Active Medications Acetaminophen (Tylenol -) 650 mg PO Q4H PRN PRN Reason: FEVER OR PAIN Last Admin: 05/31/16 05:29 Dose: 650 mg Albuterol Sulfate (Ventolin 0.083% Nebulizer Soln -) 1 amp NEB Q4H PRN PRN Reason: SHORT OF BREATH/WHEEZING Last Admin: 05/31/16 06:15 Dose: 1 amp Aspirin (Ecotrin -) 81 mg PO DAILY [facility] Last Admin: 06/04/16 10:16 Dose: 81 mg Atorvastatin Calcium (Lipitor -) 40 mg PO HS [facility] Last Admin: 06/04/16 22:31 Dose: 40 mg Diltiazem HCl (Cardizem Injection -) 10 mg IVPUSH Q4H PRN PRN Reason: TACHYCARDIA Diltiazem HCl (Cardizem -) 60 mg PO Q6HPO [facility] Last Admin: 06/05/16 06:12 Dose: 60 mg Methylprednisolone Sodium Succinate (Solu-Medrol -) 30 mg IVPB BID [facility] Last Admin: 06/04/16 22:30 Dose: 30 mg Metoprolol Succinate (Toprol Xl -) 100 mg PO DAILY [facility] Last Admin: 06/04/16 10:16 Dose: 100 mg Montelukast Sodium (Singulair -) 15 mg PO HS [facility] Last Admin: 06/04/16 22:31 Dose: 15 mg Morphine Sulfate (Morphine Injection -) 1 mg IVPUSH Q4H PRN PRN Reason: PAIN Last Admin: 06/03/16 03:32 Dose: 1 mg Mycophenolate Mofetil (Cellcept -) 500 mg PO BID [facility] Last Admin: 06/04/16 22:31 Dose: 500 mg Nystatin (Nystatin Oral Suspension -) 500,000 units PO Q6HPO [facility] Last Admin: 06/05/16 06:13 Dose: 500,000 units Oxycodone HCl (Roxicodone -) 10 mg PO Q4H PRN PRN Reason: PAIN Last Admin: 05/31/16 14:45 Dose: 10 mg Pantoprazole Sodium (Protonix -) 40 mg PO DAILY [facility] Last Admin: 06/04/16 10:16 Dose: 40 mg Prasugrel (Effient -) 5 mg PO DAILY [facility] Last Admin: 06/04/16 10:17 Dose: 5 mg Tiotropium [place] (Spiriva -) 1 puff IH DAILY [facility] Last Admin: 06/04/16 10:17 Dose: 1 puff Trimethoprim/Sulfamethoxazole (Bactrim Ds -) 1 each PO MoWeFr@1000 [facility] Last Admin: 06/03/16 10:04 Dose: 1 each - Objective Vital Signs: Vital Signs Temperature 98.5 F 06/05/16 08:31 Pulse Rate 110 H 06/05/16 08:31 Respiratory Rate 18 06/05/16 08:31 Blood Pressure 120/74 06/05/16 08:31 O2 Sat by Pulse Oximetry (%) 97 06/05/16 08:31 Constitutional: Yes: No Distress Eyes: Yes: Other (left eye with resolving subconj. bleed) Cardiovascular: Yes: Pulse Irregular Respiratory: Yes: Other (dry rales b/l, no active wheezing) Gastrointestinal: Yes: Soft Edema: Yes Edema: LLE: 1+, RLE: 1+ Neurological: Yes: Alert, Oriented ...Motor Strength: WNL Labs: CBC, BMP 06/05/16 05:35 06/04/16 06:00 INR, PTT INR 1.18 (0.82-1.09) H 06/03/16 05:35 Laboratory Tests 06/03/16 06/04/16 06/05/16 05:35 06:00 05:35 WBC 17.4 H Hgb 9.4 L Hct 29.0 L Plt Count 109 L INR 1.18 H Sodium 137 Potassium 4.5 Creatinine 0.6 L Calcium 8.2 L Phosphorus 2.6 Magnesium 2.4 - ....Imaging EKG: Image Reviewed Assessment/Plan Assessment/Plan ILD Chronic AF CAD Psoas hematoma REC: AF rate well controlled. Anticoagulation on hold due to anemia, psoas hematoma and left eye subconjunctival bleed. To continue DAPT, history CAD and PCI within last 12 months, Effient dose reduced to 5mg in setting of prior "triple therapy" and current bleeding issues. Coverage for [facility].
--- NOTE | 2016-06-05 10:25 | PN ---
Progress Note, Physician History of Present Illness: pulmonary alert,weak,-tachypnea - Current Medication List Current Medications: Active Medications Acetaminophen (Tylenol -) 650 mg PO Q4H PRN PRN Reason: FEVER OR PAIN Last Admin: 05/31/16 05:29 Dose: 650 mg Albuterol Sulfate (Ventolin 0.083% Nebulizer Soln -) 1 amp NEB Q4H PRN PRN Reason: SHORT OF BREATH/WHEEZING Last Admin: 05/31/16 06:15 Dose: 1 amp Aspirin (Ecotrin -) 81 mg PO DAILY [facility] Last Admin: 06/04/16 10:16 Dose: 81 mg Atorvastatin [place] (Lipitor -) 40 mg PO HS [facility] Last Admin: 06/04/16 22:31 Dose: 40 mg Diltiazem HCl (Cardizem Injection -) 10 mg IVPUSH Q4H PRN PRN Reason: TACHYCARDIA Diltiazem HCl (Cardizem -) 60 mg PO Q6HPO [facility] Last Admin: 06/05/16 06:12 Dose: 60 mg Methylprednisolone Sodium Succinate (Solu-Medrol -) 30 mg IVPB BID [facility] Last Admin: 06/04/16 22:30 Dose: 30 mg Metoprolol Succinate (Toprol Xl -) 100 mg PO DAILY [facility] Last Admin: 06/04/16 10:16 Dose: 100 mg Montelukast Sodium (Singulair -) 15 mg PO HS [facility] Last Admin: 06/04/16 22:31 Dose: 15 mg Morphine Sulfate (Morphine Injection -) 1 mg IVPUSH Q4H PRN PRN Reason: PAIN Last Admin: 06/03/16 03:32 Dose: 1 mg Mycophenolate Mofetil (Cellcept -) 500 mg PO BID [facility] Last Admin: 06/04/16 22:31 Dose: 500 mg Nystatin (Nystatin Oral Suspension -) 500,000 units PO Q6HPO [facility] Last Admin: 06/05/16 06:13 Dose: 500,000 units Oxycodone HCl (Roxicodone -) 10 mg PO Q4H PRN PRN Reason: PAIN Last Admin: 05/31/16 14:45 Dose: 10 mg Pantoprazole Sodium (Protonix -) 40 mg PO DAILY [facility] Last Admin: 06/04/16 10:16 Dose: 40 mg Prasugrel (Effient -) 5 mg PO DAILY [facility] Last Admin: 06/04/16 10:17 Dose: 5 mg Tiotropium [place] (Spiriva -) 1 puff IH DAILY [facility] Last Admin: 06/04/16 10:17 Dose: 1 puff Trimethoprim/Sulfamethoxazole (Bactrim Ds -) 1 each PO MoWeFr@1000 [facility] Last Admin: 06/03/16 10:04 Dose: 1 each - Objective Vital Signs: Vital Signs Temperature 98.5 F 06/05/16 08:31 Pulse Rate 110 H 06/05/16 08:31 Respiratory Rate 18 06/05/16 08:31 Blood Pressure 120/74 06/05/16 08:31 O2 Sat by Pulse Oximetry (%) 97 06/05/16 08:31 Constitutional: Yes: Well Nourished, Calm Eyes: Yes: WNL HENT: Yes: WNL Neck: Yes: WNL Cardiovascular: Yes: Pulse Irregular, S1, S2 Respiratory: Yes: Rales (cale crackles) Gastrointestinal: Yes: Normal Bowel Sounds, Soft Extremities: Yes: WNL Edema: Yes Labs: CBC, BMP 06/05/16 05:35 06/04/16 06:00 INR, PTT INR 1.18 (0.82-1.09) H 06/03/16 05:35 Problem List - Problems (1) Atrial fibrillation Code(s): I48.91 - UNSPECIFIED ATRIAL FIBRILLATION Qualifiers: Atrial fibrillation type: chronic Qualified Code(s): I48.2 - Chronic atrial fibrillation (2) Interstitial lung disease Code(s): J84.9 - INTERSTITIAL PULMONARY DISEASE, UNSPECIFIED (3) Atrial fibrillation with RVR Code(s): I48.91 - UNSPECIFIED ATRIAL FIBRILLATION (4) CAD (coronary artery disease) Code(s): I25.10 - ATHSCL HEART DISEASE OF [place] CORONARY ARTERY W/O ANG PCTRS (5) CHF (congestive heart failure) Code(s): I50.9 - HEART FAILURE, UNSPECIFIED Qualifiers: Congestive heart failure type: unspecified congestive heart failure type Congestive heart failure chronicity: acute Qualified Code(s): I50.9 - Heart failure, unspecified (6) Dyspnea Code(s): R06.00 - DYSPNEA, UNSPECIFIED (7) NSTEMI (non-ST elevated myocardial infarction) Code(s): I21.4 - NON-ST ELEVATION (NSTEMI) MYOCARDIAL INFARCTION (8) Acute on chronic respiratory failure with hypoxemia Code(s): J96.21 - ACUTE AND CHRONIC RESPIRATORY FAILURE WITH HYPOXIA Assessment/Plan IMP ACUTE ON CHRONIC HYPOXEMIC RESPIRATORY FAILURE ADVANCED INTERSTITIAL LUNG DISEASE/PULMONARY FIBROSIS O2 DEPENDENT URI ASHD S/P MO,S/P STENTS X 3 AFIB CHF HTN R PSOAS HEMATOMA HGB STABLE PLAN CONTINUE IV STEROIDS INHALED BRONCHODILATORS O2 BACTRIM DS CELLCEPT MONITOR H+H PAIN MEDS AC ON HOLD OOB-CHAIR PULMONARY REHAB POST DISCHARGE DR SAMANIEGO Problem List - Problems (1) Atrial fibrillation Code(s): I48.91 - UNSPECIFIED ATRIAL FIBRILLATION Qualifiers: Atrial fibrillation type: chronic Qualified Code(s): I48.2 - Chronic atrial fibrillation (2) Interstitial lung disease Code(s): J84.9 - INTERSTITIAL PULMONARY DISEASE, UNSPECIFIED (3) Atrial fibrillation with RVR Code(s): I48.91 - UNSPECIFIED ATRIAL FIBRILLATION (4) CAD (coronary artery disease) Code(s): I25.10 - ATHSCL HEART DISEASE OF [place] CORONARY ARTERY W/O ANG PCTRS (5) CHF (congestive heart failure) Code(s): I50.9 - HEART FAILURE, UNSPECIFIED Qualifiers: Congestive heart failure type: unspecified congestive heart failure type Congestive heart failure chronicity: acute Qualified Code(s): I50.9 - Heart failure, unspecified (6) Dyspnea Code(s): R06.00 - DYSPNEA, UNSPECIFIED (7) NSTEMI (non-ST elevated myocardial infarction) Code(s): I21.4 - NON-ST ELEVATION (NSTEMI) MYOCARDIAL INFARCTION (8) Acute on chronic respiratory failure with hypoxemia Code(s): J96.21 - ACUTE AND CHRONIC RESPIRATORY FAILURE WITH HYPOXIA
[2016-06-05] MEDS ORDERED: PT OWN MED DRAWER 7, Y5N ONE ×2 (10:36→21:19)
[2016-06-05] MEDS: PRASUGREL HCL 5 MG TAB PO SCH (10:42)
[2016-06-05] MEDS: MYCOPHENOLATE MOFETIL 500 MG TABLET PO SCH ×2 (10:42→21:24)
[2016-06-05] MEDS: PANTOPRAZOLE 40 MG TABLET (FP) PO SCH (10:42)
[2016-06-05] MEDS: ASPIRIN COATED 81 MG TABLET.EC PO SCH (10:42)
[2016-06-05] MEDS: methylPREDNISolone NA SUCC 40 MG/1 ML VIAL IVPB SCH ×2 (10:42→21:22)
[2016-06-05] MEDS: METOPROLOL SUCCINATE 100 MG TAB.SR.24H (FP) PO SCH (10:42)
[2016-06-05] MEDS: TIOTROPIUM BROMIDE 18 MCG/INH (DEVICE W/ 5 CAPSULES) IH SCH (10:43)
--- NOTE | 2016-06-05 11:37 | PN ---
Progress Note, Physician Chief Complaint: Feels weak; SOB on any movement. 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 Very worried about his weaknss but looking forward to the change. WBC count which had been over 45,000 is now down to 19, 000. Off coumadin due to Psos hematoma. - Current Medication List Current Medications: Active Medications Acetaminophen (Tylenol -) 650 mg PO Q4H PRN PRN Reason: FEVER OR PAIN Last Admin: 05/31/16 05:29 Dose: 650 mg Albuterol Sulfate (Ventolin 0.083% Nebulizer Soln -) 1 amp NEB Q4H PRN PRN Reason: SHORT OF BREATH/WHEEZING Last Admin: 05/31/16 06:15 Dose: 1 amp Aspirin (Ecotrin -) 81 mg PO DAILY [facility] Last Admin: 06/05/16 10:42 Dose: 81 mg Atorvastatin Calcium (Lipitor -) 40 mg PO HS [facility] Last Admin: 06/04/16 22:31 Dose: 40 mg Diltiazem HCl (Cardizem Injection -) 10 mg IVPUSH Q4H PRN PRN Reason: TACHYCARDIA Diltiazem HCl (Cardizem -) 60 mg PO Q6HPO [facility] Last Admin: 06/05/16 11:06 Dose: 60 mg Methylprednisolone Sodium Succinate (Solu-Medrol -) 30 mg IVPB BID [facility] Last Admin: 06/05/16 10:42 Dose: 30 mg Metoprolol Succinate (Toprol Xl -) 100 mg PO DAILY [facility] Last Admin: 06/05/16 10:42 Dose: 100 mg Montelukast Sodium (Singulair -) 15 mg PO HS [facility] Last Admin: 06/04/16 22:31 Dose: 15 mg Morphine Sulfate (Morphine Injection -) 1 mg IVPUSH Q4H PRN PRN Reason: PAIN Last Admin: 06/03/16 03:32 Dose: 1 mg Mycophenolate Mofetil (Cellcept -) 500 mg PO BID [facility] Last Admin: 06/05/16 10:42 Dose: 500 mg Nystatin (Nystatin Oral Suspension -) 500,000 units PO Q6HPO [facility] Last Admin: 06/05/16 11:06 Dose: 500,000 units Oxycodone HCl (Roxicodone -) 10 mg PO Q4H PRN PRN Reason: PAIN Last Admin: 05/31/16 14:45 Dose: 10 mg Pantoprazole Sodium (Protonix -) 40 mg PO DAILY [facility] Last Admin: 06/05/16 10:42 Dose: 40 mg Prasugrel (Effient -) 5 mg PO DAILY [facility] Last Admin: 06/05/16 10:42 Dose: 5 mg Tiotropium [place] (Spiriva -) 1 puff IH DAILY [facility] Last Admin: 06/05/16 10:43 Dose: 1 puff Trimethoprim/Sulfamethoxazole (Bactrim Ds -) 1 each PO MoWeFr@1000 [facility] Last Admin: 06/03/16 10:04 Dose: 1 each - Objective Vital Signs: Vital Signs Temperature 98.5 F 06/05/16 08:31 Pulse Rate 110 H 06/05/16 08:31 Respiratory Rate 18 06/05/16 08:31 Blood Pressure 120/74 06/05/16 08:31 O2 Sat by Pulse Oximetry (%) 97 06/05/16 08:31 Constitutional: Yes: Anxious Eyes: Yes: Conjunctiva Clear HENT: Yes: Thrush Cardiovascular: Yes: Tachycardia, Pulse Irregular Respiratory: Yes: Diminished Gastrointestinal: Yes: Soft (Had BM) Genitourinary: No: Negrete Present Edema: LLE: Trace, RLE: Trace Integumentary: Yes: Other (Multiple ecchymotic areas) Neurological: Yes: Alert, Oriented ...Motor Strength: LLE, RUE (generalized overall weakness) Labs: CBC, BMP 06/05/16 05:35 06/04/16 06:00 INR, PTT INR 1.18 (0.82-1.09) H 06/03/16 05:35 Problem List - Problems (1) Interstitial lung disease Assessment/Plan: Back to baseline with breathing.Still SOB with exertion. Code(s): J84.9 - INTERSTITIAL PULMONARY DISEASE, UNSPECIFIED (2) Atrial fibrillation Assessment/Plan: Still periods of tachycardia; coumadin was held due to hematoma of Psoas muscle. Code(s): I48.91 - UNSPECIFIED ATRIAL FIBRILLATION Qualifiers: Atrial fibrillation type: chronic Qualified Code(s): I48.2 - Chronic atrial fibrillation (3) Acute on chronic combined systolic and diastolic CHF (congestive heart failure) Code(s): I50.43 - ACUTE ON CHRONIC COMBINED SYSTOLIC AND DIASTOLIC HRT FAIL (4) Pedal edema Code(s): R60.0 - LOCALIZED EDEMA (5) Psoas hematoma, left, secondary to anticoagulant therapy Assessment/Plan: ?? of when to restart Coumadin Code(s): S30.1XXA - CONTUSION OF ABDOMINAL WALL, INITIAL ENCOUNTER (6) Hyperglycemia Assessment/Plan: HBA1C 6.5 maybe exacerbated by steroid use. Code(s): R73.9 - HYPERGLYCEMIA, UNSPECIFIED (7) Critical illness neuropathy Assessment/Plan: [facility] Rehab indicated. Code(s): G62.81 - CRITICAL ILLNESS POLYNEUROPATHY
[2016-06-05] MEDS: MONTELUKAST NA 10 MG TABLET PO SCH (21:23)
[2016-06-05] MEDS: ATORVASTATIN CA 40 MG TABLET (FP) PO SCH (21:23)
[2016-06-06] MEDS: NYSTATIN 500,000 UNITS/5 ML SUSPENSION PO SCH ×5 (01:31→23:25)
[2016-06-06] MEDS: dilTIAZem HCL 60 MG TABLET (FP) PO SCH ×6 (01:31→23:25)
[2016-06-06 07:14] LABS: MCH 29.6 pg (25.7-33.7); MCHC 33.1 g/dl (32.0-35.9); MEAN CELL VOLUME 89.3 fl (80-96); MEAN PLT VOLUME 8.2 fl (7.5-11.1); NEUTROPHILS 97.7 % (42.8-82.8); PLATELET COUNT 108 K/MM3 (134-434); RDW 16.6 % (11.9-15.9); WHITE BLOOD COUNT 16.6 K/mm3 (4.0-10.0)
[2016-06-06] MEDS ORDERED: PT OWN MED DRAWER 7, Y5N ONE (09:22)
--- NOTE | 2016-06-06 09:56 | PN ---
Progress Note, Physician History of Present Illness: pulmonary alert,weak,comfortable,nad,+diarrhea - Current Medication List Current Medications: Active Medications Acetaminophen (Tylenol -) 650 mg PO Q4H PRN PRN Reason: FEVER OR PAIN Last Admin: 05/31/16 05:29 Dose: 650 mg Albuterol Sulfate (Ventolin 0.083% Nebulizer Soln -) 1 amp NEB Q4H PRN PRN Reason: SHORT OF BREATH/WHEEZING Last Admin: 05/31/16 06:15 Dose: 1 amp Aspirin (Ecotrin -) 81 mg PO DAILY [facility] Last Admin: 06/05/16 10:42 Dose: 81 mg Atorvastatin Calcium (Lipitor -) 40 mg PO HS [facility] Last Admin: 06/05/16 21:23 Dose: 40 mg Diltiazem HCl (Cardizem Injection -) 10 mg IVPUSH Q4H PRN PRN Reason: TACHYCARDIA Diltiazem HCl (Cardizem -) 60 mg PO Q6HPO [facility] Last Admin: 06/06/16 06:57 Dose: 60 mg Methylprednisolone Sodium Succinate (Solu-Medrol -) 30 mg IVPB BID [facility] Last Admin: 06/05/16 21:22 Dose: 30 mg Metoprolol Succinate (Toprol Xl -) 100 mg PO DAILY [facility] Last Admin: 06/05/16 10:42 Dose: 100 mg Montelukast Sodium (Singulair -) 15 mg PO HS [facility] Last Admin: 06/05/16 21:23 Dose: 15 mg Morphine Sulfate (Morphine Injection -) 1 mg IVPUSH Q4H PRN PRN Reason: PAIN Last Admin: 06/03/16 03:32 Dose: 1 mg Mycophenolate Mofetil (Cellcept -) 500 mg PO BID [facility] Last Admin: 06/05/16 21:24 Dose: 500 mg Nystatin (Nystatin Oral Suspension -) 500,000 units PO Q6HPO [facility] Last Admin: 06/06/16 06:27 Dose: 500,000 units Oxycodone HCl (Roxicodone -) 10 mg PO Q4H PRN PRN Reason: PAIN Last Admin: 05/31/16 14:45 Dose: 10 mg Pantoprazole Sodium (Protonix -) 40 mg PO DAILY [facility] Last Admin: 06/05/16 10:42 Dose: 40 mg Prasugrel (Effient -) 5 mg PO DAILY [facility] Last Admin: 06/05/16 10:42 Dose: 5 mg Tiotropium [place] (Spiriva -) 1 puff IH DAILY [facility] Last Admin: 06/05/16 10:43 Dose: 1 puff Trimethoprim/Sulfamethoxazole (Bactrim Ds -) 1 each PO MoWeFr@1000 [facility] Last Admin: 06/03/16 10:04 Dose: 1 each - Objective Vital Signs: Vital Signs Temperature 98.2 F 06/06/16 02:00 Pulse Rate 96 H 06/06/16 02:00 Respiratory Rate 18 06/06/16 02:00 Blood Pressure 124/73 06/06/16 02:00 O2 Sat by Pulse Oximetry (%) 98 06/05/16 22:00 Constitutional: Yes: Well Nourished, Calm Eyes: Yes: WNL HENT: Yes: WNL Neck: Yes: WNL Cardiovascular: Yes: Pulse Irregular, S1, S2 Respiratory: Yes: Rales (bilateral rales) Gastrointestinal: Yes: Normal Bowel Sounds, Soft Extremities: Yes: WNL Edema: Yes Labs: CBC, BMP 06/06/16 05:35 06/04/16 06:00 INR, PTT INR 1.18 (0.82-1.09) H 06/03/16 05:35 Problem List - Problems (1) Atrial fibrillation Code(s): I48.91 - UNSPECIFIED ATRIAL FIBRILLATION Qualifiers: Atrial fibrillation type: chronic Qualified Code(s): I48.2 - Chronic atrial fibrillation (2) Interstitial lung disease Code(s): J84.9 - INTERSTITIAL PULMONARY DISEASE, UNSPECIFIED (3) Atrial fibrillation with RVR Code(s): I48.91 - UNSPECIFIED ATRIAL FIBRILLATION (4) CAD (coronary artery disease) Code(s): I25.10 - ATHSCL HEART DISEASE OF [place] CORONARY ARTERY W/O ANG PCTRS (5) CHF (congestive heart failure) Code(s): I50.9 - HEART FAILURE, UNSPECIFIED Qualifiers: Congestive heart failure type: unspecified congestive heart failure type Congestive heart failure chronicity: acute Qualified Code(s): I50.9 - Heart failure, unspecified (6) Dyspnea Code(s): R06.00 - DYSPNEA, UNSPECIFIED (7) NSTEMI (non-ST elevated myocardial infarction) Code(s): I21.4 - NON-ST ELEVATION (NSTEMI) MYOCARDIAL INFARCTION (8) Acute on chronic respiratory failure with hypoxemia Code(s): J96.21 - ACUTE AND CHRONIC RESPIRATORY FAILURE WITH HYPOXIA Assessment/Plan IMP ACUTE ON CHRONIC HYPOXEMIC RESPIRATORY FAILURE CLINICALLY IMPROVED ADVANCED INTERSTITIAL LUNG DISEASE/PULMONARY FIBROSIS O2 DEPENDENT URI ASHD S/P ID,S/P STENTS X 3 AFIB CHF HTN R PSOAS HEMATOMA HGB STABLE PLAN CONTINUE IV STEROIDS INHALED BRONCHODILATORS O2 BACTRIM DS CELLCEPT MONITOR H+H PAIN MEDS AC ON HOLD OOB-CHAIR PULMONARY REHAB POST DISCHARGE DR SAMANIEGO Problem List - Problems (1) Atrial fibrillation Code(s): I48.91 - UNSPECIFIED ATRIAL FIBRILLATION Qualifiers: Atrial fibrillation type: chronic Qualified Code(s): I48.2 - Chronic atrial fibrillation (2) Interstitial lung disease Code(s): J84.9 - INTERSTITIAL PULMONARY DISEASE, UNSPECIFIED (3) Atrial fibrillation with RVR Code(s): I48.91 - UNSPECIFIED ATRIAL FIBRILLATION (4) CAD (coronary artery disease) Code(s): I25.10 - ATHSCL HEART DISEASE OF [place] CORONARY ARTERY W/O ANG PCTRS (5) CHF (congestive heart failure) Code(s): I50.9 - HEART FAILURE, UNSPECIFIED Qualifiers: Congestive heart failure type: unspecified congestive heart failure type Congestive heart failure chronicity: acute Qualified Code(s): I50.9 - Heart failure, unspecified (6) Dyspnea Code(s): R06.00 - DYSPNEA, UNSPECIFIED (7) NSTEMI (non-ST elevated myocardial infarction) Code(s): I21.4 - NON-ST ELEVATION (NSTEMI) MYOCARDIAL INFARCTION (8) Acute on chronic respiratory failure with hypoxemia Code(s): J96.21 - ACUTE AND CHRONIC RESPIRATORY FAILURE WITH HYPOXIA
[2016-06-06] MEDS: ALBUTEROL SO4 0.083% IH SOL 2.5 MG/3 ML VIAL.NEB. NEB PRN (10:00)
[2016-06-06] MEDS: methylPREDNISolone NA SUCC 40 MG/1 ML VIAL IVPB SCH ×2 (10:01→22:25)
[2016-06-06] MEDS: METOPROLOL SUCCINATE 100 MG TAB.SR.24H (FP) PO SCH (10:01)
[2016-06-06] MEDS: PANTOPRAZOLE 40 MG TABLET (FP) PO SCH (10:01)
[2016-06-06] MEDS: ASPIRIN COATED 81 MG TABLET.EC PO SCH (10:01)
[2016-06-06] MEDS: MYCOPHENOLATE MOFETIL 500 MG TABLET PO SCH ×2 (10:02→22:24)
[2016-06-06] MEDS: PRASUGREL HCL 5 MG TAB PO SCH (10:02)
[2016-06-06] MEDS: SULFAMETHOXAZOLE/TRIMETHOPRIM 800MG/160MG D.S. TABLET PO SCH (10:02)
[2016-06-06] MEDS: TIOTROPIUM BROMIDE 18 MCG/INH (DEVICE W/ 5 CAPSULES) IH SCH (10:02)
--- NOTE | 2016-06-06 14:23 | PN ---
Progress Note, Physician History of Present Illness: The patient is a 71 year old white male with a past medical hx of HTN, afib, severe interstitial lung disease (ILD) (followed by Dr. Brooks), CAD-->three cardiac stents in 2016, who presents to the ED complaining of shortness of breath for one week. The patient reports his shortness of breath progressively worsened over the weekend. He states his PCP increased his Prednisone, but he is still feeling short of breath. The patient reports he is oxygen dependent at home. The patient denies chest pain The patient denies fever, chills The patient denies nausea, vomiting, diarrhea - Current Medication List Current Medications: Active Medications Acetaminophen (Tylenol -) 650 mg PO Q4H PRN PRN Reason: FEVER OR PAIN Last Admin: 05/31/16 05:29 Dose: 650 mg Albuterol Sulfate (Ventolin 0.083% Nebulizer Soln -) 1 amp NEB Q4H PRN PRN Reason: SHORT OF BREATH/WHEEZING Last Admin: 06/06/16 10:00 Dose: 1 amp Aspirin (Ecotrin -) 81 mg PO DAILY [facility] Last Admin: 06/06/16 10:01 Dose: 81 mg Atorvastatin Calcium (Lipitor -) 40 mg PO HS [facility] Last Admin: 06/05/16 21:23 Dose: 40 mg Diltiazem HCl (Cardizem Injection -) 10 mg IVPUSH Q4H PRN PRN Reason: TACHYCARDIA Diltiazem HCl (Cardizem -) 60 mg PO Q6HPO [facility] Last Admin: 06/06/16 12:57 Dose: 60 mg Methylprednisolone Sodium Succinate (Solu-Medrol -) 30 mg IVPB BID [facility] Last Admin: 06/06/16 10:01 Dose: 30 mg Metoprolol Succinate (Toprol Xl -) 100 mg PO DAILY [facility] Last Admin: 06/06/16 10:01 Dose: 100 mg Montelukast Sodium (Singulair -) 15 mg PO HS [facility] Last Admin: 06/05/16 21:23 Dose: 15 mg Morphine Sulfate (Morphine Injection -) 1 mg IVPUSH Q4H PRN PRN Reason: PAIN Last Admin: 06/03/16 03:32 Dose: 1 mg Mycophenolate Mofetil (Cellcept -) 500 mg PO BID [facility] Last Admin: 06/06/16 10:02 Dose: 500 mg Nystatin (Nystatin Oral Suspension -) 500,000 units PO Q6HPO [facility] Last Admin: 06/06/16 12:57 Dose: 500,000 units Oxycodone HCl (Roxicodone -) 10 mg PO Q4H PRN PRN Reason: PAIN Last Admin: 05/31/16 14:45 Dose: 10 mg Pantoprazole Sodium (Protonix -) 40 mg PO DAILY [facility] Last Admin: 06/06/16 10:01 Dose: 40 mg Prasugrel (Effient -) 5 mg PO DAILY [facility] Last Admin: 06/06/16 10:02 Dose: 5 mg Tiotropium [place] (Spiriva -) 1 puff IH DAILY [facility] Last Admin: 06/06/16 10:02 Dose: 1 puff Trimethoprim/Sulfamethoxazole (Bactrim Ds -) 1 each PO MoWeFr@1000 [facility] Last Admin: 06/06/16 10:02 Dose: 1 each - Objective Vital Signs: Vital Signs Temperature 98.6 F 06/06/16 10:00 Pulse Rate 120 H 06/06/16 10:00 Respiratory Rate 20 06/06/16 10:00 Blood Pressure 111/54 06/06/16 10:00 O2 Sat by Pulse Oximetry (%) 97 06/06/16 10:00 Eyes: Yes: WNL, Conjunctiva Clear, EOM Intact HENT: Yes: WNL, Atraumatic, Normocephalic Neck: Yes: WNL, Supple, Trachea Midline Cardiovascular: Yes: WNL, Regular Rate and Rhythm Respiratory: Yes: WNL, Regular, CTA Bilaterally Gastrointestinal: Yes: WNL, Normal Bowel Sounds Genitourinary: Yes: WNL Musculoskeletal: Yes: WNL Extremities: Yes: WNL Edema: Yes Edema: LLE: 1+, RLE: 1+ Integumentary: Yes: WNL Neurological: Yes: WNL, Alert, Oriented ...Motor Strength: WNL Psychiatric: Yes: WNL Labs: CBC, BMP 06/06/16 05:35 06/04/16 06:00 INR, PTT INR 1.18 (0.82-1.09) H 06/03/16 05:35 Assessment/Plan - Problems (1) Acute on chronic respiratory failure with hypoxemia Code(s): J96.21 - ACUTE AND CHRONIC RESPIRATORY FAILURE WITH HYPOXIA (2) Interstitial lung disease Assessment/Plan: Pulmonary f/u noted. On O2 continually; on bronchodilators; steroids being tapered. Code(s): J84.9 - INTERSTITIAL PULMONARY DISEASE, UNSPECIFIED (3) Atrial fibrillation with RVR Assessment/Plan: Continue metoprolol ER and diltiazem CD; HR generally better-controlled, though pt's weakened state and advanced lung disease contribute to AF with RVR on even minimal exertion. Off warfarin (INR was >3; + psoas muscle hematoma). Restart when and if deemed safe to do so; keep INR in low 2s. Presently on antiplatet Rx (Effient + ASA) for coronary stents. Code(s): I48.91 - UNSPECIFIED ATRIAL FIBRILLATION (4) CAD (coronary artery disease) Code(s): I25.10 - ATHSCL HEART DISEASE OF [place] CORONARY ARTERY W/O ANG PCTRS (6) Acute on chronic diastolic CHF (congestive heart failure) Code(s): I50.33 - ACUTE ON CHRONIC DIASTOLIC (CONGESTIVE) HEART FAILURE (7) Acute right flank pain Code(s): R10.9 - UNSPECIFIED ABDOMINAL PAIN
--- NOTE | 2016-06-06 14:27 | PN ---
Progress Note, Physician Chief Complaint: Mr Yadav is improving but still with some shortness of breath. No chest pain or nausea/vomiting. Weakness improved. - Current Medication List Current Medications: Active Medications Acetaminophen (Tylenol -) 650 mg PO Q4H PRN PRN Reason: FEVER OR PAIN Last Admin: 05/31/16 05:29 Dose: 650 mg Albuterol Sulfate (Ventolin 0.083% Nebulizer Soln -) 1 amp NEB Q4H PRN PRN Reason: SHORT OF BREATH/WHEEZING Last Admin: 06/06/16 10:00 Dose: 1 amp Aspirin (Ecotrin -) 81 mg PO DAILY [facility] Last Admin: 06/06/16 10:01 Dose: 81 mg Atorvastatin Calcium (Lipitor -) 40 mg PO [facility] Last Admin: 06/05/16 21:23 Dose: 40 mg Diltiazem HCl (Cardizem Injection -) 10 mg IVPUSH Q4H PRN PRN Reason: TACHYCARDIA Diltiazem HCl (Cardizem -) 60 mg PO Q6HPO [facility] Last Admin: 06/06/16 12:57 Dose: 60 mg Loperamide HCl (Imodium -) 2 mg PO Q8H PRN PRN Reason: DIARRHEA Methylprednisolone Sodium Succinate (Solu-Medrol -) 30 mg IVPB BID [facility] Last Admin: 06/06/16 10:01 Dose: 30 mg Metoprolol Succinate (Toprol Xl -) 100 mg PO DAILY [facility] Last Admin: 06/06/16 10:01 Dose: 100 mg Montelukast Sodium (Singulair -) 15 mg PO [facility] Last Admin: 06/05/16 21:23 Dose: 15 mg Morphine Sulfate (Morphine Injection -) 1 mg IVPUSH Q4H PRN PRN Reason: PAIN Last Admin: 06/03/16 03:32 Dose: 1 mg Mycophenolate Mofetil (Cellcept -) 500 mg PO BID [facility] Last Admin: 06/06/16 10:02 Dose: 500 mg Nystatin (Nystatin Oral Suspension -) 500,000 units PO Q6HPO [facility] Last Admin: 06/06/16 12:57 Dose: 500,000 units Oxycodone HCl (Roxicodone -) 10 mg PO Q4H PRN PRN Reason: PAIN Last Admin: 05/31/16 14:45 Dose: 10 mg Pantoprazole Sodium (Protonix -) 40 mg PO DAILY [facility] Last Admin: 06/06/16 10:01 Dose: 40 mg Prasugrel (Effient -) 5 mg PO DAILY [facility] Last Admin: 06/06/16 10:02 Dose: 5 mg Tiotropium [place] (Spiriva -) 1 puff IH DAILY [facility] Last Admin: 06/06/16 10:02 Dose: 1 puff Trimethoprim/Sulfamethoxazole (Bactrim Ds -) 1 each PO MoWeFr@1000 [facility] Last Admin: 06/06/16 10:02 Dose: 1 each - Objective Vital Signs: Vital Signs Temperature 98.6 F 06/06/16 10:00 Pulse Rate 120 H 06/06/16 10:00 Respiratory Rate 20 06/06/16 10:00 Blood Pressure 111/54 06/06/16 10:00 O2 Sat by Pulse Oximetry (%) 97 06/06/16 10:00 Constitutional: Yes: Well Nourished, No Distress, Calm Cardiovascular: Yes: Regular Rate and Rhythm. No: Gallop, Murmur, Rub Respiratory: Yes: Regular, On Nasal O2, Rhonchi, Wheezes Gastrointestinal: Yes: Normal Bowel Sounds, Soft. No: Distention, Tenderness Extremities: Yes: WNL Edema: Yes Edema: LLE: 1+, RLE: 1+ Labs: CBC, BMP 06/06/16 05:35 06/04/16 06:00 INR, PTT INR 1.18 (0.82-1.09) H 06/03/16 05:35 Problem List - Problems (1) Psoas hematoma, right, secondary to anticoagulant therapy Code(s): S30.1XXA - CONTUSION OF ABDOMINAL WALL, INITIAL ENCOUNTER (2) Anemia Code(s): D64.9 - ANEMIA, UNSPECIFIED (3) Atrial fibrillation Code(s): I48.91 - UNSPECIFIED ATRIAL FIBRILLATION Qualifiers: Atrial fibrillation type: chronic Qualified Code(s): I48.2 - Chronic atrial fibrillation (4) Interstitial lung disease Code(s): J84.9 - INTERSTITIAL PULMONARY DISEASE, UNSPECIFIED (5) Acute on chronic respiratory failure with hypoxemia Code(s): J96.21 - ACUTE AND CHRONIC RESPIRATORY FAILURE WITH HYPOXIA Assessment/Plan (1) Psoas hematoma -INR reversed -abdominal pain resolved -holding coumadin currently (2) Anemia -secondary to acute blood loss -transfused 2 units -stable (3) Pneumonia Assessment/Plan: -continue bactrim for PCP PPx -off antibiotics Code(s): J18.9 - PNEUMONIA, UNSPECIFIED ORGANISM Qualifiers: Pneumonia type: due to unspecified organism Laterality: unspecified laterality Lung location: unspecified part of lung Qualified Code(s): J18.9 - Pneumonia, unspecified organism (4) Atrial fibrillation Assessment/Plan: -rate controlled -holding coumadin secondary to hematoma Code(s): I48.91 - UNSPECIFIED ATRIAL FIBRILLATION Qualifiers: Atrial fibrillation type: chronic Qualified Code(s): I48.2 - Chronic atrial fibrillation (5) Interstitial lung disease Assessment/Plan: -stable -continue treatment per pulmonary Code(s): J84.9 - INTERSTITIAL PULMONARY DISEASE, UNSPECIFIED (6) Acute on chronic respiratory failure with hypoxemia Assessment/Plan: -secondary to pneumonia and ILD -continue current management Code(s): J96.21 - ACUTE AND CHRONIC RESPIRATORY FAILURE WITH HYPOXIA
[2016-06-06] MEDS: LOPERAMIDE HCL 2 MG CAPSULE PO PRN ×2 (15:43→22:32)
[2016-06-06] MEDS: MONTELUKAST NA 10 MG TABLET PO SCH (22:23)
[2016-06-06] MEDS: ATORVASTATIN CA 40 MG TABLET (FP) PO SCH (22:23)
[2016-06-07] MEDS: NYSTATIN 500,000 UNITS/5 ML SUSPENSION PO SCH ×2 (06:42→11:05)
[2016-06-07] MEDS: dilTIAZem HCL 60 MG TABLET (FP) PO SCH ×2 (06:42→11:05)
[2016-06-07 08:25] LABS: BASOPHIL 0.2 % (0-2.0); MCH 29.3 pg (25.7-33.7); MCHC 32.6 g/dl (32.0-35.9); MEAN CELL VOLUME 89.7 fl (80-96); NEUTROPHILS 97.8 % (42.8-82.8); PLATELET COUNT 99 K/MM3 (134-434); RDW 17.4 % (11.9-15.9); WHITE BLOOD COUNT 18.7 K/mm3 (4.0-10.0)
[2016-06-07 08:41] LABS: CALCIUM 8.1 mg/dL (8.5-10.1)
[2016-06-07 08:44] LABS: CREATININE 0.6 mg/dL (0.7-1.3); MAGNESIUM 2.2 mg/dL (1.8-2.4); PHOSPHOROUS 2.7 mg/dL (2.5-4.9)
[2016-06-07 10:45] VITALS: PULSE 109
[2016-06-07] MEDS: MYCOPHENOLATE MOFETIL 500 MG TABLET PO SCH (11:05)
[2016-06-07] MEDS: METOPROLOL SUCCINATE 100 MG TAB.SR.24H (FP) PO SCH (11:05)
[2016-06-07] MEDS: ASPIRIN COATED 81 MG TABLET.EC PO SCH (11:05)
[2016-06-07] MEDS: PRASUGREL HCL 5 MG TAB PO SCH (11:05)
[2016-06-07] MEDS: PANTOPRAZOLE 40 MG TABLET (FP) PO SCH (11:05)
[2016-06-07] MEDS: methylPREDNISolone NA SUCC 40 MG/1 ML VIAL IVPB SCH (11:05)
[2016-06-07] MEDS: TIOTROPIUM BROMIDE 18 MCG/INH (DEVICE W/ 5 CAPSULES) IH SCH (11:06)
--- NOTE | 2016-06-07 13:08 | PN ---
[id number] chest pain or dyspnea (but noted dsypneic with minimal exertion : chronic) History of Present Illness: The patient is a 71 year old white male with a past medical hx of HTN, afib, severe interstitial lung disease (ILD) (followed by Dr. Brooks), CAD-->three cardiac stents in 2016, diastolic CHF, who presents to the ED complaining of shortness of breath for one week. The patient reports his shortness of breath progressively worsened over the weekend. He states his PCP increased his Prednisone, but he is still feeling short of breath. The patient reports he is oxygen dependent at home. The patient denies chest pain The patient denies fever, chills The patient denies nausea, vomiting, diarrhea Allergies: NKDA Social: Former smoker Surgical: Appendectomy, Cardiac: 3 stents PCP: Dr. Karla Osborne [facility] Picker: Dr. Anabela Auguste Pulmonologis: Dr. Bella Brooks - Current Medication List Current Medications: Active Medications Acetaminophen (Tylenol -) 650 mg PO Q4H PRN PRN Reason: FEVER OR PAIN Last Admin: 05/31/16 05:29 Dose: 650 mg Albuterol Sulfate (Ventolin 0.083% Nebulizer Soln -) 1 amp NEB Q4H PRN PRN Reason: SHORT OF BREATH/WHEEZING Last Admin: 06/06/16 10:00 Dose: 1 amp Aspirin (Ecotrin -) 81 mg PO DAILY [facility] Last Admin: 06/07/16 11:05 Dose: 81 mg Atorvastatin Calcium (Lipitor -) 40 mg PO HS [facility] Last Admin: 06/06/16 22:23 Dose: 40 mg Diltiazem HCl (Cardizem Injection -) 10 mg IVPUSH Q4H PRN PRN Reason: TACHYCARDIA Diltiazem HCl (Cardizem -) 60 mg PO Q6HPO [facility] Last Admin: 06/07/16 11:05 Dose: 60 mg Loperamide HCl (Imodium -) 2 mg PO Q8H PRN PRN Reason: DIARRHEA Last Admin: 06/06/16 22:32 Dose: 2 mg Methylprednisolone Sodium Succinate (Solu-Medrol -) 30 mg IVPB BID [facility] Last Admin: 06/07/16 11:05 Dose: 30 mg Metoprolol Succinate (Toprol Xl -) 100 mg PO DAILY [facility] Last Admin: 06/07/16 11:05 Dose: 100 mg Montelukast Sodium (Singulair -) 15 mg PO HS [facility] Last Admin: 06/06/16 22:23 Dose: 15 mg Morphine Sulfate (Morphine Injection -) 1 mg IVPUSH Q4H PRN PRN Reason: PAIN Last Admin: 06/03/16 03:32 Dose: 1 mg Mycophenolate Mofetil (Cellcept -) 500 mg PO BID [facility] Last Admin: 06/07/16 11:05 Dose: 500 mg Nystatin (Nystatin Oral Suspension -) 500,000 units PO Q6HPO [facility] Last Admin: 06/07/16 11:05 Dose: 500,000 units Oxycodone HCl (Roxicodone -) 10 mg PO Q4H PRN PRN Reason: PAIN Last Admin: 05/31/16 14:45 Dose: 10 mg Pantoprazole Sodium (Protonix -) 40 mg PO DAILY [facility] Last Admin: 06/07/16 11:05 Dose: 40 mg Prasugrel (Effient -) 5 mg PO DAILY [facility] Last Admin: 06/07/16 11:05 Dose: 5 mg Prednisone (Deltasone -) 25 mg PO BID [facility] Tiotropium [place] (Spiriva -) 1 puff IH DAILY [facility] Last Admin: 06/07/16 11:06 Dose: 1 puff Trimethoprim/Sulfamethoxazole (Bactrim Ds -) 1 each PO MoWeFr@1000 [facility] Last Admin: 06/06/16 10:02 Dose: 1 each Warfarin Sodium (Coumadin -) 2 mg PO DAILY@1800 [facility] - Objective Vital Signs: Vital Signs Temperature 98.1 F 06/07/16 08:59 Pulse Rate 109 H 06/07/16 10:34 Respiratory Rate 20 06/07/16 08:59 Blood Pressure 113/67 06/07/16 08:59 O2 Sat by Pulse Oximetry (%) 95 06/07/16 10:34 Constitutional: Yes: Anxious, Moderate Distress Eyes: Yes: WNL HENT: Yes: WNL Neck: Yes: WNL Cardiovascular: Yes: Tachycardia, S1, S2 Respiratory: Yes: Diminished, SOB, Tachypnea Gastrointestinal: Yes: Soft ...Rectal Exam: Yes: Deferred Genitourinary: No: Anuria Breast(s): Yes: WNL Musculoskeletal: Yes: Muscle Weakness Extremities: Yes: Cool Edema: Yes Edema: LLE: Trace, RLE: Trace Peripheral Pulses WNL: No Peripheral Pulses: Left Doralis Pedis: 1+, Right Dorsalis Pedis: 1+ Integumentary: Yes: Venous Stasis Changes Neurological: Yes: Alert, Oriented, Weakness Psychiatric: Yes: Other (anxiety/depression) Labs: CBC, BMP 06/07/16 05:45 06/07/16 05:45 INR, PTT INR 1.18 (0.82-1.09) H 06/03/16 05:35 Problem List - Problems (1) Acute on chronic respiratory failure with hypoxemia Code(s): J96.21 - ACUTE AND CHRONIC RESPIRATORY FAILURE WITH HYPOXIA (2) Interstitial lung disease Assessment/Plan: Pulmonary f/u noted. On O2 continually; on bronchodilators; steroids being tapered. Poor prognosis Code(s): J84.9 - INTERSTITIAL PULMONARY DISEASE, UNSPECIFIED (3) Atrial fibrillation with RVR Assessment/Plan: Continue metoprolol ER and diltiazem CD; HR generally better-controlled, though pt's weakened state and advanced lung disease contribute to AF with RVR on even minimal exertion. As discussed with Dr. Snider, will restart warfarin; it is important to keep INR in low 2s.(recent psoas muscle hematoma; pt's INR was nearly 4 at the time) Presently on antiplatet Rx (Effient + ASA) for coronary stents. Code(s): I48.91 - UNSPECIFIED ATRIAL FIBRILLATION (4) CAD (coronary artery disease) Assessment/Plan: On Effient and ASA. Continue metoprolol ER. Code(s): I25.10 - ATHSCL HEART DISEASE OF [place] CORONARY ARTERY W/O ANG PCTRS (6) Acute on chronic diastolic CHF (congestive heart failure) Assessment/Plan: ECHO: normal LVEF; mildly reduced RVEF; septal flattening (evidence of RV overload); moderate MR and TR (with mild-moderate pulmonary HTN); mild AR. Continue metoprolol; restart lisinopril if renal function allows; f/u BUN/Cr and electrolytes; Is and Os; daily weight.On diltiazem. Furosemide held due to rising BUN/Cr; restart if necessary. Code(s): I50.33 - ACUTE ON CHRONIC DIASTOLIC (CONGESTIVE) HEART FAILURE (7) Acute right flank pain Assessment/Plan: marked increase in WBCs and INR; For CT scan. Ruling out colitis; r/o bleed. Code(s): R10.9 - UNSPECIFIED ABDOMINAL PAIN
[2016-06-07] MEDS ORDERED: LOPERAMIDE HCL 2 MG CAPSULE PO PRN (13:21)
--- NOTE | 2016-06-07 13:39 | DS ---
Physical Examination Vital Signs: Vital Signs Temperature 98.1 F 06/07/16 08:59 Pulse Rate 109 H 06/07/16 10:34 Respiratory Rate 20 06/07/16 08:59 Blood Pressure 113/67 06/07/16 08:59 O2 Sat by Pulse Oximetry (%) 95 06/07/16 10:34 Constitutional: Yes: Calm Eyes: Yes: Conjunctiva Clear Cardiovascular: Yes: Pulse Irregular Respiratory: Yes: Diminished Gastrointestinal: Yes: Soft. No: Distention Edema: LLE: Trace, RLE: Trace Integumentary: Yes: Other (multiple ecchymoses resolving.) Neurological: Yes: Alert, Oriented Labs: CBC, BMP 06/07/16 05:45 06/07/16 05:45 Discharge Summary Reason For Visit: ATRIAL FIBRILLATION; COPD; CHF Current Active Problems Acute on chronic combined systolic and diastolic CHF (congestive heart failure) (Acute) Acute on chronic diastolic CHF (congestive heart failure) (Acute) Acute on chronic respiratory failure with hypoxemia (Acute) Acute right flank pain (Acute) Anemia (Acute) Atrial fibrillation (Acute) Critical illness neuropathy (Acute) Hyperglycemia (Acute) Interstitial lung disease (Acute) Pedal edema (Acute) Psoas hematoma, left, secondary to anticoagulant therapy (Acute) Psoas hematoma, right, secondary to anticoagulant therapy (Acute) The administrative codes within the [employer] content you are accessing may have as of 01/23/2016. Please contact your IT Dept/Help Desk and request the latest Regulatory release be installed. IT Dept/Help Desk- Please refer to our FAQ page ([email or web address] or contact [employer] Customer Support at [email or web address] (Acute) Procedures: Principal: Multiple cardiac and pulmonary testing including iV Steroids. Other Procedures: Daily lab test; multiple Xrays and Cultures; Pulmonary, ID and Cardiology MD's. Hospital Course: Very slow progress with myopathy and ? Neuropathy requiring Rehab. Condition: Guarded - Instructions Diet, Activity, Other Instructions: No added sugar or concentrated sweets. Nasal O2 4L/Min INR Daily ;Coumadin just restarted; please keep just above INR of 2. PT and OT will be needed. Please do a CBC and BASIC Profile 2X a week. Referrals: Branden Brooks MD [Staff Physician] - Karla Osborne MD [Primary Care Provider] - Disposition: [facility] - Home Medications Comprehensive Discharge Medication List: Ambulatory Orders Aspirin [ASA -] 81 mg PO DAILY 02/04/16 Atorvastatin Ca [Lipitor] 40 mg PO HS 02/04/16 Montelukast Na [Singulair -] 15 mg PO HS 02/04/16 Pantoprazole Sodium [Protonix] 40 mg PO DAILY 02/04/16 Prasugrel HCl [Effient] 5 mg PO DAILY 02/04/16 Mycophenolate Mofetil [Cellcept] 500 mg PO BID 05/19/16 Acetaminophen [Tylenol .Regular Strength -] 650 mg PO Q4H PRN #0 tablet Albuterol 0.083% Nebulizer [place] [Ventolin 0.083% Nebulizer Soln -] 1 amp NEB Q4H PRN #0 amp 06/07/16 Diltiazem [Cardizem -] 60 mg PO Q6HPO tablet 06/07/16 Loperamide HCl [Imodium -] 2 mg PO Q8H PRN #0 capsule 06/07/16 Metoprolol Succinate [Toprol XL -] 100 mg PO DAILY tab.sr.24h 06/07/16 Nystatin Oral Suspension - [Nystatin Oral Susp 834062 Units/5 ML -] 500,000 units PO Q6HPO cup 06/07/16 Oxycodone HCl [Roxicodone -] 10 mg PO Q4H PRN #0 tablet MDD 4 06/07/16 Prednisone [Deltasone -] 25 mg PO BID tablet 06/07/16 Tiotropium [place] [Spiriva] 1 puff IH DAILY inh 06/07/16 Warfarin Na [Coumadin -] 2 mg PO DAILY@1800 tablet 06/07/16
--- NOTE | 2016-06-07 14:29 | PN ---
Progress Note (short form) - Note Progress Note: No acute events overnight. No CP or SOB. (+) LBM Intake & Output 06/04/16 06/05/16 06/06/16 06/07/16 23:59 23:59 23:59 23:59 Intake Total 180 1050 260 350 Output Total 1300 Balance 180 -250 260 350 Weight 177 lb 179 lb 6 oz Last Vital Signs Temp Pulse Resp BP Pulse Ox 98.1 F 109 H 20 113/67 95 06/07/16 08:59 06/07/16 10:34 06/07/16 08:59 06/07/16 08:59 06/07/16 10:34 Active Medications Acetaminophen (Tylenol -) 650 mg PO Q4H PRN PRN Reason: FEVER OR PAIN Last Admin: 05/31/16 05:29 Dose: 650 mg Albuterol Sulfate (Ventolin 0.083% Nebulizer Soln -) 1 amp NEB Q4H PRN PRN Reason: SHORT OF BREATH/WHEEZING Last Admin: 06/06/16 10:00 Dose: 1 amp Aspirin (Ecotrin -) 81 mg PO DAILY [facility] Last Admin: 06/07/16 11:05 Dose: 81 mg Atorvastatin Calcium (Lipitor -) 40 mg PO HS [facility] Last Admin: 06/06/16 22:23 Dose: 40 mg Diltiazem HCl (Cardizem Injection -) 10 mg IVPUSH Q4H PRN PRN Reason: TACHYCARDIA Diltiazem HCl (Cardizem -) 60 mg PO Q6HPO [facility] Last Admin: 06/07/16 11:05 Dose: 60 mg Loperamide HCl (Imodium -) 2 mg PO Q8H PRN PRN Reason: DIARRHEA Methylprednisolone Sodium Succinate (Solu-Medrol -) 30 mg IVPB BID [facility] Last Admin: 06/07/16 11:05 Dose: 30 mg Metoprolol Succinate (Toprol Xl -) 100 mg PO DAILY [facility] Last Admin: 06/07/16 11:05 Dose: 100 mg Montelukast Sodium (Singulair -) 15 mg PO HS [facility] Last Admin: 06/06/16 22:23 Dose: 15 mg Morphine Sulfate (Morphine Injection -) 1 mg IVPUSH Q4H PRN PRN Reason: PAIN Last Admin: 06/03/16 03:32 Dose: 1 mg Mycophenolate Mofetil (Cellcept -) 500 mg PO BID [facility] Last Admin: 06/07/16 11:05 Dose: 500 mg Nystatin (Nystatin Oral Suspension -) 500,000 units PO Q6HPO [facility] Last Admin: 06/07/16 11:05 Dose: 500,000 units Oxycodone HCl (Roxicodone -) 10 mg PO Q4H PRN PRN Reason: PAIN Last Admin: 05/31/16 14:45 Dose: 10 mg Pantoprazole Sodium (Protonix -) 40 mg PO DAILY [facility] Last Admin: 06/07/16 11:05 Dose: 40 mg Prasugrel (Effient -) 5 mg PO DAILY [facility] Last Admin: 06/07/16 11:05 Dose: 5 mg Prednisone (Deltasone -) 25 mg PO BID [facility] Tiotropium [place] (Spiriva -) 1 puff IH DAILY [facility] Last Admin: 06/07/16 11:06 Dose: 1 puff Warfarin Sodium (Coumadin -) 2 mg PO DAILY@1800 [facility] Constitutional: Yes: NAD Eyes: Yes: WNL HENT: Yes: WNL Neck: Yes: WNL Cardiovascular: Yes: Pulse Irregular, S1, S2 Respiratory: Yes: Scattered bilateral rhonchi Gastrointestinal: Yes: Normal Bowel Sounds, Soft Extremities: Yes: WNL Edema: Yes Labs: Laboratory Results - last 24 hr 06/07/16 06/07/16 05:45 05:45 WBC 18.7 H RBC 3.36 L Hgb 9.8 L Hct 30.2 L MCV 89.7 MCHC 32.6 RDW 17.4 H Plt Count 99 L MPV 8.0 Neutrophils % 97.8 H Lymphocytes % 1.0 L D Monocytes % 1.0 L Eosinophils % 0.0 Basophils % 0.2 D Sodium 139 Potassium 4.5 Chloride 102 Carbon Dioxide 29 Anion Gap 8 BUN 31 H Creatinine 0.6 L Random Glucose 198 H Calcium 8.1 L Phosphorus 2.7 Magnesium 2.2 Problem List - Problems (1) Atrial fibrillation Code(s): I48.91 - UNSPECIFIED ATRIAL FIBRILLATION Qualifiers: Atrial fibrillation type: chronic Qualified Code(s): I48.2 - Chronic atrial fibrillation (2) Interstitial lung disease Code(s): J84.9 - INTERSTITIAL PULMONARY DISEASE, UNSPECIFIED (3) Atrial fibrillation with RVR Code(s): I48.91 - UNSPECIFIED ATRIAL FIBRILLATION (4) CAD (coronary artery disease) Code(s): I25.10 - ATHSCL HEART DISEASE OF [place] CORONARY ARTERY W/O ANG PCTRS (5) CHF (congestive heart failure) Code(s): I50.9 - HEART FAILURE, UNSPECIFIED Qualifiers: Congestive heart failure type: unspecified congestive heart failure type Congestive heart failure chronicity: acute Qualified Code(s): I50.9 - Heart failure, unspecified (6) Dyspnea Code(s): R06.00 - DYSPNEA, UNSPECIFIED (7) NSTEMI (non-ST elevated myocardial infarction) Code(s): I21.4 - NON-ST ELEVATION (NSTEMI) MYOCARDIAL INFARCTION (8) Acute on chronic respiratory failure with hypoxemia Code(s): J96.21 - ACUTE AND CHRONIC RESPIRATORY FAILURE WITH HYPOXIA Assessment/Plan ACUTE ON CHRONIC HYPOXEMIC RESPIRATORY FAILURE CLINICALLY IMPROVED ADVANCED INTERSTITIAL LUNG DISEASE/PULMONARY FIBROSIS O2 DEPENDENT URI ASHD S/P MA,S/P STENTS X 3 AFIB CHF HTN RIGHT PSOAS HEMATOMA PLAN PREDNISONE INHALED BRONCHODILATORS O2 BACTRIM DS CELLCEPT PAIN MEDS NO PULMONARY CONTRAINDICATION FOR DISCHARGE TO REHAB DR ZIEGLER
[2016-06-07 15:59] VITALS: BP 107/72; TEMP 97.8
[2016-06-07] MEDS ORDERED: WARFARIN NA 2 MG TABLET (UD) PO SCH (18:00)
[2016-06-07] MEDS ORDERED: predniSONE 10 MG TABLET (UD) PO SCH (22:00)
[2016-06-07] MEDS ORDERED: predniSONE 20 MG TABLET (UD) PO SCH (22:00)
== END 2016-06-07 17:05 | DRG 193 ==
LOC: JER 14:13 → JERBED 18:41 → UNDOADMIN 18:41 → JERBED 19:40 → J4S 20:25 → JICU 05-23 15:52 → J4W 05-26 16:38
PROVIDERS: ADMIT Internal Medicine; ATTEND Internal Medicine
PROC: 30233N1 Transfusion of Nonautologous Red Blood Cells into Peripheral Vein, Percutaneous Approach (ICD-10-PCS; principal; 2016-06-02)
DX: J18.9 Pneumonia, unspecified organism (principal); J96.21 Acute and chronic respiratory failure with hypoxia; I50.33 Acute on chronic diastolic (congestive) heart failure; J84.9 Interstitial pulmonary disease, unspecified; D68.32 Hemorrhagic disorder due to extrinsic circulating anticoagulants; D62 Acute posthemorrhagic anemia; G62.81 Critical illness polyneuropathy; I10 Essential (primary) hypertension; I25.10 Atherosclerotic heart disease of native coronary artery without angina pectoris; I25.2 Old myocardial infarction; J06.9 Acute upper respiratory infection, unspecified; J84.10 Pulmonary fibrosis, unspecified; F41.8 Other specified anxiety disorders; I48.2 Chronic atrial fibrillation; D89.9 Disorder involving the immune mechanism, unspecified; I11.0 Hypertensive heart disease with heart failure; I27.2 Other secondary pulmonary hypertension; A08.8 Other specified intestinal infections; S30.1XXA Contusion of abdominal wall, initial encounter; Y92.89 Other specified places as the place of occurrence of the external cause; Y99.8 Other external cause status; R73.9 Hyperglycemia, unspecified; H11.32 Conjunctival hemorrhage, left eye; X58.XXXA Exposure to other specified factors, initial encounter; Y93.89 Activity, other specified; Z99.81 Dependence on supplemental oxygen; Z87.891 Personal history of nicotine dependence; Z95.5 Presence of coronary angioplasty implant and graft; Z79.52 Long term (current) use of systemic steroids
CPT/HCPCS: 36415; 36430; 36600; 71010-TC; 71250-TC; 73552-TC-RT; 74176-TC; 80048; 80053; 81003; 81015; 82272; 82375; 82550; 82803; 83036; 83050; 83615; 83735; 83880; 84100; 84439; 84484; 85025; 85379; 85610; 86140; 86480; 86850; 86900; 86901; 86922; 87040; 87070; 87077; 87107; 87116; 87205; 87206; 87254; 87324; 87449; 87804; 87899; 93005; 93010; 93306-TC; 94640; 97116-GP; 97161-GP; 99285-25; J7517; P9038; P9058

== ENCOUNTER 2016-06-23 19:43 | Inpatient (IN) | payer OTHER, MEDICARE ==
--- NOTE | 2016-06-23 20:37 | PDOC ---
[id number] No Limitations - History of Present Illness Initial Comments: 06/23/16 21:36 71 year old male with past medical history of hypertension, atrial fibrillation , interstitial lung disease, coronary disease status post stents, congestive heart failure presents from [facility] for increasing shortness of breath and difficulty breathing. Patient reports a chronic cough that has slightly worsened but denies phlegm production. Denies fevers or chills. He does take CellCept and 25 mg prednisone daily. He has become increasingly more short of breath. He also reported a mild right-sided chest pain that now resolved. <Tahir Torres - Last Filed: 06/23/16 23:35> - General History Source: Patient, Family, Old Records Exam Limitations: No Limitations <Win Paez - Last Filed: 06/28/16 09:31> - General Chief Complaint: Shortness of Breath Stated Complaint: DIFFICULTY BREATHING Time Seen by Provider: 06/23/16 19:47 Past History <Tahir Torres - Last Filed: 06/23/16 23:35> - Past Medical History Cardiac Disorders: Yes (NSTEMI, afib) COPD: Yes HTN: Yes Hypercholesterolemia: Yes - Surgical History Appendectomy: Yes Cardiac Surgery: Yes (3 STENTS PLACED) - Immunization History Immunization Up to Date: Yes - Psycho/Social/Smoking Cessation Hx Anxiety: No Suicidal Ideation: No Smoking History: Former smoker Have you smoked in the past 12 months: No If you are a former smoker, when did you quit?: 30 yrs ago, after 10 pack-year hx Information on smoking cessation initiated: No Hx Alcohol Use: No Drug/Substance Use Hx: No Substance Use Type: None Hx Substance Use Treatment: No <Win Paez - Last Filed: 06/28/16 09:31> - Past Medical History Allergies/Adverse Reactions: Allergies Allergy/AdvReac Type Severity Reaction Status Date / Time No Known Allergies Allergy Verified 06/23/16 20:15 Home Medications: Ambulatory Orders Aspirin [ASA -] 81 mg PO DAILY 02/04/16 Atorvastatin Ca [Lipitor] 40 mg PO HS 02/04/16 Montelukast Na [Singulair -] 15 mg PO HS 02/04/16 Pantoprazole Sodium [Protonix] 40 mg PO DAILY 02/04/16 Prasugrel HCl [Effient] 5 mg PO DAILY 02/04/16 Mycophenolate Mofetil [Cellcept] 500 mg PO BID 05/19/16 Acetaminophen [Tylenol .Regular Strength -] 650 mg PO Q4H PRN #0 tablet Albuterol 0.083% Nebulizer Bailey [Ventolin 0.083% Nebulizer Soln -] 1 amp NEB Q4H PRN #0 amp 06/07/16 Diltiazem [Cardizem -] 60 mg PO Q6HPO tablet 06/07/16 Loperamide HCl [Imodium -] 2 mg PO Q8H PRN #0 capsule 06/07/16 Metoprolol Succinate [Toprol XL -] 100 mg PO DAILY tab.sr.24h 06/07/16 Nystatin Oral Suspension - [Nystatin Oral Susp 596888 Units/5 ML -] 500,000 units PO Q6HPO cup 06/07/16 Oxycodone HCl [Roxicodone -] 10 mg PO Q4H PRN #0 tablet MDD 4 06/07/16 Prednisone [Deltasone -] 25 mg PO BID tablet 06/07/16 Tiotropium [place] [Spiriva] 1 puff IH DAILY inh 06/07/16 Warfarin Na [Coumadin -] 2 mg PO DAILY@1800 tablet 06/07/16 Review of Systems - Review of Systems Able to Perform ROS?: Yes Comments:: 06/23/16 21:46 GENERAL/CONSTITUTIONAL: No fever or chills. No weakness. HEAD, EYES, EARS, NOSE AND THROAT: No change in vision. No ear pain or discharge. No sore throat. CARDIOVASCULAR: (+) chest pain. shortness of breath. RESPIRATORY: (+) cough, wheezing, or hemoptysis, difficulty breathing GASTROINTESTINAL: No nausea, vomiting, diarrhea or constipation. GENITOURINARY: No dysuria, frequency, or change in urination. MUSCULOSKELETAL: No joint or muscle swelling or pain. No neck or back pain. SKIN: No rash NEUROLOGIC: No headache, vertigo, loss of consciousness, or change in strength/ sensation. ENDOCRINE: No increased thirst. No abnormal weight change. HEMATOLOGIC/LYMPHATIC: No anemia, easy bleeding, or history of blood clots. ALLERGIC/IMMUNOLOGIC: No hives or skin allergy. <Tahir Torres - Last Filed: 06/23/16 23:35> *Physical Exam - Vital Signs Last Vital Signs Temp Pulse Resp BP Pulse Ox 99.1 F 121 H 28 H 131/75 92 L 06/23/16 21:20 06/23/16 21:20 06/23/16 21:20 06/23/16 21:20 06/23/16 21:20 - Physical Exam Comments: 06/23/16 21:46 GENERAL: Awake, alert, and fully oriented, in no acute distress HEAD: No signs of trauma EYES: PERRLA, EOMI, sclera anicteric, conjunctiva clear ENT: Auricles normal inspection, hearing grossly normal, nares patent, oropharynx clear without exudates. Moist mucosa NECK: Normal ROM, supple, no lymphadenopathy, JVD, or masses LUNGS: (+) Rales bilaterally longterm up, typicnea HEART: Regular rate and rhythm, normal S1 and S2, no murmurs, rubs or gallops ABDOMEN: Soft, nontender, normoactive bowel sounds. No guarding, no rebound. No masses EXTREMITIES: No pitting edema. Normal range of motion. No clubbing or cyanosis. No cords, erythema, or tenderness NEUROLOGICAL: Cranial nerves II through XII grossly intact. Normal speech, normal gait SKIN: Warm, Dry, normal turgor, no rashes or lesions noted. <Tahir Torres - Last Filed: 06/23/16 23:35> - Vital Signs Last Vital Signs Temp Pulse Resp BP Pulse Ox 126 H 25 H 109/72 91 L 06/23/16 20:05 06/23/16 20:05 06/23/16 20:05 06/23/16 20:05 <Win Paez - Last Filed: 06/28/16 09:31> Heart Score/ECG Review #1 ECG reviewed & interpreted by me at: 20:25 06/23/16 21:43 atrial fibrillation with RVR 131, _+LVH, nonspecific ST & T wave abnormality, QTC 440 msec <Win Paez - Last Filed: 06/28/16 09:31> ED Treatment Course - LABORATORY CBC & Chemistry Diagram: 06/23/16 20:40 06/23/16 20:40 - ADDITIONAL ORDERS Additional order review: Laboratory Results 06/23/16 06/23/16 20:40 20:40 INR 1.77 H D PTT (Actin FS) 28.0 Sodium 139 Potassium 4.2 Chloride 102 Carbon Dioxide 29 Anion Gap 8 BUN 22 H D Creatinine 0.5 L Creat Clearance w eGFR > 60 Random Glucose 178 H Calcium 7.4 L Phosphorus 3.0 Magnesium 1.9 Total Bilirubin 1.2 H AST 30 D ALT 58 D Alkaline Phosphatase 139 H D Creatine Kinase 39 Troponin I < 0.02 B-Natriuretic Peptide 1603.94 H Total Protein 5.4 L Albumin 2.1 L D 06/23/16 20:40 Influenza Types A,B Antigen (JESSICA) - Final Nasopharyngeal Swab - Final 06/23/16 20:40 RBC 3.22 L MCV 94.0 MCHC 33.3 RDW 24.6 H D MPV 7.2 L Neutrophils % 74.0 D Lymphocytes % 14.0 D Monocytes % 2.0 L D Eosinophils % 1.0 D - Medications Given in the ED: ED Medications Discontinued Medications Generic Name Dose Route Start Last Admin Trade Name Freq PRN Reason Stop Dose Admin Morphine Sulfate 4 mg 06/23/16 21:19 06/23/16 21:19 Morphine Injection - IVPUSH 06/23/16 21:20 4 mg NOW ONE Administration Ondansetron HCl 4 mg 06/23/16 21:19 06/23/16 21:19 Zofran Injection IVPUSH 06/23/16 21:20 4 mg NOW ONE Administration <Tahir Torres - Last Filed: 06/23/16 23:35> - LABORATORY CBC & Chemistry Diagram: 06/26/16 05:00 06/26/16 05:00 - RADIOLOGY Radiology Studies Ordered: Category Date Time Status CHEST X-RAY PORTABLE* [RAD] Stat Radiology 06/23/16 20:00 Ordered <Win Paez - Last Filed: 06/28/16 09:31> Medical Decision Making - Medical Decision Making 06/23/16 21:[address] Brooks placed. Awaiting call back. 06/23/16 21:[address] Almendarez. Awaiting call back. 06/23/16 21:45 Dr. Brooks called into emergency department, case discussed. 06/23/16 21:[address] Camilla Rose placed. Awaiting call back. 06/23/16 22:02 Dr. Mccall called in emergency department, case discussed. She would like to admit patient to private practice. 06/23/16 22:[address] Osborne placed. Awaiting call back. <Tahir Torres - Last Filed: 06/23/16 23:35> - Critical Care Time Total Critical Care Time (minutes): 45 Critical Care Statement: The care of this patient involved high complexity decision making to prevent further life threatening deterioration of the patient 's condition and/or to evalute & treat vital organ system(s) failure or risk of failure. - Medical Decision Making 06/23/16 21:32 A portion of this note was documented by scribe services under my direction. I have reviewed the details of the note, within reason, and agree with the documentation with the following case summary and management plan written by me. Patient treated in the ED. Nursing notes are reviewed and incorporated into the medical decision-making. Vital signs reviewed. Peripheral IV access obtained by the nurse, laboratory studies are drawn and sent, reviewed and interpreted by myself. Vital Signs Temp Pulse Resp BP Pulse Ox 99.1 F 121 H 28 H 131/75 92 L 06/23/16 21:20 06/23/16 21:20 06/23/16 21:20 06/23/16 21:20 06/23/16 21:20 71 year old male with past medical history of hypertension, atrial fibrillation , interstitial lung disease, coronary disease status post stents, congestive heart failure presents from [facility] for increasing shortness of breath and difficulty breathing. Patient reports a chronic cough that has slightly worsened but denies phlegm production. Denies fevers or chills. He does take CellCept and 25 mg prednisone daily. He has become increasingly more short of breath. He also reported a mild right-sided chest pain that now resolved. Differential includes exacerbation of interstitial lung disease, congestive heart failure, pneumonia. We'll obtain labs, chest x-ray, cultures. Given the respiratory distress, we'll place the patient on a BiPAP. BNP, troponin, chest x -ray pending. Will ultimately admit the patient to hospital for further management. 06/23/16 22:18 Chest xray reviewed. ILD, difficult to differentiate infiltrates or pleural effusions. CBC, BMP 06/23/16 20:40 06/23/16 20:40 CMP Sodium 139 mmol/L (136-145) 06/23/16 20:40 Potassium 4.2 mmol/L (3.5-5.1) 06/23/16 20:40 Chloride 102 mmol/L (98-107) 06/23/16 20:40 Carbon Dioxide 29 mmol/L (21-32) 06/23/16 20:40 Anion Gap 8 (8-16) 06/23/16 20:40 BUN 22 mg/dL (7-18) H D 06/23/16 20:40 Creatinine 0.5 mg/dL (0.7-1.3) L 06/23/16 20:40 Creat Clearance w eGFR > 60 (>60) 06/23/16 20:40 Random Glucose 178 mg/dL (74-106) H 06/23/16 20:40 Lactic Acid 2.192 mmol/L (0.4-2.0) H* 06/23/16 20:40 Calcium 7.4 mg/dL (8.5-10.1) L 06/23/16 20:40 Phosphorus 3.0 mg/dL (2.5-4.9) 06/23/16 20:40 Magnesium 1.9 mg/dL (1.8-2.4) 06/23/16 20:40 Total Bilirubin 1.2 mg/dL (0.2-1.0) H 06/23/16 20:40 AST 30 U/L (15-37) D 06/23/16 20:40 ALT 58 U/L (12-78) D 06/23/16 20:40 Alkaline Phosphatase 139 U/L (45-117) H D 06/23/16 20:40 Creatine Kinase 39 IU/L (39-308) 06/23/16 20:40 Troponin I < 0.02 ng/ml (0.00-0.05) 06/23/16 20:40 B-Natriuretic Peptide 1603.94 pg/ml (5-125) H 06/23/16 20:40 Total Protein 5.4 g/dl (6.4-8.2) L 06/23/16 20:40 Albumin 2.1 g/dl (3.4-5.0) L D 06/23/16 20:40 Labs reviewed. BNP 1603. Patient reports feeling much better with BiPAP. Case discussed with Dr. Brooks. Recommends I increase his steroids and start HCAP and to admit to ICU. Pt was given IV solu-medrol and vanc/zosyn/azithromycin. Pt was noted to be in afib RVR. 20 mg IV diltiazem was ordered. Case discussed with Dr. Frazier. He recommends that I initiate 20 mg IV lasix. Case discussed with ICU JOB ANALYST Wendy who accepts patient to the ICU. Case discussed with Dr. Roy. He accepts patient under Dr. Ramírez. Case discussed in detail with admitting physician including history, physical exam and ancillary studies. Admitting physician has assumed care for the patient, will follow all pending diagnostics and will complete the evaluation and treatment. <Win Paez - Last Filed: 06/28/16 09:31> *DC/Admit/Observation/Transfer - Attestations Scribe Attestion: 06/23/16 21:47 Documentation prepared by Tahir Torres, acting as biomedical specialist for Win Paez MD. <Tahir Torres - Last Filed: 06/23/16 23:35> - Discharge Dispostion Admit: Yes <Win Paez - Last Filed: 06/28/16 09:31> Diagnosis at time of Disposition: Interstitial lung disease, Acute on chronic diastolic CHF (congestive heart failure), Atrial fibrillation with RVR - Discharge Dispostion Condition at time of disposition: Guarded - Referrals
[2016-06-23 20:57] LABS: MCH 31.3 pg (25.7-33.7); MCHC 33.3 g/dl (32.0-35.9); MEAN PLT VOLUME 7.2 fl (7.5-11.1); PLATELET COUNT 162 K/MM3 (134-434); RDW 24.6 % (11.9-15.9); WHITE BLOOD COUNT 8.7 K/mm3 (4.0-10.0)
[2016-06-23 21:09] LABS: INR 1.77 (0.82-1.09); PROTHROMBIN TIME (PATIENT) 19.7 SEC (9.98-11.88)
[2016-06-23] MEDS ORDERED: morphine CARPU-JECT 4 MG/1 ML DISP.SYRIN ONE (21:13)
[2016-06-23] MEDS ORDERED: ONDANSETRON 4 MG/2 ML VIAL ONE (21:13)
[2016-06-23 21:18] LABS: ALBUMIN 2.1 g/dl (3.4-5.0); ANION GAP 8 (8-16); CALCIUM 7.4 mg/dL (8.5-10.1); CO2 29 mmol/L (21-32); CREATININE 0.5 mg/dL (0.7-1.3); GLUCOSE,RANDOM 178 mg/dL (74-106); MAGNESIUM 1.9 mg/dL (1.8-2.4); SGOT/AST 30 U/L (15-37); SGPT/ALT 58 U/L (12-78)
[2016-06-23] MEDS ORDERED: ONDANSETRON 4 MG/2 ML VIAL IVPUSH ONE (21:19)
[2016-06-23] MEDS ORDERED: morphine CARPU-JECT 4 MG/1 ML DISP.SYRIN IVPUSH ONE (21:19)
[2016-06-23 21:22] LABS: ALK PHOS 139 U/L (45-117); BILIRUBIN,TOTAL 1.2 mg/dL (0.2-1.0); TOT PROT 5.4 g/dl (6.4-8.2); TROPONIN I < 0.02 ng/ml (0.00-0.05)
[2016-06-23 21:31] LABS: METAMYELOCYTE 2 % (0-2)
[2016-06-23 21:32] LABS: ANISOCYTOSIS 3+; OVALOCYTES 1+; POLYCHROMASIA 1+; TEAR DROP CELLS 1+
[2016-06-23] MEDS ORDERED: dilTIAZem HCL 50 MG/10 ML - 10 ML VIAL IVPUSH ONE ×2 (21:38→22:08)
[2016-06-23] MEDS ORDERED: dilTIAZem HCL 50 MG/10 ML - 10 ML VIAL ONE (21:39)
[2016-06-23] MEDS ORDERED: VANCOMYCIN 1,000 MG in DEXTROSE 5%-WATER - 250 ML IVPB ONE (21:53)
[2016-06-23] MEDS ORDERED: PIPERACILLIN/TAZOB 3.375 GM/50 ML PRE-DOCKED IVPB ONE (21:53)
[2016-06-23] MEDS ORDERED: methylPREDNISolone NA SUCC 125 MG/2 ML VIAL IVPB ONE (21:53)
[2016-06-23] MEDS ORDERED: AZITHROMYCIN IVPB 500 MG in DEXTROSE 5%-WATER - 250 ML IVPB ONE (21:55)
[2016-06-23] MEDS ORDERED: FUROSEMIDE 40 MG/4 ML INJECTABLE VIAL IVPB ONE ×2 (21:58→22:28)
[2016-06-23] MEDS ORDERED: FUROSEMIDE 40 MG/4 ML INJECTABLE VIAL ONE (21:59)
[2016-06-23] MEDS ORDERED: VANCOMYCIN 1 GRAM (PRE-DOCKED) 250 ML IVPB ONE (22:05)
[2016-06-23] MEDS ORDERED: methylPREDNISolone NA SUCC 125 MG/2 ML VIAL ONE (22:05)
[2016-06-23] MEDS ORDERED: AZITHROMYCIN IVPB 250 ML IVPB ONE (22:05)
[2016-06-23] MEDS ORDERED: PIPERACILLIN/TAZOB 3.375 GM 50 ML IVPB ONE (22:06)
--- NOTE | 2016-06-23 22:16 | CON.CARD ---
Consult Reason for Consultation:: sob - History of Present Illness History of Present Illness: 71 year old male with past medical history of hypertension, atrial fibrillation , interstitial lung disease, coronary disease status post stents, congestive heart failure presents from [facility] for increasing shortness of breath and difficulty breathing. Patient reports a chronic cough that has slightly worsened but denies phlegm production. Denies fevers or chills. He does take CellCept and 25 mg prednisone daily. He has become increasingly more short of breath. He also reported a mild right-sided chest pain that now resolved. [facility] PCI (angioplasty with thrombectomy of mid-LAD) 08/27/15 PCI (LASHELL) of ostial LCx 11/05/2015 PCIs (LASHELL) of proximal and mid LAD 06/12/2015 at [facility] Medical History: interstitial lung disease NSTEMI 05/2015 PAD Parkinson's disease paroxysmal A. Fib right renal nephrolithiasis Systolic heart failure (05/2015 pre-PCI ECHO: moderately dilated LV; mildly reduced LVEF; moderately severe MR and TR) - History Source History Provided By: Patient, Medical Record - Past Medical History Cardio/Vascular: Yes: AFIB, CAD, HTN Pulmonary: Yes: Other (interstitial lung disease) Psych: Yes: Anxiety, Depression - Past Surgical History Past Surgical History: Yes: Appendectomy, Tonsillectomy - Alcohol/Substance Use Hx Alcohol Use: No History of Substance Use: reports: None - Smoking History Smoking history: Former smoker Have you smoked in the past 12 months: No If you are a former smoker, when did you quit?: 30 yrs ago, after 10 pack-year hx - Social History ADL: Independent History of Recent Travel: No Home Medications - Allergies Allergies/Adverse Reactions: Allergies Allergy/AdvReac Type Severity Reaction Status Date / Time No Known Allergies Allergy Verified 06/23/16 20:15 - Home Medications Home Medications: Ambulatory Orders Aspirin [ASA -] 81 mg PO DAILY 02/04/16 Atorvastatin Ca [Lipitor] 40 mg PO HS 02/04/16 Montelukast Na [Singulair -] 15 mg PO HS 02/04/16 Pantoprazole Sodium [Protonix] 40 mg PO DAILY 02/04/16 Prasugrel HCl [Effient] 5 mg PO DAILY 02/04/16 Mycophenolate Mofetil [Cellcept] 500 mg PO BID 05/19/16 Acetaminophen [Tylenol .Regular Strength -] 650 mg PO Q4H PRN #0 tablet Albuterol 0.083% Nebulizer [place] [Ventolin 0.083% Nebulizer Soln -] 1 amp NEB Q4H PRN #0 amp 06/07/16 Diltiazem [Cardizem -] 60 mg PO Q6HPO tablet 06/07/16 Loperamide HCl [Imodium -] 2 mg PO Q8H PRN #0 capsule 06/07/16 Metoprolol Succinate [Toprol XL -] 100 mg PO DAILY tab.sr.24h 06/07/16 Nystatin Oral Suspension - [Nystatin Oral Susp 029627 Units/5 ML -] 500,000 units PO Q6HPO cup 06/07/16 Oxycodone HCl [Roxicodone -] 10 mg PO Q4H PRN #0 tablet MDD 4 06/07/16 Prednisone [Deltasone -] 25 mg PO BID tablet 06/07/16 Tiotropium [place] [Spiriva] 1 puff IH DAILY inh 06/07/16 Warfarin Na [Coumadin -] 2 mg PO DAILY@1800 tablet 06/07/16 Family Disease History - Family Disease History Family Disease History: Heart Disease: Father ([place] at 49yo), Sister (2 valve replacements, breast CA), CA: Mother (leukemia), Sister Review of Systems - Review of Systems Constitutional: reports: No Symptoms Eyes: reports: No Symptoms HENT: reports: No Symptoms Neck: reports: No Symptoms Cardiovascular: reports: No Symptoms Respiratory: reports: Cough, SOB, SOB on Exertion, Wheezing Gastrointestinal: reports: No Symptoms Genitourinary: reports: No Symptoms Breasts: reports: No Symptoms Reported Musculoskeletal: reports: No Symptoms Integumentary: reports: No Symptoms Neurological: reports: No Symptoms Endocrine: reports: No Symptoms Hematology/Lymphatic: reports: No Symptoms Psychiatric: reports: No Symptoms Vital Signs: Vital Signs Temperature 99.1 F 06/23/16 21:20 Pulse Rate 121 H 06/23/16 21:20 Respiratory Rate 28 H 06/23/16 21:20 Blood Pressure 131/75 06/23/16 21:20 O2 Sat by Pulse Oximetry (%) 92 L 06/23/16 21:20 Constitutional: Yes: Well Nourished, No Distress, Calm Eyes: Yes: WNL, Conjunctiva Clear, EOM Intact HENT: Yes: WNL, Atraumatic, Normocephalic Neck: Yes: WNL, Supple, Trachea Midline Respiratory: Yes: Rhonchi, SOB, Wheezes Gastrointestinal: Yes: WNL, Normal Bowel Sounds Renal/: Yes: WNL Cardiovascular: Yes: Pulse Irregular Musculoskeletal: Yes: WNL Extremities: Yes: WNL Integumentary: Yes: WNL Neurological: Yes: WNL, Alert, Oriented ...Motor Strength: WNL Psychiatric: Yes: WNL, Alert, Oriented - Other Data Labs, Other Data: CBC, BMP 06/23/16 20:40 06/23/16 20:40 INR, PTT INR 1.77 (0.82-1.09) H D 06/23/16 20:40 Troponin, BNP 06/23/16 20:40 Troponin I < 0.02 B-Natriuretic Peptide 1603.94 H Troponin, BNP 06/23/16 20:40 Troponin I < 0.02 B-Natriuretic Peptide 1603.94 H Imaging - Results Chest X-ray: Image Reviewed (ild) EKG: Image Reviewed (af rvr) Problem List - Problems (1) Acute on chronic combined systolic and diastolic CHF (congestive heart failure) Code(s): I50.43 - ACUTE ON CHRONIC COMBINED SYSTOLIC AND DIASTOLIC HRT FAIL (2) Acute on chronic diastolic CHF (congestive heart failure) Code(s): I50.33 - ACUTE ON CHRONIC DIASTOLIC (CONGESTIVE) HEART FAILURE (3) Acute on chronic respiratory failure with hypoxemia Code(s): J96.21 - ACUTE AND CHRONIC RESPIRATORY FAILURE WITH HYPOXIA (4) Acute right flank pain Code(s): R10.9 - UNSPECIFIED ABDOMINAL PAIN (5) Anemia Code(s): D64.9 - ANEMIA, UNSPECIFIED (6) Atrial fibrillation Code(s): I48.91 - UNSPECIFIED ATRIAL FIBRILLATION Qualifiers: Atrial fibrillation type: chronic Qualified Code(s): I48.2 - Chronic atrial fibrillation (7) Atrial fibrillation with RVR Code(s): I48.91 - UNSPECIFIED ATRIAL FIBRILLATION (8) CAD (coronary artery disease) Code(s): I25.10 - ATHSCL HEART DISEASE OF [place] CORONARY ARTERY W/O ANG PCTRS (9) Critical illness neuropathy Code(s): G62.81 - CRITICAL ILLNESS POLYNEUROPATHY (10) Dyspnea Code(s): R06.00 - DYSPNEA, UNSPECIFIED (11) Hyperglycemia Code(s): R73.9 - HYPERGLYCEMIA, UNSPECIFIED (12) Interstitial lung disease Code(s): J84.9 - INTERSTITIAL PULMONARY DISEASE, UNSPECIFIED (13) NSTEMI (non-ST elevated myocardial infarction) Code(s): I21.4 - NON-ST ELEVATION (NSTEMI) MYOCARDIAL INFARCTION (14) Paroxysmal atrial fibrillation with rapid ventricular response Code(s): I48.0 - PAROXYSMAL ATRIAL FIBRILLATION (15) Pedal edema Code(s): R60.0 - LOCALIZED EDEMA (16) Psoas hematoma, left, secondary to anticoagulant therapy Code(s): S30.1XXA - CONTUSION OF ABDOMINAL WALL, INITIAL ENCOUNTER (17) Psoas hematoma, right, secondary to anticoagulant therapy Code(s): S30.1XXA - CONTUSION OF ABDOMINAL WALL, INITIAL ENCOUNTER (18) Rash of face Code(s): R21 - RASH AND OTHER NONSPECIFIC SKIN ERUPTION (19) Subconjunctival hemorrhage Code(s): H11.30 - CONJUNCTIVAL HEMORRHAGE, UNSPECIFIED EYE Qualifiers: Laterality: right Qualified Code(s): H11.31 - Conjunctival hemorrhage, right eye Assessment/Plan interstitial lung disease ?etiology NSTEMI 05/2015 PAD Parkinson's disease paroxysmal A. Fib right renal nephrolithiasis Systolic heart failure (05/2015 pre-PCI ECHO: moderately dilated LV; mildly reduced LVEF; moderately severe MR and TR) IV lasix 40 BID rate control ac steroids abx cont rx as per pulmonary will f/u cctime 75 min
[2016-06-23 23:40] LABS: ARTERIAL BLD GAS O2 SATURATION 89.3 % (90-98.9); ARTERIAL BLOOD GAS BASE EXCESS 4.2 meq/l (-2-2); ARTERIAL BLOOD GAS HCO3 27.5 meq/L (22-26); ARTERIAL BLOOD GAS pH 7.48 (7.35-7.45)
[2016-06-23 23:41] LABS: ALLENS TEST POSITIVE; ART PUNCT SITE RIGHT RADIAL; LPM/O2% 50%; MECH. VENT. Y; METHEMOGLOBIN 0.3 % (0.4-1.5); PT. ON O2? YES; TYPE OF O2 BIPAP; VENT RATE 14; VT/PRESS 10
[2016-06-23 23:42] LABS: ARTERIAL BLOOD GAS PO2 57.3 mmHg (70-100)
--- NOTE | 2016-06-24 00:02 | CONSULT ---
Consult Consult Specialty:: Pulm/CC Reason for Consultation:: Hypoxic Respiratory insufficiency - History of Present Illness Chief Complaint: Dyspnea History of Present Illness: 71 year old male with PMHx of HTN, A-Fib, ILD on cellcept and Prenisone, CAD s/ p stents, CHF with recent hospitalization for HCAP who presents from [facility] rehab/correction with c/o worsening dyspnea, an acute on chronic cough with minimal phlegm production x2 days. He was BIBA. His initial o2 sat was in the 70 's but improved to 90% on 100% NRB. in ED noted to be afebrile and HD stable. RR 20's. He denied fevers or chills. Lungs auscultated for diffused rhonchi and crackles. CXR with Notable labs WBC 8.7, BNP 1600, Creat 0.5, Lactate 4.8. CXR mostly unchanged withbibasilar consolidation and diffuse opacities. He was placed on BiPAP 50% 10/5 with improvement in dyspnea. Sapp cultured and started on empiric Zosyn, Azithro and vanc. Cadiologist consulted who recommended diuresis and steroids for possible CHF exacerbation in setting of possible HCAP +/- worsening disease. He was transferred to ICU for further management. Rec'd in ICU on BiPAP. FiO2 increased to 60% for O2 sat 89%. SOB with interview. No cough. Desat to 60's when mask off for meds. - History Source History Provided By: Patient, Family Member (sister) Limitations to Obtaining History: Clinical Condition (dyspnea,) - Past Medical History Cardio/Vascular: Yes: AFIB, CAD, HTN Pulmonary: Yes: Pneumonia (Recent hospital admit for PNA), Other (interstitial lung disease) Heme/Onc: Yes: Other (on Coumadin) Psych: Yes: Anxiety, Depression Musculoskeletal: Yes: Other (deconditioned re recent hospitalization) - Past Surgical History Past Surgical History: Yes: Appendectomy, Stent, Tonsillectomy - Alcohol/Substance Use Hx Alcohol Use: No History of Substance Use: reports: None - Smoking History Smoking history: Former smoker Have you smoked in the past 12 months: No If you are a former smoker, when did you quit?: 30 yrs ago, after 10 pack-year hx - Social History Usual Living Arrangement: [facility] ADL: Independent History of Recent Travel: No Home Medications - Allergies Allergies/Adverse Reactions: Allergies Allergy/AdvReac Type Severity Reaction Status Date / Time No Known Allergies Allergy Verified 06/23/16 20:15 - Home Medications Home Medications: Ambulatory Orders Aspirin [ASA -] 81 mg PO DAILY 02/04/16 Atorvastatin Ca [Lipitor] 40 mg PO HS 02/04/16 Montelukast Na [Singulair -] 15 mg PO HS 02/04/16 Pantoprazole Sodium [Protonix] 40 mg PO DAILY 02/04/16 Prasugrel HCl [Effient] 5 mg PO DAILY 02/04/16 Mycophenolate Mofetil [Cellcept] 500 mg PO BID 05/19/16 Acetaminophen [Tylenol .Regular Strength -] 650 mg PO Q4H PRN #0 tablet Albuterol 0.083% Nebulizer Bailey [Ventolin 0.083% Nebulizer Soln -] 1 amp NEB Q4H PRN #0 amp 06/07/16 Diltiazem [Cardizem -] 60 mg PO Q6HPO tablet 06/07/16 Loperamide HCl [Imodium -] 2 mg PO Q8H PRN #0 capsule 06/07/16 Metoprolol Succinate [Toprol XL -] 100 mg PO DAILY tab.sr.24h 06/07/16 Nystatin Oral Suspension - [Nystatin Oral Susp 835361 Units/5 ML -] 500,000 units PO Q6HPO cup 06/07/16 Oxycodone HCl [Roxicodone -] 10 mg PO Q4H PRN #0 tablet MDD 4 06/07/16 Prednisone [Deltasone -] 25 mg PO BID tablet 06/07/16 Tiotropium [place] [Spiriva] 1 puff IH DAILY inh 06/07/16 Warfarin Na [Coumadin -] 2 mg PO DAILY@1800 tablet 06/07/16 Family Disease History - Family Disease History Family Disease History: Heart Disease: Father ([place] at 49yo), Sister (2 valve replacements, breast CA), CA: Mother (leukemia), Sister Review of Systems - Review of Systems Constitutional: reports: No Symptoms Eyes: reports: No Symptoms HENT: reports: No Symptoms Neck: reports: No Symptoms Cardiovascular: reports: Shortness of Breath Respiratory: reports: Cough, SOB, SOB on Exertion Gastrointestinal: reports: Diarrhea (2 loose stools/d) Genitourinary: reports: No Symptoms Musculoskeletal: reports: Muscle Weakness Integumentary: reports: Other (sacral decub) Neurological: reports: Other (Anxiety) Endocrine: reports: No Symptoms Hematology/Lymphatic: reports: Excessive Bleeding Psychiatric: reports: No Symptoms, Anxiety Physical Exam Vital Signs: Vital Signs Temperature 99.1 F 06/23/16 21:20 Pulse Rate 121 H 06/23/16 21:20 Respiratory Rate 28 H 06/23/16 21:20 Blood Pressure 131/75 06/23/16 21:20 O2 Sat by Pulse Oximetry (%) 92 L 06/23/16 21:20 Constitutional: Yes: Well Nourished, Anxious, Mild Distress Eyes: Yes: WNL HENT: Yes: Normocephalic Cardiovascular: Yes: Tachycardia, Pulse Irregular Respiratory: Yes: Cough, On BiPap, Rales, SOB Gastrointestinal: Yes: WNL, Normal Bowel Sounds, Soft ...Rectal Exam: Yes: Deferred Musculoskeletal: Yes: Muscle Weakness (BLE weakness) Extremities: Yes: WNL Edema: No Integumentary: Yes: WNL Wound/Incision: Yes: Clean/Dry ...Motor Strength: LLE, RLE (reduced) Psychiatric: Yes: Alert, Oriented Labs: CBC,CMP WBC 8.7 K/mm3 (4.0-10.0) D 06/23/16 20:40 RBC 3.22 M/mm3 (4.00-5.60) L 06/23/16 20:40 Hgb 10.1 GM/dL (11.7-16.9) L 06/23/16 20:40 Hct 30.3 % (35.4-49) L 06/23/16 20:40 MCV 94.0 fl (80-96) 06/23/16 20:40 MCHC 33.3 g/dl (32.0-35.9) 06/23/16 20:40 RDW 24.6 % (11.9-15.9) H D 06/23/16 20:40 Plt Count 162 K/MM3 (134-434) D 06/23/16 20:40 MPV 7.2 fl (7.5-11.1) L 06/23/16 20:40 Neutrophils % 74.0 % (42.8-82.8) D 06/23/16 20:40 Lymphocytes % 14.0 % (8-40) D 06/23/16 20:40 Monocytes % 2.0 % (3.8-10.2) L D 06/23/16 20:40 Eosinophils % 1.0 % (0-4.5) D 06/23/16 20:40 Band Neutrophils 6.0 % (0-10) D 06/23/16 20:40 Metamyelocytes 2 % (0-2) D 06/23/16 20:40 Myelocytes 1 % (0-2) 06/23/16 20:40 Polychromasia 1+ 06/23/16 20:40 Anisocytosis 3+ 06/23/16 20:40 Tear Drop Cells 1+ 06/23/16 20:40 Ovalocytes 1+ 06/23/16 20:40 Rouleaux 1+ 06/23/16 20:40 Sodium 139 mmol/L (136-145) 06/23/16 20:40 Potassium 4.2 mmol/L (3.5-5.1) 06/23/16 20:40 Chloride 102 mmol/L (98-107) 06/23/16 20:40 Carbon Dioxide 29 mmol/L (21-32) 06/23/16 20:40 Anion Gap 8 (8-16) 06/23/16 20:40 BUN 22 mg/dL (7-18) H D 06/23/16 20:40 Creatinine 0.5 mg/dL (0.7-1.3) L 06/23/16 20:40 Creat Clearance w eGFR > 60 (>60) 06/23/16 20:40 Random Glucose 178 mg/dL (74-106) H 06/23/16 20:40 Lactic Acid 4.845 mmol/L (0.4-2.0) H* 06/23/16 23:32 Calcium 7.4 mg/dL (8.5-10.1) L 06/23/16 20:40 Phosphorus 3.0 mg/dL (2.5-4.9) 06/23/16 20:40 Magnesium 1.9 mg/dL (1.8-2.4) 06/23/16 20:40 Total Bilirubin 1.2 mg/dL (0.2-1.0) H 06/23/16 20:40 AST 30 U/L (15-37) D 06/23/16 20:40 ALT 58 U/L (12-78) D 06/23/16 20:40 Alkaline Phosphatase 139 U/L (45-117) H D 06/23/16 20:40 Creatine Kinase 39 IU/L (39-308) 06/23/16 20:40 Troponin I < 0.02 ng/ml (0.00-0.05) 06/23/16 20:40 B-Natriuretic Peptide 1603.94 pg/ml (5-125) H 06/23/16 20:40 Total Protein 5.4 g/dl (6.4-8.2) L 06/23/16 20:40 Albumin 2.1 g/dl (3.4-5.0) L D 06/23/16 20:40 ABG Results ABG pH 7.48 (7.35-7.45) H 06/23/16 23:30 ABG pCO2 at Pt Temp 37.0 mmHg (35-45) 06/23/16 23:30 ABG pO2 at Pt Temp 57.3 mmHg (70-100) L D 06/23/16 23:30 ABG HCO3 27.5 meq/L (22-26) H 06/23/16 23:30 ABG O2 Sat (Measured) 89.3 % (90-98.9) L 06/23/16 23:30 ABG O2 Content 12.0 % vol (15-22) L 06/23/16 23:30 ABG Base Excess 4.2 meq/l (-2-2) H 06/23/16 23:30 Intake & Output 06/21/16 06/22/16 06/23/16 06/24/16 23:59 23:59 23:59 23:59 Weight 79.379 kg 74.644 kg Problem List - Problems (1) Acute on chronic diastolic CHF (congestive heart failure) Code(s): I50.33 - ACUTE ON CHRONIC DIASTOLIC (CONGESTIVE) HEART FAILURE (2) Atrial fibrillation with RVR Code(s): I48.91 - UNSPECIFIED ATRIAL FIBRILLATION (3) Interstitial lung disease Code(s): J84.9 - INTERSTITIAL PULMONARY DISEASE, UNSPECIFIED (4) Acute on chronic combined systolic and diastolic CHF (congestive heart failure) Code(s): I50.43 - ACUTE ON CHRONIC COMBINED SYSTOLIC AND DIASTOLIC HRT FAIL (5) Acute on chronic respiratory failure with hypoxemia Code(s): J96.21 - ACUTE AND CHRONIC RESPIRATORY FAILURE WITH HYPOXIA Assessment/Plan 71 year old male with PMHx of HTN, A-Fib, ILD on cellcept and Prenisone, CAD s/ p stents, CHF with recent hospitalization for HCAP who presents from [facility] rehab/correction with c/o worsening dyspnea, an acute on chronic cough with minimal phlegm production x2 days. Admitted to ICU with acute on chronic hypoxemic respiratory failure in the setting of possible CHF exacerbation +/- HCAP +/- worsening of ILD. Also c/f PE in setting of subtherapeutic INR. Now requiring BIPAP support and ccb A-fib with RVR. Pulm/CV: Hypoxemic respiratory failure -BiPAP support for O2 sat88%-92% -Wean to NRB and face mask as isaias -Lasix diuresis re c/f CHF exacerbation -Montor lactate and creat with diuresis -TTE -CXR -Cardizem for A-fib rate control -Continue anticoagulation for therapeutic INR -Consider CTA to r/o PE -Steroids as per cardiology -Antibiotics as below ID-Possible HCAP re recent hospitalization for PNA though WBC wnl but on immunosuppression Cellcept and pred -Empiric HCAP coverage with Azithro, Zosyn and Vanc -Trend WBC and temps -Monitor Lactate Wound: Sacral decub -ICU protocol -PT as isaias
[2016-06-24 00:13] LABS: URINE APPEARANCE CLEAR; URINE BILIRUBIN NEGATIVE (NEGATIVE); URINE BLOOD NEGATIVE (NEGATIVE); URINE COLOR STRAW; URINE GLUCOSE (UA) 1+ (NEGATIVE); URINE KETONE NEGATIVE (NEGATIVE); URINE LEUK ESTERASE NEGATIVE (NEGATIVE); URINE NITRITE NEGATIVE (NEGATIVE); URINE PROTEIN NEGATIVE (NEGATIVE); URINE UROBILINOGEN NEGATIVE E.U./dl (0.2-1.0)
[2016-06-24 00:54] VITALS: BMI 25.0
[2016-06-24] MEDS ORDERED: WARFARIN NA 2 MG TABLET (UD) PO ONE (01:30)
[2016-06-24] MEDS ORDERED: oxyCODONE HCL 5 MG TABLET PO PRN (01:34)
[2016-06-24] MEDS ORDERED: ALBUTEROL SO4 0.083% IH SOL 2.5 MG/3 ML VIAL.NEB. NEB PRN (01:36)
[2016-06-24] MEDS ORDERED: LOPERAMIDE HCL 2 MG CAPSULE PO PRN (01:36)
[2016-06-24] MEDS ORDERED: ACETAMINOPHEN 325 MG TABLET (FP) PO PRN (01:37)
[2016-06-24] MEDS: methylPREDNISolone NA SUCC 40 MG/1 ML VIAL IVPB SCH ×2 (01:38→09:18)
[2016-06-24] MEDS ORDERED: PIPERACILLIN/TAZOB 3.375 GM/50 ML PRE-DOCKED IVPB ONE (02:00)
[2016-06-24] MEDS ORDERED: dilTIAZem HCL 60 MG TABLET (FP) ONE (04:46)
[2016-06-24] MEDS: dilTIAZem HCL 60 MG TABLET (FP) PO SCH ×5 (06:07→23:04)
[2016-06-24] MEDS ORDERED: PT OWN MED DRAWER 7, Y5N ONE ×5 (06:14→20:38)
[2016-06-24] MEDS: NYSTATIN 500,000 UNITS/5 ML SUSPENSION PO SCH ×4 (06:15→23:06)
[2016-06-24] MEDS: PRASUGREL HCL 5 MG TAB PO SCH (09:17)
[2016-06-24] MEDS: ASPIRIN 81 MG CHEWABLE TABLETS PO SCH (09:17)
[2016-06-24] MEDS: MYCOPHENOLATE MOFETIL 500 MG TABLET PO SCH ×2 (09:17→21:20)
[2016-06-24] MEDS: PANTOPRAZOLE 40 MG TABLET (FP) PO SCH (09:18)
[2016-06-24] MEDS: TIOTROPIUM BROMIDE 18 MCG/INH (DEVICE W/ 5 CAPSULES) IH SCH (09:18)
[2016-06-24] MEDS: oxyCODONE HCL 5 MG TABLET PO PRN ×2 (09:32→23:04)
[2016-06-24] MEDS ORDERED: AZITHROMYCIN IVPB 500 MG/250 ML D5W PRE-DOCKED IVPB SCH (10:00)
[2016-06-24] MEDS ORDERED: PIPERACILLIN/TAZOB 3.375 GM/50 ML PRE-DOCKED IVPB SCH (10:00)
[2016-06-24] MEDS: METOPROLOL SUCCINATE 100 MG TAB.SR.24H (FP) PO SCH (11:24)
--- NOTE | 2016-06-24 11:51 | HP ---
Admitting History and Physical - Primary Care Physician PCP: Karla Osborne - Admission Chief Complaint: I was short of breath History of Present Illness: Mr Yadav is a very pleasant 71 year old male who comes in with shortness of breath. He says that he was doing well at [facility], however 3 days ago he began to feel short of breath. It was mainly on exertion and minimal so he did not complain. He said at first it resolved, however yesterday it recurred and it was very severe. He says the shortness of breath was both at rest and on exertion. Because of this he came in. He says he had coughing but it was his normal and non-productive. He denies fevers, chills, chest pain, nausea, vomiting, diarrhea, constipation, difficulty or pain on urination, or swelling. He is still having significant shortness of breath. History Source: Patient Limitations to Obtaining History: No Limitations - Past Medical History Cardiovascular: Yes: AFIB, CAD, HTN Pulmonary: Yes: Pneumonia (Recent hospital admit for PNA), Other (interstitial lung disease) Heme/Onc: Yes: Other (on Coumadin) Psych: Yes: Anxiety, Depression Musculoskeletal: Yes: Other (deconditioned re recent hospitalization) - Past Surgical History Past Surgical History: Yes: Appendectomy, Stent, Tonsillectomy - Smoking History Smoking history: Former smoker Have you smoked in the past 12 months: No If you are a former smoker, when did you quit?: 30 yrs ago, after 10 pack-year hx - Alcohol/Substance Use Hx Alcohol Use: No History of Substance Use: reports: None - Social History Usual Living Arrangement: Yes: [facility] ADL: Support Services History of Recent Travel: No Home Medications - Allergies Allergies/Adverse Reactions: Allergies Allergy/AdvReac Type Severity Reaction Status Date / Time No Known Allergies Allergy Verified 06/23/16 20:15 - Home Medications Home Medications: Ambulatory Orders Aspirin [ASA -] 81 mg PO DAILY 02/04/16 Atorvastatin Ca [Lipitor] 40 mg PO HS 02/04/16 Montelukast Na [Singulair -] 15 mg PO HS 02/04/16 Pantoprazole Sodium [Protonix] 40 mg PO DAILY 02/04/16 Prasugrel HCl [Effient] 5 mg PO DAILY 02/04/16 Mycophenolate Mofetil [Cellcept] 500 mg PO BID 05/19/16 Acetaminophen [Tylenol .Regular Strength -] 650 mg PO Q4H PRN #0 tablet Albuterol 0.083% Nebulizer Bailey [Ventolin 0.083% Nebulizer Soln -] 1 amp NEB Q4H PRN #0 amp 06/07/16 Diltiazem [Cardizem -] 60 mg PO Q6HPO tablet 06/07/16 Loperamide HCl [Imodium -] 2 mg PO Q8H PRN #0 capsule 06/07/16 Metoprolol Succinate [Toprol XL -] 100 mg PO DAILY tab.sr.24h 06/07/16 Nystatin Oral Suspension - [Nystatin Oral Susp 918726 Units/5 ML -] 500,000 units PO Q6HPO cup 06/07/16 Oxycodone HCl [Roxicodone -] 10 mg PO Q4H PRN #0 tablet MDD 4 06/07/16 Prednisone [Deltasone -] 25 mg PO BID tablet 06/07/16 Tiotropium [place] [Spiriva] 1 puff IH DAILY inh 06/07/16 Warfarin Na [Coumadin -] 2 mg PO DAILY@1800 tablet 06/07/16 Family Disease History - Family Disease History Family Disease History: Heart Disease: Father ([place] at 49yo), Sister (2 valve replacements, breast CA), CA: Mother (leukemia), Sister Physical Examination Vital Signs: Vital Signs Temperature 97.2 F L 06/24/16 10:00 Pulse Rate 120 H 06/24/16 11:20 Respiratory Rate 40 H 06/24/16 11:20 Blood Pressure 102/71 06/24/16 11:20 O2 Sat by Pulse Oximetry (%) 99 06/24/16 11:38 Constitutional: Yes: Mild Distress Eyes: Yes: Conjunctiva Clear, EOM Intact, PERRL HENT: Yes: Atraumatic, Normocephalic Cardiovascular: Yes: Tachycardia. No: Gallop, Murmur, Rub Respiratory: Yes: Cough, On Venti-Mask, Tachypnea, Wheezes Gastrointestinal: Yes: Normal Bowel Sounds, Soft. No: Distention, Tenderness Extremities: Yes: WNL Edema: No Labs: Laboratory Results - last 24 hr 06/23/16 06/23/16 06/23/16 20:40 20:40 20:40 WBC 8.7 D RBC 3.22 L Hgb 10.1 L Hct 30.3 L MCV 94.0 MCHC 33.3 RDW 24.6 H D Plt Count 162 D MPV 7.2 L Neutrophils % 74.0 D Lymphocytes % 14.0 D Monocytes % 2.0 L D Eosinophils % 1.0 D Band Neutrophils 6.0 D Metamyelocytes 2 D Myelocytes 1 Polychromasia 1+ Anisocytosis 3+ Tear Drop Cells 1+ Ovalocytes 1+ Rouleaux 1+ INR 1.77 H D PTT (Actin FS) 28.0 Puncture Site ABG pH ABG pCO2 at Pt Temp ABG pO2 at Pt Temp ABG HCO3 ABG O2 Sat (Measured) ABG O2 Content ABG Base Excess Gonzalo Test Carboxyhemoglobin Methemoglobin O2 Delivery Device Oxygen Flow Rate Vent Mode Vent Rate Mechanical Rate PEEP Pressure Support Vent Sodium 139 Potassium 4.2 Chloride 102 Carbon Dioxide 29 Anion Gap 8 BUN 22 H D Creatinine 0.5 L Creat Clearance w eGFR > 60 Random Glucose 178 H Lactic Acid Calcium 7.4 L Phosphorus 3.0 Magnesium 1.9 Total Bilirubin 1.2 H AST 30 D ALT 58 D Alkaline Phosphatase 139 H D Creatine Kinase 39 Troponin I < 0.02 B-Natriuretic Peptide 1603.94 H Total Protein 5.4 L Albumin 2.1 L D Urine Color Urine Appearance Urine pH Ur Specific [place] Urine Protein Urine Glucose (UA) Urine Ketones Urine Blood Urine Nitrite Urine Bilirubin Urine Urobilinogen Ur Leukocyte Esterase 06/23/16 06/23/16 06/23/16 20:40 23:30 23:32 WBC RBC Hgb Hct MCV MCHC RDW Plt Count MPV Neutrophils % Lymphocytes % Monocytes % Eosinophils % Band Neutrophils Metamyelocytes Myelocytes Polychromasia Anisocytosis Tear Drop Cells Ovalocytes Rouleaux INR PTT (Actin FS) Puncture Site Right radial ABG pH 7.48 H ABG pCO2 at Pt Temp 37.0 ABG pO2 at Pt Temp 57.3 L D ABG HCO3 27.5 H ABG O2 Sat (Measured) 89.3 L ABG O2 Content 12.0 L ABG Base Excess 4.2 H Gonzalo Test Positive Carboxyhemoglobin 2.7 H Methemoglobin 0.3 L O2 Delivery Device Bipap Oxygen Flow Rate 50% Vent Mode S/t Vent Rate 14 Mechanical Rate Y PEEP 5.0 Pressure Support Vent 10 Sodium Potassium Chloride Carbon Dioxide Anion Gap BUN Creatinine Creat Clearance w eGFR Random Glucose Lactic Acid 2.192 H* 4.845 H* Calcium Phosphorus Magnesium Total Bilirubin AST ALT Alkaline Phosphatase Creatine Kinase Troponin I B-Natriuretic Peptide Total Protein Albumin Urine Color Urine Appearance Urine pH Ur Specific [place] Urine Protein Urine Glucose (UA) Urine Ketones Urine Blood Urine Nitrite Urine Bilirubin Urine Urobilinogen Ur Leukocyte Esterase 06/23/16 06/24/16 23:45 12:40 WBC RBC Hgb Hct MCV MCHC RDW Plt Count MPV Neutrophils % Lymphocytes % Monocytes % Eosinophils % Band Neutrophils Metamyelocytes Myelocytes Polychromasia Anisocytosis Tear Drop Cells Ovalocytes Rouleaux INR 1.84 H PTT (Actin FS) Puncture Site ABG pH ABG pCO2 at Pt Temp ABG pO2 at Pt Temp ABG HCO3 ABG O2 Sat (Measured) ABG O2 Content ABG Base Excess Gonzalo Test Carboxyhemoglobin Methemoglobin O2 Delivery Device Oxygen Flow Rate Vent Mode Vent Rate Mechanical Rate PEEP Pressure Support Vent Sodium Potassium Chloride Carbon Dioxide Anion Gap BUN Creatinine Creat Clearance w eGFR Random Glucose Lactic Acid Calcium Phosphorus Magnesium Total Bilirubin AST ALT Alkaline Phosphatase Creatine Kinase Troponin I B-Natriuretic Peptide Total Protein Albumin Urine Color Straw Urine Appearance Clear Urine pH 5.0 Ur Specific [place] 1.009 Urine Protein Negative Urine Glucose (UA) 1+ H Urine Ketones Negative Urine Blood Negative Urine Nitrite Negative Urine Bilirubin Negative Urine Urobilinogen Negative Ur Leukocyte Esterase Negative Imaging - Results Chest X-ray: Report Reviewed, Image Reviewed Problem List - Problems (1) Acute on chronic respiratory failure with hypoxemia Assessment/Plan: -secondary to pneumonia -requiring ICU admission -case d/w pulmonary -stress dose steroids -continue albuterol, spiriva, brovana, and singular -continue oxygen support Code(s): J96.21 - ACUTE AND CHRONIC RESPIRATORY FAILURE WITH HYPOXIA (2) Aspergillus pneumonia Assessment/Plan: -sputum from last admission came back growing aspergillus -patient on immunosuppressive therapy, high risk for fungal infection -case d/w Dr Hardy -start voriconazole -continue vancomycin and cefepime for HCAP Code(s): B44.9 - ASPERGILLOSIS, UNSPECIFIED (3) Atrial fibrillation with RVR Assessment/Plan: -cardiology following -continue diltiazem and toprol xl -subtherapeutic INR, however will not increase coumadin considering patient is on antimicrobials -suspect patient will become therapeutic on current coumadin dose -daily INR, patient at risk for elevation -if does not elevate, gentle increase Code(s): I48.91 - UNSPECIFIED ATRIAL FIBRILLATION (4) Interstitial lung disease Assessment/Plan: -continue immunomodulators -steroids added Code(s): J84.9 - INTERSTITIAL PULMONARY DISEASE, UNSPECIFIED (5) CAD (coronary artery disease) Assessment/Plan: -chest pain free -continue effient, toprol xl, lipitor, and aspirin -cardiology following Code(s): I25.10 - ATHSCL HEART DISEASE OF [place] CORONARY ARTERY W/O ANG PCTRS Assessment/Plan 65 minutes spent in critical care time with this patient
--- NOTE | 2016-06-24 11:58 | PN ---
Teaching Attending Note Name of Resident: Pee Choe ATTENDING PHYSICIAN STATEMENT I saw and evaluated the patient. I reviewed the resident's note and discussed the case with the resident. I agree with the resident's findings and plan as documented. SUBJECTIVE: Patient seen and examined in the ICU. Awake and alert. Tachypneic at rest. Desaturates with movement. Reports air leak and feeling of excessive pressure on NIPPV. Congested cough. No hemoptysis. Denies CP. Suspect high lactic acid at least in part due to significant WOB. CXR: Increased bilateral diffuse interstitial disease / no significant pleural effusions Intake & Output 06/21/16 06/22/16 06/23/16 06/24/16 23:59 23:59 23:59 23:59 Intake Total 640 Output Total 800 Balance -160 Weight 175 lb 164 lb 9 oz Last Vital Signs Temp Pulse Resp BP Pulse Ox 97.2 F L 112 H 24 89/66 99 06/24/16 10:00 06/24/16 10:00 06/24/16 10:00 06/24/16 10:00 06/24/16 11:38 Active Medications Acetaminophen (Tylenol -) 650 mg PO Q4H PRN PRN Reason: FEVER OR PAIN Albuterol Sulfate (Ventolin 0.083% Nebulizer Soln -) 1 amp NEB Q4H PRN PRN Reason: SHORT OF BREATH/WHEEZING Aspirin (Asa -) 81 mg PO DAILY [facility] Last Admin: 06/24/16 09:17 Dose: 81 mg Atorvastatin Calcium (Lipitor -) 40 mg PO HS [facility] Azithromycin (Zithromax 500mg Ivpb (Pre-Docked)) 500 mg IVPB DAILY [facility] Last Admin: 06/24/16 09:21 Dose: 500 mg Diltiazem HCl (Cardizem -) 60 mg PO Q6HPO [facility] Last Admin: 06/24/16 08:15 Dose: 60 mg Loperamide HCl (Imodium -) 2 mg PO Q8H PRN PRN Reason: DIARRHEA Methylprednisolone Sodium Succinate (Solu-Medrol -) 250 mg IVPB Q6H-IV [facility] Metoprolol Succinate (Toprol Xl -) 100 mg PO DAILY [facility] Last Admin: 06/24/16 11:24 Dose: 100 mg Montelukast Sodium (Singulair -) 15 mg PO HS [facility] Mycophenolate Mofetil (Cellcept -) 500 mg PO BID [facility] Last Admin: 06/24/16 09:17 Dose: 500 mg Nystatin (Nystatin Oral Suspension -) 500,000 units PO Q6HPO [facility] Last Admin: 06/24/16 11:24 Dose: 500,000 units Oxycodone HCl (Roxicodone -) 10 mg PO Q4H PRN Last Admin: 06/24/16 09:32 Dose: 10 mg Pantoprazole Sodium (Protonix -) 40 mg PO DAILY [facility] Last Admin: 06/24/16 09:18 Dose: 40 mg Piperacillin Sod/Tazobactam Sod (Zosyn 3.375gm Ivpb (Pre-Docked)) 3.375 gm IVPB Q8H-IV [facility] Prasugrel (Effient -) 5 mg PO DAILY [facility] Last Admin: 06/24/16 09:17 Dose: 5 mg Tiotropium [place] (Spiriva -) 1 puff IH DAILY [facility] Last Admin: 06/24/16 09:18 Dose: 1 puff Vancomycin HCl (Vancomycin (Pre-Docked)) 1,000 mg IVPB DAILY [facility] Warfarin Sodium (Coumadin -) 2 mg PO DAILY@1800 [facility] Constitutional: Yes: Awake and alert, moderately tachypneic at rest Eyes: Yes: WNL HENT: Yes: Normocephalic Cardiovascular: Yes: Tachycardia, Pulse Irregular Respiratory: Yes: Cough, On 100% NRBM, (+) Bilateral Rhonchi / Rales, (+) SOB ( -) wheezing Gastrointestinal: Yes: WNL, Normal Bowel Sounds, Soft ...Rectal Exam: Yes: Deferred Musculoskeletal: Yes: Muscle Weakness (BLE weakness) Extremities: Yes: WNL Edema: No Integumentary: Yes: WNL Wound/Incision: Yes: Clean/Dry ...Motor Strength: LLE, RLE (reduced) Psychiatric: Yes: Alert, Oriented Labs: Laboratory Results - last 24 hr 06/23/16 06/23/16 06/23/16 20:40 20:40 20:40 WBC 8.7 D RBC 3.22 L Hgb 10.1 L Hct 30.3 L MCV 94.0 MCHC 33.3 RDW 24.6 H D Plt Count 162 D MPV 7.2 L Neutrophils % 74.0 D Lymphocytes % 14.0 D Monocytes % 2.0 L D Eosinophils % 1.0 D Band Neutrophils 6.0 D Metamyelocytes 2 D Myelocytes 1 Polychromasia 1+ Anisocytosis 3+ Tear Drop Cells 1+ Ovalocytes 1+ Rouleaux 1+ INR 1.77 H D PTT (Actin FS) 28.0 Puncture Site ABG pH ABG pCO2 at Pt Temp ABG pO2 at Pt Temp ABG HCO3 ABG O2 Sat (Measured) ABG O2 Content ABG Base Excess Gonzalo Test Carboxyhemoglobin Methemoglobin O2 Delivery Device Oxygen Flow Rate Vent Mode Vent Rate Mechanical Rate PEEP Pressure Support Vent Sodium 139 Potassium 4.2 Chloride 102 Carbon Dioxide 29 Anion Gap 8 BUN 22 H D Creatinine 0.5 L Creat Clearance w eGFR > 60 Random Glucose 178 H Lactic Acid Calcium 7.4 L Phosphorus 3.0 Magnesium 1.9 Total Bilirubin 1.2 H AST 30 D ALT 58 D Alkaline Phosphatase 139 H D Creatine Kinase 39 Troponin I < 0.02 B-Natriuretic Peptide 1603.94 H Total Protein 5.4 L Albumin 2.1 L D Urine Color Urine Appearance Urine pH Ur Specific [place] Urine Protein Urine Glucose (UA) Urine Ketones Urine Blood Urine Nitrite Urine Bilirubin Urine Urobilinogen Ur Leukocyte Esterase 06/23/16 06/23/16 06/23/16 20:40 23:30 23:32 WBC RBC Hgb Hct MCV MCHC RDW Plt Count MPV Neutrophils % Lymphocytes % Monocytes % Eosinophils % Band Neutrophils Metamyelocytes Myelocytes Polychromasia Anisocytosis Tear Drop Cells Ovalocytes Rouleaux INR PTT (Actin FS) Puncture Site Right radial ABG pH 7.48 H ABG pCO2 at Pt Temp 37.0 ABG pO2 at Pt Temp 57.3 L D ABG HCO3 27.5 H ABG O2 Sat (Measured) 89.3 L ABG O2 Content 12.0 L ABG Base Excess 4.2 H Gonzalo Test Positive Carboxyhemoglobin 2.7 H Methemoglobin 0.3 L O2 Delivery Device Bipap Oxygen Flow Rate 50% Vent Mode S/t Vent Rate 14 Mechanical Rate Y PEEP 5.0 Pressure Support Vent 10 Sodium Potassium Chloride Carbon Dioxide Anion Gap BUN Creatinine Creat Clearance w eGFR Random Glucose Lactic Acid 2.192 H* 4.845 H* Calcium Phosphorus Magnesium Total Bilirubin AST ALT Alkaline Phosphatase Creatine Kinase Troponin I B-Natriuretic Peptide Total Protein Albumin Urine Color Urine Appearance Urine pH Ur Specific [place] Urine Protein Urine Glucose (UA) Urine Ketones Urine Blood Urine Nitrite Urine Bilirubin Urine Urobilinogen Ur Leukocyte Esterase 06/23/16 23:45 WBC RBC Hgb Hct MCV MCHC RDW Plt Count MPV Neutrophils % Lymphocytes % Monocytes % Eosinophils % Band Neutrophils Metamyelocytes Myelocytes Polychromasia Anisocytosis Tear Drop Cells Ovalocytes Rouleaux INR PTT (Actin FS) Puncture Site ABG pH ABG pCO2 at Pt Temp ABG pO2 at Pt Temp ABG HCO3 ABG O2 Sat (Measured) ABG O2 Content ABG Base Excess Gonzalo Test Carboxyhemoglobin Methemoglobin O2 Delivery Device Oxygen Flow Rate Vent Mode Vent Rate Mechanical Rate PEEP Pressure Support Vent Sodium Potassium Chloride Carbon Dioxide Anion Gap BUN Creatinine Creat Clearance w eGFR Random Glucose Lactic Acid Calcium Phosphorus Magnesium Total Bilirubin AST ALT Alkaline Phosphatase Creatine Kinase Troponin I B-Natriuretic Peptide Total Protein Albumin Urine Color Straw Urine Appearance Clear Urine pH 5.0 Ur Specific [place] 1.009 Urine Protein Negative Urine Glucose (UA) 1+ H Urine Ketones Negative Urine Blood Negative Urine Nitrite Negative Urine Bilirubin Negative Urine Urobilinogen Negative Ur Leukocyte Esterase Negative Problem List - Problems (1) Acute on chronic diastolic CHF (congestive heart failure) Code(s): I50.33 - ACUTE ON CHRONIC DIASTOLIC (CONGESTIVE) HEART FAILURE (2) Atrial fibrillation with RVR Code(s): I48.91 - UNSPECIFIED ATRIAL FIBRILLATION (3) Interstitial lung disease Code(s): J84.9 - INTERSTITIAL PULMONARY DISEASE, UNSPECIFIED (4) Acute on chronic combined systolic and diastolic CHF (congestive heart failure) Code(s): I50.43 - ACUTE ON CHRONIC COMBINED SYSTOLIC AND DIASTOLIC HRT FAIL (5) Acute on chronic respiratory failure with hypoxemia Code(s): J96.21 - ACUTE AND CHRONIC RESPIRATORY FAILURE WITH HYPOXIA Assessment/Plan R/O HCAP (?) Component of Pulmonary vascular congestion (?) Natural progression of ILD (Etiology unclear) (?) Opportunistic infection AFib Sacral decubitus ABX per ID Check sputum Sapp-culture NIPPV support Will call Palliative care to discuss GOC Aspiration precautions Will try 3 days of Pulsed steroids BD TX PPI ICU monitoring Dr May CCTime 35"
[2016-06-24] MEDS ORDERED: VANCOMYCIN 1 GRAM (PRE-DOCKED) 1,000 MG/250 ML BAG IVPB SCH (12:00)
--- NOTE | 2016-06-24 12:20 | PN ---
Physical Exam: SUBJECTIVE: Patient seen and examined at bedside in ICU. Afebrile overnight with sustained BP off pressors. States breathing is much better this AM than on admission. Baseline respiratory function has been steadily & rapidly decreasing since ILD diagnosis in January. [facility] [place] [facility] desaturates to ~70 after 2 minutes off NRB mask. OBJECTIVE: Vital Signs Period Temp Pulse Resp BP Sys/Holt Pulse Ox Last 24 Hr 97.2 F-98.2 F 108-129 24-40 84-114/45-83 90-100 GENERAL: The patient is awake, alert, and fully oriented, in no acute distress. HEENT: Atraumatic, EOMI, PERRLA, Moist membranes, no lymphadenopathy noted LUNGS: bilateral crackles noted at bases, diminished breath sounds diffusely HEART: Irregular, tachycardic, s1, s2, 2/6 systolic murmur ABDOMEN: Soft, nontender, nondistended, normoactive bowel sounds EXTREMITIES: 2+ pulses, warm, well-perfused, +1 peripheral edema bilateral LE NEUROLOGICAL: Cranial nerves II through XII grossly intact. Normal speech, gait not observed. PSYCH: Normal mood, normal affect. SKIN: as above Laboratory Results - last 24 hr 06/23/16 06/23/16 06/23/16 23:30 23:32 23:45 Puncture Site Right radial ABG pH 7.48 H ABG pCO2 at Pt Temp 37.0 ABG pO2 at Pt Temp 57.3 L D ABG HCO3 27.5 H ABG O2 Sat (Measured) 89.3 L ABG O2 Content 12.0 L ABG Base Excess 4.2 H Gonzalo Test Positive Carboxyhemoglobin 2.7 H Methemoglobin 0.3 L O2 Delivery Device Bipap Oxygen Flow Rate 50% Vent Mode S/t Vent Rate 14 Mechanical Rate Y PEEP 5.0 Pressure Support Vent 10 Lactic Acid 4.845 H* Urine Color Straw Urine Appearance Clear Urine pH 5.0 Ur Specific [place] 1.009 Urine Protein Negative Urine Glucose (UA) 1+ H Urine Ketones Negative Urine Blood Negative Urine Nitrite Negative Urine Bilirubin Negative Urine Urobilinogen Negative Ur Leukocyte Esterase Negative Active Medications Generic Name Dose Route Start Last Admin Trade Name Freq PRN Reason Stop Dose Admin Acetaminophen 650 mg 06/24/16 01:37 Tylenol - PO Q4H PRN FEVER OR PAIN Albuterol Sulfate 1 amp 06/24/16 01:36 Ventolin 0.083% Nebulizer Soln - NEB Q4H PRN SHORT OF BREATH/WHEEZING Arformoterol Tartrate 1 amp 06/24/16 12:00 Brovana (Restricted To Pulmonology/Resp) - NEB BID [facility] Aspirin 81 mg 06/24/16 10:00 06/24/16 09:17 Asa - PO 81 mg DAILY [facility] Administration Atorvastatin Calcium 40 mg 06/24/16 22:00 Lipitor - PO HS [facility] Azithromycin 500 mg 06/24/16 10:00 06/24/16 09:21 Zithromax 500mg Ivpb (Pre-Docked) IVPB 500 mg DAILY [facility] Administration Diltiazem HCl 60 mg 06/24/16 06:00 06/24/16 08:15 Cardizem - PO 60 mg Q6HPO [facility] Administration Loperamide HCl 2 mg 06/24/16 01:36 Imodium - PO Q8H PRN DIARRHE[facility] Methylprednisolone Sodium Succinate 250 mg 06/24/16 15:00 Solu-Medrol - IVPB Q6H-IV [facility] Metoprolol Succinate 100 mg 06/24/16 10:00 06/24/16 11:24 Toprol Xl - PO 100 mg DAILY [facility] Administration Montelukast Sodium 15 mg 06/24/16 22:00 Singulair - PO HS [facility] Mycophenolate Mofetil 500 mg 06/24/16 10:00 06/24/16 09:17 Cellcept - PO 500 mg BID [facility] Administration Nystatin 500,000 units 06/24/16 06:00 06/24/16 11:24 Nystatin Oral Suspension - PO 500,000 units Q6HPO [facility] Administration Oxycodone HCl 10 mg 06/24/16 03:50 06/24/16 09:32 Roxicodone - PO 10 mg Q4H PRN Administration Pantoprazole Sodium 40 mg 06/24/16 10:00 06/24/16 09:18 Protonix - PO 40 mg DAILY [facility] Administration Piperacillin Sod/Tazobactam Sod 3.375 gm 06/24/16 10:00 Zosyn 3.375gm Ivpb (Pre-Docked) IVPB Q8H-IV [facility] Prasugrel 5 mg 06/24/16 10:00 06/24/16 09:17 Effient - PO 5 mg DAILY [facility] Administration Tiotropium [place] 1 puff 06/24/16 10:00 06/24/16 09:18 Spiriva - IH 1 puff DAILY [facility] Administration Vancomycin HCl 1,000 mg 06/24/16 12:00 Vancomycin (Pre-Docked) IVPB DAILY [facility] Warfarin Sodium 2 mg 06/24/16 18:00 Coumadin - PO DAILY@1800 [facility] ASSESSMENT/PLAN: 71 year old male with PMH of HTN, A-Fib, CAD s/p stents, ILD (on cellcept and Prenisone), Systolic CHF with recent hospitalization for HCAP who presented to ICU in acute hypoxic respiratory failure. Found to have (+) sputum culture for Aspergillosis in May 2016. #Acute on Chronic hypoxic respiratory failure superimposed on ILD -(+) sputum culture for Aspergillosis -started on Voriconazole -empiric HCAP coverage with Cefepime & Vancomycin -continue Albuterol, Brovana, Spiriva -on Solumedrol 60mg q6h & Cellcept for ILD -saturating well on NRB mask -BiPAP at night, and as needed during day -f/u lactate -ID following #Acute on Chronic Systolic CHF -Lasix 40mg BID -TTE ordered & pending -Cardiology following #Atrial Fibrillation -continue on Cardizem 60mg q6h, Toprol XL 100mg -on anticoagulation: Warfarin, ASA, Effient -on Lipitor -f/u INR Prophylaxis -Coumadin, PPI -No IVF at present, Regular diet -Palliative care consult requested Visit type - Emergency Visit Emergency Visit: Yes ED Registration Date: 06/23/16 Care time: The patient presented to the Emergency Department on the above date and was hospitalized for further evaluation of their emergent condition. - New Patient This patient is new to me today: Yes Date on this admission: 06/24/16 - Critical Care Critical Care patient: Yes Total Critical Care Time (in minutes): 45 Critical Care Statement: The care of this patient involved high complexity decision making to prevent further life threatening deterioration of the patient 's condition and/or to evalute & treat vital organ system(s) failure or risk of failure.
[2016-06-24 13:19] LABS: INR 1.84 (0.82-1.09); PROTHROMBIN TIME (PATIENT) 20.5 SEC (9.98-11.88)
[2016-06-24] MEDS: ARFORMOTEROL TARTRATE 15 MCG/2 ML VIAL NEB SCH ×2 (13:23→22:32)
--- NOTE | 2016-06-24 13:29 | PN ---
Progress Note, Physician Chief Complaint: Patient well known to us from early May admission Sputum obtained that admission growing Aspergillus from 06/04 ! - Current Medication List Current Medications: Active Medications Acetaminophen (Tylenol -) 650 mg PO Q4H PRN PRN Reason: FEVER OR PAIN Albuterol Sulfate (Ventolin 0.083% Nebulizer Soln -) 1 amp NEB Q4H PRN PRN Reason: SHORT OF BREATH/WHEEZING Arformoterol Tartrate (Brovana (Restricted To Pulmonology/Resp) -) 1 amp NEB BID [facility] Aspirin (Asa -) 81 mg PO DAILY [facility] Last Admin: 06/24/16 09:17 Dose: 81 mg Atorvastatin Calcium (Lipitor -) 40 mg PO HS [facility] Azithromycin (Zithromax 500mg Ivpb (Pre-Docked)) 500 mg IVPB DAILY [facility] Last Admin: 06/24/16 09:21 Dose: 500 mg Chlorhexidine Gluconate (Hibiclens For Decolonization -) 1 applic TP HS [facility] Diltiazem HCl (Cardizem -) 60 mg PO Q6HPO [facility] Last Admin: 06/24/16 12:21 Dose: 60 mg Loperamide HCl (Imodium -) 2 mg PO Q8H PRN PRN Reason: DIARRHEA Methylprednisolone Sodium Succinate (Solu-Medrol -) 250 mg IVPB Q6H-IV [facility] Metoprolol Succinate (Toprol Xl -) 100 mg PO DAILY [facility] Last Admin: 06/24/16 11:24 Dose: 100 mg Montelukast Sodium (Singulair -) 15 mg PO HS [facility] Mupirocin (Bactroban Ointment (For Decolonization) -) 1 applic NS BID [facility] Stop: 06/29/16 12:59 Mycophenolate Mofetil (Cellcept -) 500 mg PO BID [facility] Last Admin: 06/24/16 09:17 Dose: 500 mg Nystatin (Nystatin Oral Suspension -) 500,000 units PO Q6HPO [facility] Last Admin: 06/24/16 11:24 Dose: 500,000 units Oxycodone HCl (Roxicodone -) 10 mg PO Q4H PRN Last Admin: 06/24/16 09:32 Dose: 10 mg Pantoprazole Sodium (Protonix -) 40 mg PO DAILY [facility] Last Admin: 06/24/16 09:18 Dose: 40 mg Piperacillin Sod/Tazobactam Sod (Zosyn 3.375gm Ivpb (Pre-Docked)) 3.375 gm IVPB Q8H-IV [facility] Prasugrel (Effient -) 5 mg PO DAILY [facility] Last Admin: 06/24/16 09:17 Dose: 5 mg Tiotropium [place] (Spiriva -) 1 puff IH DAILY [facility] Last Admin: 06/24/16 09:18 Dose: 1 puff Vancomycin HCl (Vancomycin (Pre-Docked)) 1,000 mg IVPB DAILY [facility] Warfarin Sodium (Coumadin -) 2 mg PO DAILY@1800 [facility] - Objective Vital Signs: Vital Signs Temperature 97.2 F L 06/24/16 10:00 Pulse Rate 113 H 06/24/16 13:05 Respiratory Rate 26 H 06/24/16 13:05 Blood Pressure 88/78 06/24/16 13:05 O2 Sat by Pulse Oximetry (%) 99 06/24/16 11:38 Cardiovascular: Yes: Pulse Irregular, S1, S2 Respiratory: Yes: Rales, Rhonchi Gastrointestinal: Yes: Soft Edema: No Labs: INR, PTT INR 1.77 (0.82-1.09) H D 06/23/16 20:40 Problem List - Problems (1) Atrial fibrillation with RVR Code(s): I48.91 - UNSPECIFIED ATRIAL FIBRILLATION (2) Interstitial lung disease Code(s): J84.9 - INTERSTITIAL PULMONARY DISEASE, UNSPECIFIED (3) Sepsis Code(s): A41.9 - SEPSIS, UNSPECIFIED ORGANISM (4) Aspergillus pneumonia Code(s): B44.9 - ASPERGILLOSIS, UNSPECIFIED Assessment/Plan Microbiology 06/04/16 16:50 Sputum - Expectorated Gram Stain - Final 06/04/16 16:50 Sputum - Expectorated Sputum Culture - Final Yeast Like Organism Presumptive Fungal Organism 06/04/16 16:50 Sputum - Expectorated Fungus Mold Identification - Final Aspergillus Fumigatus 05/25/16 05:00 Serum Cryptococcal Antigen - Final 05/23/16 10:30 Sputum - Expectorated AFB Smear Concentration - Final 05/23/16 10:30 Sputum - Expectorated Direct Acid Fast Bacilli Smear - Final 05/22/16 10:15 Sputum - Expectorated AFB Smear Concentration - Final 05/22/16 10:15 Sputum - Expectorated Direct Acid Fast Bacilli Smear - Final 05/21/16 13:45 Urine For Antigen Detection Legionella Antigen - Final 05/21/16 13:45 Urine For Antigen Detection Streptococcus pneumoniae Antigen (M - Final 05/21/16 13:45 Sputum - Expectorated AFB Smear Concentration - Final 05/21/16 13:45 Sputum - Expectorated Direct Acid Fast Bacilli Smear - Final 05/23/16 10:30 Sputum - Expectorated Mycobacterial Culture - Preliminary 05/22/16 10:15 Sputum - Expectorated Mycobacterial Culture - Preliminary 05/21/16 13:45 Sputum - Expectorated Mycobacterial Culture - Preliminary Laboratory Tests 05/22/16 06/23/16 06/23/16 06:00 20:40 20:40 WBC 8.7 D Hgb 10.1 L Hct 30.3 L Plt Count 162 D INR 1.77 H D ABG pH ABG pO2 at Pt Temp ABG HCO3 O2 Delivery Device Oxygen Flow Rate Lactic Acid Total Bilirubin AST Alkaline Phosphatase Ur Leukocyte Esterase Beta-(1,3)-D-Glucan 62 06/23/16 06/23/16 06/23/16 20:40 20:40 23:30 WBC Hgb Hct Plt Count INR ABG pH 7.48 H ABG pO2 at Pt Temp 57.3 L D ABG HCO3 27.5 H O2 Delivery Device Bipap Oxygen Flow Rate 50% Lactic Acid 2.192 H* Total Bilirubin 1.2 H AST 30 D Alkaline Phosphatase 139 H D Ur Leukocyte Esterase Beta-(1,3)-D-Glucan 06/23/16 06/23/16 23:32 23:45 WBC Hgb Hct Plt Count INR ABG pH ABG pO2 at Pt Temp ABG HCO3 O2 Delivery Device Oxygen Flow Rate Lactic Acid 4.845 H* Total Bilirubin AST Alkaline Phosphatase Ur Leukocyte Esterase Negative Beta-(1,3)-D-Glucan Assessment Pneumonia ? bacterial but pneumonia secondary to Aspergillus considered as well ILD Atrial fibrillation Respiratory failure Plan Vancomycin and Cefepime for possible HAP LEG AG Sputum fungal culture Galactomannin level Start Voriconazole Antony GURROLA
[2016-06-24] MEDS ORDERED: VANCOMYCIN 1,250 MG in DEXTROSE 5%-WATER - 250 ML IVPB SCH (14:00)
[2016-06-24] MEDS: MUPIROCIN 2% TOPICAL OINTMENT FOR DECOLONIZATION NS SCH ×2 (14:18→21:20)
[2016-06-24] MEDS: methylPREDNISolone NA SUCC 125 MG/2 ML VIAL IVPB SCH ×2 (14:21→21:20)
[2016-06-24] MEDS ORDERED: VORICONAZOLE IVPB SCH (15:00)
[2016-06-24] MEDS ORDERED: DEXTROSE 5% IVPB SCH (15:00)
[2016-06-24] MEDS ORDERED: methylPREDNISolone NA SUCC 125 MG/2 ML VIAL IVPB SCH (15:00)
[2016-06-24] MEDS ORDERED: WATER IVPB SCH (15:00)
[2016-06-24] MEDS: CEFEPIME 2 GM in DEXTROSE 5%-WATER - 100 ML IVPB SCH ×2 (16:05→17:13)
[2016-06-24] MEDS: WARFARIN NA 2 MG TABLET (UD) PO SCH (17:13)
--- NOTE | 2016-06-24 17:49 | PN ---
Progress Note, Physician History of Present Illness: 71 year old male with past medical history of hypertension, atrial fibrillation , interstitial lung disease, coronary disease status post stents, congestive heart failure presents from [facility] for increasing shortness of breath and difficulty breathing. Patient reports a chronic cough that has slightly worsened but denies phlegm production. Denies fevers or chills. He does take CellCept and 25 mg prednisone daily. He has become increasingly more short of breath. He also reported a mild right-sided chest pain that now resolved. [facility] PCI (angioplasty with thrombectomy of mid-LAD) 08/27/15 PCI (LASHELL) of ostial LCx 11/05/2015 PCIs (LASHELL) of proximal and mid LAD 06/12/2015 at [facility] Medical History: interstitial lung disease NSTEMI 05/2015 PAD Parkinson's disease paroxysmal A. Fib right renal nephrolithiasis Systolic heart failure (05/2015 pre-PCI ECHO: moderately dilated LV; mildly reduced LVEF; moderately severe MR and TR) - Current Medication List Current Medications: Active Medications Acetaminophen (Tylenol -) 650 mg PO Q4H PRN PRN Reason: FEVER OR PAIN Albuterol Sulfate (Ventolin 0.083% Nebulizer Soln -) 1 amp NEB Q4H PRN PRN Reason: SHORT OF BREATH/WHEEZING Arformoterol Tartrate (Brovana (Restricted To Pulmonology/Resp) -) 1 amp NEB BID [facility] Last Admin: 06/24/16 13:23 Dose: 1 amp Aspirin (Asa -) 81 mg PO DAILY [facility] Last Admin: 06/24/16 09:17 Dose: 81 mg Atorvastatin Calcium (Lipitor -) 40 mg PO HS [facility] Chlorhexidine Gluconate (Hibiclens For Decolonization -) 1 applic TP HS [facility] Diltiazem HCl (Cardizem -) 60 mg PO Q6HPO [facility] Last Admin: 06/24/16 17:13 Dose: 60 mg Vancomycin HCl 1,250 mg/ (Dextrose) 250 mls @ 166.667 mls/hr IVPB BID@0200, 1400 [facility] Last Admin: 06/24/16 16:15 Dose: 166.667 mls/hr Cefepime HCl 2 gm/ Dextrose 100 mls @ 200 mls/hr IVPB Q8H-IV [facility] Last Admin: 06/24/16 17:13 Dose: 200 mls/hr Voriconazole 300 mg/ Dextrose 280 mls @ 186.667 mls/hr IVPB Q12H [facility] Voriconazole 450 mg/ Dextrose 295 mls @ 147.5 mls/hr IVPB Q12H [facility] Stop: 06/25/16 04:59 Loperamide HCl (Imodium -) 2 mg PO Q8H PRN PRN Reason: DIARRHEA Methylprednisolone Sodium Succinate (Solu-Medrol -) 60 mg IVPB Q6H-IV [facility] Last Admin: 06/24/16 14:21 Dose: 60 mg Metoprolol Succinate (Toprol Xl -) 100 mg PO DAILY [facility] Last Admin: 06/24/16 11:24 Dose: 100 mg Montelukast Sodium (Singulair -) 15 mg PO [facility] Mupirocin (Bactroban Ointment (For Decolonization) -) 1 applic NS BID [facility] Stop: 06/29/16 12:59 Last Admin: 06/24/16 14:18 Dose: Not Given Mycophenolate Mofetil (Cellcept -) 500 mg PO BID [facility] Last Admin: 06/24/16 09:17 Dose: 500 mg Nystatin (Nystatin Oral Suspension -) 500,000 units PO Q6HPO [facility] Last Admin: 06/24/16 17:13 Dose: 500,000 units Oxycodone HCl (Roxicodone -) 10 mg PO Q4H PRN Last Admin: 06/24/16 09:32 Dose: 10 mg Pantoprazole Sodium (Protonix -) 40 mg PO DAILY [facility] Last Admin: 06/24/16 09:18 Dose: 40 mg Prasugrel (Effient -) 5 mg PO DAILY [facility] Last Admin: 06/24/16 09:17 Dose: 5 mg Tiotropium [place] (Spiriva -) 1 puff IH DAILY [facility] Last Admin: 06/24/16 09:18 Dose: 1 puff Warfarin Sodium (Coumadin -) 2 mg PO DAILY@1800 [facility] Last Admin: 06/24/16 17:13 Dose: 2 mg - Objective Vital Signs: Vital Signs Temperature 97.0 F L 06/24/16 14:00 Pulse Rate 110 H 06/24/16 16:00 Respiratory Rate 26 H 06/24/16 16:00 Blood Pressure 94/75 06/24/16 16:00 O2 Sat by Pulse Oximetry (%) 98 06/24/16 15:22 Eyes: Yes: WNL, Conjunctiva Clear, EOM Intact HENT: Yes: WNL, Atraumatic, Normocephalic Neck: Yes: WNL, Supple, Trachea Midline Cardiovascular: Yes: Pulse Irregular, S1, S2 Respiratory: Yes: Poor Air Entry, Rhonchi Gastrointestinal: Yes: WNL, Normal Bowel Sounds Genitourinary: Yes: WNL Musculoskeletal: Yes: WNL Extremities: Yes: WNL Edema: No Integumentary: Yes: WNL Neurological: Yes: WNL, Alert, Oriented ...Motor Strength: WNL Psychiatric: Yes: WNL Labs: INR, PTT INR 1.84 (0.82-1.09) H 06/24/16 12:40 Microbiology 06/23/16 20:40 Nasopharyngeal Swab Respiratory Virus Panel - Preliminary 06/23/16 20:40 Nasopharyngeal Swab Influenza Types A,B Antigen (JESSICA) - Final 06/23/16 20:40 Nasopharyngeal Swab - Final Laboratory Tests 06/23/16 06/23/16 06/23/16 20:40 20:40 20:40 WBC 8.7 D RBC 3.22 L Hgb 10.1 L Hct 30.3 L MCV 94.0 MCHC 33.3 RDW 24.6 H D Plt Count 162 D MPV 7.2 L Neutrophils % 74.0 D Lymphocytes % 14.0 D Monocytes % 2.0 L D Eosinophils % 1.0 D Band Neutrophils 6.0 D Metamyelocytes 2 D Myelocytes 1 Polychromasia 1+ Anisocytosis 3+ Tear Drop Cells 1+ Ovalocytes 1+ Rouleaux 1+ INR 1.77 H D PTT (Actin FS) 28.0 Puncture Site ABG pH ABG pCO2 at Pt Temp ABG pO2 at Pt Temp ABG HCO3 ABG O2 Sat (Measured) ABG O2 Content ABG Base Excess Gonzalo Test Carboxyhemoglobin Methemoglobin O2 Delivery Device Oxygen Flow Rate Vent Mode Vent Rate Mechanical Rate PEEP Pressure Support Vent Sodium 139 Potassium 4.2 Chloride 102 Carbon Dioxide 29 Anion Gap 8 BUN 22 H D Creatinine 0.5 L Creat Clearance w eGFR > 60 Random Glucose 178 H Lactic Acid Calcium 7.4 L Phosphorus 3.0 Magnesium 1.9 Total Bilirubin 1.2 H AST 30 D ALT 58 D Alkaline Phosphatase 139 H D Creatine Kinase 39 Troponin I < 0.02 B-Natriuretic Peptide 1603.94 H Total Protein 5.4 L Albumin 2.1 L D Urine Color Urine Appearance Urine pH Ur Specific [place] Urine Protein Urine Glucose (UA) Urine Ketones Urine Blood Urine Nitrite Urine Bilirubin Urine Urobilinogen Ur Leukocyte Esterase 06/23/16 06/23/16 06/23/16 20:40 23:30 23:32 WBC RBC Hgb Hct MCV MCHC RDW Plt Count MPV Neutrophils % Lymphocytes % Monocytes % Eosinophils % Band Neutrophils Metamyelocytes Myelocytes Polychromasia Anisocytosis Tear Drop Cells Ovalocytes Rouleaux INR PTT (Actin FS) Puncture Site Right radial ABG pH 7.48 H ABG pCO2 at Pt Temp 37.0 ABG pO2 at Pt Temp 57.3 L D ABG HCO3 27.5 H ABG O2 Sat (Measured) 89.3 L ABG O2 Content 12.0 L ABG Base Excess 4.2 H Gonzalo Test Positive Carboxyhemoglobin 2.7 H Methemoglobin 0.3 L O2 Delivery Device Bipap Oxygen Flow Rate 50% Vent Mode S/t Vent Rate 14 Mechanical Rate Y PEEP 5.0 Pressure Support Vent 10 Sodium Potassium Chloride Carbon Dioxide Anion Gap BUN Creatinine Creat Clearance w eGFR Random Glucose Lactic Acid 2.192 H* 4.845 H* Calcium Phosphorus Magnesium Total Bilirubin AST ALT Alkaline Phosphatase Creatine Kinase Troponin I B-Natriuretic Peptide Total Protein Albumin Urine Color Urine Appearance Urine pH Ur Specific [place] Urine Protein Urine Glucose (UA) Urine Ketones Urine Blood Urine Nitrite Urine Bilirubin Urine Urobilinogen Ur Leukocyte Esterase 06/23/16 06/24/16 23:45 12:40 WBC RBC Hgb Hct MCV MCHC RDW Plt Count MPV Neutrophils % Lymphocytes % Monocytes % Eosinophils % Band Neutrophils Metamyelocytes Myelocytes Polychromasia Anisocytosis Tear Drop Cells Ovalocytes Rouleaux INR 1.84 H PTT (Actin FS) Puncture Site ABG pH ABG pCO2 at Pt Temp ABG pO2 at Pt Temp ABG HCO3 ABG O2 Sat (Measured) ABG O2 Content ABG Base Excess Gonzalo Test Carboxyhemoglobin Methemoglobin O2 Delivery Device Oxygen Flow Rate Vent Mode Vent Rate Mechanical Rate PEEP Pressure Support Vent Sodium Potassium Chloride Carbon Dioxide Anion Gap BUN Creatinine Creat Clearance w eGFR Random Glucose Lactic Acid Calcium Phosphorus Magnesium Total Bilirubin AST ALT Alkaline Phosphatase Creatine Kinase Troponin I B-Natriuretic Peptide Total Protein Albumin Urine Color Straw Urine Appearance Clear Urine pH 5.0 Ur Specific [place] 1.009 Urine Protein Negative Urine Glucose (UA) 1+ H Urine Ketones Negative Urine Blood Negative Urine Nitrite Negative Urine Bilirubin Negative Urine Urobilinogen Negative Ur Leukocyte Esterase Negative Problem List - Problems (1) Acute on chronic combined systolic and diastolic CHF (congestive heart failure) Code(s): I50.43 - ACUTE ON CHRONIC COMBINED SYSTOLIC AND DIASTOLIC HRT FAIL (2) Acute on chronic diastolic CHF (congestive heart failure) Code(s): I50.33 - ACUTE ON CHRONIC DIASTOLIC (CONGESTIVE) HEART FAILURE (3) Acute on chronic respiratory failure with hypoxemia Code(s): J96.21 - ACUTE AND CHRONIC RESPIRATORY FAILURE WITH HYPOXIA (4) Acute right flank pain Code(s): R10.9 - UNSPECIFIED ABDOMINAL PAIN (5) Anemia Code(s): D64.9 - ANEMIA, UNSPECIFIED (6) Atrial fibrillation Code(s): I48.91 - UNSPECIFIED ATRIAL FIBRILLATION Qualifiers: Atrial fibrillation type: chronic Qualified Code(s): I48.2 - Chronic atrial fibrillation (7) Atrial fibrillation with RVR Code(s): I48.91 - UNSPECIFIED ATRIAL FIBRILLATION (8) CAD (coronary artery disease) Code(s): I25.10 - ATHSCL HEART DISEASE OF [place] CORONARY ARTERY W/O ANG PCTRS (9) Critical illness neuropathy Code(s): G62.81 - CRITICAL ILLNESS POLYNEUROPATHY (10) Dyspnea Code(s): R06.00 - DYSPNEA, UNSPECIFIED (11) Hyperglycemia Code(s): R73.9 - HYPERGLYCEMIA, UNSPECIFIED (12) Interstitial lung disease Code(s): J84.9 - INTERSTITIAL PULMONARY DISEASE, UNSPECIFIED (13) NSTEMI (non-ST elevated myocardial infarction) Code(s): I21.4 - NON-ST ELEVATION (NSTEMI) MYOCARDIAL INFARCTION (14) Paroxysmal atrial fibrillation with rapid ventricular response Code(s): I48.0 - PAROXYSMAL ATRIAL FIBRILLATION (15) Pedal edema Code(s): R60.0 - LOCALIZED EDEMA (16) Psoas hematoma, left, secondary to anticoagulant therapy Code(s): S30.1XXA - CONTUSION OF ABDOMINAL WALL, INITIAL ENCOUNTER (17) Psoas hematoma, right, secondary to anticoagulant therapy Code(s): S30.1XXA - CONTUSION OF ABDOMINAL WALL, INITIAL ENCOUNTER (18) Rash of face Code(s): R21 - RASH AND OTHER NONSPECIFIC SKIN ERUPTION (19) Subconjunctival hemorrhage Code(s): H11.30 - CONJUNCTIVAL HEMORRHAGE, UNSPECIFIED EYE Qualifiers: Laterality: right Qualified Code(s): H11.31 - Conjunctival hemorrhage, right eye Assessment/Plan interstitial lung disease ?etiology NSTEMI 05/2015 PAD Parkinson's disease paroxysmal A. Fib right renal nephrolithiasis Systolic heart failure (05/2015 pre-PCI ECHO: moderately dilated LV; mildly reduced LVEF; moderately severe MR and TR) IV lasix 40 BID rate control ac steroids abx cont rx as per pulmonary will f/u cctime 35 min
[2016-06-24] MEDS: DEXTROSE 5% IVPB SCH (18:00)
[2016-06-24] MEDS: VORICONAZOLE IVPB SCH (18:00)
[2016-06-24] MEDS: WATER IVPB SCH (18:00)
[2016-06-24] MEDS: CHLORHEXIDINE GLUCONATE 4% CLEANSER FOR DECOLONIZATION TP SCH (21:21)
[2016-06-24] MEDS: ATORVASTATIN CA 40 MG TABLET (FP) PO SCH (21:21)
[2016-06-24] MEDS ORDERED: MONTELUKAST NA 5 MG TAB.CHEW PO SCH (22:00)
[2016-06-25] MEDS: CEFEPIME 2 GM in DEXTROSE 5%-WATER - 100 ML IVPB SCH ×3 (02:10→18:22)
[2016-06-25] MEDS: methylPREDNISolone NA SUCC 125 MG/2 ML VIAL IVPB SCH ×4 (02:14→21:11)
[2016-06-25] MEDS: WATER IVPB SCH ×2 (03:06→15:44)
[2016-06-25] MEDS: DEXTROSE 5% IVPB SCH ×2 (03:06→15:44)
[2016-06-25] MEDS: VORICONAZOLE IVPB SCH ×2 (03:06→15:44)
[2016-06-25] MEDS ORDERED: VANCOMYCIN 1,250 MG in DEXTROSE 5%-WATER - 250 ML IVPB SCH (04:00)
[2016-06-25] MEDS ORDERED: morphine CARPU-JECT 2 MG/1 ML DISP.SYRIN ONE (04:15)
[2016-06-25] MEDS: morphine CARPU-JECT 2 MG/1 ML DISP.SYRIN IVPUSH PRN ×6 (04:20→23:33)
[2016-06-25] MEDS ORDERED: FUROSEMIDE 40 MG/4 ML INJECTABLE VIAL IVPUSH ONE (04:30)
--- NOTE | 2016-06-25 05:27 | PN ---
Progress Note (short form) - Note Progress Note: Event Note: Pt became increasing dyspneic throughout the night. Morphine 2mg given a few times with some relief, although this was brief. He has been discussing goals of care with the Palliative Care service. He made his sister his HCP verbally during those discussions. He also was considering a trial of intubation. This morning I met with Mr Yadav and we discussed his current condition. He showing signs of respiratory fatigue, become increasingly tachypneic and tachycardic dispite NIVPPV support. I expressed my concern that given his rapidly progressing advanced lung disease mechanical ventilation would be highly unlikely to lead to significant life extension or benefit. We discussed focusing on his symptom management and non-medical goals. At the culmination of our discussion he decided of his own volition that he does not want intubation, CPR, or other invasive procedure. He asked that we reached out to his sister and make her aware of his decision, which we will do. All questions were answered. Primary team to be made aware. Boy Solomon [facility] [id number]
[2016-06-25] MEDS ORDERED: morphine CARPU-JECT 2 MG/1 ML DISP.SYRIN IVPUSH ONE (05:45)
[2016-06-25] MEDS ORDERED: dilTIAZem HCL 50 MG/10 ML - 10 ML VIAL IVPUSH ONE ×2 (05:45→11:30)
[2016-06-25] MEDS: NYSTATIN 500,000 UNITS/5 ML SUSPENSION PO SCH ×4 (05:49→23:34)
[2016-06-25] MEDS: dilTIAZem HCL 60 MG TABLET (FP) PO SCH (05:49)
[2016-06-25 06:18] LABS: MCH 31.4 pg (25.7-33.7); MCHC 33.7 g/dl (32.0-35.9); MEAN CELL VOLUME 93.3 fl (80-96); MEAN PLT VOLUME 7.5 fl (7.5-11.1); PLATELET COUNT 118 K/MM3 (134-434); RDW 23.6 % (11.9-15.9); WHITE BLOOD COUNT 15.8 K/mm3 (4.0-10.0)
[2016-06-25 06:37] LABS: INR 2.5 (0.82-1.09)
[2016-06-25 06:54] LABS: ALBUMIN 2.3 g/dl (3.4-5.0); ANION GAP 14 (8-16); CALCIUM 7.7 mg/dL (8.5-10.1); CO2 29 mmol/L (21-32); MAGNESIUM 1.9 mg/dL (1.8-2.4)
[2016-06-25 07:07] LABS: ALK PHOS 178 U/L (45-117); BILIRUBIN,TOTAL 1.5 mg/dL (0.2-1.0); CREATININE 0.6 mg/dL (0.7-1.3); PHOSPHOROUS 3.4 mg/dL (2.5-4.9); SGOT/AST 39 U/L (15-37); SGPT/ALT 56 U/L (12-78); TOT PROT 5.8 g/dl (6.4-8.2)
[2016-06-25 07:12] LABS: GLUCOSE,RANDOM 311 mg/dL (74-106); LDH 977 U/L (87-241)
--- NOTE | 2016-06-25 07:33 | PN ---
Progress Note, Physician Chief Complaint: ID As per ICU overnight note deteriorating respiratory status now on 100% FIO2 Alert in distress on Venti mask Vancomycin / Cefepime/ Voriconazole - Current Medication List Current Medications: Active Medications Acetaminophen (Tylenol -) 650 mg PO Q4H PRN PRN Reason: FEVER OR PAIN Albuterol Sulfate (Ventolin 0.083% Nebulizer Soln -) 1 amp NEB Q4H PRN PRN Reason: SHORT OF BREATH/WHEEZING Arformoterol Tartrate (Brovana (Restricted To Pulmonology/Resp) -) 1 amp NEB BID [facility] Last Admin: 06/24/16 22:32 Dose: 1 amp Aspirin (Asa -) 81 mg PO DAILY [facility] Last Admin: 06/24/16 09:17 Dose: 81 mg Atorvastatin Calcium (Lipitor -) 40 mg PO HS [facility] Last Admin: 06/24/16 21:21 Dose: 40 mg Chlorhexidine Gluconate (Hibiclens For Decolonization -) 1 applic TP HS [facility] Last Admin: 06/24/16 21:21 Dose: 1 applic Diltiazem HCl (Cardizem -) 60 mg PO Q6HPO [facility] Last Admin: 06/25/16 05:49 Dose: Not Given Cefepime HCl 2 gm/ Dextrose 100 mls @ 200 mls/hr IVPB Q8H-IV [facility] Last Admin: 06/25/16 02:10 Dose: 200 mls/hr Voriconazole 300 mg/ Dextrose 280 mls @ 186.667 mls/hr IVPB Q12H [facility] Vancomycin HCl 1,250 mg/ (Dextrose) 250 mls @ 166.667 mls/hr IVPB Q12H [facility] Last Admin: 06/25/16 04:46 Dose: 166.667 mls/hr Loperamide HCl (Imodium -) 2 mg PO Q8H PRN PRN Reason: DIARRHEA Methylprednisolone Sodium Succinate (Solu-Medrol -) 60 mg IVPB Q6H-IV [facility] Last Admin: 06/25/16 02:14 Dose: 60 mg Metoprolol Succinate (Toprol Xl -) 100 mg PO DAILY [facility] Last Admin: 06/24/16 11:24 Dose: 100 mg Montelukast Sodium (Singulair -) 15 mg PO [facility] Morphine Sulfate (Morphine Injection -) 2 mg IVPUSH Q3H PRN PRN Reason: PAIN Last Admin: 06/25/16 07:10 Dose: 2 mg Mupirocin (Bactroban Ointment (For Decolonization) -) 1 applic NS BID [facility] Stop: 06/29/16 12:59 Last Admin: 06/24/16 21:20 Dose: 1 applic Mycophenolate Mofetil (Cellcept -) 500 mg PO BID [facility] Last Admin: 06/24/16 21:20 Dose: 500 mg Nystatin (Nystatin Oral Suspension -) 500,000 units PO Q6HPO [facility] Last Admin: 06/25/16 05:49 Dose: Not Given Oxycodone HCl (Roxicodone -) 10 mg PO Q4H PRN Last Admin: 06/24/16 23:04 Dose: 10 mg Pantoprazole Sodium (Protonix -) 40 mg PO DAILY [facility] Last Admin: 06/24/16 09:18 Dose: 40 mg Prasugrel (Effient -) 5 mg PO DAILY [facility] Last Admin: 06/24/16 09:17 Dose: 5 mg Tiotropium [place] (Spiriva -) 1 puff IH DAILY [facility] Last Admin: 06/24/16 09:18 Dose: 1 puff Warfarin Sodium (Coumadin -) 2 mg PO DAILY@1800 [facility] Last Admin: 06/24/16 17:13 Dose: 2 mg - Objective Vital Signs: Vital Signs Temperature 97.4 F L 06/25/16 05:54 Pulse Rate 132 H 06/25/16 05:54 Respiratory Rate 34 H 06/25/16 05:54 Blood Pressure 108/77 06/25/16 05:54 O2 Sat by Pulse Oximetry (%) 99 06/25/16 07:19 Constitutional: Yes: Severe Distress Neck: Yes: WNL, Supple Cardiovascular: Yes: Regular Rate and Rhythm, Tachycardia, S1, S2. No: Murmur Respiratory: Yes: WNL, CTA Bilaterally, Diminished, Rhonchi, Tachypnea Gastrointestinal: Yes: WNL, Normal Bowel Sounds, Soft. No: Splenomegaly, Tenderness, Tenderness, Rebound Edema: No Labs: CBC, BMP 06/25/16 05:35 06/25/16 05:35 INR, PTT INR 2.50 (0.82-1.09) H D 06/25/16 05:35 Problem List - Problems (1) Atrial fibrillation with RVR Code(s): I48.91 - UNSPECIFIED ATRIAL FIBRILLATION (2) Interstitial lung disease Code(s): J84.9 - INTERSTITIAL PULMONARY DISEASE, UNSPECIFIED (3) Sepsis Code(s): A41.9 - SEPSIS, UNSPECIFIED ORGANISM (4) Aspergillus pneumonia Code(s): B44.9 - ASPERGILLOSIS, UNSPECIFIED Assessment/Plan Microbiology 06/23/16 20:40 Nasopharyngeal Swab Influenza Types A,B Antigen (JESSICA) - Final 06/23/16 20:40 Nasopharyngeal Swab - Final 06/23/16 20:50 Blood - Peripheral Venous Blood Culture - Preliminary NO GROWTH OBTAINED AFTER 24 HOURS, INCUBATION TO CONTINUE FOR 4 DAYS. 06/23/16 20:40 Nasopharyngeal Swab Respiratory Virus Panel - Preliminary 06/23/16 20:40 Blood - Peripheral Venous Blood Culture - Preliminary NO GROWTH OBTAINED AFTER 24 HOURS, INCUBATION TO CONTINUE FOR 4 DAYS. Laboratory Tests 05/22/16 06/25/16 06/25/16 06:00 05:35 05:35 WBC 15.8 H D Hgb 10.4 L Hct 31.0 L Plt Count 118 L D BUN 25 H Creatinine 0.6 L Alkaline Phosphatase 178 H D LD Total 977 H D Beta-(1,3)-D-Glucan 62 Assessment Chronic interstitial lung disease with superimposed ? Aspergillus infection on Voriconazole Despite the positive culture from earlier in May need to consider other causes of Opportunistic pneumonias in this immunosurpressed patient. His LDH from yesterday is almost 1000. While nonspecific PCP also in the differential diagnosis. He is deteriorating and does not want to be intubated which he needs now. We are not going to bronch him as he would require intubation. Will add Bactrim for possible PCP coverage given critical status and likely possiblilities as outlined. This would cover Nocardia as well. CMV also considered 40 minutes spent critical are time Antony GURROLA
[2016-06-25 07:38] LABS: ARTERIAL BLD GAS O2 SATURATION 97.8 % (90-98.9); ARTERIAL BLOOD GAS BASE EXCESS 4.7 meq/l (-2-2); ARTERIAL BLOOD GAS HCO3 29.2 meq/L (22-26); ARTERIAL BLOOD GAS PO2 95.7 mmHg (70-100); ARTERIAL BLOOD GAS pH 7.43 (7.35-7.45)
[2016-06-25 07:40] LABS: ALLENS TEST POSITIVE; ART PUNCT SITE LEFT RADIAL; LPM/O2% 100%; MECH. VENT. BIPAP; PT. ON O2? YES; TYPE OF O2 BIPAP
[2016-06-25 07:41] LABS: VENT RATE 14; VT/PRESS IPAP 10/EPAP 5
[2016-06-25] MEDS ORDERED: dilTIAZem HCL 50 MG/10 ML - 10 ML VIAL ONE (07:59)
[2016-06-25] MEDS ORDERED: DIGOXIN 0.5 MG/2 ML AMPUL ONE (08:28)
--- NOTE | 2016-06-25 09:26 | PN ---
Progress Note, Physician Chief Complaint: sob History of Present Illness: 71 year old male with past medical history of hypertension, atrial fibrillation , interstitial lung disease, coronary disease status post stents, congestive heart failure presents from [facility] for increasing shortness of breath and difficulty breathing. Patient reports a chronic cough that has slightly worsened but denies phlegm production. Denies fevers or chills. He does take CellCept and 25 mg prednisone daily. He has become increasingly more short of breath. He also reported a mild right-sided chest pain that now resolved. [facility] PCI (angioplasty with thrombectomy of mid-LAD) 08/27/15 PCI (LASHELL) of ostial LCx 11/05/2015 PCIs (LASHELL) of proximal and mid LAD 06/12/2015 at [facility] Medical History: interstitial lung disease NSTEMI 05/2015 PAD Parkinson's disease paroxysmal A. Fib right renal nephrolithiasis Systolic heart failure (05/2015 pre-PCI ECHO: moderately dilated LV; mildly reduced LVEF; moderately severe MR and TR) - Current Medication List Current Medications: Active Medications Acetaminophen (Tylenol -) 650 mg PO Q4H PRN PRN Reason: FEVER OR PAIN Albuterol Sulfate (Ventolin 0.083% Nebulizer Soln -) 1 amp NEB Q4H PRN PRN Reason: SHORT OF BREATH/WHEEZING Arformoterol Tartrate (Brovana (Restricted To Pulmonology/Resp) -) 1 amp NEB BID [facility] Last Admin: 06/24/16 22:32 Dose: 1 amp Aspirin (Asa -) 81 mg PO DAILY [facility] Last Admin: 06/24/16 09:17 Dose: 81 mg Atorvastatin Calcium (Lipitor -) 40 mg PO HS [facility] Last Admin: 06/24/16 21:21 Dose: 40 mg Chlorhexidine Gluconate (Hibiclens For Decolonization -) 1 applic TP HS [facility] Last Admin: 06/24/16 21:21 Dose: 1 applic Diltiazem HCl (Cardizem -) 60 mg PO Q6HPO [facility] Last Admin: 06/25/16 05:49 Dose: Not Given Cefepime HCl 2 gm/ Dextrose 100 mls @ 200 mls/hr IVPB Q8H-IV [facility] Last Admin: 06/25/16 02:10 Dose: 200 mls/hr Voriconazole 300 mg/ Dextrose 280 mls @ 186.667 mls/hr IVPB Q12H [facility] Loperamide HCl (Imodium -) 2 mg PO Q8H PRN PRN Reason: DIARRHEA Methylprednisolone Sodium Succinate (Solu-Medrol -) 60 mg IVPB Q6H-IV [facility] Last Admin: 06/25/16 02:14 Dose: 60 mg Metoprolol Succinate (Toprol Xl -) 100 mg PO DAILY [facility] Last Admin: 06/24/16 11:24 Dose: 100 mg Montelukast Sodium (Singulair -) 15 mg PO HS [facility] Morphine Sulfate (Morphine Injection -) 2 mg IVPUSH Q3H PRN PRN Reason: PAIN Last Admin: 06/25/16 07:10 Dose: 2 mg Mupirocin (Bactroban Ointment (For Decolonization) -) 1 applic NS BID [facility] Stop: 06/29/16 12:59 Last Admin: 06/24/16 21:20 Dose: 1 applic Mycophenolate Mofetil (Cellcept -) 500 mg PO BID [facility] Last Admin: 06/24/16 21:20 Dose: 500 mg Nystatin (Nystatin Oral Suspension -) 500,000 units PO Q6HPO [facility] Last Admin: 06/25/16 05:49 Dose: Not Given Oxycodone HCl (Roxicodone -) 10 mg PO Q4H [facility] Last Admin: 06/24/16 23:04 Dose: 10 mg Pantoprazole Sodium (Protonix -) 40 mg PO DAILY [facility] Last Admin: 06/24/16 09:18 Dose: 40 mg Prasugrel (Effient -) 5 mg PO DAILY [facility] Last Admin: 06/24/16 09:17 Dose: 5 mg Tiotropium [place] (Spiriva -) 1 puff IH DAILY [facility] Last Admin: 06/24/16 09:18 Dose: 1 puff Trimethoprim/Sulfamethoxazole (Bactrim Injection -) 320 mg IVPB Q6H-IV [facility] Warfarin Sodium (Coumadin -) 2 mg PO DAILY@1800 [facility] Last Admin: 06/24/16 17:13 Dose: 2 mg - Objective Vital Signs: Vital Signs Temperature 97.4 F L 06/25/16 05:54 Pulse Rate 132 H 06/25/16 05:54 Respiratory Rate 34 H 06/25/16 05:54 Blood Pressure 108/77 06/25/16 05:54 O2 Sat by Pulse Oximetry (%) 99 06/25/16 07:19 Eyes: Yes: WNL, Conjunctiva Clear, EOM Intact HENT: Yes: WNL, Atraumatic, Normocephalic Neck: Yes: WNL, Supple, Trachea Midline Cardiovascular: Yes: WNL, Tachycardia, Pulse Irregular Respiratory: Yes: Diminished, On BiPap, Rhonchi, Tachypnea Gastrointestinal: Yes: WNL, Normal Bowel Sounds Genitourinary: Yes: WNL Musculoskeletal: Yes: WNL Extremities: Yes: WNL Edema: No Integumentary: Yes: WNL Neurological: Yes: WNL, Alert, Oriented ...Motor Strength: WNL Psychiatric: Yes: WNL Labs: CBC, BMP 06/25/16 05:35 06/25/16 05:35 INR, PTT INR 2.50 (0.82-1.09) H D 06/25/16 05:35 Problem List - Problems (1) Acute on chronic combined systolic and diastolic CHF (congestive heart failure) Code(s): I50.43 - ACUTE ON CHRONIC COMBINED SYSTOLIC AND DIASTOLIC HRT FAIL (2) Acute on chronic diastolic CHF (congestive heart failure) Code(s): I50.33 - ACUTE ON CHRONIC DIASTOLIC (CONGESTIVE) HEART FAILURE (3) Acute on chronic respiratory failure with hypoxemia Code(s): J96.21 - ACUTE AND CHRONIC RESPIRATORY FAILURE WITH HYPOXIA (4) Acute right flank pain Code(s): R10.9 - UNSPECIFIED ABDOMINAL PAIN (5) Anemia Code(s): D64.9 - ANEMIA, UNSPECIFIED (6) Atrial fibrillation Code(s): I48.91 - UNSPECIFIED ATRIAL FIBRILLATION Qualifiers: Atrial fibrillation type: chronic Qualified Code(s): I48.2 - Chronic atrial fibrillation (7) Atrial fibrillation with RVR Code(s): I48.91 - UNSPECIFIED ATRIAL FIBRILLATION (8) CAD (coronary artery disease) Code(s): I25.10 - ATHSCL HEART DISEASE OF [place] CORONARY ARTERY W/O ANG PCTRS (9) Critical illness neuropathy Code(s): G62.81 - CRITICAL ILLNESS POLYNEUROPATHY (10) Dyspnea Code(s): R06.00 - DYSPNEA, UNSPECIFIED (11) Hyperglycemia Code(s): R73.9 - HYPERGLYCEMIA, UNSPECIFIED (12) Interstitial lung disease Code(s): J84.9 - INTERSTITIAL PULMONARY DISEASE, UNSPECIFIED (13) NSTEMI (non-ST elevated myocardial infarction) Code(s): I21.4 - NON-ST ELEVATION (NSTEMI) MYOCARDIAL INFARCTION (14) Paroxysmal atrial fibrillation with rapid ventricular response Code(s): I48.0 - PAROXYSMAL ATRIAL FIBRILLATION (15) Pedal edema Code(s): R60.0 - LOCALIZED EDEMA (16) Psoas hematoma, left, secondary to anticoagulant therapy Code(s): S30.1XXA - CONTUSION OF ABDOMINAL WALL, INITIAL ENCOUNTER (17) Psoas hematoma, right, secondary to anticoagulant therapy Code(s): S30.1XXA - CONTUSION OF ABDOMINAL WALL, INITIAL ENCOUNTER (18) Rash of face Code(s): R21 - RASH AND OTHER NONSPECIFIC SKIN ERUPTION (19) Subconjunctival hemorrhage Code(s): H11.30 - CONJUNCTIVAL HEMORRHAGE, UNSPECIFIED EYE Qualifiers: Laterality: right Qualified Code(s): H11.31 - Conjunctival hemorrhage, right eye Assessment/Plan interstitial lung disease ?etiology NSTEMI 05/2015 PAD Parkinson's disease paroxysmal A. Fib right renal nephrolithiasis Systolic heart failure (05/2015 pre-PCI ECHO: moderately dilated LV; mildly reduced LVEF; moderately severe MR and TR) IV lasix 40 BID rate control will start cardizem IV and add dig ac steroids abx cont rx as per pulmonary will f/u palliative care cctime 35 min
[2016-06-25 09:31] LABS: ANISOCYTOSIS 2+; HYPOCHROMIA 2+; METAMYELOCYTE 1 % (0-2); MICROCYTOSIS 1+; PLATELET COMMENT2 NO CLOTTING DETECTED; PLATELET ESTIMATE SLT DECREASED (NORMAL); POIKILOCYTOSIS 2+; POLYCHROMASIA 2+; SMUDGE CELLS FEW
[2016-06-25] MEDS ORDERED: PT OWN MED DRAWER 7, Y5N ONE ×3 (09:37→18:04)
[2016-06-25] MEDS: SULFAMETHOXAZOLE 80 MG/TRIMETHOPRIM 16 MG/ML VIAL IVPB SCH ×3 (09:54→21:09)
--- NOTE | 2016-06-25 09:54 | PN ---
Progress Note (short form) - Note Progress Note: Patient seen and examined in the ICU. Awake and alert. Tachypneic on NIPPV. Sister and his best friend are at the bedside. Entire clinical condition and concerns reviewed. Patient understands his critical illness and requests to be made DNR/DNI. No hemoptysis. Denies CP. CXR: no gross change in increased bilateral diffuse interstitial disease / no significant pleural effusions Intake & Output 06/22/16 06/23/16 06/24/16 06/25/16 23:59 23:59 23:59 23:59 Intake Total 2260 600 Output Total 1350 800 Balance 910 -200 Weight 175 lb 164 lb 9 oz Last Vital Signs Temp Pulse Resp BP Pulse Ox 97.4 F L 132 H 34 H 108/77 99 06/25/16 05:54 06/25/16 05:54 06/25/16 09:00 06/25/16 05:54 06/25/16 09:00 Active Medications Acetaminophen (Tylenol -) 650 mg PO Q4H PRN PRN Reason: FEVER OR PAIN Albuterol Sulfate (Ventolin 0.083% Nebulizer Soln -) 1 amp NEB Q4H PRN PRN Reason: SHORT OF BREATH/WHEEZING Arformoterol Tartrate (Brovana (Restricted To Pulmonology/Resp) -) 1 amp NEB BID [facility] Last Admin: 06/24/16 22:32 Dose: 1 amp Aspirin (Asa -) 81 mg PO DAILY [facility] Last Admin: 06/24/16 09:17 Dose: 81 mg Atorvastatin Calcium (Lipitor -) 40 mg PO HS [facility] Last Admin: 06/24/16 21:21 Dose: 40 mg Chlorhexidine Gluconate (Hibiclens For Decolonization -) 1 applic TP [facility] Last Admin: 06/24/16 21:21 Dose: 1 applic Digoxin (Lanoxin Injection -) 0.25 mg IVPUSH ONCE ONE Stop: 06/25/16 09:28 Diltiazem HCl (Cardizem -) 60 mg PO Q6HPO [facility] Last Admin: 06/25/16 05:49 Dose: Not Given Diltiazem HCl (Cardizem Injection -) 10 mg IVPUSH ONCE ONE Stop: 06/25/16 09:28 Cefepime HCl 2 gm/ Dextrose 100 mls @ 200 mls/hr IVPB Q8H-IV [facility] Last Admin: 06/25/16 02:10 Dose: 200 mls/hr Voriconazole 300 mg/ Dextrose 280 mls @ 186.667 mls/hr IVPB Q12H [facility] Diltiazem HCl 125 mg/ Dextrose 125 mls @ 5 mls/hr IVPB TITR [facility]; 5 MG/HR PRN Reason: Protocol Loperamide HCl (Imodium -) 2 mg PO Q8H PRN PRN Reason: DIARRHEA Methylprednisolone Sodium Succinate (Solu-Medrol -) 60 mg IVPB Q6H-IV [facility] Last Admin: 06/25/16 02:14 Dose: 60 mg Metoprolol Succinate (Toprol Xl -) 100 mg PO DAILY [facility] Last Admin: 06/24/16 11:24 Dose: 100 mg Montelukast Sodium (Singulair -) 15 mg PO HS [facility] Morphine Sulfate (Morphine Injection -) 2 mg IVPUSH Q3H PRN PRN Reason: PAIN Last Admin: 06/25/16 07:10 Dose: 2 mg Mupirocin (Bactroban Ointment (For Decolonization) -) 1 applic NS BID [facility] Stop: 06/29/16 12:59 Last Admin: 06/24/16 21:20 Dose: 1 applic Mycophenolate Mofetil (Cellcept -) 500 mg PO BID [facility] Last Admin: 06/24/16 21:20 Dose: 500 mg Nystatin (Nystatin Oral Suspension -) 500,000 units PO Q6HPO [facility] Last Admin: 06/25/16 05:49 Dose: Not Given Oxycodone HCl (Roxicodone -) 10 mg PO Q4H PRN Last Admin: 06/24/16 23:04 Dose: 10 mg Pantoprazole Sodium (Protonix -) 40 mg PO DAILY [facility] Last Admin: 06/24/16 09:18 Dose: 40 mg Prasugrel (Effient -) 5 mg PO DAILY [facility] Last Admin: 06/24/16 09:17 Dose: 5 mg Tiotropium [place] (Spiriva -) 1 puff IH DAILY [facility] Last Admin: 06/24/16 09:18 Dose: 1 puff Trimethoprim/Sulfamethoxazole (Bactrim Injection -) 320 mg IVPB Q6H-IV [facility] Warfarin Sodium (Coumadin -) 2 mg PO DAILY@1800 [facility] Last Admin: 06/24/16 17:13 Dose: 2 mg Constitutional: Yes: Awake and alert, moderately tachypneic at rest Eyes: Yes: WNL HENT: Yes: Normocephalic Cardiovascular: Yes: Tachycardia, Pulse Irregular Respiratory: Yes: Cough, On 100% NRBM, (+) Bilateral Rhonchi / Rales, (+) SOB ( -) wheezing Gastrointestinal: Yes: WNL, Normal Bowel Sounds, Soft ...Rectal Exam: Yes: Deferred Musculoskeletal: Yes: Muscle Weakness (BLE weakness) Extremities: Yes: WNL Edema: No Integumentary: Yes: WNL Wound/Incision: Yes: Clean/Dry ...Motor Strength: LLE, RLE (reduced) Psychiatric: Yes: Alert, Oriented Labs: Laboratory Results - last 24 hr 06/24/16 06/25/16 06/25/16 12:40 05:35 05:35 WBC 15.8 H D RBC 3.32 L Hgb 10.4 L Hct 31.0 L MCV 93.3 MCHC 33.7 RDW 23.6 H Plt Count 118 L D MPV 7.5 Neutrophils % 84.0 H Lymphocytes % 5.0 L D Monocytes % 4.0 D Band Neutrophils 5.0 Metamyelocytes 1 D Myelocytes 1 Nucleated RBCs 2 H Smudge Cells Few Platelet Estimate Slt decreased Platelet Comment No clotting detected Polychromasia 2+ Hypochromic-Microcytic 2+ Poikilocytosis 2+ Anisocytosis 2+ Microcytosis 1+ Macrocytosis 2+ INR 1.84 H 2.50 H D Puncture Site ABG pH ABG pCO2 at Pt Temp ABG pO2 at Pt Temp ABG HCO3 ABG O2 Sat (Measured) ABG O2 Content ABG Base Excess Gonzalo Test O2 Delivery Device Oxygen Flow Rate Vent Mode Vent Rate Mechanical Rate PEEP Pressure Support Vent Sodium Potassium Chloride Carbon Dioxide Anion Gap BUN Creatinine Creat Clearance w eGFR Random Glucose Lactic Acid Calcium Phosphorus Magnesium Total Bilirubin AST ALT Alkaline Phosphatase LD Total Total Protein Albumin 06/25/16 06/25/16 06/25/16 05:35 05:35 07:35 WBC RBC Hgb Hct MCV MCHC RDW Plt Count MPV Neutrophils % Lymphocytes % Monocytes % Band Neutrophils Metamyelocytes Myelocytes Nucleated RBCs Smudge Cells Platelet Estimate Platelet Comment Polychromasia Hypochromic-Microcytic Poikilocytosis Anisocytosis Microcytosis Macrocytosis INR Puncture Site Left radial ABG pH 7.43 ABG pCO2 at Pt Temp 45.0 D ABG pO2 at Pt Temp 95.7 D ABG HCO3 29.2 H ABG O2 Sat (Measured) 97.8 ABG O2 Content 13.8 L ABG Base Excess 4.7 H Gonzalo Test Positive O2 Delivery Device Bipap Oxygen Flow Rate 100% Vent Mode S/t Vent Rate 14 Mechanical Rate Bipap PEEP 0.0 Pressure Support Vent Ipap 10/epap 5 Sodium 136 Potassium 3.1 L D Chloride 93 L Carbon Dioxide 29 Anion Gap 14 BUN 25 H Creatinine 0.6 L Creat Clearance w eGFR > 60 Random Glucose 311 H* D Lactic Acid 3.477 H* Calcium 7.7 L Phosphorus 3.4 Magnesium 1.9 Total Bilirubin 1.5 H D AST 39 H D ALT 56 Alkaline Phosphatase 178 H D LD Total 977 H D Total Protein 5.8 L Albumin 2.3 L Problem List - Problems (1) Acute on chronic diastolic CHF (congestive heart failure) Code(s): I50.33 - ACUTE ON CHRONIC DIASTOLIC (CONGESTIVE) HEART FAILURE (2) Atrial fibrillation with RVR Code(s): I48.91 - UNSPECIFIED ATRIAL FIBRILLATION (3) Interstitial lung disease Code(s): J84.9 - INTERSTITIAL PULMONARY DISEASE, UNSPECIFIED (4) Acute on chronic combined systolic and diastolic CHF (congestive heart failure) Code(s): I50.43 - ACUTE ON CHRONIC COMBINED SYSTOLIC AND DIASTOLIC HRT FAIL (5) Acute on chronic respiratory failure with hypoxemia Code(s): J96.21 - ACUTE AND CHRONIC RESPIRATORY FAILURE WITH HYPOXIA Assessment/Plan R/O HCAP Aspergillosis (?) PCP (?) Component of Pulmonary vascular congestion (?) Natural progression of ILD (Etiology unclear) (?) Opportunistic infection AFib Sacral decubitus BiPAP support ABX/Antifungal per ID NIPPV support Aspiration precautions Steroids BD TX PPI Patient has requested a DNR/DNI -> Which I feel is appropriate given his overall condition and 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
[2016-06-25] MEDS: ARFORMOTEROL TARTRATE 15 MCG/2 ML VIAL NEB SCH ×2 (11:00→22:59)
[2016-06-25] MEDS ORDERED: DIGOXIN 0.5 MG/2 ML AMPUL IVPUSH ONE ×2 (11:30→19:18)
[2016-06-25] MEDS: ASPIRIN 81 MG CHEWABLE TABLETS PO SCH (11:40)
[2016-06-25] MEDS: MUPIROCIN 2% TOPICAL OINTMENT FOR DECOLONIZATION NS SCH ×2 (11:41→21:14)
[2016-06-25] MEDS: MYCOPHENOLATE MOFETIL 500 MG TABLET PO SCH ×2 (11:41→21:15)
[2016-06-25] MEDS: DILTIAZEM INJECTION 125 MG in DEXTROSE 5%-WATER - 100 ML IVPB SCH ×2 (11:46→18:50)
[2016-06-25] MEDS: PRASUGREL HCL 5 MG TAB PO SCH (11:47)
[2016-06-25] MEDS: METOPROLOL SUCCINATE 100 MG TAB.SR.24H (FP) PO SCH (11:47)
[2016-06-25] MEDS: PANTOPRAZOLE 40 MG TABLET (FP) PO SCH (11:48)
[2016-06-25] MEDS: TIOTROPIUM BROMIDE 18 MCG/INH (DEVICE W/ 5 CAPSULES) IH SCH (11:48)
--- NOTE | 2016-06-25 12:24 | PN ---
Progress Note (short form) - Note Progress Note: Breathing about the same No fever or chest pain O/E Vital Signs Heart Irregular Lungs b/l rales and rhonchi+ Abd soft Ext no edema Temp 97.4 F L 06/25/16 05:54 Pulse 122 H 06/25/16 11:56 Resp 34 H 06/25/16 09:00 BP 108/77 06/25/16 05:54 Pulse Ox 99 06/25/16 11:56 Intake & Output 06/24/16 06/25/16 06/25/16 23:59 11:59 23:59 Intake Total 1620 600 Output Total 550 800 Balance 1070 -200 Intake: IVPB 700 600 Oral 920 Output: Urine 550 800 Void 550 800 Other: Voiding Method Urinal Urinal Bowel Movement Yes: 1-SMALL SOFT BM # Bowel Movements 1 Vital Signs Period Temp Pulse Resp BP Sys/Holt Pulse Ox Last 24 Hr 97.0 F-97.5 F 109-146 24-34 88-108/63-78 95-100 Laboratory Results - last 24 hr 06/24/16 06/25/16 06/25/16 12:40 05:35 05:35 WBC 15.8 H D RBC 3.32 L Hgb 10.4 L Hct 31.0 L MCV 93.3 MCHC 33.7 RDW 23.6 H Plt Count 118 L D MPV 7.5 Neutrophils % 84.0 H Lymphocytes % 5.0 L D Monocytes % 4.0 D Band Neutrophils 5.0 Metamyelocytes 1 D Myelocytes 1 Nucleated RBCs 2 H Smudge Cells Few Platelet Estimate Slt decreased Platelet Comment No clotting detected Polychromasia 2+ Hypochromic-Microcytic 2+ Poikilocytosis 2+ Anisocytosis 2+ Microcytosis 1+ Macrocytosis 2+ INR 1.84 H 2.50 H D Puncture Site ABG pH ABG pCO2 at Pt Temp ABG pO2 at Pt Temp ABG HCO3 ABG O2 Sat (Measured) ABG O2 Content ABG Base Excess Gonzalo Test O2 Delivery Device Oxygen Flow Rate Vent Mode Vent Rate Mechanical Rate PEEP Pressure Support Vent Sodium Potassium Chloride Carbon Dioxide Anion Gap BUN Creatinine Creat Clearance w eGFR Random Glucose Lactic Acid Calcium Phosphorus Magnesium Total Bilirubin AST ALT Alkaline Phosphatase LD Total Total Protein Albumin 06/25/16 06/25/16 06/25/16 05:35 05:35 07:35 WBC RBC Hgb Hct MCV MCHC RDW Plt Count MPV Neutrophils % Lymphocytes % Monocytes % Band Neutrophils Metamyelocytes Myelocytes Nucleated RBCs Smudge Cells Platelet Estimate Platelet Comment Polychromasia Hypochromic-Microcytic Poikilocytosis Anisocytosis Microcytosis Macrocytosis INR Puncture Site Left radial ABG pH 7.43 ABG pCO2 at Pt Temp 45.0 D ABG pO2 at Pt Temp 95.7 D ABG HCO3 29.2 H ABG O2 Sat (Measured) 97.8 ABG O2 Content 13.8 L ABG Base Excess 4.7 H Gonzalo Test Positive O2 Delivery Device Bipap Oxygen Flow Rate 100% Vent Mode S/t Vent Rate 14 Mechanical Rate Bipap PEEP 0.0 Pressure Support Vent Ipap 10/epap 5 Sodium 136 Potassium 3.1 L D Chloride 93 L Carbon Dioxide 29 Anion Gap 14 BUN 25 H Creatinine 0.6 L Creat Clearance w eGFR > 60 Random Glucose 311 H* D Lactic Acid 3.477 H* Calcium 7.7 L Phosphorus 3.4 Magnesium 1.9 Total Bilirubin 1.5 H D AST 39 H D ALT 56 Alkaline Phosphatase 178 H D LD Total 977 H D Total Protein 5.8 L Albumin 2.3 L Current Medications Acetaminophen (Tylenol -) 650 mg PO Q4H PRN PRN Reason: FEVER OR PAIN Albuterol Sulfate (Ventolin 0.083% Nebulizer Soln -) 1 amp NEB Q4H PRN PRN Reason: SHORT OF BREATH/WHEEZING Arformoterol Tartrate (Brovana (Restricted To Pulmonology/Resp) -) 1 amp NEB BID [facility] Last Admin: 06/25/16 11:00 Dose: 1 amp Aspirin (Asa -) 81 mg PO DAILY [facility] Last Admin: 06/25/16 11:40 Dose: 81 mg Atorvastatin Calcium (Lipitor -) 40 mg PO HS [facility] Last Admin: 06/24/16 21:21 Dose: 40 mg Chlorhexidine Gluconate (Hibiclens For Decolonization -) 1 applic TP [facility] Last Admin: 06/24/16 21:21 Dose: 1 applic Diltiazem HCl (Cardizem -) 60 mg PO Q6HPO [facility] Last Admin: 06/25/16 05:49 Dose: Not Given Cefepime HCl 2 gm/ Dextrose 100 mls @ 200 mls/hr IVPB Q8H-IV [facility] Last Admin: 06/25/16 09:47 Dose: 200 mls/hr Voriconazole 300 mg/ Dextrose 280 mls @ 186.667 mls/hr IVPB Q12H [facility] Diltiazem HCl 125 mg/ Dextrose 125 mls @ 5 mls/hr IVPB TITR [facility]; 5 MG/HR PRN Reason: Protocol Last Admin: 06/25/16 11:46 Dose: 10 mls/hr Loperamide HCl (Imodium -) 2 mg PO Q8H PRN PRN Reason: DIARRHEA Methylprednisolone Sodium Succinate (Solu-Medrol -) 60 mg IVPB Q6H-IV [facility] Last Admin: 06/25/16 09:48 Dose: 60 mg Metoprolol Succinate (Toprol Xl -) 100 mg PO DAILY [facility] Last Admin: 06/25/16 11:47 Dose: Not Given Montelukast Sodium (Singulair -) 15 mg PO HS [facility] Morphine Sulfate (Morphine Injection -) 2 mg IVPUSH Q3H PRN PRN Reason: PAIN Last Admin: 06/25/16 11:38 Dose: 2 mg Mupirocin (Bactroban Ointment (For Decolonization) -) 1 applic NS BID [facility] Stop: 06/29/16 12:59 Last Admin: 06/25/16 11:41 Dose: 1 applic Mycophenolate Mofetil (Cellcept -) 500 mg PO BID [facility] Last Admin: 06/25/16 11:41 Dose: 500 mg Nystatin (Nystatin Oral Suspension -) 500,000 units PO Q6HPO [facility] Last Admin: 06/25/16 11:38 Dose: 500,000 units Oxycodone HCl (Roxicodone -) 10 mg PO Q4H PRN Last Admin: 06/24/16 23:04 Dose: 10 mg Pantoprazole Sodium (Protonix -) 40 mg PO DAILY [facility] Last Admin: 06/25/16 11:48 Dose: 40 mg Prasugrel (Effient -) 5 mg PO DAILY [facility] Last Admin: 06/25/16 11:47 Dose: 5 mg Tiotropium [place] (Spiriva -) 1 puff IH DAILY [facility] Last Admin: 06/25/16 11:48 Dose: 1 puff Trimethoprim/Sulfamethoxazole (Bactrim Injection -) 320 mg IVPB Q6H-IV [facility] Last Admin: 06/25/16 09:54 Dose: 320 mg Warfarin Sodium (Coumadin -) 2 mg PO DAILY@1800 [facility] Last Admin: 06/24/16 17:13 Dose: 2 mg (1) Acute on chronic respiratory failure with hypoxemia Assessment/Plan: -secondary to pneumonia Pulmonary noted -continue albuterol, spiriva, brovana, and singular -continue oxygen support Code(s): J96.21 - ACUTE AND CHRONIC RESPIRATORY FAILURE WITH HYPOXIA (2) Aspergillus pneumonia Assessment/Plan: Cont Variconazole Code(s): B44.9 - ASPERGILLOSIS, UNSPECIFIED (3) Atrial fibrillation with RVR Assessment/Plan: Cont present meds f/u heart rate Code(s): I48.91 - UNSPECIFIED ATRIAL FIBRILLATION (4) Interstitial lung disease Assessment/Plan: -continue immunomodulators -steroids added Code(s): J84.9 - INTERSTITIAL PULMONARY DISEASE, UNSPECIFIED (5) CAD (coronary artery disease) Assessment/Plan: Cont present meds Code(s): I25.10 - ATHSCL HEART DISEASE OF [place] CORONARY ARTERY W/O ANG PCTRS Hypokalemia Replace
[2016-06-25] MEDS: KCL 10 MEQ IVPB 100 ML IVPB SCH ×3 (14:00→17:56)
[2016-06-25] MEDS: WARFARIN NA 2 MG TABLET (UD) PO SCH (18:02)
[2016-06-25] MEDS ORDERED: dilTIAZem HCL 125 MG/25 ML - 5 ML VIAL ONE (18:40)
[2016-06-25] MEDS: ATORVASTATIN CA 40 MG TABLET (FP) PO SCH (21:15)
[2016-06-25] MEDS: CHLORHEXIDINE GLUCONATE 4% CLEANSER FOR DECOLONIZATION TP SCH (21:15)
--- NOTE | 2016-06-25 21:32 | CONS ---
DATE OF CONSULTATION: DATE OF DICTATION: 06/24/2016 INFECTIOUS DISEASE CONSULTATIONS HISTORY OF PRESENT ILLNESS: This is a 71-year-old male with a history of interstitial lung disease on prednisone and CellCept who I am asked to see for evaluation of worsening dyspnea, superimposed on chronic dyspnea, oxygen dependent in the shelter. He had a recent [facility] admission in which he was initially treated empirically for possible pneumonia. He received ceftriaxone and azithromycin. Now he is readmitted and on look back see that he is growing aspergillus fumigatus in a sputum culture from June 04. He is afebrile albeit on steroids and currently wearing a Ventimask. He denies any sputum production or hemoptysis. PAST MEDICAL HISTORY: Atrial fibrillation, coronary artery disease, hypertension, recent depression, recent admission for pneumonia. MEDICATION: Aspirin, atorvastatin, Singulair, Protonix, CellCept 500 mg b.i.d., prednisone 25 mg b.i.d., Coumadin. ALLERGIES: None known. SOCIAL HISTORY: [facility] resident. No alcohol or HIV risk factors. Former smoker. Heavy for many years. Quit some time ago. FAMILY HISTORY: Reviewed and noncontributory. REVIEW OF SYSTEMS: Reviewed and noncontributory. PHYSICAL EXAMINATION: General: He is an alert male wearing a Ventimask, afebrile. Vital signs: Pulse 115, blood pressure 90/70, respirations 22. Neck: Supple. No adenopathy. Lungs: Diffuse rales and rhonchi. Heart: S1, S2. Irregularly irregular rhythm without murmur. Abdomen: Soft. Nontender. Without hepatosplenomegaly. Extremities: Without clubbing, cyanosis, or edema. LABORATORY: The white count is 8.7, hemoglobin 10.1, platelets 162 with a differential showing 6% bands, INR 1.77. AB.48, 37, 57, on 50% oxygen. BUN 22, creatinine 0.5, lactic acid 4.84. Urinalysis negative for leukocyte esterase. Two sets of blood cultures pending. Influenza antigen screening negative. Urine culture pending. A June 04, 2016 sputum with aspergillus fumigatus. Chest x-ray was reviewed and shows bilateral interstitial infiltrates. ASSESSMENT: A 71-year-old male with known interstitial lung disease on CellCept and prednisone. Immunocompromised patient with suspected superimposed pneumonia, possible sepsis, growing aspergillus, must be treated for possibility of hospital-associated pneumonia along with antifungal therapy for presumed systemic invasive fungal disease with aspergillus. PLAN: Blood cultures, sputum culture for fungus and C&S. Galactomannan level. Vancomycin and cefepime. Start voriconazole. Case discussed with Dr. Ramírez. SARA MORROW M.D. [facility]/[id number]
[2016-06-26] MEDS: CEFEPIME 2 GM in DEXTROSE 5%-WATER - 100 ML IVPB SCH ×3 (02:30→17:52)
[2016-06-26] MEDS: morphine CARPU-JECT 2 MG/1 ML DISP.SYRIN IVPUSH PRN ×4 (02:30→19:10)
[2016-06-26] MEDS: methylPREDNISolone NA SUCC 125 MG/2 ML VIAL IVPB SCH ×4 (02:37→21:58)
[2016-06-26] MEDS ORDERED: dilTIAZem HCL 125 MG/25 ML - 5 ML VIAL ONE ×2 (02:40→16:50)
[2016-06-26] MEDS: SULFAMETHOXAZOLE 80 MG/TRIMETHOPRIM 16 MG/ML VIAL IVPB SCH ×4 (02:44→22:00)
[2016-06-26] MEDS: VORICONAZOLE IVPB SCH ×2 (04:36→14:25)
[2016-06-26] MEDS: DEXTROSE 5% IVPB SCH ×2 (04:36→14:25)
[2016-06-26] MEDS: WATER IVPB SCH ×2 (04:36→14:25)
[2016-06-26] MEDS: NYSTATIN 500,000 UNITS/5 ML SUSPENSION PO SCH ×3 (05:23→17:50)
[2016-06-26 05:27] LABS: MCH 30.6 pg (25.7-33.7); MCHC 32.9 g/dl (32.0-35.9); MEAN CELL VOLUME 93.1 fl (80-96); MEAN PLT VOLUME 7.9 fl (7.5-11.1); PLATELET COUNT 64 K/MM3 (134-434); RDW 23.4 % (11.9-15.9); WHITE BLOOD COUNT 16.8 K/mm3 (4.0-10.0)
[2016-06-26 05:41] LABS: PROTHROMBIN TIME (PATIENT) 53.9 SEC (9.98-11.88)
[2016-06-26 05:48] LABS: INR 4.75 (0.82-1.09)
[2016-06-26 05:52] LABS: ANION GAP 9 (8-16); CALCIUM 7.6 mg/dL (8.5-10.1); CO2 33 mmol/L (21-32); GLUCOSE,RANDOM 293 mg/dL (74-106)
[2016-06-26 05:55] LABS: ALK PHOS 182 U/L (45-117); BILIRUBIN,TOTAL 0.7 mg/dL (0.2-1.0); CREATININE 0.8 mg/dL (0.7-1.3); SGOT/AST 42 U/L (15-37); SGPT/ALT 46 U/L (12-78); TOT PROT 5.4 g/dl (6.4-8.2)
--- NOTE | 2016-06-26 07:24 | PN ---
Progress Note, Physician Chief Complaint: ID Preceding notes reviewed Bactrim day 1 Voriconazole day 3 Cefepime day 3 Remains in severe respirator distress High dose steroids - Current Medication List Current Medications: Active Medications Acetaminophen (Tylenol -) 650 mg PO Q4H PRN PRN Reason: FEVER OR PAIN Albuterol Sulfate (Ventolin 0.083% Nebulizer Soln -) 1 amp NEB Q4H PRN PRN Reason: SHORT OF BREATH/WHEEZING Arformoterol Tartrate (Brovana (Restricted To Pulmonology/Resp) -) 1 amp NEB BID [facility] Last Admin: 06/25/16 22:59 Dose: 1 amp Aspirin (Asa -) 81 mg PO DAILY [facility] Last Admin: 06/25/16 11:40 Dose: 81 mg Atorvastatin Calcium (Lipitor -) 40 mg PO HS [facility] Last Admin: 06/25/16 21:15 Dose: Not Given Chlorhexidine Gluconate (Hibiclens For Decolonization -) 1 applic TP HS [facility] Last Admin: 06/25/16 21:15 Dose: 1 applic Cefepime HCl 2 gm/ Dextrose 100 mls @ 200 mls/hr IVPB Q8H-IV [facility] Last Admin: 06/26/16 02:30 Dose: 200 mls/hr Voriconazole 300 mg/ Dextrose 280 mls @ 186.667 mls/hr IVPB Q12H [facility] Last Admin: 06/26/16 04:36 Dose: 186.667 mls/hr Diltiazem HCl 125 mg/ Dextrose 125 mls @ 5 mls/hr IVPB TITR [facility]; 5 MG/HR PRN Reason: Protocol Last Admin: 06/25/16 18:50 Dose: 10 mls/hr Loperamide HCl (Imodium -) 2 mg PO Q8H PRN PRN Reason: DIARRHEA Methylprednisolone Sodium Succinate (Solu-Medrol -) 60 mg IVPB Q6H-IV [facility] Last Admin: 06/26/16 02:37 Dose: 60 mg Metoprolol Succinate (Toprol Xl -) 100 mg PO DAILY [facility] Last Admin: 06/25/16 11:47 Dose: Not Given Montelukast Sodium (Singulair -) 15 mg PO HS [facility] Morphine Sulfate (Morphine Injection -) 2 mg IVPUSH Q3H PRN PRN Reason: PAIN Last Admin: 06/26/16 05:26 Dose: 2 mg Mupirocin (Bactroban Ointment (For Decolonization) -) 1 applic NS BID [facility] Stop: 06/29/16 12:59 Last Admin: 06/25/16 21:14 Dose: 1 applic Mycophenolate Mofetil (Cellcept -) 500 mg PO BID [facility] Last Admin: 06/25/16 21:15 Dose: Not Given Nystatin (Nystatin Oral Suspension -) 500,000 units PO Q6HPO [facility] Last Admin: 06/26/16 05:23 Dose: Not Given Oxycodone HCl (Roxicodone -) 10 mg PO Q4H PRN Last Admin: 06/24/16 23:04 Dose: 10 mg Pantoprazole Sodium (Protonix -) 40 mg PO DAILY [facility] Last Admin: 06/25/16 11:48 Dose: 40 mg Prasugrel (Effient -) 5 mg PO DAILY [facility] Last Admin: 06/25/16 11:47 Dose: 5 mg Tiotropium [place] (Spiriva -) 1 puff IH DAILY [facility] Last Admin: 06/25/16 11:48 Dose: 1 puff Trimethoprim/Sulfamethoxazole (Bactrim Injection -) 320 mg IVPB Q6H-IV [facility] Last Admin: 06/26/16 02:44 Dose: 320 mg - Objective Vital Signs: Vital Signs Temperature 97.8 F 06/26/16 02:00 Pulse Rate 109 H 06/26/16 04:00 Respiratory Rate 24 06/26/16 04:00 Blood Pressure 101/55 06/26/16 04:00 O2 Sat by Pulse Oximetry (%) 99 06/26/16 05:27 Constitutional: Yes: Severe Distress Cardiovascular: Yes: Pulse Irregular, S1, S2 Respiratory: Yes: WNL, Regular, CTA Bilaterally Gastrointestinal: Yes: Soft. No: Tenderness Edema: No Labs: CBC, BMP 06/26/16 05:00 06/26/16 05:00 INR, PTT INR 4.75 (0.82-1.09) H* D 06/26/16 05:00 Problem List - Problems (1) Atrial fibrillation with RVR Code(s): I48.91 - UNSPECIFIED ATRIAL FIBRILLATION (2) Interstitial lung disease Code(s): J84.9 - INTERSTITIAL PULMONARY DISEASE, UNSPECIFIED (3) Sepsis Code(s): A41.9 - SEPSIS, UNSPECIFIED ORGANISM (4) Aspergillus pneumonia Code(s): B44.9 - ASPERGILLOSIS, UNSPECIFIED Assessment/Plan Microbiology 06/24/16 16:00 Urine For Antigen Detection Streptococcus pneumoniae Antigen (M - Final 06/23/16 20:40 Nasopharyngeal Swab Influenza Types A,B Antigen (JESSICA) - Final 06/23/16 20:40 Nasopharyngeal Swab - Final 06/23/16 20:50 Blood - Peripheral Venous Blood Culture - Preliminary NO GROWTH OBTAINED AFTER 48 HOURS, INCUBATION TO CONTINUE FOR 3 DAYS. 06/23/16 20:40 Nasopharyngeal Swab Respiratory Virus Panel - Preliminary 06/23/16 20:40 Blood - Peripheral Venous Blood Culture - Preliminary NO GROWTH OBTAINED AFTER 48 HOURS, INCUBATION TO CONTINUE FOR 3 DAYS. Laboratory Tests 06/25/16 06/26/16 06/26/16 05:35 05:00 05:00 WBC 16.8 H Hgb 9.0 L D Hct 27.5 L Plt Count 64 L D INR BUN 31 H D Lactic Acid 3.477 H* 06/26/16 05:00 WBC Hgb Hct Plt Count INR 4.75 H* D BUN Lactic Acid Assessment Sepsis syndrome ILD Superimposed infection Aspergillus isolated Atrial fibrillation Thrombocytopenia sepsis related ? Coagulaopthy/Coumadin related Plan Palliative care Continue current therapy Prognosis remains poor Antony GURROLA
[2016-06-26] MEDS ORDERED: DIGOXIN 0.5 MG/2 ML AMPUL ONE (08:34)
[2016-06-26] MEDS ORDERED: PT OWN MED DRAWER 7, Y5N ONE ×3 (08:35→17:13)
[2016-06-26] MEDS: ASPIRIN 81 MG CHEWABLE TABLETS PO SCH (09:06)
[2016-06-26] MEDS: PANTOPRAZOLE 40 MG TABLET (FP) PO SCH (09:06)
[2016-06-26] MEDS: PRASUGREL HCL 5 MG TAB PO SCH (09:07)
[2016-06-26] MEDS: MYCOPHENOLATE MOFETIL 500 MG TABLET PO SCH ×2 (09:07→22:01)
--- NOTE | 2016-06-26 09:30 | PN ---
Progress Note (short form) - Note Progress Note: Patient seen and examined in the ICU. [id number] but arousable. Tachypneic on NIPPV. Best friend at the bedside. Patient signed his DNR/DNI Yesterday. No hemoptysis. Denies CP. Remains on Cardizem drip at 5mg/hr for Rapid AFib. CXR: no gross change in increased bilateral diffuse interstitial disease / no significant pleural effusions Intake & Output 06/23/16 06/24/16 06/25/16 06/26/16 23:59 23:59 23:59 23:59 Intake Total 2260 2150 850 Output Total 1350 1250 300 Balance 910 900 550 Weight 175 lb 164 lb 9 oz 166 lb 9 oz Last Vital Signs Temp Pulse Resp BP Pulse Ox 97.9 F 108 H 24 98/63 99 06/26/16 06:00 06/26/16 06:00 06/26/16 06:00 06/26/16 06:00 06/26/16 05:27 Active Medications Acetaminophen (Tylenol -) 650 mg PO Q4H PRN PRN Reason: FEVER OR PAIN Albuterol Sulfate (Ventolin 0.083% Nebulizer Soln -) 1 amp NEB Q4H PRN PRN Reason: SHORT OF BREATH/WHEEZING Arformoterol Tartrate (Brovana (Restricted To Pulmonology/Resp) -) 1 amp NEB BID [facility] Last Admin: 06/25/16 22:59 Dose: 1 amp Aspirin (Asa -) 81 mg PO DAILY [facility] Last Admin: 06/26/16 09:06 Dose: 81 mg Atorvastatin Calcium (Lipitor -) 40 mg PO HS [facility] Last Admin: 06/25/16 21:15 Dose: Not Given Chlorhexidine Gluconate (Hibiclens For Decolonization -) 1 applic TP HS [facility] Last Admin: 06/25/16 21:15 Dose: 1 applic Cefepime HCl 2 gm/ Dextrose 100 mls @ 200 mls/hr IVPB Q8H-IV [facility] Last Admin: 06/26/16 09:06 Dose: 200 mls/hr Voriconazole 300 mg/ Dextrose 280 mls @ 186.667 mls/hr IVPB Q12H [facility] Last Admin: 06/26/16 04:36 Dose: 186.667 mls/hr Diltiazem HCl 125 mg/ Dextrose 125 mls @ 5 mls/hr IVPB TITR ALIA; 5 MG/HR PRN Reason: Protocol Last Admin: 06/25/16 18:50 Dose: 10 mls/hr Loperamide HCl (Imodium -) 2 mg PO Q8H PRN PRN Reason: DIARRHEA Methylprednisolone Sodium Succinate (Solu-Medrol -) 60 mg IVPB Q6H-IV [facility] Last Admin: 06/26/16 08:36 Dose: 60 mg Metoprolol Succinate (Toprol Xl -) 100 mg PO DAILY [facility] Last Admin: 06/25/16 11:47 Dose: Not Given Montelukast Sodium (Singulair -) 15 mg PO HS [facility] Morphine Sulfate (Morphine Injection -) 2 mg IVPUSH Q3H PRN PRN Reason: PAIN Last Admin: 06/26/16 05:26 Dose: 2 mg Mupirocin (Bactroban Ointment (For Decolonization) -) 1 applic NS BID [facility] Stop: 06/29/16 12:59 Last Admin: 06/25/16 21:14 Dose: 1 applic Mycophenolate Mofetil (Cellcept -) 500 mg PO BID [facility] Last Admin: 06/26/16 09:07 Dose: 500 mg Nystatin (Nystatin Oral Suspension -) 500,000 units PO Q6HPO [facility] Last Admin: 06/26/16 05:23 Dose: Not Given Oxycodone HCl (Roxicodone -) 10 mg PO Q4H PRN Last Admin: 06/24/16 23:04 Dose: 10 mg Pantoprazole Sodium (Protonix -) 40 mg PO DAILY [facility] Last Admin: 06/26/16 09:06 Dose: 40 mg Prasugrel (Effient -) 5 mg PO DAILY [facility] Last Admin: 06/26/16 09:07 Dose: 5 mg Tiotropium [place] (Spiriva -) 1 puff IH DAILY [facility] Last Admin: 06/25/16 11:48 Dose: 1 puff Trimethoprim/Sulfamethoxazole (Bactrim Injection -) 320 mg IVPB Q6H-IV [facility] Last Admin: 06/26/16 08:29 Dose: 320 mg Constitutional: Yes: Awake and alert, moderately tachypneic at rest on NIPPV Eyes: Yes: WNL HENT: Yes: Normocephalic Cardiovascular: Yes: Tachycardia, Pulse Irregular Respiratory: Yes: Cough, On 100% NRBM, (+) Bilateral Rhonchi / Rales, (+) SOB ( -) wheezing Gastrointestinal: Yes: WNL, Normal Bowel Sounds, Soft ...Rectal Exam: Yes: Deferred Musculoskeletal: Yes: Muscle Weakness (BLE weakness) Extremities: Yes: WNL Edema: No Integumentary: Yes: WNL Wound/Incision: Yes: Clean/Dry ...Motor Strength: LLE, RLE (reduced) Psychiatric: Yes: Alert, Oriented Labs: Laboratory Results - last 24 hr 06/25/16 06/26/16 06/26/16 05:35 05:00 05:00 WBC 16.8 H RBC 2.96 L Hgb 9.0 L D Hct 27.5 L MCV 93.1 MCHC 32.9 RDW 23.4 H Plt Count 64 L D MPV 7.9 Neutrophils % 84.0 H Lymphocytes % 5.0 L D Monocytes % 4.0 D Band Neutrophils 5.0 Metamyelocytes 1 D Myelocytes 1 Nucleated RBCs 2 H Smudge Cells Few Platelet Estimate Slt decreased Platelet Comment No clotting detected Polychromasia 2+ Hypochromic-Microcytic 2+ Poikilocytosis 2+ Anisocytosis 2+ Microcytosis 1+ Macrocytosis 2+ INR Sodium 133 L Potassium 3.7 Chloride 91 L Carbon Dioxide 33 H Anion Gap 9 BUN 31 H D Creatinine 0.8 D Creat Clearance w eGFR > 60 Random Glucose 293 H Calcium 7.6 L Magnesium 2.0 Total Bilirubin 0.7 D AST 42 H ALT 46 Alkaline Phosphatase 182 H Total Protein 5.4 L Albumin 2.0 L 06/26/16 05:00 WBC RBC Hgb Hct MCV MCHC RDW Plt Count MPV Neutrophils % Lymphocytes % Monocytes % Band Neutrophils Metamyelocytes Myelocytes Nucleated RBCs Smudge Cells Platelet Estimate Platelet Comment Polychromasia Hypochromic-Microcytic Poikilocytosis Anisocytosis Microcytosis Macrocytosis INR 4.75 H* D Sodium Potassium Chloride Carbon Dioxide Anion Gap BUN Creatinine Creat Clearance w eGFR Random Glucose Calcium Magnesium Total Bilirubin AST ALT Alkaline Phosphatase Total Protein Albumin Problem List - Problems (1) Acute on chronic diastolic CHF (congestive heart failure) Code(s): I50.33 - ACUTE ON CHRONIC DIASTOLIC (CONGESTIVE) HEART FAILURE (2) Atrial fibrillation with RVR Code(s): I48.91 - UNSPECIFIED ATRIAL FIBRILLATION (3) Interstitial lung disease Code(s): J84.9 - INTERSTITIAL PULMONARY DISEASE, UNSPECIFIED (4) Acute on chronic combined systolic and diastolic CHF (congestive heart failure) Code(s): I50.43 - ACUTE ON CHRONIC COMBINED SYSTOLIC AND DIASTOLIC HRT FAIL (5) Acute on chronic respiratory failure with hypoxemia Code(s): J96.21 - ACUTE AND CHRONIC RESPIRATORY FAILURE WITH HYPOXIA Assessment/Plan R/O HCAP Aspergillosis (?) PCP (?) Component of Pulmonary vascular congestion -> not a high clinical suspicion Suspected Natural progression of ILD (Etiology unclear) (?) Opportunistic infection AFib Sacral decubitus Coagulopathy due to Coumadin ABX/Antifungal per ID NIPPV support Aspiration precautions Steroids for suspected progression of ILD BD TX PPI Monitor off Lasix for now Taper Cardizem drip Comfort/Supportive care Coumadin has been held -> Follow INR Patient has signed a DNR/DNI -> Which I feel is appropriate given his overall condition and 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
--- NOTE | 2016-06-26 09:39 | PN ---
Progress Note, Physician Chief Complaint: sob History of Present Illness: 71 year old male with past medical history of hypertension, atrial fibrillation , interstitial lung disease, coronary disease status post stents, congestive heart failure presents from [facility] for increasing shortness of breath and difficulty breathing. Patient reports a chronic cough that has slightly worsened but denies phlegm production. Denies fevers or chills. He does take CellCept and 25 mg prednisone daily. He has become increasingly more short of breath. He also reported a mild right-sided chest pain that now resolved. [facility] PCI (angioplasty with thrombectomy of mid-LAD) 08/27/15 PCI ([facility]) of ostial LCx 11/05/2015 PCIs ([facility]) of proximal and mid LAD 06/12/2015 at [facility] Medical History: interstitial lung disease NSTEMI 05/2015 PAD Parkinson's disease paroxysmal A. Fib right renal nephrolithiasis Systolic heart failure (05/2015 pre-PCI ECHO: moderately dilated LV; mildly reduced LVEF; moderately severe MR and TR) - Current Medication List Current Medications: Active Medications Acetaminophen (Tylenol -) 650 mg PO Q4H PRN PRN Reason: FEVER OR PAIN Albuterol Sulfate (Ventolin 0.083% Nebulizer Soln -) 1 amp NEB Q4H PRN PRN Reason: SHORT OF BREATH/WHEEZING Arformoterol Tartrate (Brovana (Restricted To Pulmonology/Resp) -) 1 amp NEB BID [facility] Last Admin: 06/25/16 22:59 Dose: 1 amp Aspirin (Asa -) 81 mg PO DAILY [facility] Last Admin: 06/26/16 09:06 Dose: 81 mg Atorvastatin Calcium (Lipitor -) 40 mg PO HS [facility] Last Admin: 06/25/16 21:15 Dose: Not Given Chlorhexidine Gluconate (Hibiclens For Decolonization -) 1 applic TP HS [facility] Last Admin: 06/25/16 21:15 Dose: 1 applic Cefepime HCl 2 gm/ Dextrose 100 mls @ 200 mls/hr IVPB Q8H-IV [facility] Last Admin: 06/26/16 09:06 Dose: 200 mls/hr Voriconazole 300 mg/ Dextrose 280 mls @ 186.667 mls/hr IVPB Q12H [facility] Last Admin: 06/26/16 04:36 Dose: 186.667 mls/hr Diltiazem HCl 125 mg/ Dextrose 125 mls @ 5 mls/hr IVPB TITR ALIA; 5 MG/HR PRN Reason: Protocol Last Admin: 06/25/16 18:50 Dose: 10 mls/hr Loperamide HCl (Imodium -) 2 mg PO Q8H PRN PRN Reason: DIARRHEA Methylprednisolone Sodium Succinate (Solu-Medrol -) 60 mg IVPB Q6H-IV [facility] Last Admin: 06/26/16 08:36 Dose: 60 mg Metoprolol Succinate (Toprol Xl -) 100 mg PO DAILY [facility] Last Admin: 06/25/16 11:47 Dose: Not Given Montelukast Sodium (Singulair -) 15 mg PO HS [facility] Morphine Sulfate (Morphine Injection -) 2 mg IVPUSH Q3H PRN PRN Reason: PAIN Last Admin: 06/26/16 05:26 Dose: 2 mg Mupirocin (Bactroban Ointment (For Decolonization) -) 1 applic NS BID [facility] Stop: 06/29/16 12:59 Last Admin: 06/25/16 21:14 Dose: 1 applic Mycophenolate Mofetil (Cellcept -) 500 mg PO BID [facility] Last Admin: 06/26/16 09:07 Dose: 500 mg Nystatin (Nystatin Oral Suspension -) 500,000 units PO Q6HPO [facility] Last Admin: 06/26/16 05:23 Dose: Not Given Oxycodone HCl (Roxicodone -) 10 mg PO Q4H PRN Last Admin: 06/24/16 23:04 Dose: 10 mg Pantoprazole Sodium (Protonix -) 40 mg PO DAILY [facility] Last Admin: 06/26/16 09:06 Dose: 40 mg Prasugrel (Effient -) 5 mg PO DAILY [facility] Last Admin: 06/26/16 09:07 Dose: 5 mg Tiotropium [place] (Spiriva -) 1 puff IH DAILY [facility] Last Admin: 06/25/16 11:48 Dose: 1 puff Trimethoprim/Sulfamethoxazole (Bactrim Injection -) 320 mg IVPB Q6H-IV [facility] Last Admin: 06/26/16 08:29 Dose: 320 mg - Objective Vital Signs: Vital Signs Temperature 97.9 F 06/26/16 06:00 Pulse Rate 108 H 06/26/16 06:00 Respiratory Rate 24 06/26/16 06:00 Blood Pressure 98/63 06/26/16 06:00 O2 Sat by Pulse Oximetry (%) 99 06/26/16 05:27 Eyes: Yes: WNL, Conjunctiva Clear, EOM Intact HENT: Yes: WNL, Atraumatic, Normocephalic Neck: Yes: WNL, Supple, Trachea Midline Cardiovascular: Yes: WNL, Regular Rate and Rhythm Respiratory: Yes: Diminished, On BiPap, Rhonchi Gastrointestinal: Yes: WNL, Normal Bowel Sounds Genitourinary: Yes: WNL Musculoskeletal: Yes: WNL Extremities: Yes: WNL Edema: No Integumentary: Yes: WNL Neurological: Yes: Lethargy ...Motor Strength: WNL Psychiatric: Yes: WNL Labs: CBC, BMP 06/26/16 05:00 06/26/16 05:00 INR, PTT INR 4.75 (0.82-1.09) H* D 06/26/16 05:00 Problem List - Problems (1) Acute on chronic combined systolic and diastolic CHF (congestive heart failure) Code(s): I50.43 - ACUTE ON CHRONIC COMBINED SYSTOLIC AND DIASTOLIC HRT FAIL (2) Acute on chronic diastolic CHF (congestive heart failure) Code(s): I50.33 - ACUTE ON CHRONIC DIASTOLIC (CONGESTIVE) HEART FAILURE (3) Acute on chronic respiratory failure with hypoxemia Code(s): J96.21 - ACUTE AND CHRONIC RESPIRATORY FAILURE WITH HYPOXIA (4) Acute right flank pain Code(s): R10.9 - UNSPECIFIED ABDOMINAL PAIN (5) Anemia Code(s): D64.9 - ANEMIA, UNSPECIFIED (6) Atrial fibrillation Code(s): I48.91 - UNSPECIFIED ATRIAL FIBRILLATION Qualifiers: Atrial fibrillation type: chronic Qualified Code(s): I48.2 - Chronic atrial fibrillation (7) Atrial fibrillation with RVR Code(s): I48.91 - UNSPECIFIED ATRIAL FIBRILLATION (8) CAD (coronary artery disease) Code(s): I25.10 - ATHSCL HEART DISEASE OF [place] CORONARY ARTERY W/O ANG PCTRS (9) Critical illness neuropathy Code(s): G62.81 - CRITICAL ILLNESS POLYNEUROPATHY (10) Dyspnea Code(s): R06.00 - DYSPNEA, UNSPECIFIED (11) Hyperglycemia Code(s): R73.9 - HYPERGLYCEMIA, UNSPECIFIED (12) Interstitial lung disease Code(s): J84.9 - INTERSTITIAL PULMONARY DISEASE, UNSPECIFIED (13) NSTEMI (non-ST elevated myocardial infarction) Code(s): I21.4 - NON-ST ELEVATION (NSTEMI) MYOCARDIAL INFARCTION (14) Paroxysmal atrial fibrillation with rapid ventricular response Code(s): I48.0 - PAROXYSMAL ATRIAL FIBRILLATION (15) Pedal edema Code(s): R60.0 - LOCALIZED EDEMA (16) Psoas hematoma, left, secondary to anticoagulant therapy Code(s): S30.1XXA - CONTUSION OF ABDOMINAL WALL, INITIAL ENCOUNTER (17) Psoas hematoma, right, secondary to anticoagulant therapy Code(s): S30.1XXA - CONTUSION OF ABDOMINAL WALL, INITIAL ENCOUNTER (18) Rash of face Code(s): R21 - RASH AND OTHER NONSPECIFIC SKIN ERUPTION (19) Subconjunctival hemorrhage Code(s): H11.30 - CONJUNCTIVAL HEMORRHAGE, UNSPECIFIED EYE Qualifiers: Laterality: right Qualified Code(s): H11.31 - Conjunctival hemorrhage, right eye Assessment/Plan end stage interstitial lung disease ?etiology NSTEMI 05/2015 PAD Parkinson's disease paroxysmal A. Fib right renal nephrolithiasis Systolic heart failure (05/2015 pre-PCI ECHO: moderately dilated LV; mildly reduced LVEF; moderately severe MR and TR) IV lasix 40 BID rate control will start cardizem IV and add dig ac steroids abx cont rx as per pulmonary will f/u palliative care pt is dnr cctime 35 min
[2016-06-26] MEDS ORDERED: DIGOXIN 0.5 MG/2 ML AMPUL IVPUSH ONE (10:00)
[2016-06-26] MEDS: METOPROLOL SUCCINATE 100 MG TAB.SR.24H (FP) PO SCH (10:39)
[2016-06-26] MEDS ORDERED: ARFORMOTEROL TARTRATE 15 MCG/2 ML VIAL NEB ONE (11:10)
[2016-06-26] MEDS: ARFORMOTEROL TARTRATE 15 MCG/2 ML VIAL NEB SCH ×2 (11:19→22:00)
[2016-06-26] MEDS: MUPIROCIN 2% TOPICAL OINTMENT FOR DECOLONIZATION NS SCH ×2 (11:31→22:00)
[2016-06-26] MEDS: TIOTROPIUM BROMIDE 18 MCG/INH (DEVICE W/ 5 CAPSULES) IH SCH (11:33)
--- NOTE | 2016-06-26 12:18 | PN ---
Progress Note (short form) - Note Progress Note: No complaints No fever and is comfortable Breathing is laboured O/E Heart irregular Lungs b/l rales and rhonchi+ Abd soft Ext no edema Vital Signs Period Temp Pulse Resp BP Sys/Holt Pulse Ox Last 24 Hr 97.8 F-98 F 96-134 19-26 92-115/55-105 90-100 Current Medications Acetaminophen (Tylenol -) 650 mg PO Q4H PRN PRN Reason: FEVER OR PAIN Albuterol Sulfate (Ventolin 0.083% Nebulizer Soln -) 1 amp NEB Q4H PRN PRN Reason: SHORT OF BREATH/WHEEZING Arformoterol Tartrate (Brovana (Restricted To Pulmonology/Resp) -) 1 amp NEB BID [facility] Last Admin: 06/26/16 11:19 Dose: 1 amp Aspirin (Asa -) 81 mg PO DAILY [facility] Last Admin: 06/26/16 09:06 Dose: 81 mg Atorvastatin Calcium (Lipitor -) 40 mg PO HS [facility] Last Admin: 06/25/16 21:15 Dose: Not Given Chlorhexidine Gluconate (Hibiclens For Decolonization -) 1 applic TP HS [facility] Last Admin: 06/25/16 21:15 Dose: 1 applic Cefepime HCl 2 gm/ Dextrose 100 mls @ 200 mls/hr IVPB Q8H-IV [facility] Last Admin: 06/26/16 09:06 Dose: 200 mls/hr Voriconazole 300 mg/ Dextrose 280 mls @ 186.667 mls/hr IVPB Q12H [facility] Last Admin: 06/26/16 04:36 Dose: 186.667 mls/hr Diltiazem HCl 125 mg/ Dextrose 125 mls @ 5 mls/hr IVPB TITR ALIA; 5 MG/HR PRN Reason: Protocol Last Admin: 06/25/16 18:50 Dose: 10 mls/hr Loperamide HCl (Imodium -) 2 mg PO Q8H PRN PRN Reason: DIARRHEA Methylprednisolone Sodium Succinate (Solu-Medrol -) 60 mg IVPB Q6H-IV [facility] Last Admin: 06/26/16 08:36 Dose: 60 mg Metoprolol Succinate (Toprol Xl -) 100 mg PO DAILY [facility] Last Admin: 06/26/16 10:39 Dose: Not Given Montelukast Sodium (Singulair -) 15 mg PO HS [facility] Morphine Sulfate (Morphine Injection -) 2 mg IVPUSH Q3H PRN PRN Reason: PAIN Last Admin: 06/26/16 05:26 Dose: 2 mg Mupirocin (Bactroban Ointment (For Decolonization) -) 1 applic NS BID [facility] Stop: 06/29/16 12:59 Last Admin: 06/26/16 11:31 Dose: 1 applic Mycophenolate Mofetil (Cellcept -) 500 mg PO BID [facility] Last Admin: 06/26/16 09:07 Dose: 500 mg Nystatin (Nystatin Oral Suspension -) 500,000 units PO Q6HPO [facility] Last Admin: 06/26/16 05:23 Dose: Not Given Oxycodone HCl (Roxicodone -) 10 mg PO Q4H PRN Last Admin: 06/24/16 23:04 Dose: 10 mg Pantoprazole Sodium (Protonix -) 40 mg PO DAILY [facility] Last Admin: 06/26/16 09:06 Dose: 40 mg Prasugrel (Effient -) 5 mg PO DAILY [facility] Last Admin: 06/26/16 09:07 Dose: 5 mg Tiotropium [place] (Spiriva -) 1 puff IH DAILY [facility] Last Admin: 06/26/16 11:33 Dose: 1 puff Trimethoprim/Sulfamethoxazole (Bactrim Injection -) 320 mg IVPB Q6H-IV [facility] Last Admin: 06/26/16 08:29 Dose: 320 mg Laboratory Results - last 24 hr 06/26/16 06/26/16 06/26/16 05:00 05:00 05:00 WBC 16.8 H RBC 2.96 L Hgb 9.0 L D Hct 27.5 L MCV 93.1 MCHC 32.9 RDW 23.4 H Plt Count 64 L D MPV 7.9 INR 4.75 H* D Sodium 133 L Potassium 3.7 Chloride 91 L Carbon Dioxide 33 H Anion Gap 9 BUN 31 H D Creatinine 0.8 D Creat Clearance w eGFR > 60 Random Glucose 293 H Calcium 7.6 L Magnesium 2.0 Total Bilirubin 0.7 D AST 42 H ALT 46 Alkaline Phosphatase 182 H Total Protein 5.4 L Albumin 2.0 L (1) Acute on chronic respiratory failure with hypoxemia Assessment/Plan: -secondary to pneumonia Pulmonary noted -continue albuterol, spiriva, brovana, and singular -continue oxygen support Code(s): J96.21 - ACUTE AND CHRONIC RESPIRATORY FAILURE WITH HYPOXIA (2) Aspergillus pneumonia Assessment/Plan: Cont Variconazole Code(s): B44.9 - ASPERGILLOSIS, UNSPECIFIED (3) Atrial fibrillation with RVR Assessment/Plan: Cont present meds f/u heart rate, Hold coumadin invew of INR Code(s): I48.91 - UNSPECIFIED ATRIAL FIBRILLATION (4) Interstitial lung disease Assessment/Plan: -continue immunomodulators -steroids added Code(s): J84.9 - INTERSTITIAL PULMONARY DISEASE, UNSPECIFIED (5) CAD (coronary artery disease) Assessment/Plan: Cont present meds Code(s): I25.10 - ATHSCL HEART DISEASE OF [place] CORONARY ARTERY W/O ANG PCTRS
[2016-06-26] MEDS: DILTIAZEM INJECTION 125 MG in DEXTROSE 5%-WATER - 100 ML IVPB SCH (16:55)
[2016-06-26] MEDS ORDERED: FUROSEMIDE 40 MG/4 ML INJECTABLE VIAL IVPUSH SCH (17:15)
[2016-06-26] MEDS ORDERED: ALBUTEROL SO4 2.5/IPRATROPIUM 0.5 INH SOL 3 ML VIAL.NEB. NEB STA (20:17)
[2016-06-26] MEDS ORDERED: MORPHINE 100 MG in SODIUM CHLORIDE 98 ML IVPB SCH (20:30)
[2016-06-26] MEDS ORDERED: LORAZEPAM CARPU-JECT 2 MG/ML DISP.SYRIN IVPUSH PRN (21:00)
[2016-06-26] MEDS: CHLORHEXIDINE GLUCONATE 4% CLEANSER FOR DECOLONIZATION TP SCH (22:01)
[2016-06-26] MEDS: ATORVASTATIN CA 40 MG TABLET (FP) PO SCH (22:01)
--- NOTE | 2016-06-26 22:12 | EKG ---
Test Reason : Blood Pressure : / mmHG Vent. Rate : 131 BPM Atrial Rate : 136 BPM P-R Int : 000 ms QRS Dur : 086 ms QT Int : 298 ms P-R-T Axes : 000 -15 134 degrees QTc Int : 440 ms POOR DATA QUALITY, INTERPRETATION MAY BE ADVERSELY AFFECTED ATRIAL FIBRILLATION WITH RAPID VENTRICULAR RESPONSE MINIMAL VOLTAGE CRITERIA FOR LVH, MAY BE NORMAL VARIANT ABNORMAL ECG WHEN COMPARED WITH ECG OF 19-MAY-2016 15:50, NO SIGNIFICANT CHANGE WAS FOUND Confirmed by LALO MENDOZA MD ([id number]) on 06/26/2016 10:11:24 PM Referred By: Confirmed By:LALO MENDOZA MD
[2016-06-27] MEDS: NYSTATIN 500,000 UNITS/5 ML SUSPENSION PO SCH (01:35)
[2016-06-27] MEDS: CEFEPIME 2 GM in DEXTROSE 5%-WATER - 100 ML IVPB SCH (01:36)
[2016-06-27] MEDS: SULFAMETHOXAZOLE 80 MG/TRIMETHOPRIM 16 MG/ML VIAL IVPB SCH (02:48)
[2016-06-27] MEDS: DEXTROSE 5% IVPB SCH (02:49)
[2016-06-27] MEDS: VORICONAZOLE IVPB SCH (02:49)
[2016-06-27] MEDS: WATER IVPB SCH (02:49)
[2016-06-27] MEDS: methylPREDNISolone NA SUCC 125 MG/2 ML VIAL IVPB SCH (02:55)
[2016-06-27 03:26] VITALS: BP 64/42; PULSE 62; TEMP 98
[2016-06-28 00:07] LABS: ASPERGIL AG 4.85 Index (0.00-0.49)
== END 2016-06-27 06:28 | disposition expired | DRG 871 ==
LOC: SUPCPDRO 19:43 → JER 19:43 → JERBED 22:21 → UNDOADMIN 22:44 → JICU 06-24 00:32
PROVIDERS: ADMIT Internal Medicine; ATTEND Internal Medicine
PROC: 5A09457 Assistance with Respiratory Ventilation, 24-96 Consecutive Hours, Continuous Positive Airway Pressure (ICD-10-PCS; principal; 2016-06-23)
DX: A41.9 Sepsis, unspecified organism (principal); J96.21 Acute and chronic respiratory failure with hypoxia; I50.33 Acute on chronic diastolic (congestive) heart failure; J84.9 Interstitial pulmonary disease, unspecified; B44.9 Aspergillosis, unspecified; D68.8 Other specified coagulation defects; I25.10 Atherosclerotic heart disease of native coronary artery without angina pectoris; I25.2 Old myocardial infarction; E78.00 Pure hypercholesterolemia, unspecified; J44.9 Chronic obstructive pulmonary disease, unspecified; G20 Parkinson's disease; D69.6 Thrombocytopenia, unspecified; I48.0 Paroxysmal atrial fibrillation; L89.152 Pressure ulcer of sacral region, stage 2; I73.89 Other specified peripheral vascular diseases; F41.8 Other specified anxiety disorders; I11.0 Hypertensive heart disease with heart failure; Z87.891 Personal history of nicotine dependence; Z95.5 Presence of coronary angioplasty implant and graft; Z66 Do not resuscitate
CPT/HCPCS: 36415; 36600; 71010-TC; 80048; 80053; 81003; 82375; 82550; 82803; 83050; 83605; 83615; 83735; 83880; 84100; 84484; 85025; 85027; 85610; 85730; 87040; 87086; 87254; 87305; 87804; 87899; 93005; 93010; 94640; 94660; 99284-25; J7517